=== PATIENT | male | born 1965 | race Caucasian/White ===

== ENCOUNTER 2016-07-14 19:32 | Inpatient (IN) | payer OTHER ==
[~2016-07-14] VITALS: Ht 167.6 cm; Wt 97.5 kg
[~2016-07-14 19:32] MED LIST: ATIVAN0.5 MG PO; AVALIDE 12.5 MG1 TAB PO; DIOVAN 40 MG40 MG PO; DIOVAN80 MG PO; ECOTRIN81 MG PO; FOLIC ACID 1 MG PO; GOOD NEIGHBOR100 M5 PO; K-DUR20 MEQ PO; LIBRIUM25 MG PO; LIPITOR80 MG PO; METOPROLOL SUCC50 M1 PO; NAPROXEN250 MG PO; NEURONTIN300 MG PO; PLAVIX 75MG TAB75 MG PO; POTASSIUM CHLO10 ME2 PO; PROTONIX 40MG T40 MG PO; TOPROL XL 25MG25 MG PO; TRAMADOL50 MG PO; TRAZODONE100 MG PO; VENTOLIN H0.09 MG/Ac INH; [UNRECOGNIZED DRUG - OTHER]
--- NOTE | 2016-07-14 19:47 | NUR ---
PT TO ROOM VIA STRETCHER. PT APPEARS DIAPHORETIC WITH UNCONTROLLED TREMORS. PLACED ON HEART MONITOR.
--- NOTE | 2016-07-14 19:50 | NUR ---
PT HEART [address] AT [address] JOLLY AT BEDSIDE FOR EVAL. RN JESUS BLISS ESTABLISHED 18G IN L AC PT MEDICTAED WITH 4MG ZOFRAN AND 2MG ATIVAN IV. NS BOLUS INFUSING.
--- NOTE | 2016-07-14 19:55 | ED CARDIAC/CP/PALPITATIONS ---
History of Present Illness General Chief Complaint: Chest Pain Stated Complaint: CHEST PAIN, VOMITING ALL DAY PER PT Source: patient Exam Limitations: clinical condition Vital Signs & Intake/Output Vital Signs & Intake/Output Vital Signs Date Time Temp Pulse Resp B/P Pulse O2 O2 Flow FiO2 Ox Delivery Rate 07/15 2031 99.0 110 22 187/86 07/14 2029 99.0 110 22 187/86 95 Nasal 2.0L Cannula 07/15 2023 95 Nasal 2.0L Cannula 07/15 1939 98.2 124 22 216/116 Allergies Coded Allergies: Penicillins (RASH 07/09/15) blueberry (hives, rash 07/14/16) Reconcile Medications Aspirin (Ecotrin*) 81 MG TABLET.DR 1 TAB PO DAILY HEART/BLOOD (Reported) LAST GIVEN 07/18/16 @1130 Atorvastatin Calcium (Lipitor) 80 MG TABLET 1 TAB PO DAILY CHOLESTEROL ( Reported) LAST GIVEN 07/17/16 @1630 Clonidine HCl 0.1 MG TABLET 1 TAB PO Q6H PRN ANXIETY (Reported) NOT GIVEN WHILE IN HOSPITAL Fluoxetine HCl (Prozac) 20 MG CAPSULE 1 CAP PO DAILY MENTAL HEALTH (Reported) PT RECEIVED 40MG QD Fluoxetine HCl 40 MG CAPSULE 1 CAP PO DAILY MENTAL HEALTH (Reported) LAST GIVEN 07/18/16 @1130 Folic Acid 1 MG TABLET 1 TAB PO DAILY SUPPLEMENT (Reported) LAST GIVEN 07/18/16 @1130 Gabapentin 400 MG CAPSULE 4 CAP PO QPM MENTAL HEALTH (Reported) LAST GIVEN 07/17/16 @2120 Hydroxyzine Pamoate 25 MG CAPSULE 1-2 TAB PO AD ANXIETY/INSOMNIA (Reported) NOT TAKEN Hydroxyzine Pamoate 50 MG CAPSULE 1 CAP PO TID PRN ANXIETY (Reported) NOT TAKEN Lorazepam 2 MG/ML VIAL 1 MG IV Q2P PRN CIWA 8-11 OR PULSE 100-110 Lorazepam 2 MG TABLET 1 TAB PO Q4 Alcohol withdrawl Please taper per patient response Lurasidone HCl (Latuda) 40 MG TABLET 1 TAB PO QPM MENTAL HEALTH (Reported) LAST GIVEN 07/18/16 @1130 Meclizine HCl 12.5 MG TABLET 1-2 TAB PO Q8H PRN DIZZINESS (Reported) NOT TAKEN Metoprolol Succ XL (Toprol XL) 25 MG TAB 1 TAB PO BID HEART/BP (Reported) LAST GIVEN 07/18/16 @1130 Multivitamin (One Daily Multivitamin) 1 EACH TABLET 1 TAB PO DAILY Supplement Naproxen 250 MG TABLET 1 TAB PO PRN PAIN/INFLAMMATION (Reported) NOT TAKEN Pantoprazole Sodium (Protonix) 40 MG TABLET.DR 1 TAB PO DAILY Reflux Quetiapine Fumarate (Seroquel) 100 MG TABLET 1.5 TAB PO QPM MENTAL HEALTH ( Reported) LAST GIVEN 07/17/16 @2120 Testosterone Cypionate 200 MG/ML VIAL 0.5 ML IM QFRI HRT (Reported) NOT GIVEN Triage Note: PRESENTS TO TRIAGE W/ CHEST PAIN STATES HAS BEEN VOMITING ALL DAY UNABLE TO TAKE MEDS VOMITING BLOOD AND DIAPHORETIC Triage Nurses Notes Reviewed? yes Onset: Abrupt Duration: day(s): (4) Timing: multiple episodes today Quality/Severity: severe Location: abdomen Radiation: no radiation Activities at Onset: activity Associated Symptoms: abdominal pain, nausea/vomiting, CHEST PAIN HPI: 50 year old alcoholic presents with nauea, vomiting, chest pain and sweating for the past 4 days. He has not been able to hold down any meds since yesterday night. Admits to vomiting blood and having blood per rectum. Past History Travel History Traveled to [place] past 21 day No Medical History Any Pertinent Medical History? 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 No Review of Systems Review of Systems Constitutional: Denies: chills, fever. EENTM: Reports: no symptoms. Respiratory: Denies: cough. Cardiovascular: Reports: chest pain. Denies: palpitations, peripheral edema. GI: Reports: abdominal pain, nausea, vomiting. Genitourinary: Reports: no symptoms. Musculoskeletal: Reports: no symptoms. Skin: Reports: no symptoms. Neurological/Psychological: Reports: anxiety. Denies: confusion, depressed. Hematologic/Endocrine: Denies: bruising, bleeding, polyuria, polydipsia. Immunologic/Allergic: Denies: splenectomy. All Other Systems: Reviewed and Negative Physical Exam Physical Exam General Appearance: well developed/nourished, alert, awake, anxious, moderate distress, obese, DIAPHORETIC Head: atraumatic, normal appearance Eyes: Bilateral: normal appearance, PERRL, EOMI. Ears, Nose, Throat: normal pharynx, normal ENT inspection Neck: normal inspection, supple, full range of motion Respiratory: normal breath sounds, chest non-tender, no respiratory distress Cardiovascular: regular rate/rhythm Peripheral Pulses: 2+ radial (R), 2+ radial (L) Gastrointestinal: soft, tenderness (EPIGASTRIC), VOLUNTARY GUARDING Extremities: normal inspection, normal capillary refill, normal range of motion, no edema Neurologic/Psych: no motor/sensory deficits, awake, alert, oriented x 3 Skin: intact, normal color, warm/dry Core Measures ACS in differential dx? No Severe Sepsis Present: No Septic Shock Present: No Progress Differential Diagnosis: AMI, musculoskeletal pain, myocarditis, pancreatitis, pericarditis, pneumonia, pulmonary embolism, PUD/GERD, unstable angina, ALCOHOLIC GASTRITIS, HEPATITIS, ALCOHOL WITHDRAWAL Plan of Care: Orders Procedure Date/time Status OXYGEN 07/17 UNK Complete OXYGEN DAILY CHARGE 07/17 UNK Complete Diagnostic Imaging: Viewed by Me: Radiology Read, CT Scan. Discussed w/RAD: Radiology Read, CT Scan. CXR Impression: PATIENT: JOHANN MONTGOMERY PRESENT AGE: 50 PATIENT ACCOUNT NO: [id number] : 67 LOCATION: [facility] ORDERING PHYSICIAN: RACHEL JOLLY MD SERVICE DATE: 07/14/16 EXAM TYPE: RAD - XRY-PORTABLE CHEST XRAY EXAMINATION: XR PORTABLE CHEST CLINICAL INFORMATION: Chest pain. Nausea. Diaphoresis. COMPARISON: Chest x-ray 07/26/2015 TECHNIQUE: Portable AP portable view of the chest was obtained. 8:03 PM FINDINGS: No significant abnormality is noted involving the heart, lungs, mediastinum, bony thorax or soft tissues. IMPRESSION: No acute abnormality of the chest. DICTATED BY: SOCO GUARDADO MD DATE/TIME DICTATED:07/14/162017 STATION GATEMAN:ROGE DATE/ TIME TRANSCRIBED:07/14/162017 CONFIDENTIAL, DO NOT COPY WITHOUT APPROPRIATE AUTHORIZATION. <Electronically signed in Other Vendor System> SIGNED BY: SOCO GUARDADO MD 07/14/162021 Initial ED EKG: SINUS TACHYCARDIA Rhythm Strip: sinus tachycardia Comments: PATIENT: JOHANN MONTGOMERY PRESENT AGE: 50 PATIENT ACCOUNT NO: [id number] : 69 LOCATION: [facility] ORDERING PHYSICIAN: RACHEL JOLLY MD SERVICE DATE: 07/14/16 EXAM TYPE: CAT - CT ABD & PELVIS W/O IV CONTRAS EXAMINATION: CT ABDOMEN AND PELVIS WITHOUT CONTRAST CLINICAL INFORMATION: Severe abdominal pain COMPARISON: None TECHNIQUE: Multidetector volumetric imaging was performed from the superior aspect of the liver through the pubic symphysis. Sagittal and coronal reformatted images were obtained on the technologist's workstation. No oral or intravenous contrast DLP: 713.56 mGy-cm FINDINGS: LUNG BASES: The visualized lung bases are unremarkable. LIVER, GALLBLADDER, AND BILIARY TREE: Diffuse low attenuation of liver parenchyma due to fatty change. No focal liver lesion. No hepatic bile duct dilatation. The gallbladder is unremarkable with no evidence of radiopaque gallstones, gallbladder wall thickening, or obvious pericholecystic inflammatory changes. PANCREAS: Unremarkable. SPLEEN: Unremarkable. ADRENAL GLANDS: Unremarkable. KIDNEYS AND URETERS: The kidneys are normal in size, shape, and attenuation. No hydronephrosis, hydroureter, or calculi seen. No perinephric stranding. BLADDER: Unremarkable. GASTROINTESTINAL TRACT: The small and large bowel are unremarkable. The appendix is unremarkable. Small hiatal hernia. ABDOMINAL WALL: Fat-containing umbilical hernia LYMPH NODES: Normal. VASCULAR: Unremarkable. PELVIC VISCERA: Prostate measures 5.4 cm transverse with calcifications. OSSEOUS STRUCTURES: Multilevel degenerative change of the spine with endplate spurs and disc height narrowing. IMPRESSION: No acute abnormality CT scan abdomen pelvis. Normal pancreas. No evidence of pancreatitis. There is diffuse fatty change of the liver. DICTATED BY: SOCO GUARDADO MD DATE/TIME DICTATED:07/14/162041 STATION GATEMAN:ROGE DATE/TIME TRANSCRIBED:07/14/162041 CONFIDENTIAL, DO NOT COPY WITHOUT APPROPRIATE AUTHORIZATION. <Electronically signed in Other Vendor System> SIGNED BY: SOCO GUARDADO MD 07/14/162050 Departure Departure Time of Disposition: 2103 Disposition: STILL A PATIENT Condition: Stable Clinical Impression Primary Impression: Alcohol withdrawal Secondary Impressions: Lactic acidosis Referrals: SHAHNAZ HERNANDEZ MD (PCP/Family) Departure Forms: Customer Survey General Discharge Information Prescriptions: Current Visit Scripts Lorazepam 1 MG IV Q2P PRN CIWA 8-11 OR PULSE 100-110 #1 Vial Lorazepam 1 TAB PO Q4 #1 TAB Please taper per patient response Multivitamin (One Daily Multivitamin) 1 TAB PO DAILY #1 TAB Pantoprazole Sodium (Protonix) 1 TAB PO DAILY #30 TAB Admission Note Spoke With: KINGS MESA MD Documentation of Exam: Documentation of any treatments & extenuating circumstances including Concerns Regarding Discharge (functional status, medication knowledge or non-compliance, living conditions, etc.) that warrant an admission rather than observation: [ CIWA PROTOCOL, SEIZURE PRECAUTIONS, ATIVAN TAPER, MONITOR I/O, MONITOR ELECTROLYTES, PSYCHIATRIC CONSULTATION WHEN SOBER] Critical Care Note Critical Care Note Critical Care Time: 75-104 min
--- NOTE | 2016-07-14 20:04 | NUR ---
XRAY AT BEDSIDE.
--- NOTE | 2016-07-14 20:10 | NUR ---
PT TO CT AND ACCOMPANIED BY DENNYS JOSEPH
[2016-07-14 20:14] LABS: ABSOLUTE BASOPHIL COUNT 0 /CUMM (0.0-0.2); ABSOLUTE EOSINOPHIL COUNT 0 /CUMM (0.0-0.7); ABSOLUTE GRANULOCYTE CT 8.2 /CUMM (1.4-6.5); ABSOLUTE LYMPH COUNT 0.6 /CUMM (1.2-3.4); ABSOLUTE MONOCYTE COUNT 0.4 /CUMM (0.10-0.60); BASOPHIL % 0.3 % (0.0-2.0); EOSINOPHIL % 0 % (0-5); HEMATOCRIT 48.2 % (42-52); MEAN CORPUSCULAR HGB 29.4 PG (27.0-31.0); MEAN CORPUSCULAR HGB CONC 33.1 G/DL (33.0-37.0); MEAN CORPUSCULAR VOLUME 88.7 FL (80.0-94.0); MEAN PLATELET VOLUME 8.7 FL (7.4-10.4); PLATELET COUNT 156 /CUMM (130-400); RBC DISTRIBUTION WIDTH 14.9 % (11.5-14.5); RED BLOOD CELL CT 5.43 /CUMM (4.70-6.10); WHITE BLOOD CELL COUNT 9.3 /CUMM (4.8-10.8)
--- NOTE | 2016-07-14 20:21 | NUR ---
PT RETURNED FROM CAT SCAN AT THIS TIME. SOME TREMORS NOTED. PT REMAINS DIAPHORETIC. HEART RATE 111.
--- NOTE | 2016-07-14 20:22 | RADIOLOGY REPORT ---
EXAMINATION: XR PORTABLE CHEST CLINICAL INFORMATION: Chest pain. Nausea. Diaphoresis. COMPARISON: Chest x-ray 07/26/2015 TECHNIQUE: Portable AP portable view of the chest was obtained. 8:03 PM FINDINGS: No significant abnormality is noted involving the heart, lungs, mediastinum, bony thorax or soft tissues. IMPRESSION: No acute abnormality of the chest.
[2016-07-14 20:28] LABS: GRANULOCYTE % 88.7 % (42.2-75.2)
[2016-07-14] MEDS ORDERED: ASPIRIN EC81 M1 PO (20:30)
[2016-07-14] MEDS ORDERED: TESTOSTERO200 MG/1 M IM (20:31)
[2016-07-14 20:32] VITALS: BP 187/86
[2016-07-14] MEDS ORDERED: GABAPENTIN400 M2 PO (20:33)
[2016-07-14 20:35] LABS: PT 11.2 SEC (9.4-12.5); PTT 25 SEC (25-37)
[2016-07-14] MEDS ORDERED: LIPITOR80 M1 PO (20:36)
[2016-07-14] MEDS ORDERED: NAPROXEN250 M1 PO (20:37)
--- NOTE | 2016-07-14 20:38 | NUR ---
DR JOLLY AT BEDSIDE. PT CONTINUES TO HAVE TREMORS, COMPLAINS OF NAUSEA. HEART 110 AT THIS TIME. CIWA 15.
--- NOTE | 2016-07-14 20:41 | NUR ---
PT MEDICATED WITH ATIVAN 2MG IV AND REGLAN 10MG OVER 2 MINUTES.
[2016-07-14] MEDS ORDERED: SEROQUEL200 M1 PO (20:44)
[2016-07-14] MEDS ORDERED: MINIPRESS5 MG PO (20:45)
[2016-07-14] MEDS ORDERED: PRAZOSIN HCL1 M1 PO (20:46)
[2016-07-14] MEDS ORDERED: TOPROL XL25 M1 PO (20:47)
[2016-07-14] MEDS ORDERED: NALTREXONE HCL50 M1 PO (20:48)
[2016-07-14] MEDS ORDERED: LATUDA40 M1 PO (20:49)
[2016-07-14] MEDS ORDERED: CLONIDINE HCL0.1 MG PO (20:50)
--- NOTE | 2016-07-14 20:51 | NUR ---
CRITICAL TEST RESULTS [id number] JOHANN MONTGOMERY TESTS AND RESULTS: LACTIC 7.8 Results received and read back by: DENNYS CLEMENT Results received date and time: 07/14/162051 The following provider was notified of the results, and read the results back: DR JOLLY Notified date and time: 07/14/16 at 2051
--- NOTE | 2016-07-14 20:51 | CT SCAN REPORT ---
EXAMINATION: CT ABDOMEN AND PELVIS WITHOUT CONTRAST CLINICAL INFORMATION: Severe abdominal pain COMPARISON: None TECHNIQUE: Multidetector volumetric imaging was performed from the superior aspect of the liver through the pubic symphysis. Sagittal and coronal reformatted images were obtained on the technologist's workstation. No oral or intravenous contrast DLP: 713.56 mGy-cm FINDINGS: LUNG BASES: The visualized lung bases are unremarkable. LIVER, GALLBLADDER, AND BILIARY TREE: Diffuse low attenuation of liver parenchyma due to fatty change. No focal liver lesion. No hepatic bile duct dilatation. The gallbladder is unremarkable with no evidence of radiopaque gallstones, gallbladder wall thickening, or obvious pericholecystic inflammatory changes. PANCREAS: Unremarkable. SPLEEN: Unremarkable. ADRENAL GLANDS: Unremarkable. KIDNEYS AND URETERS: The kidneys are normal in size, shape, and attenuation. No hydronephrosis, hydroureter, or calculi seen. No perinephric stranding. BLADDER: Unremarkable. GASTROINTESTINAL TRACT: The small and large bowel are unremarkable. The appendix is unremarkable. Small hiatal hernia. ABDOMINAL WALL: Fat-containing umbilical hernia LYMPH NODES: Normal. VASCULAR: Unremarkable. PELVIC VISCERA: Prostate measures 5.4 cm transverse with calcifications. OSSEOUS STRUCTURES: Multilevel degenerative change of the spine with endplate spurs and disc height narrowing. IMPRESSION: No acute abnormality CT scan abdomen pelvis. Normal pancreas. No evidence of pancreatitis. There is diffuse fatty change of the liver.
[2016-07-14] MEDS ORDERED: PROZAC20 M2 PO (20:53)
[2016-07-14] MEDS ORDERED: FLUOXETINE HCL40 M1 PO (20:55)
[2016-07-14] MEDS ORDERED: FOLIC ACID1 M1 PO (20:55)
[2016-07-14] MEDS ORDERED: MECLIZINE HCL12.5 M1 PO (20:56)
[2016-07-14] MEDS ORDERED: HYDROXYZINE PAM25 M2 PO (20:58)
[2016-07-14] MEDS ORDERED: HYDROXYZINE PAM50 M1 PO (20:59)
[2016-07-14] MEDS ORDERED: VIAGRA50 MG PO (21:00)
--- NOTE | 2016-07-14 21:03 | NUR ---
PT MEDICATED WITH 40MG PROTONIX AND 1000MG OFIRMEV.
--- NOTE | 2016-07-14 21:04 | NUR ---
DR JOLLY AT BEDSIDE.
--- NOTE | 2016-07-14 21:14 | NUR ---
PT MEDICATED WITH GI COCKTAIL, PT TOLERATED WELL. PT MEDICATED WITH 2MG ATIVAN PO. NS LITER #2 INITIATED.
[2016-07-14 21:15] VITALS: BP 174/81
--- NOTE | 2016-07-14 21:39 | NUR ---
PT MEDICATED WITH 25MG LOPRESSOR PO. PT RESTING QUIETLY ON STRETCHER. TREMORS TO A MINIMAL PT DENIES N/V AT THIS TIME.
--- NOTE | 2016-07-14 22:15 | NUR ---
PT MEDICATED WITH ATIVAN 2MG PO. PT STATES HE IS FEELING A LOT BETTER. HEART RATE 88. BP 158/77.
[2016-07-14 22:16] VITALS: BP 158/77
--- NOTE | 2016-07-14 23:04 | NUR ---
REPEAT LACTIC AND URINE TRIO SENT TO LAB.
[2016-07-14 23:18] VITALS: BP 159/76
--- NOTE | 2016-07-14 23:19 | NUR ---
SLIGHT TREMORS NOTED. DR JOLLY AWARE. PT MEDICATED WITH 2MG ATIVAN PO.
--- NOTE | 2016-07-14 23:37 | NUR ---
DR JOLLY AT BEDSIDE.
--- NOTE | 2016-07-15 00:32 | NUR ---
HOUSESTAFF AT BEDSIDE.
[2016-07-15 00:39] VITALS: BP 150/72
--- NOTE | 2016-07-15 00:39 | History & Physical ---
ARCENIO BARRIGA,[facility] 07/15/16 0037: General Information and HPI MD Statement: I have seen and personally examined JOHANN MONTGOMERY and documented this H&P. The patient is a 50 year old M who presented with a patient stated chief complaint of vomiting, and chest pain. Source of Information: patient Exam Limitations: no limitations History of Present Illness: This is a 50-year-old gentleman with a past medical history of CAD including 2 catheterization with no PCI required, and chronic alcoholic abuse with failed multiple sobriety attempts presents with chief complaint of vomiting and chest pain. Patient reports daily alcohol drinking of 2 L of Rum, with last reported drink being on . Patient reports 4 day history of repeated epiosded of vomiting with subsequents epoisodes containing streaks of blood (not able to quantify). Patient also endorsed substernal chest pain with diaphoresis and radiation to bilateral upper extremities. He denies that his chest pain was associated with any shortness of breath or worsened by exertion. Patient also reports transient episodes of diarrhea with some noticeable blood, he does although deny any bright red blood per rectum. Patient states that his symptoms worsened last night and decided to present to the ED. He endorses sick contacts with his kids having some kind of gastroenteritis. Patient denies any fever, chills, cough, dizziness, lightheadedness, neurological deficits, palpitation, shortness of breath, seizure-like activities ,hallucination or dysuria. Also denies any suicidal or homicidal ideation and is requesting detox. Allergies/Medications Allergies: Coded Allergies: Penicillins (RASH 07/09/15) blueberry (hives, rash 07/14/16) Home Med list Aspirin (Ecotrin*) 81 MG TABLET.DR 1 TAB PO DAILY HEART/BLOOD (Reported) Atorvastatin Calcium (Lipitor) 80 MG TABLET 1 TAB PO DAILY CHOLESTEROL ( Reported) Clonidine HCl 0.1 MG TABLET 1 TAB PO Q6H PRN ANXIETY (Reported) Fluoxetine HCl (Prozac) 20 MG CAPSULE 1 CAP PO DAILY MENTAL HEALTH (Reported) Fluoxetine HCl 40 MG CAPSULE 1 CAP PO DAILY MENTAL HEALTH (Reported) Folic Acid 1 MG TABLET 1 TAB PO DAILY SUPPLEMENT (Reported) Gabapentin 400 MG CAPSULE 4 CAP PO QPM MENTAL HEALTH (Reported) Hydroxyzine Pamoate 25 MG CAPSULE 1-2 TAB PO AD ANXIETY/INSOMNIA (Reported) Hydroxyzine Pamoate 50 MG CAPSULE 1 CAP PO TID PRN ANXIETY (Reported) Lurasidone HCl (Latuda) 40 MG TABLET 1 TAB PO QPM MENTAL HEALTH (Reported) Meclizine HCl 12.5 MG TABLET 1-2 TAB PO Q8H PRN DIZZINESS (Reported) Metoprolol Succ XL (Toprol XL) 25 MG TAB 1 TAB PO BID HEART/BP (Reported) Naltrexone HCl 50 MG TABLET 1 TAB PO DAILY ALCOHOL (Reported) Naproxen 250 MG TABLET 1 TAB PO PRN PAIN/INFLAMMATION (Reported) Prazosin HCl (Minipress) 5 MG CAPSULE 1 CAP PO QPM PTSD (Reported) Prazosin HCl 1 MG CAPSULE 1 CAP PO QPM PTSD (Reported) Quetiapine Fumarate (Seroquel) 100 MG TABLET 1.5 TAB PO QPM MENTAL HEALTH ( Reported) Sildenafil Citrate (Viagra) 50 MG TABLET 1 TAB PO AD PRN ED (Reported) 1 hour before sexual activity Testosterone Cypionate 200 MG/ML VIAL 0.5 ML IM QFRI HRT (Reported) Past History Travel History Traveled to [place] past 21 day No Medical History Neurological: NONE EENT: SINUS PROBLEMS Cardiovascular: CAD, hypertension, NSTEMI, STEMI Respiratory: BRONCHITIS OCCASIONAL Gastrointestinal: pancreatitis, Fatty liver disease Hepatic: ELEVATED LFT'S Renal: NONE Musculoskeletal: NONE Psychiatric: alcohol dependence, anxiety, depression, PTSD Endocrine: NONE Blood Disorders: NONE Cancer(s): NONE TRANSITIONAL CARE NURSE/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: NONE History of MRSA: No History of VRE: No History of CDIFF: No Pneumonia Vaccine: 05/29/15 Influenza Vaccine: 05/18/15 Surgical History Surgical History: N Past Family/Social History Family History Relations & Conditions if any Relation not specified for: *No pertinent family history Psychosocial History Who Do You Live With? spouse Primary Language: Bulgarian ETOH Use: heavy use Illicit Drug Use: denies illicit drug use Functional Ability ADLs Independent: dressing, eating, toileting, bathing. Ambulation: independent IADLs Independent: shopping, housework, finances, food prep, telephone, transportation , medication admin. Review of Systems Review of Systems Constitutional: Reports: see HPI. EENTM: Reports: no symptoms. Cardiovascular: Reports: see HPI. Respiratory: Reports: no symptoms. GI: Reports: see HPI. Genitourinary: Reports: no symptoms. Musculoskeletal: Reports: no symptoms. Skin: Reports: no symptoms. Neurological/Psychological: Reports: no symptoms. Hematologic/Endocrine: Reports: no symptoms. Immunologic/Allergic: Reports: no symptoms. Exam & Diagnostic Data Last 24 Hrs of Vital Signs/I&O Vital Signs Date Time Temp Pulse Resp B/P Pulse O2 O2 Flow FiO2 Ox Delivery Rate 07/15 0205 98.0 85 18 164/82 95 Nasal 2.0L Cannula 07/15 0204 98.0 85 18 164/82 07/15 0040 99.0 86 18 150/72 95 Nasal 2.0L Cannula 07/15 0039 99.0 86 18 150/72 07/14 2318 98.5 89 20 159/76 07/14 2318 98.5 89 20 159/76 95 Nasal 2.0L Cannula 07/14 2216 98.4 85 18 158/77 07/14 2216 98.4 85 18 158/77 95 Nasal 2.0L Cannula 07/14 2139 99.2 112 20 174/81 07/14 2118 99.2 112 20 174/81 95 Nasal 2.0L Cannula 07/145 99.2 112 20 174/81 07/14 2032 99.0 110 22 187/86 07/14 2030 99.0 110 22 187/86 95 Nasal 2.0L Cannula 07/14 2024 95 Nasal 2.0L Cannula 07/14 1940 98.2 124 22 216/116 Intake & Output 07/15 0800 07/15 0000 07/14 1600 Intake Total 2000 1000 Output Total 600 Balance 1400 1000 Intake, IV 2000 1000 Output, Urine 600 Patient 97.522 kg Weight Physical Exam General Appearance Alert, Oriented X3, Cooperative Skin erythematous facial areas HEENT Atraumatic, PERRLA, EOMI, dry oral mucosa Neck Supple, No JVD, No thryomegaly, +2 Carotid Pulse wo Bruit Lymphatic Cervical nl Cardiovascular Regular Rate, Normal S1, No Murmurs, Gallops, Rubs Lungs Clear to Auscultation Abdomen Normal Bowel Sounds, RUQ Neurological Normal Speech, Strength at 5/5 X4 Ext, Sensation Intact Extremities No Cyanosis, No Edema, Normal Pulses, No Tenderness/Swelling Vascular Pulses Symmetrical Assessment/Plan Assessment: This is a 50-year-old gentleman with an extensive past medical history of chronic alcohol abuse, and cardiac history of CAD presents with signs and symptoms suggestive of alcohol withdrawal. Assessment and plan #Chest pain Patient does have history of CAD including 2 episodes of catheterization without PCI stent placement for non-STEMI. ACS was noted to be ruled out. Most likely cause of patient's chest pain with vomiting is the alcohol withdrawal. Plan Will trend serial troponins and EKG Will continue metoprolol atorvastatin and aspirin for CAD #Gastroenteritis Repeated episodes of hematemesis and diarrhea mixed with some blood. In the setting of chronic alcohol use will need to consider gastritis versus Ro tear versus less likley variceal bleeding. Plan PPI prophylaxis with Protonix Will avoid any NSAIDs Will trend CBC Will obtain GI consult #Bilirubinemia Most likely secondary to repeated vomiting setting of alcohol intoxication. Plan Will trend bilirubin the morning Will obtain right upper quadrant ultrasound #History of PTSD Will continue prazosin As Ranked By This Provider Problem List: 1. Alcohol dependence Core Measures/Miscellaneous Acute Coronary Syndrome ACS Diagnosis: No Cerebrovascular Accident CVA/TIA Diagnosis: No Congestive Heart Failure CHF Diagnosis: No Venous Thromboembolism VTE Risk Factors: Age > 40 No Mech VTE prophylaxis d/t: No contraindications No VTE Pharm Prophylaxis d/t: No contraindications VTE Diagnosis: No VTE Type: NONE VTE Confirmed by (Test): NONE Severe Sepsis Severe Sepsis Present: No Septic Shock Septic Shock Present: No Miscellaneous Documentation Attending Case Discussed With: KINGS MESA MD Primary Care Physician: SHAHNAZ HERNANDEZ MD Patient sees these Specialists .. Level of Patient Care: General Medicine JUAN JACOBO 07/15/16 0110: Resident Review Statement Resident Statement: examined this patient, discussed with graduate intern Other Findings: Patient is a 50-year-old gentleman with significant past medical history of alcohol abuse, coronary artery disease NC at the age of 42, history of PTSD presented to the ED for the evaluation of chest discomfort with vomiting and alcohol detox. Patient mentioned that he has been drinking heavily for the last 4 weeks due to social and family issues, and drinks 2 L of hard liquor, trying to cut down. His last drink was on . Patient mentioned that he started having nausea last night. Started vomiting in the morning, with blood in the vomitus, is associated with substernal chest discomfort with sweating. Also reported severe shivering and came to the ER for further evaluation. In the ED he was scoring high on the CIWA scores(scored more on the tremors and sweating) received IV Ativan with Reglan. Of the note, he reported his children were sick with viral gastroenteritis, he also got sick in the last week. Vital examination temperature 98.5, respiratory rate 20, blood pressure 158/77 on 2 L. Appearance: Alert and oriented 3, mild to moderate distress Skin: Grossly normal. Eczema on the face extending to the neck HEENT: PEERLA Neck: Supple, No JVD Cardiovascular: Regular Rate, Normal S1, Normal S2, No Murmurs Lungs: Lungs clear to auscultation bilaterally Abdomen: Normal bowel sounds without any tenderness Neurological: Neuro exam intact grossly Extremities: No swelling or edema bilaterally in lower extremities, bilateral hand tremors. Vascular: Normal Pulses. Pertinent labs: WBC count: Normal, H&H stable, elevated anion gap 30, elevated total bilirubin: 2.5 with direct 1.2 normal LFTs and elevated CK 247 Urine toxicology showed a serum alcohol level of [address] abdomen and pelvis:No acute abnormality CT scan abdomen pelvis. Normal pancreas. No evidence of pancreatitis. There is diffuse fatty change of the liver. Chest x-ray :No acute abnormality of the chest. Assessment and plan: 1. Alcohol abuse with withdrawal with severe dehydration(Elevated hematocrit, calcium and albumin and anion gap) * Admit the patient [facility] floor * We'll start the patient on scheduled Librium 25 mg twice a day * Continue Ativan as per CIPA protocol * Will repeat BEP now. * Aggressive hydration 200 mL per hour normal saline 1 bag and is instructed and afterwards start the patient on normal saline at the rate of 150 mL per hour. * Give by mouth thiamine 200 mg with folic acid now. * Check magnesium and phosphorous levels, and replete the electrolytes as needed. * Banana bag in the morning. * Zofran as needed for nausea * Start the patient on thiamine folate and vitamin B12 multivitamins once before and it improves * Social and psych consult in the morning. 2. Substernal chest discomfort and vomiting, with a history of coronary artery disease rule out any underlying acute coronary syndrome/alcohol related gastritis * We will do serial troponin and EKG to rule out any underlying ACS * Continue aspirin and statin and metoprolol. * Patient received GI cocktail in the ED, start the patient on on PPI. * Do type and screen and check guaiac stools and obtain GI consult in the morning for further evaluation of GI bleed/alcohol related gastritis 3. Elevated total and direct bilirubin(rule out any underlying biliary disease/ Severe vomiting): * Will do a limited ultrasound of the abdomen. * Repeat bilirubin in the morning. 4 History of oronary artery disease with hypertension and hyperlipidemia * Continue meds from the morning. 5. History of PTSD: * Continue Seroquel, fluoxetine gabapentin, Atarax. * Hold clonidine and naltrexone. And chest * Continue prazosin Mild to moderate pain controlled with Tylenol with low-dose morphine DVT prophylaxis with subcutaneous Lovenox Full code KINGS MESA 07/15/16 0635: Attending MD Review Statement Attending Statement Attending MD Statement: examined this patient, discuss w/resident/PA/VIDEO GAME DESIGNER, agreed w/resident/PA/VIDEO GAME DESIGNER, reviewed EMR data (avail), reviewed images, amended to note Attending Assessment/Plan: CC: Nausea, vomiting, epigastric pain, chest pain PMH : CAD S/P cardiac cath 2 times without stent, HTN, alcoholism, pancreatitis, PE, diastolic heart failure, peripheral neuropathy Patient came with multiple vomitings, nausea since last 4 days, today had streaks of blood in vomiting after recurrent vomitings, had 2 watery stools which were black in color. Epigastric pain, chest pain, nonradiating, present at rest. Extensive alcohol history. Vitals: T max 99.2, tachycardic, tachypneic, hypertensive BP at presentation 216 /116 trended down to 158/77, saturating well on room air. On examination: A O 3 , the redness on the face arms secondary to eczema, neck supple, no JVD, no lymphadenopathy, anxious, tremulous, mucosa dry, CVS: S1-S2, RRR., RS: Clear to auscultate bilaterally. Abdomen: Soft, and T, NT, bowel sounds present. No pitting edema, no focal neurological deficit. Labs: Hemoglobin 16.0, WBC 9.3 with neutrophils 88%, INR 1.07, bicarbonate 12, anion gap 30, calcium 10.5, lactate 7.8, bilirubin 2.5, CK 247, albumin 5.7, troponin less than 0.01, lipase 165 CXR: No acute abnormality CT abdomen and pelvis without IV contrast:No acute abnormality CT scan abdomen pelvis. Normal pancreas. No evidence of pancreatitis. There is diffuse fatty change of the liver. EKG: NSR A and P #1 severe alcohol withdrawal: tachycardic, tachypneic, hypertensive, anion gap acidosis, hemoconcentrated, mucosa extremely dry. Continue scheduled Librium NT 5 mg by mouth twice a day, when necessary IV Ativan according to CIWA protocol, by mouth thiamine, by mouth folic acid, check magnesium phosphorus, replace electrolytes, continue aggressive IV hydration with normal saline 150- 200 mL per hour # 2 recurrent vomiting, with some streaks of blood in vomiting today: No history of cirrhosis, INR 1.07, albumin 5.7, associated black colored stools today. Continue when necessary Zofran, continue IV PPI, aggressive hydration, type and screen, trend H&H, GI consult in a.m. for the GI bleed. Transfuse if hemoglobin less than 8 #3 patient has SIRS criteria positive for lactic acidosis but this is secondary to alcoholism and alcohol withdrawal. No obvious source of infection, aggressive hydration, lactate trending down #4 history of CAD: Trend troponins, serial EKGs , continue aspirin #5 patient is mildly elevated bilirubin, transaminases normal, no right upper quadrant tenderness, limited right upper quadrant ultrasound to rule out any obstruction. #6 patient is on multiple medications: Appears to be compliant with all the medications, will need psychiatry consult and medication adjustment, continue clonidine, fluoxetine, Seroquel, Lauda, naltrexone #7 HTN: Continue valsartan and metoprolol
--- NOTE | 2016-07-15 00:48 | NUR ---
PT CIWA 7. TREMORS NOTED, PT COMPLAINS OF NAUSEA AND HEADACHE. MD NOTIFIED. WILL CONTINUE TO MONITOR.
--- NOTE | 2016-07-15 01:00 | NUR ---
PT MEDICATED WITH 2MG ATIVAN PO AND 10MG REGLAN IV. WILL CONTINUE TO MONITOR.
--- NOTE | 2016-07-15 01:50 | NUR ---
PT GOING TO ROOM 229-1
--- NOTE | 2016-07-15 01:52 | NUR ---
SST X2 SENT TO LAB.
--- NOTE | 2016-07-15 01:58 | NUR ---
REPORT GIVEN TO VANCE 0Ingrid 2NA. BED IS READY FOR PT.
[2016-07-15 02:04] VITALS: BP 164/82
--- NOTE | 2016-07-15 02:26 | NUR ---
EKG DONE AND SHOWN TO DR. MESA.
--- NOTE | 2016-07-15 02:32 | NUR ---
PT ALERT AND ORIENTED. DENIES HALLUCINATIONS. MINIMAL TREMORS NOTED, PT DENIES N/V.
[2016-07-15 03:00] VITALS: BP 134/86
--- NOTE | 2016-07-15 06:38 | Admission Certification ---
Admission Certification Certification Statement - As attending physician, I certify that at the time of - admission, based on clinical presentation, severity of - symptoms, need for further diagnostic testing and - therapeutic interventions, and risk of adverse outcomes - without in-hospital treatment, in my clinical assessment, - this patient requires an acute hospital stay for a minimum - of two nights or longer. I have also considered psychsocial - factors such as support system, advanced age, financial - issues, cognitive issues, and failed out-patient treatments, - past re-admission history, safety of patient, and lack of - compliance as applicable. Specific rationale supporting this admission is: GI bleed, recurrent vomitings, alcohol withdrawal
--- NOTE | 2016-07-15 10:20 | ULTRASOUND REPORT ---
EXAMINATION: US ABDOMEN LIMITED CLINICAL INFORMATION: Right upper quadrant pain. Elevated bilirubin.. COMPARISON: CT abdomen pelvis 07/14/2016 TECHNIQUE: Real-time imaging of the right upper quadrant abdominal viscera. Examination limited secondary to overlying bowel gas. FINDINGS: PANCREAS: Overlying bowel gas limits visualization and therefore evaluation of the pancreas. LIVER: The liver is mildly enlarged. Diffusely increased liver echogenicity is most suggestive of hepatic steatosis. Normal liver contour. 1.8 cm hypoechoic, avascular structure within the left hepatic lobe is most suggestive of a cyst. 1 cm hypoechoic, avascular structure within the right hepatic lobe is also most suggestive of a cyst. GALLBLADDER: The gallbladder is physiologically distended without evidence of stones, sludge, polyps, wall thickening or pericholecystic fluid. Negative sonographic Contreras's sign. COMMON BILE DUCT: Normal in caliber measuring 0.4 cm in diameter. RIGHT KIDNEY: No hydronephrosis. No renal calculi or focal parenchymal lesions. The kidney measures 13.1 cm in maximum dimension. FREE FLUID: None. IMPRESSION: Mildly enlarged liver demonstrating diffusely decreased echogenicity suggesting hepatic steatosis. A few small liver cysts are also demonstrated.
--- NOTE | 2016-07-15 11:03 | PN- Housestaff ---
ISSAC BARRIGA,VICTOR M 07/15/16 1103: Subjective Follow-up For: alcohol detox Subjective: patient is doing well complains of being hungry and asking for nutrition. Review of Systems Constitutional: Reports: see HPI. Objective Last 24 Hrs of Vital Signs/I&O Vital Signs Date Time Temp Pulse Resp B/P Pulse O2 O2 Flow FiO2 Ox Delivery Rate 07/15 0905 87 130/70 07/15 0300 97.9 64 16 134/86 07/15 0300 97.9 64 16 134/86 96 Nasal 1.0L Cannula 07/15 0300 96 Nasal 1.0L Cannula 07/15 0205 98.0 85 18 164/82 95 Nasal 2.0L Cannula 07/15 0204 98.0 85 18 164/82 07/15 0040 99.0 86 18 150/72 95 Nasal 2.0L Cannula 07/15 0039 99.0 86 18 150/72 07/14 2318 98.5 89 20 159/76 07/14 2318 98.5 89 20 159/76 95 Nasal 2.0L Cannula 07/14 2216 98.4 85 18 158/77 07/14 2216 98.4 85 18 158/77 95 Nasal 2.0L Cannula 07/149 99.2 112 20 174/81 07/14 2117 99.2 112 20 174/81 95 Nasal 2.0L Cannula 07/14 2114 99.2 112 20 174/81 07/15 2031 99.0 110 22 187/86 07/14 2030 99.0 110 22 187/86 95 Nasal 2.0L Cannula 07/15 2023 95 Nasal 2.0L Cannula 07/14 1940 98.2 124 22 216/116 Intake & Output 07/15 1600 07/15 0800 07/15 0000 Intake Total 2800 1000 Output Total 600 Balance 2200 1000 Intake, IV 2400 1000 Intake, Oral 400 Number 0 Bowel Movements Output, Urine 600 Patient 215 lb 215 lb Weight Physical Exam General Appearance: Alert, Oriented X3 Skin: No Rashes, No Breakdown HEENT: Atraumatic, PERRLA Neck: Supple, No JVD Lymphatic: Axillary nl, Cervical nl Cardiovascular: Normal S1, Normal S2 Assessment/Plan Assessment: This is a 50-year-old male with a past medical history of alcohol abuse, who is currently being admitted in the hospital for alcohol detox. The patient initially complained of vomiting which was mixed with blood and was thought to be secondary to alcohol-induced gastroenteritis Assessment 1. Acute alcohol withdrawal 2. Acute alcohol 3 alcohol-induced gastritis 4.history of CAD Plan: c/w Po ativan 2mg PO Q6 and ativan PRN CBC and BEP to be repeated Continue clear liquid diet until seen by gastroenterology I spoke to Dr diaz and updated him about patients condition. I reasssured this was a routine consult and he would see the patinet in am.Will c/w Clear liquids at this point. Continue with all other home medications Due to prophylaxis with Alps due to hematemesis Patient is full code Problem List: 1. Alcohol withdrawal 2. Atypical chest pain Pain Ratin Pain Location: epigartic Pain Goal: Remain pain free Pain Plan: po tylenol Tomorrow's Labs & Rationales: nikky MODI MD,TONY 07/15/16 1125: Attending MD Review Statement Attending Statement Attending MD Statement: examined this patient, discuss w/resident/PA/BRAKE REPAIRER AIR, agreed w/resident/PA/BRAKE REPAIRER AIR, reviewed EMR data (avail), discussed with nursing, discussed with case mgmt, amended to note Attending Assessment/Plan: Patient seen and examined. Lying in bed. Mildly agitated. He is requested to to regular diet. Denies any nausea or vomiting presently. He is currently hemodynamically stable. He is no longer tachycardic. On examination he is not diaphoretic. He is mildly tremulous. He has no jugular venous distention. Heart sounds are regular. Lungs are clear to auscultation bilaterally. Abdomen is obese, soft with mild epigastric tenderness. There is no rebound or guarding. Bowel sounds are normal. He has no peripheral edema. He has no stigmata of chronic liver disease on examination. Recommendations: -Acute coronary syndrome has been ruled out with negative cardiac enzymes.. He denies any chest pain. He complains more of epigastric discomfort. -Epigastric pain is likely secondary to gastritis. He has no laboratory or radiologic evidence of pancreatitis. -Continue PPI therapy intravenously. -Repeat H&H this morning to ensure stability. Obtain gastroenterology consultation given his guaiac-positive stools and reports of vomiting blood. -Keep patient on clear liquid diet until evaluation by the gastroenterology service. -Continue his cardiac regimen including aspirin unless otherwise recommended by the gastroenterology service. -Anticipate drop in his hemoglobin level following IV hydration as he appeared hemoconcentrated on admission. Addendum: Patient CIWA continues to be high. He has received total of 9 mg of Ativan IV so far today. He was initially admitted and placed on Librium 25 mg orally twice daily. His dose was changed to 50 mg every 6 hours. He is yet to receive any oral benzodiazepine therapy so far today. Recommendations: -Change standing dose of benzodiazepine to Ativan 2 mg orally every 4 hours [id number]. -If his CIWA continues to be high and patient continues to require significant doses of when necessary Ativan, would recommend transfer to the intensive care unit for Ativan infusion and close monitoring.
[2016-07-15 14:05] LABS: ABSOLUTE BASOPHIL COUNT 0 /CUMM (0.0-0.2); ABSOLUTE EOSINOPHIL COUNT 0 /CUMM (0.0-0.7); ABSOLUTE GRANULOCYTE CT 4.6 /CUMM (1.4-6.5); ABSOLUTE LYMPH COUNT 0.7 /CUMM (1.2-3.4); ABSOLUTE MONOCYTE COUNT 0.4 /CUMM (0.10-0.60); BASOPHIL % 0.5 % (0.0-2.0); EOSINOPHIL % 0.2 % (0-5); GRANULOCYTE % 80.3 % (42.2-75.2); HEMATOCRIT 43.5 % (42-52); MEAN CORPUSCULAR HGB 29.1 PG (27.0-31.0); MEAN CORPUSCULAR HGB CONC 33.1 G/DL (33.0-37.0); MEAN PLATELET VOLUME 8.4 FL (7.4-10.4); PLATELET COUNT 115 /CUMM (130-400); RBC DISTRIBUTION WIDTH 15.2 % (11.5-14.5); RED BLOOD CELL CT 4.95 /CUMM (4.70-6.10); WHITE BLOOD CELL COUNT 5.8 /CUMM (4.8-10.8)
[2016-07-15 14:33] VITALS: BP 135/72
--- NOTE | 2016-07-15 16:15 | NUR ---
Referral received from Shady Peñaloza from Psychiatry to see patient for interest/motivation in a after hospital substance abuse treatment. Attempted to visit the patient who was actively vomiting. Will see patient again as condition becomes more stable.
--- NOTE | 2016-07-15 18:00 | Event Note ---
Event Note Event Note: I was paged by the RN that patient was scoring high on CIWA and was having auditory hallucinations. The patient received 9 mg of IV Ativan in the last 1 hours and was scoring at a CIWA of 31. The nursing staff were uncomfortable in managing the patient's DTs. I assess the patient, and confirm the findings of having auditory hallucinations. Considering the patient was having delirium tremens secondary to call detox we will transfer the patient to ICU with a low threshold to start on IV Ativan drip I have updated the patient and its findings and the above plan for the transfer to ICU with ICU resident and Hospitalist major donor coordinator.
--- NOTE | 2016-07-15 18:20 | Event Note ---
Event Note Event Note: Paged and called by nurse conchita patient is hallucinating despite having received 3mg of Ativan. Examind the patient. He was not orioented. Hsi CIWA scores were 31. Discussed with my attending Dr. Jane, and trasnferred to the ICU for Ativanb drip. Notified and signed out to the ICU team.
[2016-07-15 20:00] VITALS: BP 190/88
--- NOTE | 2016-07-15 22:20 | NUR ---
PT TRANSFER FROM VIA STRETCHER AND PLACED ON CONT MONITOR WITH NO ISSUES.PLACED ON BED.PT A/O X2.ANXIOUS AT TIMES AND CIWA AT 20 AND ATIVAN IVP GIVEN WITH MIN EFFECT. DR. AQUINO MADE AWARE.ATIVAN GTT INITIATED AND TITRATED. RESTLESS AT TIMES AND RESTRAINTS APPLIED WITH +cMS. AFEBRILE.HOB ELEVATED. ERNST PO WELL.INCONTINENT AT TIMES. PLAN OF CARE REVIEWED.
--- NOTE | 2016-07-15 22:26 | NUR ---
PT WAS TRANSFERED [facility] AT 7:00 PM. PT WAS ON CIWA PROTOCOL. ORIGINALLY PT WAS ON LIBRIUM PO TAPER AND WAS CHANGED TO PO ATIVAN HE BEGAN TO SCORE HIGHER. PT WAS AGITATED, HALLUCINATING, AND VOMITTING AT TIMES. MULTIPLE DOSES OF IV ATIVAN PRN WERE GIVING THROUGHOUT THE DAY. PT WAS TRANSFERED TO ICU. CONTINUE TO MONITOR.
--- NOTE | 2016-07-15 23:30 | NUR ---
AVSS.FOLLOW COMMANDS.PHAN WITH +CMS.IVF CONT VIA PIV SITE. NGT TO LWS.PAIN MGT CONT VIA PIV SITE.LCTA.GARCIA PATENT WITH GOOD UO.ABD INCISION CDI. BRANDYN PATENT. ABD INCISION CDI
[2016-07-16] VITALS (13 sets, daily range): BP systolic 115–180; BP diastolic 58–100
[2016-07-16 06:45] LABS: ABSOLUTE BASOPHIL COUNT 0 /CUMM (0.0-0.2); ABSOLUTE EOSINOPHIL COUNT 0.1 /CUMM (0.0-0.7); ABSOLUTE GRANULOCYTE CT 2.2 /CUMM (1.4-6.5); ABSOLUTE LYMPH COUNT 0.9 /CUMM (1.2-3.4); ABSOLUTE MONOCYTE COUNT 0.3 /CUMM (0.10-0.60); BASOPHIL % 0.4 % (0.0-2.0); EOSINOPHIL % 1.5 % (0-5); GRANULOCYTE % 63.2 % (42.2-75.2); HEMATOCRIT 41.4 % (42-52); MEAN CORPUSCULAR HGB 29.4 PG (27.0-31.0); MEAN CORPUSCULAR HGB CONC 33.4 G/DL (33.0-37.0); MEAN CORPUSCULAR VOLUME 88.2 FL (80.0-94.0); MEAN PLATELET VOLUME 8.4 FL (7.4-10.4); PLATELET COUNT 101 /CUMM (130-400); RBC DISTRIBUTION WIDTH 15.3 % (11.5-14.5); WHITE BLOOD CELL COUNT 3.5 /CUMM (4.8-10.8)
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
--- NOTE | 2016-07-16 07:24 | PN- Housestaff ---
Assessment/Plan Assessment: This is a 50-year-old male with a past medical history of alcohol abuse, who is currently being admitted in the hospital for alcohol detox. The patient initially complained of vomiting which was mixed with blood and was thought to be secondary to alcohol-induced gastroenteritis Assessment 1. Acute alcohol withdrawal 2. Acute alcohol 3 alcohol-induced gastritis 4.history of CAD Plan: c/w Po ativan 2mg PO Q6 and ativan PRN CBC and BEP to be repeated Continue clear liquid diet until seen by gastroenterology I spoke to Dr diaz and updated him about patients condition. I reasssured this was a routine consult and he would see the patinet in am.Will c/w Clear liquids at this point. Continue with all other home medications Due to prophylaxis with Alps due to hematemesis Patient is full code
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
[2016-07-17] VITALS (12 sets, daily range): BP systolic 123–191; BP diastolic 58–100
[2016-07-17 05:40] LABS: HEMATOCRIT 41.2 % (42-52); MEAN CORPUSCULAR HGB 29.7 PG (27.0-31.0); MEAN CORPUSCULAR HGB CONC 33.3 G/DL (33.0-37.0); MEAN CORPUSCULAR VOLUME 89.2 FL (80.0-94.0); MEAN PLATELET VOLUME 9.1 FL (7.4-10.4); PLATELET COUNT 98 /CUMM (130-400); RBC DISTRIBUTION WIDTH 15.3 % (11.5-14.5); RED BLOOD CELL CT 4.61 /CUMM (4.70-6.10)
--- NOTE | 2016-07-17 07:25 | PN- Resident CRCU ---
Subjective HPI/CRCU Issues: Patient seen and examined this morning, he was lying in bed in acute distress. Of Ativan drip, has started scheduled Ativan by mouth along with keeping IV Ativan as per CIWA protocol. Continues to have tremors, but denies any hallucinations. Has been afebrile, is complaining of atypical chest pain, EKG and troponins have been negative for any acute findings. Objective Vital Signs & I&O Last 8 Hrs of Vitals and I&O: . Exam General Appearance: well developed/nourished Current Medications: . Impression/Plan Impression/Problem List Impression: This is a 50-year-old gentleman with a past medical history of hypertension, hyperlipidemia, CAD including 2 catheterization with no PCI required, anxiety, depression, PTSD, and chronic alcoholic abuse with failed multiple sobriety attempts presents, currently drinking almost 2 L of rum daily with chief complaint of multiple episodes of nausea & vomiting which later was blood- streaked, no miguel hemoptysis. Upon presentation he was also complaining of atypical substernal chest pain, transient diarrhea but no blood in stool. Patient denies any fever, chills, cough, dizziness, lightheadedness, neurological deficits, palpitation, shortness of breath, seizure-like activities ,hallucination or dysuria. Also denies any suicidal or homicidal ideation and is requesting detox. Vitals upon presentation temperature 98.2, pulse 124, respiratory 22, blood pressure 216/116, satting mid 90s on 2 L nasal cannula oxygen He was found to have guaiac-positive stools upon admission, he was somewhat concentrated upon admission hemoglobin 16 from baseline of 13, he received IV fluids and his hemoglobin was back to baseline. He was admitted for alcohol detox and further evaluation of his symptoms. The patient was transferred to the ICU (07/15) as patient was getting severely agitated trying to pull out his IV lines, scoring-CIWA, and requiring high amounts of Ativan. We are currently managing the patient for the following conditions: Respiratory: No issues, satting in high 90s on 2 L of nasal cannula oxygen. Infectious disease: No issues, afebrile, awake and stable. Cardiovascular: History of coronary artery disease: Will continue Ecotrin 1 mg daily. History of hypertension: Systolic blood pressure ranging between 150-141 mmHg. We'll continue home dose of metoprolol 25 mg by mouth twice a day History of hyperlipidemia: Continue home dose of Lipitor 80 mg daily,. Hematology: H&H stable, no witnessed hematemesis, guaiac-positive stools for which gastroenterology on board, will follow-up recommendations. Gastroenterology: Alcohol-induced gastritis: Patient initially presented with nausea vomiting later episodes being blood streaked denied hemoptysis, H&H has been stable, no repeated episodes of vomiting. Prophylaxis with PPI GI on board, with follow-up recommendations. 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 Diet: Currently on clear liquid and advance as tolerated. DVT prophylaxis with Alps Patient is full code. Problem List: 1. Alcohol dependence Pain Ratin Tomorrow's Labs & Rationales: bep cbc Plan DVT/Prophylaxis: mechanical
--- NOTE | 2016-07-17 07:55 | PN- Gastroenterology ---
Assessment/Plan Assessment/Recommendations: (*Patient sedated for EtOH withdrawal & unable to give any meaningful history. Chart reviewed). 50-year-old male, HTN/HLD/pre-DM/ASHD post cardiac catheterization 2 (no PCI required- EKG: NSR, age indeterminate IWMI, without change)/NSTEMI, history of chronic EtOH, having failed multiple sobriety attempts, actively drinking up until admission, reportedly 2L rum daily, with fatty liver. Additionally, history of pancreatitis, anxiety, depression, & PTSD According to the chart, the patient had a 4 day history of multiple episodes of nausea & vomiting, & retching, the latter episodes containing a few streaks of blood (unable to qualify or quantify). He was not hypotensive and had an exceptionally stable hematocrit. In fact, he was hemoconcentrated. His initial hemoglobin was 16 ( baseline Hgb 13-14), as drifted down mildly as expected, to his baseline, after IV hydration. He apparently also had some vague chronic substernal chest discomfort at that time, with diaphoresis and radiation to the upper extremities bilaterally. There was no exertional or pleuritic component. There was no hemoptysis. He also had some transient diarrhea, and some possible scant rectal bleeding, associated with the diarrhea. There was no melena or spontaneous lower GI bleeding. Of note, his children apparently had a gastroenteritis recently. He was requesting detox upon arrival to the [place] ER. He denied any seizures, fevers, chills, jaundice, urine, or light stool, though he may have had seizures in the past, related to EtOH. He denied any SI or HI. However , he was on Ecotrin 81 mg daily, plus questionable Naproxen as an outpatient. * No further history is available from the patient, based on his current clinical condition. *The patient was transferred to the ICU early this morning, on 07/16, because of CIWA 31, active DTs, hallucinations & agitation, pulling out his IV lines, despite IV Ativan. He is now sedated, on an IV Ativan drip. * There has been absolutely no witnessed hematemesis at all, since admission. His stools on admission were reportedly brown, OB positive. Imaging studies are not consistent with cirrhosis. (I am not certain if the patient ever had EGD or colonoscopy). Family history is unobtainable. 04/16/2015: *Hep A Ab, hep Bs Ag, hep C Ab, Hep B core Ab- all negative. 07/14/2016: *Admission [EtOH]- 21, with Utox- negative. *Troponin- negative x 3 sets. 07/14/2016: Admission labs- WBC 9.3, H/H 16/48.2, MCV 88.7, RDW 14.9, PLT 156, PT 11.2, INR 1.07, PTT 25, glucose 130, BUN/Cr 8/0.9, GFR > 60, Na 137, K 4.7, HCO3 12, AG 30, lipase 165, Mg 1.6, PO4 3.7, Ca2+ 10.5, albumin 5.7, globulin 3.4, TBil 2.5, DBil 1.2, alk phos 85, AST 57, ALT 46, TChol 258, CK 247, troponin < .01, lactate 7.8 (1.7); U/A- clear, yellow, SG > 1.030, 6.0, ketone > 80, mod Hgb, 100+ protein, neg bili, urobilin 0.2, neg nitrite, neg esterase. 07/15/2016: WBC 5.8, H/H 14.4/43.5, PLT 115 07/16/2016: WBC 3.5, H/H 13.8/41.4, PLT 101, glucose 102, BUN/Cr 4/0.8, Na 140, K 3.2, HCO3 27, AG 10, PO4 2.3, Mg 1.8, Ca 9.0, albumin 3.7, TBil 3.5, AST 47, ALT 41. 07/14/2016: XRY-PORTABLE CHEST XRAY- No acute abnormality of the chest. 07/14/2016: CT ABDOMEN AND PELVIS WITHOUT IV/PO CONTRAST- No acute abnormality CT scan abdomen pelvis. Normal pancreas. No evidence of pancreatitis. There is diffuse fatty change of the liver. No focal hepatic defects. Normal gallbladder. No dilated ducts. Normal spleen (within the limits of a non-IV contrast study). No ascites. Fat-containing umbilical hernia. Small hiatal hernia. DJD. 07/15/2016: US ABDOMEN (RUQ) LIMITED- Mildly enlarged liver demonstrating diffusely decreased echogenicity suggesting hepatic steatosis. A few small B/L liver cysts are also demonstrated. Normal gallbladder. Normal CBD 4 mm. 07/15/2016: EKG- NSR @ 83, normal axis, normal intervals, inferior wall HI, age indeterminate, with Q in III & F. *The patient is currently not having any substantial upper GI bleeding, whatsoever. There has been no witnessed hematemesis since admission. His hemoglobin is back to baseline, after IVF. He was hemoconcentrated on admission. He currently is in active alcohol withdrawal/DTs. The fatty liver is noted ( risk factors include EtOH, HTN, HLD, pre-DM, etc). There is nothing by imaging studies to suggest cirrhosis. He has normal INR & normal albumin:globulin ratio. He has mild thrombocytopenia (& leukopenia), which are probably secondary to alcohol-induced bone marrow suppression, rather than cirrhosis. He did have a low bicarbonate, positive lactate, and ketones in the urine on admission, probably secondary to alcoholic ketoacidosis and/or possible starvation ketosis, if he was only consuming alcohol without eating, prior to admission. His bicarbonate has normalized. 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 He is on ECASA 81 mg daily for ASHD. Imaging studies failed to reveal any acute biliary process, aside from fatty liver. *Most likely, the patient had a Ro-[place] tear. Rule out gastritis, rule out NSAID gastropathy, rule out PUD. My suspicion for a variceal bleed is exceedingly low. Again, he does not appear to be a cirrhotic. At this point, I would focus attention on treating his DTs and alcohol withdrawal aggressively. 07/16/2016: *HIV- negative, B12 327, folate 8.9, TSH 1.90 *As of 07/17/2016, the patiet is hemodynamically stable & afebrile. O2 sat RA 95 %. K-phos is being repleted. His Ativan drip is being tapered to 2 mg/hr & he is more alert. Currently he is essentially Ox3, yet intermittently lethargic, without focal deficits. He is minimally tremulous. CIWA < 8 over past shift, per RN. There has been no recurrent hematemesis. There has been no melena or BRBPR, just brown, OB+ stool on admission. He remains on IV Protonix 40 mg daily. He denies any CP, SOB, nausea or vomiting. There is some minimal epigastric discomfort.He is currently NPO for tentative EGD later today, which he agrees to. Informed consent for EGD was obtained from the patient after explanation of risks & benefits. *SUGGEST: NPO for now (sedated). Aspiration precautions. Replete electrolytes (i.e.- KPhos). IV banana bag (thiamine, folate, B12). As I do not think the patient is cirrhotic, it probably will not be worthwhile checking an ammonia level. No NSAIDs. Carefully continue ECASA 81 mg daily with history of NSTEMI/ASHD. Continue IV Protonix 40 mg daily. Ativan drip as per ICU team. Consideration for Haldol. Check CBC daily. DVT prophylaxis with mechanical ALPS (okay from GI perspective if Lovenox is given, assuming the patient does not actively bleed ). Await EGD later on 07/17/2016, depending on clinical course. Additionally, with questionable history of scant unrelated rectal bleeding, will advise outpatient colonoscopy. Workup of other numerous issues, as per medicine and cardiology. The above was discussed with Dr. Evangelista, in the ICU. Further recommendations to follow, depending on clinical course. 1/2 hour of ICU care was spent on the patient. Problem List: 1. Alcohol abuse 2. Alcohol withdrawal 3. Abnormal LFTs 4. Fatty liver 5. Hepatic cyst 6. Hematemesis 7. Occult blood positive stool Subjective Subjective: *As of 07/17/2016, the patiet is hemodynamically stable & afebrile. O2 sat RA 95 %. K-phos is being repleted. His Ativan drip is being tapered to 2 mg/hr & he is more alert. Currently he is essentially Ox3, yet intermittently lethargic, without focal deficits. He is minimally tremulous. CIWA < 8 over past shift, per RN. There has been no recurrent hematemesis. There has been no melena or BRBPR, just brown, OB+ stool on admission. He remains on IV Protonix 40 mg daily. He denies any CP, SOB, nausea or vomiting. There is some minimal epigastric discomfort.He is currently NPO for tentative EGD later today, which he agrees to. Informed consent for EGD was obtained from the patient after explanation of risks & benefits. Review of Systems: Full 14 point review of systems otherwise noncontributory, and as above. Review of Systems Constitutional: Denies: chills, diaphoresis, fever, malaise, weakness, unexplained weight loss. EENTM: Reports: icterus. Denies: blurred vision, double vision, visual changes, eye pain, eye drainage, eye tearing, ear discharge, ear pain, ear redness, hearing changes, nasal congestion, epistaxis, nasal pain, throat pain, throat swelling, mouth pain, tooth pain. Cardiovascular: Denies: chest pain, edema, orthopena, palpitations, peripheral edema, syncope. Respiratory: Denies: cough, hemoptysis, orthopnea, short of breath, sputum production, stridor, wheezing. Gastrointestinal: Reports: no symptoms (? 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 Denies: abdominal pain, bloating, constipation, diarrhea, distention, bowel incontinence, melena, nausea, bloody stool, changes in stool, vomiting, steatorrhea. Genitourinary: Denies: discharge, dysuria, frequency, hematuria, hesitation, nocturia, pain, urgency. Musculoskeletal: Denies: back pain, gout, joint pain, joint swelling, muscle pain, muscle stiffness, neck pain. Skin: Denies: cysts, change in skin color, change in hair/nails, dryness, erythema, jaundice, lesions, lymphangitis, lumps, moles, rash. Neurological/Psychological: Reports: anxiety, depressed, emotional problems, tremors. Denies: ataxia, cognitive dysfunction, confusion, dementia, headache, numbness, paresthesia, pre -existing deficit, petit mal seizures, tingling, tonic-clonic seizures, unable to move lower ext, unable to move upper ext, weakness. Hematologic/Endocrine: Denies: bruising, bleeding, polyuria, polydipsia. Immunologic/Allergic: Denies: splenectomy, HIV/AIDS, lymphadenopathy. All Other Systems: Reviewed and Negative Objective Vital Signs and I&Os Vital Signs Date Time Temp Pulse Resp B/P Pulse O2 O2 Flow FiO2 Ox Delivery Rate 07/17 1200 98.5 74 32 150/90 07/17 1200 95 Room Air 07/17 1000 97.8 70 25 191/97 07/17 0752 97.8 65 21 140/80 07/17 0752 95 Room Air 07/17 0752 97.8 65 21 140/80 95 Room Air 07/17 0600 60 15 142/87 07/17 0400 98.0 65 15 167/72 07/17 0315 95 Room Air 07/17 0200 64 15 168/100 07/17 0000 98.0 72 17 170/98 0316 0000 98.0 72 17 170/98 95 Room Air 07/17 0000 95 Room Air 07/16 2323 77 159/86 07/16 2200 78 24 159/86 07/16 2000 98.1 64 18 132/72 07/16 2000 95 Room Air 07/16 1800 66 16 115/58 07/16 1700 76 18 180/94 07/16 1600 97.5 68 16 162/88 07/16 1600 97.5 68 16 162/88 96 Nasal 2.0L Cannula 07/16 1600 96 Nasal 2.0L Cannula 07/16 1400 94 16 158/71 Intake & Output 07/17 1600 07/17 0400 07/16 1600 07/16 0400 07/15 1600 07/15 0400 Intake Total 1100 2457 3828 0629 479 5495 Output Total 718 148 3984 150 600 Balance 800 1507 2628 7655 834 5217 Intake, IV 980 1757 3148 0652 325 5037 Intake, Oral 120 700 680 240 400 Number 0 0 0 0 Bowel Movements Output, Urine 183 420 9678 150 600 Patient 215 lb 215 lb Weight Physical Exam: Well-developed, well-nourished male, minimally sedated, in no apparent distress. Sclera mildly icteric. Conjunctiva pink. Oropharynx clear. Neck; supple. There is no adenopathy, thyromegaly, or JVD. No peripheral stigmata of inflammatory bowel disease or chronic liver disease on exam. No spiders on the anterior chest wall. No gynecomastia. No CVA tenderness. Lungs: clear to A&P. Heart exam: regular rate rhythm, S1 and S2, without any murmur. Abdominal exam: normal bowel sounds, soft belly, minimal epigastric tenderness, without guarding or rebound. Small, reducible umbilical hernia, otherwise no mass. Liver approximately 17 cm by percussion. Negative Contreras sign. No splenomegaly. No fluid shift. No pulsatile mass. Digital rectal exam: reported as brown, OB positive stool on admission, API (not repeated). Extremities: without C, C, or E. No palpable cords. No palmar erythema. No Dupuytren's contractures. Distal pulses 2+ bilaterally. DTRs 3+ bilaterally. Alert and oriented x 3, on IV Ativan drip at 2 mg/hr. Moves all extremities. PERRLA. Mild tremor. No asterixis. Current Medications: Current Medications Sig/Tiffany Start time Last Medication Dose Route Stop Time Status Admin Acetaminophen 650 MG Q6PRN PRN 07/14 2345 AC PO Acetaminophen 1,000 MG Q6P PRN 07/14 2345 AC IV Aspirin Buffered 81 MG DAILY 07/15 1000 AC 07/16 PO 1137 Atorvastatin Calcium 80 MG 1700 07/15 1700 AC 07/16 PO 1612 Enoxaparin Sodium 40 MG DAILY 07/15 1000 AC 07/16 SC 1137 Fluoxetine HCl 40 MG DAILY 07/15 1000 AC 07/16 PO 1138 Folic Acid 1 MG DAILY 07/15 1000 AC 07/16 PO 1137 Gabapentin 1,600 MG QPM 07/15 2200 AC 07/16 PO 2318 Hydroxyzine HCl 50 MG TIDPRN PRN 07/15 0030 AC PO Lorazepam 50 MG Q24H 07/15 1945 AC 07/16 Dextrose/Water 500 ML IV 2313 Lurasidone HCl 40 MG DAILY 07/15 1215 AC 07/16 PO 1139 Metoprolol Succinate 25 MG BID 07/15 1000 AC 07/16 PO 2323 Morphine Sulfate 2 MG Q8P PRN 07/15 2145 AC 07/16 IV 2331 Multivitamins 1 TAB DAILY 07/15 1000 AC 07/16 PO 1139 Pantoprazole Sodium 40 MG DAILY 07/15 1000 AC 07/17 IV 1012 Potassium Chloride 10 MEQ Q1H 07/17 1030 DC 07/17 IV 07/17 1131 1315 Potassium Chloride 40 MEQ Q10H 07/16 0745 AC 07/16 Sodium Chloride 1,000 ML IV 2314 Potassium Phosphate 15 mMol ONE ONE 07/17 1030 AC Dextrose/Water 250 ML IV 07/17 1433 Potassium Phosphate 15 mMol ONE ONE 07/16 0945 DC 07/16 Dextrose/Water 250 ML IV 07/16 1348 1137 Quetiapine Fumarate 150 MG QPM 07/15 2200 AC 07/16 PO 2323 Thiamine HCl 500 MG TID 07/15 2200 AC 07/17 Sodium Chloride 100 ML IV 07/18 1702 1012 Results Pertinent Lab Results: Laboratory Tests 07/17 07/16 0325 0615 Chemistry Sodium (137 - 145 mmol/L) 140 140 Potassium (3.5 - 5.1 mmol/L) 3.3 L 3.2 L Chloride (98 - 107 mmol/L) 104 103 Carbon Dioxide (22 - 30 mmol/L) 27 27 Anion Gap (5 - 16) 9 10 BUN (9 - 20 mg/dL) 3 L 4 L Creatinine (0.7 - 1.2 mg/dL) 0.7 0.8 Estimated GFR (>60 ml/min) > 60 > 60 Glucose (65 - 99 mg/dL) 92 102 H Calcium (8.4 - 10.2 mg/dL) 9.3 9.0 Phosphorus (2.5 - 4.5 mg/dL) 2.4 L 2.3 L Magnesium (1.6 - 2.3 mg/dL) 1.7 1.8 Total Bilirubin (0.2 - 1.3 mg/dL) 2.6 H 3.5 H AST (17 - 59 U/L) 71 H 47 ALT (21 - 72 U/L) 64 41 Albumin (3.5 - 5.0 g/dL) 3.5 3.7 Vitamin B12 (239 - 931 pg/mL) 327 Folate (2.76 - 20.0 ng/mL) 8.9 TSH (0.270 - 4.200 uIU/mL) 1.900 Hematology CBC w Diff MAN DIFF ORDERED NO MAN DIFF REQ WBC (4.8 - 10.8 /CUMM) 3.0 L 3.5 L RBC (4.70 - 6.10 /CUMM) 4.61 L 4.70 Hgb (14.0 - 18.0 G/DL) 13.7 L 13.8 L Hct (42 - 52 %) 41.2 L 41.4 L MCV (80.0 - 94.0 FL) 89.2 88.2 MCH (27.0 - 31.0 PG) 29.7 29.4 RDW (11.5 - 14.5 %) 15.3 H 15.3 H Plt Count (130 - 400 /CUMM) 98 L 101 L MPV (7.4 - 10.4 FL) 9.1 8.4 Gran % (42.2 - 75.2 %) 63.2 Lymphocytes % (20.5 - 51.1 %) 26.7 Monocytes % (1.7 - 9.3 %) 8.2 Eosinophils % (0 - 5 %) 1.5 Basophils % (0.0 - 2.0 %) 0.4 Absolute Granulocytes (1.4 - 6.5 /CUMM) 2.2 Segmented Neutrophils (42.2 - 75.2 %) 51 Absolute Lymphocytes (1.2 - 3.4 /CUMM) 0.9 L Lymphocytes (20.5 - 51.1 %) 36 Monocytes (1.7 - 9.3 %) 3 Absolute Monocytes (0.10 - 0.60 /CUMM) 0.3 Eosinophils (0 - 5.0 %) 7 H Absolute Eosinophils (0.0 - 0.7 /CUMM) 0.1 Basophils (0.0 - 2.0 %) 3 H Absolute Basophils (0.0 - 0.2 /CUMM) 0 Platelet Estimate (ADEQUATE) DECREASED Polychromasia 1+ Basophilic Stippling 1+ Ovalocytes FEW PUBS MCHC (33.0 - 37.0 G/DL) 33.3 33.4 Other Body Source Fld Total RBCs Counted (%) 100 Serology HIV 1&2 Ab Western Blot (NONREACTIVE) NONREACTIVE 07/15 07/15 07/15 1232 0771 0727 Chemistry Sodium (137 - 145 mmol/L) 134 L Potassium (3.5 - 5.1 mmol/L) 3.6 Chloride (98 - 107 mmol/L) 99 Carbon Dioxide (22 - 30 mmol/L) 24 Anion Gap (5 - 16) 11 BUN (9 - 20 mg/dL) 9 Creatinine (0.7 - 1.2 mg/dL) 0.8 Estimated GFR (>60 ml/min) > 60 BUN/Creatinine Ratio (7 - 25 %) 11.3 Magnesium (1.6 - 2.3 mg/dL) 1.7 Troponin I (<0.11 ng/ml) Cancelled < 0.01 Hematology CBC w Diff NO MAN DIFF REQ WBC (4.8 - 10.8 /CUMM) 5.8 RBC (4.70 - 6.10 /CUMM) 4.95 Hgb (14.0 - 18.0 G/DL) 14.4 Hct (42 - 52 %) 43.5 MCV (80.0 - 94.0 FL) 88.0 MCH (27.0 - 31.0 PG) 29.1 RDW (11.5 - 14.5 %) 15.2 H Plt Count (130 - 400 /CUMM) 115 L MPV (7.4 - 10.4 FL) 8.4 Gran % (42.2 - 75.2 %) 80.3 H Lymphocytes % (20.5 - 51.1 %) 11.5 L Monocytes % (1.7 - 9.3 %) 7.5 Eosinophils % (0 - 5 %) 0.2 Basophils % (0.0 - 2.0 %) 0.5 Absolute Granulocytes (1.4 - 6.5 /CUMM) 4.6 Absolute Lymphocytes (1.2 - 3.4 /CUMM) 0.7 L Absolute Monocytes (0.10 - 0.60 /CUMM) 0.4 Absolute Eosinophils (0.0 - 0.7 /CUMM) 0 Absolute Basophils (0.0 - 0.2 /CUMM) 0 PUBS MCHC (33.0 - 37.0 G/DL) 33.1 07/15 07/15 07/14 0149 0149 6059 Chemistry Sodium (137 - 145 mmol/L) 137 Cancelled Potassium (3.5 - 5.1 mmol/L) 4.7 Cancelled Chloride (98 - 107 mmol/L) 102 Cancelled Carbon Dioxide (22 - 30 mmol/L) 19 L Cancelled Anion Gap (5 - 16) 16 Cancelled BUN (9 - 20 mg/dL) 9 Cancelled Creatinine (0.7 - 1.2 mg/dL) 0.8 Cancelled Estimated GFR (>60 ml/min) > 60 BUN/Creatinine Ratio (7 - 25 %) 11.3 Cancelled Troponin I (<0.11 ng/ml) 0.02 Hematology CBC w Diff Cancelled WBC Cancelled RBC Cancelled Hgb Cancelled Hct Cancelled MCV Cancelled MCH Cancelled RDW Cancelled Plt Count Cancelled MPV Cancelled PUBS MCHC Cancelled 07/14 07/14 07/14 2300 9094 1999 Chemistry Lactic Acid (0.7 - 2.1 mmol/L) 1.7 7.8 H Toxicology Urine Opiates Screen (>2000 NG/ML) < 100.00 Methadone Screen (>300 NG/ML) < 40 Barbiturate Screen (>200 NG/ML) < 60 Ur Phencyclidine Scrn (>25 NG/ML) < 6.00 Amphetamines Screen (>1000 NG/ML) < 100 U Benzodiazepines Scrn (>200 NG/ML) < 85 Urine Cocaine Screen (>300 NG/ML) < 50 Urine Cannabis Screen (>50 NG/ML) < 5.00 Serum Alcohol Cancelled Urines Urine Color (YEL,AMB,STR) YEL Urine Clarity (CLEAR) CLEAR Urine pH (5.0 - 8.0) 6.0 Ur Specific [place] (1.001 - 1.035) >= 1.030 Urine Protein (NEG,<30 MG/DL) 100 H Urine Ketones (NEG) >=80 Urine Nitrite (NEG) NEG Urine Bilirubin (NEG) NEG Urine Urobilinogen (0.1 - 1.0 EU/dl) 0.2 Ur Leukocyte Esterase (NEG) NEG Ur Microscopic SEDIMENT EXAMINED Urine RBC (0 - 5 /HPF) RARE Ur Epithelial Cells (NONE,FEW) RARE Urine Hemoglobin (NEG) MOD H Urine Glucose (N MG/DL) NEG 07/15 1999 Chemistry Sodium (137 - 145 mmol/L) 137 Potassium (3.5 - 5.1 mmol/L) 4.7 Chloride (98 - 107 mmol/L) 94 L Carbon Dioxide (22 - 30 mmol/L) 12 L Anion Gap (5 - 16) 30 H BUN (9 - 20 mg/dL) 8 L Creatinine (0.7 - 1.2 mg/dL) 0.9 Estimated GFR (>60 ml/min) > 60 BUN/Creatinine Ratio (7 - 25 %) 8.9 Glucose (65 - 99 mg/dL) 130 H Calcium (8.4 - 10.2 mg/dL) 10.5 H Phosphorus (2.5 - 4.5 mg/dL) 3.7 Magnesium (1.6 - 2.3 mg/dL) 1.6 Total Bilirubin (0.2 - 1.3 mg/dL) 2.5 H Direct Bilirubin (< 0.4 mg/dL) 1.2 H AST (17 - 59 U/L) 57 ALT (21 - 72 U/L) 46 Alkaline Phosphatase (< 127 U/L) 85 Creatine Kinase (55 - 170 U/L) 247 H Troponin I (<0.11 ng/ml) < 0.01 Total Protein (6.3 - 8.2 g/dL) 9.1 H Albumin (3.5 - 5.0 g/dL) 5.7 H Globulin (1.9 - 4.2 gm/dL) 3.4 Albumin/Globulin Ratio (1.1 - 2.2 %) 1.7 Cholesterol (< 200 MG/DL) 258 H Lipase (23 - 300 U/L) 165 Coagulation PT (9.4 - 12.5 SEC) 11.2 INR (0.90 - 1.17) 1.07 APTT (25 - 37 SEC) 25 Hematology CBC w Diff NO MAN DIFF REQ WBC (4.8 - 10.8 /CUMM) 9.3 RBC (4.70 - 6.10 /CUMM) 5.43 Hgb (14.0 - 18.0 G/DL) 16.0 Hct (42 - 52 %) 48.2 MCV (80.0 - 94.0 FL) 88.7 MCH (27.0 - 31.0 PG) 29.4 RDW (11.5 - 14.5 %) 14.9 H Plt Count (130 - 400 /CUMM) 156 MPV (7.4 - 10.4 FL) 8.7 Gran % (42.2 - 75.2 %) 88.7 H Lymphocytes % (20.5 - 51.1 %) 6.8 L Monocytes % (1.7 - 9.3 %) 4.2 Eosinophils % (0 - 5 %) 0 Basophils % (0.0 - 2.0 %) 0.3 Absolute Granulocytes (1.4 - 6.5 /CUMM) 8.2 H Absolute Lymphocytes (1.2 - 3.4 /CUMM) 0.6 L Absolute Monocytes (0.10 - 0.60 /CUMM) 0.4 Absolute Eosinophils (0.0 - 0.7 /CUMM) 0 Absolute Basophils (0.0 - 0.2 /CUMM) 0 PUBS MCHC (33.0 - 37.0 G/DL) 33.1 Toxicology Serum Alcohol (<10 MG/DL) 21.0 Imaging/Other Studies: 07/14/2016: XRY-PORTABLE CHEST XRAY- No acute abnormality of the chest. 07/14/2016: CT ABDOMEN AND PELVIS WITHOUT IV/PO CONTRAST- No acute abnormality CT scan abdomen pelvis. Normal pancreas. No evidence of pancreatitis. There is diffuse fatty change of the liver. No focal hepatic defects. Normal gallbladder. No dilated ducts. Normal spleen (within the limits of a non-IV contrast study). No ascites. Fat-containing umbilical hernia. Small hiatal hernia. DJD. 07/15/2016: US ABDOMEN (RUQ) LIMITED- Mildly enlarged liver demonstrating diffusely decreased echogenicity suggesting hepatic steatosis. A few small B/L liver cysts are also demonstrated. Normal gallbladder. Normal CBD 4 mm. 07/15/2016: EKG- NSR @ 83, normal axis, normal intervals, inferior wall HI, age indeterminate, with Q in III & F.
--- NOTE | 2016-07-17 09:52 | PN- CRCU ---
Subjective HPI/Critical Care Issues: The patient is arousable, and remains on an Ativan drip at 2 mg per hour. He is oriented to person and place. He is intermittently lethargic without focal deficits. The patient remains tremulous. See what was less than 8 over the past shift. No report of hematemesis. There is no report of any bleeding whatsoever. The patient denies any complaints at present. He remains NPO for tentative EGD later today. Objective Current Medications: Current Medications Sig/Tiffany Start time Last Medication Dose Route Stop Time Status Admin Acetaminophen 650 MG Q6PRN PRN 07/14 2345 AC PO Acetaminophen 1,000 MG Q6P PRN 07/14 2345 AC IV Aspirin Buffered 81 MG DAILY 07/15 1000 AC 07/16 PO 1137 Atorvastatin Calcium 80 MG 1700 07/15 1700 AC 07/16 PO 1612 Enoxaparin Sodium 40 MG DAILY 07/15 1000 AC 07/16 SC 1137 Fluoxetine HCl 40 MG DAILY 07/15 1000 AC 07/16 PO 1138 Folic Acid 1 MG DAILY 07/15 1000 AC 07/16 PO 1137 Gabapentin 1,600 MG QPM 07/15 2200 AC 07/16 PO 2318 Hydroxyzine HCl 50 MG TIDPRN PRN 07/15 0030 AC PO Lorazepam 50 MG Q24H 07/15 1945 AC 07/16 Dextrose/Water 500 ML IV 2313 Lurasidone HCl 40 MG DAILY 07/15 1215 AC 07/16 PO 1139 Metoprolol Succinate 25 MG BID 07/15 1000 AC 07/16 PO 2323 Morphine Sulfate 2 MG Q8P PRN 07/15 2145 AC 07/16 IV 2331 Multivitamins 1 TAB DAILY 07/15 1000 AC 07/16 PO 1139 Pantoprazole Sodium 40 MG DAILY 07/15 1000 AC 07/16 IV 1137 Potassium Chloride 40 MEQ Q10H 07/16 0745 AC 07/16 Sodium Chloride 1,000 ML IV 2314 Potassium Phosphate 15 mMol ONE ONE 07/16 0945 DC 07/16 Dextrose/Water 250 ML IV 07/16 1348 1137 Quetiapine Fumarate 150 MG QPM 07/15 2200 AC 07/16 PO 2323 Thiamine HCl 500 MG TID 07/15 2200 AC 07/16 Sodium Chloride 100 ML IV 07/18 1702 2300 Vital Signs & I&O Last 24 Hrs of Vitals and I&O: Vital Signs Date Time Temp Pulse Resp B/P Pulse O2 O2 Flow FiO2 Ox Delivery Rate 07/17 0752 97.8 65 21 140/80 07/17 0752 95 Room Air 07/17 0752 97.8 65 21 140/80 95 Room Air 07/17 0600 60 15 142/87 07/17 0400 98.0 65 15 167/72 07/17 0315 95 Room Air 07/17 0200 64 15 168/100 07/17 0000 98.0 72 17 170/98 07/17 0000 98.0 72 17 170/98 95 Room Air 07/17 0000 95 Room Air 07/16 2323 77 159/86 07/16 2200 78 24 159/86 07/16 2000 98.1 64 18 132/72 07/16 2000 95 Room Air 07/16 1800 66 16 115/58 07/16 1700 76 18 180/94 07/16 1600 97.5 68 16 162/88 07/16 1600 97.5 68 16 162/88 96 Nasal 2.0L Cannula 07/16 1600 96 Nasal 2.0L Cannula 07/16 1400 94 16 158/71 07/16 1200 97.8 68 18 160/90 07/16 1140 64 160/80 07/16 1000 70 18 162/92 Intake & Output 07/17 1600 07/17 0800 07/17 0000 Intake Total 1100 2457 Output Total 300 950 Balance 800 1507 Intake, IV 980 1757 Intake, Oral 120 700 Number 0 0 Bowel Movements Output, Urine 300 950 Exam General Appearance: awake, comfortable Head: atraumatic, normal appearance Neck: supple Respiratory: normal breath sounds, no respiratory distress Cardiovascular: regular rate/rhythm Abdomen: normal bowel sounds, soft, non-tender Extremities: no edema Skin: intact, normal color, warm/dry Results Last 24 Hrs of Lab Results: Laboratory Tests 07/17/16 0325: Anion Gap 9, Estimated GFR > 60, Glucose 92, Calcium 9.3, Phosphorus 2.4 L, Magnesium 1.7, Total Bilirubin 2.6 H, AST 71 H, ALT 64, Albumin 3.5, CBC w Diff MAN DIFF ORDERED, RBC 4.61 L, MCV 89.2, MCH 29.7, RDW 15.3 H, MPV 9.1, Segmented Neutrophils 51, Lymphocytes 36, Monocytes 3, Eosinophils 7 H, Basophils 3 H, Platelet Estimate DECREASED, Polychromasia 1+, Basophilic Stippling 1+, Ovalocytes FEW, PUBS MCHC 33.3, Fld Total RBCs Counted 100 Impression/Plan Impression/Plan Impression/Plan: Impression: 1. Delirium tremens. 2. Nausea and vomiting which was reported as blood-streaked. No current evidence of bleeding. 3. Fatty liver. 4. Multiple comorbidities including hypertension, hyperlipidemia, CAD, and history of [place]. 5. History of anxiety, depression and PTSD. 6. Thrombocytopenia, likely secondary to EtOH. 7. Hypokalemia. Recommendations: * Continue Ativan drip, monitor SAS/CIWA scores. * Be careful to avoid oversedation. * Follow up GI recommendations, possible endoscopy today. * Continue IV Protonix 40 mg daily. * Continue IV banana bag with multivitamin, thiamine and folate. * Continue EC ASA, 81 mg daily. * Aspiration precautions. * Monitor for bleeding. Will calll GI if any issues. * Electrolyte repletion underway. * Please request psychiatry and hospital social worker input. * Will continue home meds including Latuda, Metoprolol, gabapentin, Prozac and Seroquel. * DVT prophylaxis at all times. * Continue all supportive care.
--- NOTE | 2016-07-17 14:54 | Proc Note Endoscopy ---
Endoscopy Procedure Medical History: unchanged Mental Status: alert/oriented (minimally sedated on Ativan) Heart/Lung Eval Prior to Sedation: within normal limits Candidate for Sedation? Yes Procedure Date: 07/17/16 Procedure Type: EGD with biopsy & esophageal MILAGRO Raw Stock Machine Loader: ANGELINE LAZO MD ASA Classification: IV Indications: (*Please refer to my GI consult of 07/16/2016). 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 The patient is currently being treated for EtOH withdrawal. Instrument: diagnostic gastroscope Meds Received: MAC Patient's Tolerance: good Complications: none Extent Reached: second part of duodenum Procedure: Upper endoscopy to the second portion of the duodenum, with biopsies & MILAGRO brushings of the distal esophagus, was performed with the Olympus high definition videoendoscope, after obtaining informed consent from the patient, with the cycle repairer and pulse oximeter, with the assistance of Dr. Oviedo, of [facility]. A mouthpiece was placed in the usual fashion to protect the patient's teeth. The patient was placed in the left lateral decubitus position and sedated by [facility]. At this point, the endoscope was advanced through the fenestrated hole in the NRB mask, into the mouth, then into the esophagus, using direct visualization technique. A brief inspection of the vocal cords was normal. The proximal esophageal mucosa appeared normal. There were no esophageal rings, webs, lesions, strictures, or ulcers. There were no vesicles. There was no esophageal ribbing. The Z line was well demarcated, yet faint, at 40 cm. There were numerous linear erosions in the distal esophagus, with some mild whitish exudate, consistent with 3+ erosive distal GERD. *MILAGRO brushings of the distal esophagus were obtained, to rule out esophageal candidiasis. Additionally, biopsies of the distal esophagus were obtained: (Specimen A- 40 cm, Specimen B- 37 cm). There were no ectopic islands, nor gross Sánchez's esophagus. There was no hiatal hernia pouch. There were no esophageal or gastric varices, nor any [place] tear. The cj of the stomach distended normally with air insufflation. Direct and retroflexed views of the stomach were performed. There was nothing endoscopically to suggest gastroparesis or portal gastropathy. The mucosa of the gastric cardia, fundus, lesser curvature, incisura, body, and antrum appeared normal, without any gastric ulcers or gastric lesions. The pylorus was patent, without any gastric outlet obstruction or channel ulcer. The duodenal bulb and duodenal sweep appeared normal, including the ampulla, without any duodenal ulcers, distal ulcerations, or angiodysplasias. The folds of the second portion of the duodenum were normal in caliber, without any flattening, nodularity, scalloping, or mosaic pattern. No active upper GI bleeding was seen. The patient tolerated the procedure well. Documenting photographs were obtained and placed inside the patient's chart. Impression: 1. 3+ erosive distal esophagitis, r/o fungal. *MILAGRO brushings of distal esophagus obtained: (*negative for fungal elements). 2. Z line at 40 cm, with biopsies of distal esophagus obtained: (Specimen A- 40 cm, Specimen B- 37 cm). Recommendations: Await esophageal biopsies (*MILAGRO brushings- negative for fungal elements). Once patient is more awake, advise swallowing evaluation. If stable, feed patient as tolerated, with aspiration precautions. Replete electrolytes (i.e.- KPhos). IV banana bag (thiamine, folate, MVI, B12). As I do not think the patient is cirrhotic, it probably will not be worthwhile checking an ammonia level. No NSAIDs. Carefully continue ECASA 81 mg daily, with history of NSTEMI/ASHD. Continue IV Protonix 40 mg daily & can switch to Protonix 40 mg po BID 1/2 hour before meals, when the patient starts po feeds. Ativan drip taper as per ICU team. Consideration for Haldol. Serial CIWA. DVT prophylaxis with mechanical ALPS (okay from GI perspective if Lovenox is given, assuming the patient does not actively bleed). Additionally, with questionable history of scant unrelated rectal bleeding, advise outpatient colonoscopy (the patient was given my office number). Workup of other numerous issues, as per medical team. The above was discussed with the medical housestaff & with Dr. Evangelista, postoperatively. Further intpatient GI follow-up as needed. ADDENDUM: 07/18/2016- A. ESOPHAGUS BIOPSY AT 40 CM: SMALL PORTION OF GASTRIC MUCOSA WITH MILD CHRONIC INFLAMMATION, AND A SEPARATE SMALL PORTION OF FIBRINOPURULENT EXUDATE. GIEMSA STAIN IS NEGATIVE FOR HELICOBACTER-TYPE STRUCTURES. NEGATIVE FOR EVIDENCE OF MALIGNANCY, EPITHELIAL DYSPLASIA AND INTESTINAL METAPLASIA. B. ESOPHAGUS BIOPSY AT 37 CM: SQUAMOUS MUCOSA WITH MINIMAL TO MILD REACTIVE CHANGE, WITHOUT SIGNIFICANT EOSINOPHILIC INFILTRATION. NEGATIVE FOR EVIDENCE OF MALIGNANCY. Dictated by: CUAUHTEMOC COCHRAN MD Esophageal MILAGRO brushings- negative for fungal elements. Esophageal bxs at 40 cm- mild chronic inflammation & fibrinopurulent exudate, without IM, dysplasia or Ca. Esophageal bxs at 37 cm- minimal to mild GERD, without Ca or EOE. I called the pt this p.m.in the [facility] & spoke with him & his nurse. He is much more awake & tolerating solids po, with aspiration precautions. The benign esophageal inflammation was discussed with him. Replete electrolytes (i.e.- KPhos). IV banana bag (thiamine, folate, MVI, B12). As I do not think the patient is cirrhotic, it probably will not be worthwhile checking an ammonia level. No NSAIDs. Carefully continue ECASA 81 mg daily, with history of NSTEMI/ASHD. Continue IV Protonix 40 mg daily & can switch to Protonix 40 mg po BID 1/2 hour before meals, when the patient starts po feeds. Ativan drip taper as per ICU team. Consideration for Haldol. Serial CIWA. DVT prophylaxis with mechanical ALPS (okay from GI perspective if Lovenox is given, assuming the patient does not actively bleed). Additionally, with questionable history of scant unrelated rectal bleeding, I advised an outpatient colonoscopy (the patient was given my office number). Workup of other numerous issues, as per medical team. The above was previously discussed with the medical housestaff & with Dr. Evangelista, postoperatively, on 07/17/16, prior to the biopsies returning. Further intpatient GI follow-up as needed. CC: SUSANNAH BARRIGA,Sudha MCNEILL; DAVID BARRIGA,SHAHNAZ; MOSHE BARRIGA,KINGS; NIMO BARRIGA,JAVY Gunter
--- NOTE | 2016-07-17 15:46 | NUR ---
AT 1500: PATIENT DROWSY AROUSABLE TO NAME, PATIENT NPO, AM PO MEDS DUE WHEN FULLY AWAKE, REPORT GIVEN TO NURSE ARYA.
[2016-07-18] VITALS (11 sets, daily range): BP systolic 140–182; BP diastolic 68–100
[2016-07-18 05:00] LABS: ABSOLUTE BASOPHIL COUNT 0 /CUMM (0.0-0.2); ABSOLUTE EOSINOPHIL COUNT 0.1 /CUMM (0.0-0.7); ABSOLUTE GRANULOCYTE CT 1.7 /CUMM (1.4-6.5); ABSOLUTE LYMPH COUNT 0.9 /CUMM (1.2-3.4); ABSOLUTE MONOCYTE COUNT 0.2 /CUMM (0.10-0.60); BASOPHIL % 0.7 % (0.0-2.0); EOSINOPHIL % 3.5 % (0-5); GRANULOCYTE % 57.6 % (42.2-75.2); HEMATOCRIT 42.8 % (42-52); MEAN CORPUSCULAR HGB 29.5 PG (27.0-31.0); MEAN CORPUSCULAR HGB CONC 33.2 G/DL (33.0-37.0); MEAN CORPUSCULAR VOLUME 88.6 FL (80.0-94.0); MEAN PLATELET VOLUME 8.6 FL (7.4-10.4); PLATELET COUNT 129 /CUMM (130-400); RBC DISTRIBUTION WIDTH 15.2 % (11.5-14.5); RED BLOOD CELL CT 4.82 /CUMM (4.70-6.10)
--- NOTE | 2016-07-18 09:27 | PN- CRCU ---
Subjective HPI/Critical Care Issues: The patient is awake and alert. He reports feeling markedly improved. His withdrawal symptoms have decreased. He is no longer on an Ativan drip. He has been switched to oral Ativan with good control of his CIWA scores. The patient does complain of some chest and shoulder discomfort which he relates to vomiting. He is intermittently hypertensive. There is no report of bleeding. Objective Current Medications: Current Medications Sig/Tiffany Start time Last Medication Dose Route Stop Time Status Admin Acetaminophen 650 MG Q6PRN PRN 07/14 2345 AC PO Acetaminophen 1,000 MG Q6P PRN 07/14 2345 AC IV Aspirin Buffered 81 MG DAILY 07/15 1000 AC 07/17 PO 1635 Atorvastatin Calcium 80 MG 1700 07/15 1700 AC 07/17 PO 1634 Chlorhexidine 1 GM .STK-MED ONE 07/17 1549 DC Gluconate TOP 07/17 1550 Enoxaparin Sodium 40 MG DAILY 07/15 1000 AC 07/17 SC 1515 Fluoxetine HCl 40 MG DAILY 07/15 1000 AC 07/17 PO 1634 Folic Acid 1 MG DAILY 07/15 1000 AC 07/17 PO 1635 Gabapentin 1,600 MG QPM 07/15 2200 AC 07/17 PO 2119 Hydroxyzine HCl 50 MG TIDPRN PRN 07/15 0030 AC PO Lorazepam 2 MG Q6 07/18 1200 AC 07/18 PO 0632 Lorazepam 2 MG Q6 07/17 2359 DC 07/18 PO 07/18 0001 0014 Lorazepam 1 MG Q2P PRN 07/17 2245 AC IV Lorazepam 50 MG Q24H 07/15 1945 AC 07/17 Dextrose/Water 500 ML IV 2119 Lurasidone HCl 40 MG DAILY 07/15 1215 AC 07/17 PO 1635 Metoprolol Succinate 25 MG BID 07/15 1000 AC 07/17 PO 2120 Morphine Sulfate 2 MG Q8P PRN 07/15 2145 AC 07/16 IV 2331 Multivitamins 1 TAB DAILY 07/15 1000 AC 07/17 PO 1634 Pantoprazole Sodium 40 MG DAILY 07/15 1000 AC 07/17 IV 1012 Potassium Chloride 10 MEQ Q1H 07/17 1030 DC 07/17 IV 07/17 1131 1315 Potassium Chloride 40 MEQ Q10H 07/16 0745 AC 07/18 Sodium Chloride 1,000 ML IV 0526 Potassium Phosphate 15 mMol ONE ONE 07/17 1030 DC 07/17 Dextrose/Water 250 ML IV 07/17 1433 1515 Quetiapine Fumarate 150 MG QPM 07/15 2199 AC 07/17 PO 2120 Thiamine HCl 500 MG TID 07/15 2199 AC 07/17 Sodium Chloride 100 ML IV 07/18 1702 2120 Vital Signs & I&O Last 24 Hrs of Vitals and I&O: Vital Signs Date Time Temp Pulse Resp B/P Pulse O2 O2 Flow FiO2 Ox Delivery Rate 07/18 0800 97.8 76 22 140/88 07/18 0600 60 14 140/73 07/18 0400 97.4 60 13 141/75 07/18 0400 97 Room Air 07/18 0200 80 11 149/68 07/18 0000 98.4 62 15 142/94 07/18 0000 98.4 62 15 142/94 07/18 0000 98.4 62 15 142/94 07/18 0000 98.4 62 15 142/94 97 Nasal 2.0L Cannula 07/18 0000 97 Nasal 2.0L Cannula 07/170 97.3 81 16 123/58 07/170 97.3 81 20 134/71 07/18 1999 97.3 73 30 131/71 07/18 1999 97.3 73 30 131/71 07/17 2000 95 Nasal 2.0L Cannula 07/17 1800 98.1 89 22 171/81 07/17 1635 98.1 64 20 166/78 07/17 1600 98.1 64 20 158/90 07/17 1600 97 Nasal 2.0L Cannula 07/17 1600 98.1 64 20 158/90 97 Nasal 2.0L Cannula 07/17 1400 97.6 74 17 153/81 07/17 1200 98.5 74 32 150/90 07/17 1200 95 Room Air 07/17 1000 97.8 70 25 191/97 Intake & Output 07/18 1600 07/18 0800 07/18 0000 Intake Total 1200 Output Total 750 Balance 450 Intake, IV 960 Intake, Oral 240 Number 1 Bowel Movements Output, Urine 750 Exam General Appearance: awake, comfortable Head: atraumatic, normal appearance Neck: supple Respiratory: normal breath sounds, no respiratory distress Cardiovascular: regular rate/rhythm Abdomen: normal bowel sounds, soft, non-tender Extremities: no edema Skin: intact, normal color, warm/dry Results Last 24 Hrs of Lab Results: Laboratory Tests 07/18/16 0430: Anion Gap 9, Estimated GFR > 60, Glucose 94, Calcium 9.1, Phosphorus 4.6 H, Magnesium 1.6, Total Bilirubin 1.9 H, AST 94 H, ALT 86 H, Albumin 3.6, CBC w Diff NO MAN DIFF REQ, RBC 4.82, MCV 88.6, MCH 29.5, RDW 15.2 H, MPV 8.6, Gran % 57.6, Lymphocytes % 30.1, Monocytes % 8.1, Eosinophils % 3.5, Basophils % 0.7, Absolute Granulocytes 1.7, Absolute Lymphocytes 0.9 L, Absolute Monocytes 0.2, Absolute Eosinophils 0.1, Absolute Basophils 0, PUBS MCHC 33.2 Impression/Plan Impression/Plan Impression/Plan: Impression: 1. Delirium tremens. 2. Nausea and vomiting which was reported as blood-streaked. No current evidence of bleeding. EGD without evidence of bleeding. 3. Fatty liver. 4. Multiple comorbidities including hypertension, hyperlipidemia, CAD, and history of [place]. The patient is currently complaining of chest discomfort which needs further assessment. 5. History of anxiety, depression and PTSD. 6. Thrombocytopenia, likely secondary to EtOH. 7. Hypokalemia. Recommendations: * Continue Ativan as per protocol, and monitor CIWA scores. * Be careful to avoid oversedation. * Check a troponin and EKG. * His request a cardiology consult regarding chest pain - patient seen by Dr. Hook in the past. * Continue Protonix 40 mg daily. * Change to oral multivitamin, thiamine and folate. * Continue EC ASA, 81 mg daily. * Monitor for bleeding. Will calll GI if any issues. * Electrolyte repletion as necessary. * Will follow psychiatry and social services specialist input. * Will continue home meds including Latuda, Metoprolol, gabapentin, Prozac and Seroquel. * DVT prophylaxis at all times. * EKG and troponin are negative, will downgrade to telemetry today. * Continue all supportive care.
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
--- NOTE | 2016-07-18 13:57 | PN- Resident CRCU ---
Subjective HPI/CRCU Issues: Patient seen and examined this morning, he was lying in bed in acute distress. Of Ativan drip, has started scheduled Ativan by mouth along with keeping IV Ativan as per [facility] protocol. Continues to have tremors, but denies any hallucinations. Has been afebrile, is complaining of atypical chest pain, EKG and troponins have been negative for any acute findings. Cardiology has been consulted, with follow-up recommendation. Objective Vital Signs & I&O Last 8 Hrs of Vitals and I&O: Laboratory Tests 07/19/16 0200: Troponin I Cancelled 07/18/16 195: Troponin I < 0.01 Vital Signs Date Time Temp Pulse Resp B/P Pulse O2 O2 Flow FiO2 Ox Delivery Rate 07/19 0000 Nasal 2.0L Cannula 07/18 2330 98.6 66 20 182/100 98 Room Air 07/18 1850 98.6 65 16 178/98 97 Room Air 07/18 1835 98.6 65 18 178/98 Intake & Output 07/19 1600 07/19 0800 07/19 0000 Intake Total 1080 Output Total Balance 1080 Intake, IV 200 Intake, Oral 880 Number 2 Bowel Movements Exam General Appearance: well developed/nourished, no apparent distress Respiratory: normal breath sounds Cardiovascular: regular rate/rhythm Gastrointestinal: normal bowel sounds, soft, non-tender Extremities: normal inspection Current Medications: Current Medications Sig/Tiffany Start time Last Medication Dose Route Stop Time Status Admin Acetaminophen 650 MG .STK-MED ONE 07/18 1724 DC PO 07/18 1725 Acetaminophen 650 MG Q6PRN PRN 07/14 2345 DCD 07/18 PO 1753 Acetaminophen 1,000 MG Q6P PRN 07/14 2345 DCD IV Aspirin Buffered 81 MG DAILY 07/15 1000 DCD 07/18 PO 1131 Enoxaparin Sodium 40 MG DAILY 07/15 1000 DCD 07/18 SC 1045 Fluoxetine HCl 40 MG DAILY 07/15 1000 DCD 07/18 PO 1131 Folic Acid 1 MG DAILY 07/15 1000 DCD 07/18 PO 1131 Gabapentin 1,600 MG QPM 07/15 2200 DCD 07/17 PO 2119 Hydroxyzine HCl 50 MG TIDPRN PRN 07/15 0030 DCD PO Lorazepam 2 MG Q4 07/18 1400 DCD 03/17 PO 1753 Lorazepam 1 MG Q2P PRN 07/18 1100 DCD IV Lurasidone HCl 40 MG DAILY 07/15 1215 DCD 07/18 PO 1131 Magnesium Sulfate 1 GM ONCE ONE 07/18 1930 DC 07/18 Dextrose/Water 100 ML IV 07/18 2329 2248 Metoprolol Succinate 25 MG BID 07/15 1000 DCD 07/18 PO 1132 Morphine Sulfate 2 MG Q8P PRN 07/15 2145 DCD 07/18 IV 1940 Multivitamins 1 TAB DAILY 07/15 1000 DCD 07/18 PO 1131 Pantoprazole Sodium 40 MG DAILY 07/15 1000 DCD 07/18 IV 1045 Potassium Chloride 40 MEQ Q10H 07/16 0745 DC 07/18 Sodium Chloride 1,000 ML IV 0526 Quetiapine Fumarate 150 MG QPM 07/150 DCD 07/17 PO 2120 Impression/Plan Impression/Problem List Impression: This is a 50-year-old gentleman with a past medical history of hypertension, hyperlipidemia, CAD including 2 catheterization with no PCI required, anxiety, depression, PTSD, and chronic alcoholic abuse with failed multiple sobriety attempts presents, currently drinking almost 2 L of rum daily with chief complaint of multiple episodes of nausea & vomiting which later was blood- streaked, no miguel hemoptysis. Upon presentation he was also complaining of atypical substernal chest pain, transient diarrhea but no blood in stool. Patient denies any fever, chills, cough, dizziness, lightheadedness, neurological deficits, palpitation, shortness of breath, seizure-like activities ,hallucination or dysuria. Also denies any suicidal or homicidal ideation and is requesting detox. Vitals upon presentation temperature 98.2, pulse 124, respiratory 22, blood pressure 216/116, satting mid 90s on 2 L nasal cannula oxygen He was found to have guaiac-positive stools upon admission, he was somewhat concentrated upon admission hemoglobin 16 from baseline of 13, he received IV fluids and his hemoglobin was back to baseline. He was admitted for alcohol detox and further evaluation of his symptoms. The patient was transferred to the ICU (07/15) as patient was getting severely agitated trying to pull out his IV lines, scoring-CIWA, and requiring high amounts of Ativan. We are currently managing the patient for the following conditions: Respiratory: No issues, satting in high 90s on 2 L of nasal cannula oxygen. Infectious disease: No issues, afebrile, awake and stable. Cardiovascular: History of coronary artery disease: Will continue Ecotrin 1 mg daily. History of hypertension: Systolic blood pressure ranging between 150-141 mmHg. We'll continue home dose of metoprolol 25 mg by mouth twice a day History of hyperlipidemia: Continue home dose of Lipitor 80 mg daily,. Hematology: H&H stable, no witnessed hematemesis, guaiac-positive stools for which gastroenterology on board, will follow-up recommendations. Gastroenterology: Alcohol-induced gastritis: Patient initially presented with nausea vomiting later episodes being blood streaked denied hemoptysis, H&H has been stable, no repeated episodes of vomiting. Prophylaxis with PPI GI on board, with follow-up recommendations. SCALER: Alcohol withdrawal: Continued Ativan drip, transitioned to oral Ativan along with IV Ativan as per CIWA protocol. Diet: Regular diet DVT prophylaxis with Alps Patient is full code. Problem List: 1. Alcohol dependence Pain Ratin Tomorrow's Labs & Rationales: BEP for lites monitoring Plan DVT/Prophylaxis: pharmacological
--- NOTE | 2016-07-18 19:43 | NUR ---
PT COMPLAINING OF 8/10 CHEST PAIN WITH RADIATION TO NECK. 2 MG IV MORPHINE GIVEN AND PATIENT PLACED ON 2L NC OXYGEN. INFORMED DR. RAYMON BLACKWELL, WHO ORDERED EKG AND TROPONIN. WILL CTM.
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
--- NOTE | 2016-07-18 21:34 | Event Note ---
Event Note Event Note: Notified by nursing staff around 9:10 that patient's orientation was waxing and waning and there was slight weakness of right upper extremity. As per patient, he has a history of a TIA. He reports this weakness he is experiencing is not residual from prior TIA but new from this AM. On examination, vital signs stable. Slight right facial droop appreciated. RUE strength 4/5, LUE 5/5, LLE 5/ 5, RLE 4/5. Babinski negative. Patient responded appropriately to questions but was slow in his response and endorsed confusion. We have ordered head CT without IV contrast. Will follow. Head CT currently down and patient continues to have right facial droop and right upper/lower extremity 4/5 weakness. After discussion with attending physician, we will transfer patient to [facility] for CT scan and further management. CMR done and signed by attending physician. W10 and EMTALA completed. Discharge summary completed and signed. Patient stable for transfer. Will make AM team aware of what happened.
--- NOTE | 2016-07-18 23:06 | NUR ---
PER CARBON LAMP CLEANER ARYA, WILL HOLD ALL 10 PM MEDS FOR NOW IN LIGHT OF PATIENTS MENTAL STATUS AND RIGHT SIDED UPPEER AND LOWER ETREMEITY WEAKNESS. WILL REPLAY TO ONCOMING NURSE THAT CARBON LAMP CLEANER WILL LET THEM KNOW WHEN TO ADMINISTER MEDS. ALSO, INFOMRED BY NURSING RUG WASHER DOUGLAS THAT CAT SCAN IS NOT WORKING. THIS WAS RELAYED TO CARBON LAMP CLEANER ARYA. PER ARYA, ATTEMPTING TO CONTACT PHYSICIAN TO DECIDE HOW TO PROCEED WITH CAT SCAN FOR PT.
[2016-07-18] MEDS ORDERED: LORAZEPAM2 M1 PO (23:29)
[2016-07-18] MEDS ORDERED: LORAZEPAM2 MG/1 M1 IV (23:29)
[2016-07-18] MEDS ORDERED: ONE DAILY MULT1 EAC2 PO (23:30)
[2016-07-18] MEDS ORDERED: PROTONIX40 M3 PO (23:30)
--- NOTE | 2016-07-18 23:35 | Patient Discharge Instructions ---
Discharge Instructions General Discharge Information You were seen/treated for: Delirium tremens Alcohol detoxification Nausea and vomiting Thrombocytopenia Hypokalemia Special Instructions: Please continue care at other general hospital for management of your alcohol detoxification. Please taper ativan for alcohol withdrawl. Please have a head CT to look for stroke as your have right upper and right lower extremity weakness. Please follow up with GI within 1 week of discharge from your hospital stay. Please follow up with cardiology wtihin 7 days of discharge from the hospital. Diet Recommended Diet: Heart Healthy Activity Activity Self Limited: Yes Acute Coronary Syndrome Inclusion Criteria At DC or during hospital stay patient has or had the following: ACS DIAGNOSIS No Discharge Core Measures Meds if any: Prescribed or Continued at Discharge Meds if any: NOT Prescribed or Continued at Discharge Congestive Heart Failure Inclusion Criteria At DC or during hospital stay patient has or had the following: CHF DIAGNOSIS No Discharge Core Measures Meds if any: Prescribed or Continued at Discharge Meds if any: NOT Prescribed or Continued at Discharge Cerebrovascular accident Inclusion Criteria At DC or during hospital stay patient has or had the following: CVA/TIA Diagnosis No Discharge Core Measures Meds if any: Prescribed or Continued at Discharge Meds if any: NOT Prescribed or Continued at Discharge Venous thromboembolism Inclusion Criteria VTE Diagnosis No VTE Type NONE VTE Confirmed by (Test) NONE Discharge Core Measures - Per Current guidelines, there needs to be overlap - treatment for the first 5 days of Warfarin therapy. - If discharged on Warfarin prior to 5 days of - overlap therapy, the patient will need to be - assessed for post discharge needs including - *Post discharge parental anticoagulation - *Warfarin and/or parental anticoagulation education - *Follow up date to check INR post discharge At least 5 days overlap therapy as Inpatient No Meds if any: Prescribed or Continued at Discharge Note: Overlap Therapy is Warfarin and Anticoagulant Meds if any: NOT Prescribed or Continued at Discharge
--- NOTE | 2016-07-19 00:34 | Discharge Summary ---
Visit Information Visit Dates Admission Date: 07/14/16 Discharge Date: 07/19/16 Hospital Course Course Attending Physician: Sudha DAVALOS MD, MD, Aartee Primary Care Physician: SHAHNAZ HERNANDEZ MD Consulting Request: 1 Consulting Specialty: Cardiology Consulting Request: 2 Consulting Specialty: Gastroenterology Hospital Course: This is a 50-year-old gentleman with a past medical history of hypertension, hyperlipidemia, CAD including 2 catheterization with no PCI required, anxiety, depression, PTSD, and chronic alcoholic abuse with failed multiple sobriety attempts who has been drinking almost 2 L of rum daily presented with chief complaint of multiple episodes of nausea & vomiting which later was blood- streaked, no miguel hemoptysis. Upon presentation he was also complaining of atypical substernal chest pain, transient diarrhea but no blood in stool. He was found to have guaiac-positive stools upon admission. Vitals upon presentation temperature 98.2, pulse 124, respiratory 22, blood pressure 216/116, satting mid 90s on 2 L nasal cannula oxygen. On examination: A O 3, the redness on the face arms secondary to eczema, neck supple, no JVD, no lymphadenopathy, anxious, tremulous, mucosa dry, CVS: S1-S2, RRR., RS: Clear to auscultate bilaterally. Abdomen: Soft, and T, NT, bowel sounds present. No pitting edema, no focal neurological deficit. Labs on admission: Hemoglobin 16.0, WBC 9.3 with neutrophils 88%, INR 1.07, bicarbonate 12, anion gap 30, calcium 10.5, lactate 7.8, bilirubin 2.5, CK 247, albumin 5.7, troponin less than 0.01, lipase 165 CXR: No acute abnormality CT abdomen and pelvis without IV contrast:No acute abnormality CT scan abdomen pelvis. Normal pancreas. No evidence of pancreatitis. There is diffuse fatty change of the liver. EKG: NSR Patient was admitted to general medicine floor and later transferred to ICU and following problems were addressed during course of hospital stay. 1. Alcohol withdrawal Patient was admitted for alcohol detox noted scoring high on CIWA. Initially he was maintained on scheduled Ativan with Ativan as per CIWA scale. On day 2 patient started scoring really high on CIWA (31) and started having auditory hallucinations with significant agitation, required about 9 mg of IV Ativan in one hour and patient was transferred to ICU for IV Ativan drip. Once patient DT symptoms improved he was switched to oral Ativan taper. 2. Acute alcohol-induced gastritis Upon admission patient complained of persistent nausea and vomiting with blood- streaked vomiting which persisted for first 3 days of admission. Gastroenterology consulted and patient had upper endoscopy which revealed 3+ erosive distal esophagitis. Patient started on PPI and his symptoms remain well controlled. 3. Right-sided weakness ? TIA/stroke On 07/18/2016 around 9:20 PM patient complained of new right-sided weakness with feeling of fogginess. Patient was evaluated by nurse and noted having right- sided weakness with facial drooping and house staff called immediately. On evaluation patient noted right-sided facial droop, right-sided upper extremity weakness 4/5, right-sided lower extremity weakness 4/5, normal speech, preserved sensation, intact visual field with no other focal neuro deficit. Babinski was negative. Stat CT head without contrast ordered but unfortunately due to downtime of CAT scan at the hospital patient was not able to get the study immediately. Attending was informed and it was decided to transfer patient to another facility for further imaging and evaluation. 4. hypertension During course of hospital stay patient noted having high blood pressure which was thought to be secondary to his withdrawal symptoms. Patient was continued on home dose metoprolol 25 mg twice a day. 5. Chest pain Patient complained of left-sided chest tightness which were waxing and waning since hospitalization with associated diaphoresis and shortness of breath. Patient was evaluated by cardiology due to previous history of CAD and multiple comorbidities and risk factors, serial troponin and EKG were done which noted negative for any underlying ACS. Patient continued on beta joycelyn, aspirin and statin. Allergies: Coded Allergies: Penicillins (RASH 07/09/15) blueberry (hives, rash 07/14/16) Pertinent Lab Results: Laboratory Tests 07/18/16 1954: Troponin I < 0.01 07/18/16 1100: Troponin I < 0.01 07/18/16 0430: Anion Gap 9, Estimated GFR > 60, Glucose 94, Calcium 9.1, Phosphorus 4.6 H, Magnesium 1.6, Total Bilirubin 1.9 H, AST 94 H, ALT 86 H, Albumin 3.6, CBC w Diff NO MAN DIFF REQ, RBC 4.82, MCV 88.6, MCH 29.5, RDW 15.2 H, MPV 8.6, Gran % 57.6, Lymphocytes % 30.1, Monocytes % 8.1, Eosinophils % 3.5, Basophils % 0.7, Absolute Granulocytes 1.7, Absolute Lymphocytes 0.9 L, Absolute Monocytes 0.2, Absolute Eosinophils 0.1, Absolute Basophils 0, PUBS MCHC 33.2 07/17/16 0325: Anion Gap 9, Estimated GFR > 60, Glucose 92, Calcium 9.3, Phosphorus 2.4 L, Magnesium 1.7, Total Bilirubin 2.6 H, AST 71 H, ALT 64, Albumin 3.5, CBC w Diff MAN DIFF ORDERED, RBC 4.61 L, MCV 89.2, MCH 29.7, RDW 15.3 H, MPV 9.1, Segmented Neutrophils 51, Lymphocytes 36, Monocytes 3, Eosinophils 7 H, Basophils 3 H, Platelet Estimate DECREASED, Polychromasia 1+, Basophilic Stippling 1+, Ovalocytes FEW, PUBS MCHC 33.3, Fld Total RBCs Counted 100 07/16/16 0615: Anion Gap 10, Estimated GFR > 60, Glucose 102 H, Calcium 9.0, Phosphorus 2.3 L , Magnesium 1.8, Total Bilirubin 3.5 H, AST 47, ALT 41, Albumin 3.7, Vitamin B12 327, Folate 8.9, TSH 1.900, CBC w Diff NO MAN DIFF REQ, RBC 4.70, MCV 88.2, MCH 29.4, RDW 15.3 H, MPV 8.4, Gran % 63.2, Lymphocytes % 26.7, Monocytes % 8.2 , Eosinophils % 1.5, Basophils % 0.4, Absolute Granulocytes 2.2, Absolute Lymphocytes 0.9 L, Absolute Monocytes 0.3, Absolute Eosinophils 0.1, Absolute Basophils 0, PUBS MCHC 33.4, HIV 1&2 Ab Western Blot NONREACTIVE Microbiology 07/17 1355 GI: MILAGRO Preparation - COMP Disposition Summary Disposition Principal Diagnosis: 1. Alcohol withdrawal 2. Alcohol induced acute gastritis 3. New onset right-sided weakness ? TIA/stroke 4. Hypertension 5. Chest pain Additional Diagnosis: 1. Hyperlipidemia, 2. CAD 3. History of TIA Discharge Disposition: other general hospital Discharge Instructions General Discharge Information Code Status: Full Code Patient's Diet: Heart healthy Patient's Activity: As tolerated Follow-Up Instructions/Appts: Please follow-up with primary care physician within a week of discharge. Please follow-up with cardiology Dr. Hook within a week of discharge. Please follow-up with gastroenterology Dr. Dumont within a week of discharge. Medications at Discharge Discharge Medications: Stop taking the following medications: Prazosin HCl (Minipress) 5 MG CAPSULE ORAL Every night Prazosin HCl (Prazosin HCl) 1 MG CAPSULE ORAL Every night Naltrexone HCl (Naltrexone HCl) 50 MG TABLET ORAL DAILY Sildenafil Citrate (Viagra) 50 MG TABLET ORAL As Directed as needed for ED Continue taking these medications: Aspirin (Ecotrin*) 81 MG TABLET. 1 Tablet ORAL DAILY Instructions: LAST GIVEN 07/18/16 @1130 Comments: PER PT Testosterone Cypionate (Testosterone Cypionate) 200 MG/ML VIAL 0.5 Milliliters INTRAMUSC EVERY THURSDAY Instructions: NOT GIVEN Comments: PER PT MED LABEL Gabapentin (Gabapentin) 400 MG CAPSULE 4 Capsule ORAL Every night Instructions: LAST GIVEN 07/17/16 @2120 Comments: PER PT MED LABEL AND PER PT - PT HAS 4 BOTTLES OF GABAPENTIN IN HIS BAG DATE FILLED 02/18/2016 1200MG PO QHS DATE FILLED 07/13/2015 1200MG PO QHS PRN DATE FILLED 05/26/2016 1200MG PO QPM DATE FILLED 04/29/2016 1200MG PO TID WM Atorvastatin Calcium (Lipitor) 80 MG TABLET 1 Tablet ORAL DAILY Qty = 30 Instructions: LAST GIVEN 07/17/16 @1630 Comments: PER PT MED LABEL Naproxen (Naproxen) 250 MG TABLET 1 Tablet ORAL as needed for PAIN/INFLAMMATION Instructions: NOT TAKEN Comments: PER PT- PT MED BOTTLE STATES 250MG PO BID DATE FILLED 03/27/2015 Quetiapine Fumarate (Seroquel) 100 MG TABLET 1.5 Tablet ORAL Every night Instructions: LAST GIVEN 07/17/16 @2120 Comments: PER PT HAS NOT PICKED UP REFILLS; EMPTY BOTTLE DATED 05/26/2016 Metoprolol Succ XL (Toprol XL) 25 MG TAB 1 Tablet ORAL TWICE DAILY Instructions: LAST GIVEN 07/18/16 @1130 Comments: PER PT MED BOTTLE Lurasidone HCl (Latuda) 40 MG TABLET 1 Tablet ORAL Every night Instructions: LAST GIVEN 07/18/16 @1130 Comments: PER PT Clonidine HCl (Clonidine HCl) 0.1 MG TABLET 1 Tablet ORAL Q6H as needed for ANXIETY Instructions: NOT GIVEN WHILE IN HOSPITAL Comments: PER PT MED BOTTLE LAST FILLED 10/28/2015 Fluoxetine HCl (Prozac) 20 MG CAPSULE 1 Capsule ORAL DAILY Instructions: PT RECEIVED 40MG QD Comments: PER PT MED LABEL LAST FILLED 05/06/2016 TO TAKE IN ADDITION TO 40MG TO MAKE 60MG PT HAS ADDITIONAL BOTTLE FULL DATED 02/23/2016 OF 20MG - TAKE 3 CAPS TO MAKE 60MG QAM Fluoxetine HCl (Fluoxetine HCl) 40 MG CAPSULE 1 Capsule ORAL DAILY Instructions: LAST GIVEN 07/18/16 @1130 Comments: PER PT MED LABEL DATE FILLED 04/29/2016; PER PT TAKES WITH 20MG TO MAKE 60MG DAILY Folic Acid (Folic Acid) 1 MG TABLET 1 Tablet ORAL DAILY Instructions: LAST GIVEN 07/18/16 @1130 Comments: PER PT MED LABEL DATE FILLED 05/06/2016 Meclizine HCl (Meclizine HCl) 12.5 MG TABLET 1-2 Tablet ORAL Q8H as needed for DIZZINESS Instructions: NOT TAKEN Comments: PER PT MED LABEL DATE FILLED 04/30/2016 Hydroxyzine Pamoate (Hydroxyzine Pamoate) 25 MG CAPSULE 1-2 Tablet ORAL As Directed Instructions: NOT TAKEN Comments: PER PT MED LABEL DATE FILLED 02/09/2016 DIRECTIONS STATE 1 CAP PO Q6H PRN ANXIETY AND 2 CAP PO QHS PRN FOR INSOMNIA Hydroxyzine Pamoate (Hydroxyzine Pamoate) 50 MG CAPSULE 1 Capsule ORAL THREE TIMES DAILY as needed for ANXIETY Instructions: NOT TAKEN Comments: PER PT MED LABEL DATE FILLED 05/29/2016 Start taking the following new medications: Lorazepam (Lorazepam) 2 MG/ML VIAL 1 Milligram INTRAVEN EVERY 2 HOURS NEEDED as needed for CIWA 8-11 OR PULSE 100-110 Qty = 1 No Refills Multivitamin (One Daily Multivitamin) 1 EACH TABLET 1 Tablet ORAL DAILY Qty = 1 No Refills Lorazepam (Lorazepam) 2 MG TABLET 1 Tablet ORAL Every 4 hours Qty = 1 No Refills Instructions: Please taper per patient response Pantoprazole Sodium (Protonix) 40 MG TABLET.DR 1 Tablet ORAL DAILY Qty = 30 No Refills Copies To: DAVID BARRIGA,SHAHNAZ; CLIFTON BARRIGA,ANGELINE Borjas; NIMO BARRIGA,JAVY Gunter Attending MD Review Statement Documenting Attending: KINGS MESA MD Other Findings: Patient had right sided weakness, new compared to admission (when I saw him previously). Patient going thro DTs and not oriented at time, he is unpable to provide exact time and details of the weakness. Last seen normal was 7 pm, then he was complaining of weakness around 9.10 pm and was evaluated, 4/5 weakness RUE, weak handgrip, right facial drooping. CT was ordered but CT machine was out of order, unknown time for repair. Patient has Hx CAD s/p PCI, TIA, right risk for CVA, Patient already on Asp and Statin, continue permissive HTN, imaging will be required to decide further plan, So I called Dr. Marshall to discuss this problem. He suggested transfering patient at this time for further managment for suspected CVA ?TIA Vs stroke .
--- NOTE | 2016-07-19 01:52 | NUR ---
PT TO BE TRANSFERED TO [facility] A STROKE ALERT. UPON ASSESSMENT PT FOUND TO BE A/O X3, SLOW TO RESPOND. MILD R FACIAL DROOP NOTED WITH RUE WEAKNESS AND DRIFT TO LLE. PT C/O MILD HEADACHE, BP 198/118, NO MEDS TO BE GIVEN PER ARYA HUDSON. PT DID NOT RECIEVE ANY SCHEDULED 2200 MEDS D/T CHANGE IN MENTAL STATUS REPORTED FROM PREVIOUS RN. PT IS AWARE THAT HE WILL BE TRANSFERED TO [facility] AND IS DENYING THAT ANY FAMILY BE CALLED AT THIS TIME HE STATES "I WILL MAKE MY CALLS IN THE MORNING." [facility] TO TRANSFER PT, REPORT GIVEN TO BIOMEDICAL SCIENTIST AT [facility].
== END 2016-07-19 02:00 | disposition short-term general hospital (02) | DRG 896 ==
LOC: ENRESERVTM → ENRESERVDT → ERH 19:32 → ERHI 22:08 → CRI 22:08 → 2NA 07-15 02:43 → CRI 07-15 18:50 → 1NO 07-18 18:41
PROVIDERS: Emergency Medicine; Internal Medicine; Internal Medicine Nephrology; Student in an Organized Health Care Education/Training Program; ADMIT Internal Medicine
PROC: 0DB38ZX Excision of Lower Esophagus, Via Natural or Artificial Opening Endoscopic, Diagnostic (ICD-10-PCS; principal; 2016-07-17)
DX: F10.231 Alcohol dependence with withdrawal delirium (principal); K22.6 Gastro-esophageal laceration-hemorrhage syndrome; K29.21 Alcoholic gastritis with bleeding; I50.32 Chronic diastolic (congestive) heart failure; G45.9 Transient cerebral ischemic attack, unspecified; T51.0X1A Toxic effect of ethanol, accidental (unintentional), initial encounter; Y90.1 Blood alcohol level of 20-39 mg/100 ml; E86.0 Dehydration; F43.10 Post-traumatic stress disorder, unspecified; K20.8 Other esophagitis; I25.10 Atherosclerotic heart disease of native coronary artery without angina pectoris; I10 Essential (primary) hypertension; K52.9 Noninfective gastroenteritis and colitis, unspecified; E78.5 Hyperlipidemia, unspecified; K76.0 Fatty (change of) liver, not elsewhere classified
CPT/HCPCS: 1NP; CCU; ERO; 36415; 74176; 80307; 81001; 82436; 87070; 87389; 88305; 88312; 93005; 93010; 96361; 96374; 96375; 96376; 99232; G0480; J0131; J1650; J2060; J2405; J2765; J3490; J7060

== ENCOUNTER 2016-08-15 17:40 | Inpatient (IN) | payer OTHER ==
[~2016-08-15] VITALS: Ht 167.6 cm; Wt 99.8 kg
[~2016-08-15 17:40] MED LIST changes: +ASPIRIN EC81 M1 PO; +CLONIDINE HCL0.1 MG PO; +FLUOXETINE HCL40 M1 PO; +FOLIC ACID1 M1 PO; +GABAPENTIN400 M2 PO; +HYDROXYZINE PAM25 M2 PO; +HYDROXYZINE PAM50 M1 PO; +LATUDA40 M1 PO; +LIPITOR80 M1 PO; +LORAZEPAM2 M1 PO; +LORAZEPAM2 MG/1 M1 IV; +MECLIZINE HCL12.5 M1 PO; +MINIPRESS5 MG PO; +NALTREXONE HCL50 M1 PO; +NAPROXEN250 M1 PO; +ONE DAILY MULT1 EAC2 PO; +PRAZOSIN HCL1 M1 PO; +PROTONIX40 M3 PO; +PROZAC20 M2 PO; +SEROQUEL200 M1 PO; +TESTOSTERO200 MG/1 M IM; +TOPROL XL25 M1 PO; +VIAGRA50 MG PO
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
--- NOTE | 2016-08-15 17:54 | NUR ---
PT TO ROOM 3.PLACEDON CARDIAC MONITORING.
--- NOTE | 2016-08-15 17:58 | NUR ---
SITTER AT THE BEDSIDE.
--- NOTE | 2016-08-15 17:59 | NUR ---
ATIVAN 2 MG IV ADMINISTERED
[2016-08-15] MEDS ORDERED: GABAPENTIN300 M2 PO (18:14)
[2016-08-15] MEDS ORDERED: GABAPENTIN400 M2 PO (18:14)
--- NOTE | 2016-08-15 18:15 | NUR ---
ATIVAN 2 MG IV
[2016-08-15 18:21] VITALS: BP 200/92
[2016-08-15 18:29] LABS: ABSOLUTE BASOPHIL COUNT 0 /CUMM (0.0-0.2); ABSOLUTE EOSINOPHIL COUNT 0 /CUMM (0.0-0.7); ABSOLUTE GRANULOCYTE CT 3.5 /CUMM (1.4-6.5); ABSOLUTE LYMPH COUNT 1.9 /CUMM (1.2-3.4); ABSOLUTE MONOCYTE COUNT 0.5 /CUMM (0.10-0.60); BASOPHIL % 0.8 % (0.0-2.0); EOSINOPHIL % 0.3 % (0-5); GRANULOCYTE % 59.4 % (42.2-75.2); HEMATOCRIT 51.9 % (42-52); MEAN CORPUSCULAR HGB 29.4 PG (27.0-31.0); MEAN CORPUSCULAR HGB CONC 33.4 G/DL (33.0-37.0); MEAN CORPUSCULAR VOLUME 88.1 FL (80.0-94.0); MEAN PLATELET VOLUME 8.9 FL (7.4-10.4); PLATELET COUNT 138 /CUMM (130-400); RBC DISTRIBUTION WIDTH 16.9 % (11.5-14.5); RED BLOOD CELL CT 5.89 /CUMM (4.70-6.10); WHITE BLOOD CELL COUNT 5.9 /CUMM (4.8-10.8)
--- NOTE | 2016-08-15 18:30 | NUR ---
ATIVAN 2MG ADMINISTERED.
--- NOTE | 2016-08-15 18:40 | NUR ---
NORMAL SALINE NOW INFUSING.
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
[2016-08-15 19:46] VITALS: BP 147/82
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
[2016-08-15 20:34] VITALS: BP 142/78
--- NOTE | 2016-08-15 20:58 | RADIOLOGY REPORT ---
EXAMINATION: XR PORTABLE CHEST CLINICAL INFORMATION: Tachycardia COMPARISON: Chest x-ray 07/14/2016 TECHNIQUE: Portable AP portable view of the chest was obtained. 8:11 PM FINDINGS: No significant abnormality is noted involving the heart, lungs, mediastinum, bony thorax or soft tissues. IMPRESSION: No acute change of chest.
--- NOTE | 2016-08-15 21:26 | NUR ---
PT BED ASSIGNMENT 172-1
--- NOTE | 2016-08-15 21:33 | NUR ---
PT REMAINS CALM AND COOPERATIVE. OFFERS NO COMPLAINTS AT THIS TIME. NO FURTHER TREMORS APPRECIATED. PENDING CASSANDRA DEVELOPER TO CALL IN RETURN FOR REPORT.
--- NOTE | 2016-08-15 22:19 | NUR ---
REPORT GIVEN TO NEHA JOSEPH IN TELE
[2016-08-15 22:21] VITALS: BP 139/74
--- NOTE | 2016-08-15 23:52 | Admission Certification ---
Admission Certification Certification Statement - As attending physician, I certify that at the time of - admission, based on clinical presentation, severity of - symptoms, need for further diagnostic testing and - therapeutic interventions, and risk of adverse outcomes - without in-hospital treatment, in my clinical assessment, - this patient requires an acute hospital stay for a minimum - of two nights or longer. I have also considered psychsocial - factors such as support system, advanced age, financial - issues, cognitive issues, and failed out-patient treatments, - past re-admission history, safety of patient, and lack of - compliance as applicable. Specific rationale supporting this admission is: Alcohol withdrawal, hypertensive urgency.
[2016-08-15 23:58] VITALS: BP 180/110
[2016-08-16] VITALS (13 sets, daily range): BP systolic 130–200; BP diastolic 80–112
[2016-08-16 08:19] LABS: ABSOLUTE BASOPHIL COUNT 0 /CUMM (0.0-0.2); ABSOLUTE EOSINOPHIL COUNT 0 /CUMM (0.0-0.7); ABSOLUTE GRANULOCYTE CT 2.7 /CUMM (1.4-6.5); ABSOLUTE LYMPH COUNT 0.8 /CUMM (1.2-3.4); PLATELET COUNT 91 /CUMM (130-400); WHITE BLOOD CELL COUNT 3.8 /CUMM (4.8-10.8)
--- NOTE | 2016-08-16 08:39 | PN- Housestaff ---
[facility]IG[facility] [place] 0839: Subjective Follow-up For: Chest pain Hypertensive urgency Alcohol withdrawal Tele-Events Since Last Visit: Sinus rhythm HR 90s-100s No overnight events Subjective: No acute events overnight. Patient seen and examined this morning. He continues to complain of left-sided chest pain radiating to left arm, currently 3 out of 10. He endorses nausea but no vomiting. CIWA scores were running high in the low 20s overnight and in the morning but improved to <10 later in the day. He reported to members of the medical team that he feels "worn out" and is "wanting to get it over with". Review of Systems Constitutional: Reports: see HPI. Objective Last 24 Hrs of Vital Signs/I&O Vital Signs Date Time Temp Pulse Resp B/P Pulse O2 O2 Flow FiO2 Ox Delivery Rate 08/17 2215 98.7 83 20 152/98 94 Room Air 08/16 202 80 178/122 08/16 2024 80 178/122 08/16 1825 98.1 88 18 164/102 93 Room Air 08/16 1604 97.8 80 16 167/85 95 Room Air 08/16 1414 98.8 84 20 150/80 08/16 1200 98.8 100 20 170/100 08/16 1110 158/93 08/16 1000 98.4 96 20 200/100 08/16 0958 98.4 96 20 200/100 08/16 0952 97.9 92 16 191/112 / 0824 97.9 92 16 191/112 96 Room Air 08/16 0800 97.9 96 20 191/112 / 0800 97.9 96 20 191/112 92 Room Air Room Air 08/16 0620 98.0 100 20 130/100 94 Room Air 08/16 0600 102 08/16 0450 90 / 0320 99.1 88 130/100 / 0150 98.1 106 20 160/110 95 Room Air 08/16 0030 102 08/16 0020 99.2 100 20 150/100 97 Room Air 08/15 2358 99.2 97 18 180/110 97 Nasal Cannula 08/15 2334 99 20 Intake & Output 08/16 1600 08/16 0800 08/16 0000 Intake Total 1080 1225 1000 Output Total 350 Balance 8980 162 9149 Intake, IV 567 623 5134 Intake, Oral 480 300 0 Output, Urine 350 Patient 99.79 kg Weight Physical Exam General Appearance: Alert, Oriented X3, Mild Distress HEENT: Atraumatic, Scleral Icterus Neck: Supple Cardiovascular: Normal S1, Normal S2, Tachycardic Lungs: Clear to Auscultation Abdomen: Soft, No Tenderness, Positive Bowel Sounds, Distended Extremities: No Clubbing, No Cyanosis, No Edema Current Medications: Current Medications Sig/Tiffany Start time Last Medication Dose Route Stop Time Status Admin Aspirin Buffered 81 MG DAILY 08/16 1000 CAN PO Atorvastatin Calcium 80 MG 1700 08/16 1700 CAN PO Clonidine 0.1 MG Q6H PRN 08/15 2345 AC 08/16 PO 202 Cyanocobalamin/ 1 BAG ONCE ONE 08/15 2130 DC 08/15 Thiamine/Pyridoxine IV 08/16 0529 2204 Dextrose/Water 1,000 ML Fluoxetine HCl 40 MG DAILY 08/16 1000 AC 08/16 PO 0952 Folic Acid 1 MG DAILY 08/16 1000 AC 08/16 PO 0952 Gabapentin 1,200 MG QPM 08/16 2200 AC 08/16 PO 202 Gabapentin 300 MG BID 08/16 1000 AC 08/16 PO 2025 Hydroxyzine HCl 50 MG TID 08/16 1000 AC 08/16 PO 202 Lorazepam 2 MG Q6 08/16 0600 AC 08/16 PO 1634 Lorazepam 1 MG Q6P PRN 08/16 0315 DC PO Lorazepam 0 Q1P PRN 08/15 2145 AC 08/16 IV 2124 Magnesium Oxide 400 MG ONE ONE 08/16 1345 DC 08/16 PO 08/16 1346 1425 Meclizine HCl 12.5 MG TID PRN 08/15 2345 AC PO Metoprolol Tartrate 50 MG BID 08/16 2200 AC 08/16 PO 2025 Metoprolol Tartrate 25 MG BID 08/16 1000 DC 08/16 PO 0952 Multivitamins 1 TAB DAILY 08/16 1000 AC 08/16 Therapeutic PO 0952 Omeprazole 40 MG DAILY AC 08/16 0700 AC PO Ondansetron HCl 4 MG Q6P PRN 08/16 1145 AC 08/16 IV 1153 Oxycodone HCl 5 MG Q6-PRN PRN 08/16 0030 AC 08/16 PO 2124 Oxycodone/ 2 TAB ONCE ONE 08/15 2345 CAN Acetaminophen PO 08/15 2346 Pantoprazole Sodium 40 MG DAILY 08/16 0030 DC 08/16 IV 0129 Potassium Chloride 40 MEQ ONCE ONE 08/16 1345 DC 08/16 PO 08/16 1346 1425 Quetiapine Fumarate 150 MG QPM 08/16 2200 AC 08/16 PO 2024 Sodium Chloride 1,000 ML .[id number] 08/15 2130 DC 08/16 IV 202 Tramadol HCl 50 MG ONCE ONE 08/16 0430 DC 08/16 PO 08/16 430 043 Last 24 Hrs of Lab/Scar Results Last 24 Hrs of Labs/Mics: Laboratory Tests 08/16/16 0829: PT 10.7, INR 1.02 08/16/16 0715: Anion Gap 17 H, Estimated GFR > 60, BUN/Creatinine Ratio 20.0, Phosphorus 2.3 L, Magnesium 1.7, Total Bilirubin 4.5 H, Direct Bilirubin 0.6 H, AST 111 H, ALT 103 H, Alkaline Phosphatase 57, Troponin I < 0.01, Total Protein 7.0, Albumin 4.6, CBC w Diff NO MAN DIFF REQ, RBC 5.02, MCV 88.3, MCH 29.8, RDW 16.9 H, MPV 9.0, Gran % 69.9, Lymphocytes % 21.4, Monocytes % 7.0, Eosinophils % 1.0, Basophils % 0.7, Absolute Granulocytes 2.7, Absolute Lymphocytes 0.8 L, Absolute Monocytes 0.3, Absolute Eosinophils 0, Absolute Basophils 0, PUBS MCHC 33.7 08/16/16 0115: Urine Opiates Screen < 100.00, Methadone Screen < 40, Barbiturate Screen < 60, Ur Phencyclidine Scrn < 6.00, Amphetamines Screen < 100, U Benzodiazepines Scrn 97, Urine Cocaine Screen < 50, Urine Cannabis Screen < 5.00, Urinalysis LIGHT H , Urine Color ORANG H, Urine Clarity HAZY H, Urine pH 6.0, Ur Specific [place] >= 1.030, Urine Protein >=300 H, Urine Ketones >=80, Urine Nitrite NEG, Urine Bilirubin NEG, Urine Urobilinogen 0.2, Ur Leukocyte Esterase NEG, Ur Microscopic SEDIMENT EXAMINED, Urine RBC 3-5, Urine WBC 1-3 H, Ur Epithelial Cells RARE, Urine Bacteria RARE H, Granular Casts 1-3 H, Urine Mucus MOD H, Urine Hemoglobin MOD H, Urine Glucose NEG 08/16/16 0105: Troponin I < 0.01 Assessment/Plan Assessment: 50 y/o M with PMHx of alcohol abuse, [place] s/p cardiac catheterization with no intervention and PTSD/anxiety/depression, with multiple admissions for alcohol detox/withdrawal who presents with acute onset of left-sided chest pain with radiation to left arm associated with shortness of breath, nausea and blood- streaked emesis. #Alcohol withdrawal: CIWA scores were elevated to 20s overnight and in the morning but later came down to <10. * Continue clonidine 0.1 mg PO Q6H PRN. * Continue Ativan 2 mg PO Q6H. * CIWA protocol to monitor for signs/symptoms of alcohol withdrawal. * Continue Ativan 1 mg IV Q1H PRN per CIWA protocol. * Continue daily MVI, vitamin B12 and folic acid. * Transfer to ICU for Ativan drip if CIWA scores start to uptrend. * Appreciate psych and social work input. #Chest pain: Most likely non-cardiac in etiology. Serial EKGs were without any ST-T wave abnormalities and troponins were negative. * Continue telemetry monitoring. * Cardiology following. Appreciate their recs. * ECHO ordered to rule out wall motion abnormalities. * Consider stress testing pending above. #Hypertensive urgency: BP was elevated to 200/100 in the AM but SBP later improved to 150-170. * Can give clonidine 0.1 mg IV Q6H PRN for elevated blood pressure. * Increase metoprolol to 50 mg PO BID. #Suicidal ideation: Unclear if this is secondary to alcohol withdrawal or represents primary psychosis in the setting of mood disorder. Per psych, patient still expresses SI and is a danger to self. * Psych following. Appreciate their recs. * Continue 1:1 sitter. * Psych to determine need for inpatient psych hospitalization. Diet: Regular DVT PPx: ALPs CODE: FULL Problem List: 1. Hypertensive urgency 2. Chest pain 3. Alcohol withdrawal 4. Suicidal ideation 5. Mood disorder Pain Ratin Pain Location: Chest Pain Goal: Remain pain free Pain Plan: Roxicodone 5 mg PO Q6H PRN Tomorrow's Labs & Rationales: None IVON MARROQUIN MD 08/16/16 1742: Attending MD Review Statement Attending Statement Attending MD Statement: examined this patient, discuss w/resident/PA/HOTEL ATTENDANT, agreed w/resident/PA/HOTEL ATTENDANT, reviewed EMR data (avail), discussed with nursing, discussed with case mgmt, amended to note Attending Assessment/Plan: The patient was seen and discussed with house staff. CIWA's still high, however partially due to anxiety. Better later in day with decreased BP. Have increased Metoprolol dose and using Clonidine for both BP and anxiety. Continue Ativan and CIWA. If worsens may need Ativan drip. Will need social service/psych input. He has had multiple admissions. He asked me today if he could be discharged tomorrow and I advised him of need to stay for further Ativan taper, etc.
[2016-08-16 08:44] LABS: ABSOLUTE MONOCYTE COUNT 0.3 /CUMM (0.10-0.60); BASOPHIL % 0.7 % (0.0-2.0); GRANULOCYTE % 69.9 % (42.2-75.2); MEAN CORPUSCULAR HGB 29.8 PG (27.0-31.0); MEAN CORPUSCULAR HGB CONC 33.7 G/DL (33.0-37.0); MEAN CORPUSCULAR VOLUME 88.3 FL (80.0-94.0); RBC DISTRIBUTION WIDTH 16.9 % (11.5-14.5); RED BLOOD CELL CT 5.02 /CUMM (4.70-6.10)
[2016-08-16 09:01] LABS: HEMATOCRIT 44.3 % (42-52)
[2016-08-16 09:08] LABS: PT 10.7 SEC (9.4-12.5)
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
--- NOTE | 2016-08-16 20:31 | NUR ---
BP AT 1944 WAS 178/122. INFOMRED MD ZHANE KULKARNI. PER HER REQUEST, TO GIVE PO CLONIDINE (PRN)
[2016-08-17] VITALS (18 sets, daily range): BP systolic 130–180; BP diastolic 80–120
--- NOTE | 2016-08-17 09:25 | PN- Housestaff ---
CATHI BARRIGA,MIRIAM 08/17/16 0925: Subjective Follow-up For: Chest pain, alcohol withdrawal Complaints: SLEEPY Tele-Events Since Last Visit: Normal sinus rhythm, heart rate 71- 100, no events. Subjective: I followed up and examined the patient today. He is somnolent. But arousable. Suicidal ideation present. Has 1-1 sitter right now, no events overnight, meditation, no aggression. He is Still complaining of hallucinations, and he is aware of that. Patient's latest CIWA score is 6, it has ranged from 0-25 in the past 24 hours mostly for tremor, anxiety, visual hallucination. Patient still has suicidal ideation, visual hallucination, tremors, anxiety and has required 12 mg of scheduled for oral Ativan in the past a 4 hours and 10 mg IV when necessary. Review of Systems Constitutional: Reports: see HPI. Objective Last 24 Hrs of Vital Signs/I&O Vital Signs Date Time Temp Pulse Resp B/P Pulse O2 O2 Flow FiO2 Ox Delivery Rate 08/17 1419 71 20 150/90 95 Room Air 08/17 1200 98.3 78 22 150/98 08/17 1158 78 22 150/98 94 Room Air 08/17 1008 98.3 78 20 150/100 94 Room Air 08/17 0950 98.6 86 22 160/98 08/17 0814 98.6 86 22 160/98 97 Room Air 08/17 0800 98.6 86 22 160/98 08/17 0626 97.7 90 23 130/98 95 08/17 0200 82 20 150/98 08/17 0152 99.4 82 20 150/98 94 08/17 0006 99.4 88 20 138/80 94 08/17 0000 99.4 88 20 138/80 08/16 2216 98.7 83 20 152/98 94 Room Air 08/16 202 80 178/122 08/16 2024 80 178/122 08/16 1825 98.1 88 18 164/102 93 Room Air 08/16 1604 97.8 80 16 167/85 95 Room Air Intake & Output 08/17 1600 08/17 0800 08/17 0000 Intake Total 754 544 4992 Output Total Balance 850 733 6003 Intake, IV 600 Intake, Oral 450 100 600 Physical Exam General Appearance: Alert, Oriented X3, Cooperative, Mild Distress, anxious, tremolous Other Physical Findings: HEENT: Atraumatic, Scleral Icterus Neck: Supple Cardiovascular: Normal S1, Normal S2, Tachycardic Lungs: Clear to Auscultation Abdomen: Soft, No Tenderness, Positive Bowel Sounds, Distended Extremities: No Clubbing, No Cyanosis, No Edema Suicidal ideation present Current Medications: Current Medications Sig/Tiffany Start time Last Medication Dose Route Stop Time Status Admin Clonidine 0.1 MG Q6H PRN 08/15 2345 AC 08/16 PO 2024 Fluoxetine HCl 40 MG DAILY 08/16 1000 AC 08/17 PO 0950 Folic Acid 1 MG DAILY 08/16 1000 AC 08/17 PO 0949 Gabapentin 1,200 MG QPM 08/16 2200 AC 08/16 PO 202 Gabapentin 300 MG BID 08/16 1000 AC 08/17 PO 0950 Hydroxyzine HCl 50 MG TID 08/16 1000 AC 08/17 PO 0950 Lorazepam 2 MG Q6 08/16 0600 AC 08/17 PO 1252 Lorazepam 0 Q1P PRN 08/15 2145 AC 08/17 IV 0325 Meclizine HCl 12.5 MG TID PRN 08/15 2345 AC PO Metoprolol Tartrate 50 MG BID 08/16 2200 AC 08/17 PO 0950 Multivitamins 1 TAB DAILY 08/16 1000 AC 08/17 Therapeutic PO 0950 Omeprazole 40 MG DAILY AC 08/16 0700 AC 08/17 PO 0623 Ondansetron HCl 4 MG Q6P PRN 08/16 1145 AC 08/16 IV 1153 Oxycodone HCl 5 MG Q6-PRN PRN 08/16 0030 AC 08/16 PO 2124 Quetiapine Fumarate 150 MG QPM 08/16 2200 AC 08/16 PO 202 Sodium Chloride 1,000 ML .[id number] 08/15 2130 DC 08/16 IV 2028 Last 24 Hrs of Lab/Scar Results Last 24 Hrs of Labs/Mics: Laboratory Tests 08/17/16 1032: CBC w Diff NO MAN DIFF REQ, RBC 4.86, MCV 88.4, MCH 29.9, RDW 16.8 H, MPV 9.2, Gran % 66.4, Lymphocytes % 23.3, Monocytes % 6.2, Eosinophils % 3.2, Basophils % 0.9, Absolute Granulocytes 1.6, Absolute Lymphocytes 0.6 L, Absolute Monocytes 0.1 L, Absolute Eosinophils 0.1, Absolute Basophils 0, PUBS MCHC 33.8 Assessment/Plan Assessment: 50 y/o M with PMHx of alcohol abuse, AK s/p cardiac catheterization with no intervention and PTSD/anxiety/depression, with multiple admissions for alcohol detox/withdrawal who presents with acute onset of left-sided chest pain with radiation to left arm associated with shortness of breath, nausea and blood- streaked emesis. #Alcohol withdrawal: CIWA scores in the past by 4 hours has ranged from 0-25, and in the morning but later came down to 6. * Continue clonidine 0.1 mg PO Q6H PRN. * Continue Ativan 2 mg PO Q6H. * CIWA protocol to monitor for signs/symptoms of alcohol withdrawal. * Continue Ativan 1 mg IV Q1H PRN per CIWA protocol. * Continue daily MVI, vitamin B12 and folic acid. * Transfer to ICU for Ativan drip if CIWA scores start to uptrend. * Appreciate psych and social work input. #Chest pain: Most likely non-cardiac in etiology. Serial EKGs were without any ST-T wave abnormalities and troponins were negative. * Continue telemetry monitoring. * Cardiology following. Appreciate their recs. * ECHO ordered to rule out wall motion abnormalities. * Consider stress testing pending above. Will follow Dr Magaña's recommendation tomorrow. #Hypertensive urgency: BP was elevated to 200/100 in the AM but SBP later improved to 150-170. * Can give clonidine 0.1 mg IV Q6H PRN for elevated blood pressure. * Continue metoprolol to 50 mg PO BID. #Suicidal ideation: Unclear if this is secondary to alcohol withdrawal or represents primary psychosis in the setting of mood disorder. Per psych, patient still expresses SI and is a danger to self. * Psych following. Appreciate their recs. * Continue 1:1 sitter. * Psych to determine need for inpatient psych hospitalization. Diet: Regular DVT PPx: ALPs CODE: FULL Problem List: 1. Alcohol dependence 2. Chest pain 3. Suicidal ideation Pain Ratin Pain Location: 3 Pain Goal: Pain 4 or less Pain Plan: prn Tomorrow's Labs & Rationales: - IVON MARROQUIN MD 08/17/16 1900: Attending MD Review Statement Attending Statement Attending MD Statement: examined this patient, discuss w/resident/PA/OBSTETRICS NURSE PRACTITIONER, agreed w/resident/PA/OBSTETRICS NURSE PRACTITIONER, reviewed EMR data (avail), discussed with nursing, amended to note Attending Assessment/Plan: The patient was seen and discussed with house staff. CIWA's continue to be high, however a portion of this relates to underlying psych issues. BP improved on increased Metoprolol and use of Clonidine. He required additional 13 mg of IV Ativan prn doses on top of standing dose. Will need psych and social service consults tomorrow.
--- NOTE | 2016-08-17 10:05 | PN- Student ---
Subjective Subjective: Medical Student Daily Progress Note: Mr. Rosa is a 50 yo M with PMH significant for HTN, CAD s/p angioplasty x2 without stenting, NSTEMI, and chronic alcohol abuse, who presented to the ED on 08/15/16 with acute severe left sided CP, SOB, nausea, blood streaked emesis, abdominal pain. He additionally had s/s of alcohol withdrawal and psychiatric illness, including tremors, hallucinations, and suicidal ideation. He was admitted for evaluation of ACS vs. acute alcohol detox and close monitoring. Since admission, he has had negative troponins, a normal EKG, and improving CP. He reports feeling "tired, but better," occasional diplopia, improving CP, improving SOB, no abdominal pain, no nausea, no vomiting, no diarrhea. He states his hallucinations are "very mild." He admits to still having suicidal ideation. When prompted about weakness, he states his left leg has always been weak. Overnight telemetry: NSR, no events. Current Medications Sig/Tiffany Start time Last Medication Dose Route Stop Time Status Admin Clonidine 0.1 MG Q6H PRN 08/15 2345 AC 08/16 PO 2023 Fluoxetine HCl 40 MG DAILY 08/16 1000 AC 08/16 PO 0952 Folic Acid 1 MG DAILY 08/16 1000 AC 08/16 PO 0952 Gabapentin 1,200 MG QPM 08/16 2200 AC 08/16 PO 2024 Gabapentin 300 MG BID 08/16 1000 AC 08/16 PO 202 Hydroxyzine HCl 50 MG TID 08/16 1000 AC 08/16 PO 202 Lorazepam 2 MG Q6 08/16 0600 AC 08/17 PO 0623 Lorazepam 0 Q1P PRN 08/15 2145 AC 08/17 IV 0325 Magnesium Oxide 400 MG ONE ONE 08/16 1345 DC 08/16 PO 08/16 1346 1425 Meclizine HCl 12.5 MG TID PRN 08/15 2345 AC PO Metoprolol Tartrate 50 MG BID 08/16 2200 AC 08/16 PO 202 Metoprolol Tartrate 25 MG BID 08/16 1000 DC 08/16 PO 0952 Multivitamins 1 TAB DAILY 08/16 1000 AC 08/16 Therapeutic PO 0952 Omeprazole 40 MG DAILY AC 08/16 0700 AC 08/17 PO 0623 Ondansetron HCl 4 MG Q6P PRN 04/15 1145 AC 08/16 IV 1153 Oxycodone HCl 5 MG Q6-PRN PRN 08/16 0030 AC 08/16 PO 2124 Potassium Chloride 40 MEQ ONCE ONE 08/16 1345 DC 08/16 PO 08/16 1346 1425 Quetiapine Fumarate 150 MG QPM 08/16 2200 AC 08/16 PO 2024 Sodium Chloride 1,000 ML .[id number] 08/15 2130 DC 08/16 IV 2027 Objective Objective: Vital Signs Date Time Temp Pulse Resp B/P Pulse O2 O2 Flow FiO2 Ox Delivery Rate 08/17 0814 98.6 86 22 160/98 97 Room Air 08/17 0800 98.6 86 22 160/98 08/17 0626 97.7 90 23 130/98 95 08/17 0200 82 20 150/98 08/17 0152 99.4 82 20 150/98 94 Intake & Output 08/17 1600 08/17 0800 08/17 0000 Intake Total 100 1200 Output Total Balance 100 1200 Intake, IV 600 Intake, Oral 100 600 CIWA scores over the past 24 hours: range from 0 -25; at 0800 this am, CIWA was 6. General: Resting, diaphoretic Neuro: A&O x3. Still tremulous, but improved as compared to yesterday. BUE strength improved, 5/5. RLE strength 4/5. LLE strength 3/5. HEENT: scleral icterus. EOMI. oral mucosa is moist. CV: S1, S2. RRR. No murmurs or bruits Pulmonary: CTA, no wheezing, rhonchi, or rales GI: abdomen distended. Tender to palpation in RUQ, guarding present in RUQ. Bowel sounds present and normoactive. Extremities: warm, well perfused. No cyanosis or clubbing Skin: No rashes or bruising evident. Assessment/Plan Assessment: Mr. Rosa is a 50yo M with PMH of HTN, CAD s/p angioplasty x2, NSTEMI, and chronic alcohol abuse, who presented on 08/15/16 with acute CP, SOB, and s/s of acute alcohol withdrawal and psychiatric illness. Plan: CP, dyspnea: troponins x3 have been negative. EKG has remained normal. No evidence of ST elevation or depression. No arrhythmia. This rules out acute ND. Possibly not cardiac in nature. * Continue telemetry monitoring given PMH * Cardiology following * Echo to rule out wall motion abnormalities * Possible stress test, pending results of Echo. EtOH withdrawal: CIWA scores have ranged from 0 -25. At 0321 this morning, scored at 18. At 0800 this morning, scored at 6. Patient is tremulous, anxious, and having visual hallucinations. * Continue CIWA protocol * Continue oral Ativan per q6h * Continue IV Ativan prn q1h per CIWA * Continue Clonidine * Psychiatry to follow and make recommendations HTN: chronic issue. Has been elevated since admission. Controlled with Metoprolol 25mg BID as outpatient. Increased Metoprolol to 50 mg BID yesterday, demonstrating better blood pressure control. * Will continue Metoprolol 50mg BID * Continue Clonidine * Continue to monitor Suicidal Ideation: Patient has been experiencing suicidal ideation consistently since admission. Has multiple stressors in personal life, including financial, marital, and substance use. Has underlying psychiatric disorders that are contributory. * Sitter at bedside * Psychiatry following * Will likely require inpatient psychiatric care when medically stable Code Status: Full Diet: Regular
[2016-08-17 11:58] LABS: ABSOLUTE BASOPHIL COUNT 0 /CUMM (0.0-0.2); ABSOLUTE EOSINOPHIL COUNT 0.1 /CUMM (0.0-0.7); ABSOLUTE GRANULOCYTE CT 1.6 /CUMM (1.4-6.5); ABSOLUTE LYMPH COUNT 0.6 /CUMM (1.2-3.4); ABSOLUTE MONOCYTE COUNT 0.1 /CUMM (0.10-0.60); BASOPHIL % 0.9 % (0.0-2.0); EOSINOPHIL % 3.2 % (0-5); GRANULOCYTE % 66.4 % (42.2-75.2); HEMATOCRIT 42.9 % (42-52); MEAN CORPUSCULAR HGB 29.9 PG (27.0-31.0); MEAN CORPUSCULAR HGB CONC 33.8 G/DL (33.0-37.0); MEAN CORPUSCULAR VOLUME 88.4 FL (80.0-94.0); MEAN PLATELET VOLUME 9.2 FL (7.4-10.4); PLATELET COUNT 70 /CUMM (130-400); RBC DISTRIBUTION WIDTH 16.8 % (11.5-14.5); RED BLOOD CELL CT 4.86 /CUMM (4.70-6.10); WHITE BLOOD CELL COUNT 2.4 /CUMM (4.8-10.8)
--- NOTE | 2016-08-17 12:14 | PN- Psychiatry ---
Assessment/Plan Impression: A/P: Pt with mood disorder with psychosis and AUD now with worsening mood and SI in the setting of vague AVHs, unclear if 2/2 at alcohol wd or primary psychosis. At this time, pt expressing SI and continued distress. As such, danger to self. Suggestion: - Please continue sitter - Psych consult to follow, to determine if continues to need inpatient psych stablization Subjective Subjective: Pt notes continued depression and wish to (by killing himself). Very distressed. Objective Last 24 Hrs of Vital Signs/I&O Vital Signs Date Time Temp Pulse Resp B/P Pulse O2 O2 Flow FiO2 Ox Delivery Rate 08/17 1158 78 22 150/98 94 Room Air 08/17 1008 98.3 78 20 150/100 94 Room Air 08/17 0950 98.6 86 22 160/98 08/17 0814 98.6 86 22 160/98 97 Room Air 08/17 0800 98.6 86 22 160/98 08/17 0626 97.7 90 23 130/98 95 08/17 0200 82 20 150/98 08/17 0152 99.4 82 20 150/98 94 08/17 0006 99.4 88 20 138/80 94 08/17 0000 99.4 88 20 138/80 08/16 2216 98.7 83 20 152/98 94 Room Air 08/16 202 80 178/122 08/16 2024 80 178/122 08/16 1825 98.1 88 18 164/102 93 Room Air 08/16 1604 97.8 80 16 167/85 95 Room Air 08/16 1414 98.8 84 20 150/80 Intake & Output 08/17 1600 08/17 0800 08/17 0000 Intake Total 100 1200 Output Total Balance 100 1200 Intake, IV 600 Intake, Oral 100 600 Physical Exam: MSE Appears as stated age. Cooperative behavior, good, appropriate eye contact. Nl speech rate and prosody. No psychomotor retardation or agitation. Mood bad Affect depressed, constricted, appropriate, non-liable. Linear and goal directed thought process. ++SI or HI. Does not appear to be responding to internal stimuli. Denies AVHs, paranoia, or delusions. I/J: limited Current Medications: Current Medications Sig/Tiffany Start time Last Medication Dose Route Stop Time Status Admin Clonidine 0.1 MG Q6H PRN 08/15 2345 AC 08/16 PO 2024 Fluoxetine HCl 40 MG DAILY 08/16 1000 AC 08/17 PO 0950 Folic Acid 1 MG DAILY 08/16 1000 AC 08/17 PO 0949 Gabapentin 1,200 MG QPM 08/16 2200 AC 08/16 PO 2025 Gabapentin 300 MG BID 08/16 1000 AC 08/17 PO 0950 Hydroxyzine HCl 50 MG TID 08/16 1000 AC 08/17 PO 0950 Lorazepam 2 MG Q6 08/16 0600 AC 08/17 PO 0623 Lorazepam 0 Q1P PRN 08/15 2145 AC 08/17 IV 0325 Magnesium Oxide 400 MG ONE ONE 08/16 1345 DC 08/16 PO 08/16 1346 1425 Meclizine HCl 12.5 MG TID PRN 08/15 2345 AC PO Metoprolol Tartrate 50 MG BID 08/16 2200 AC 08/17 PO 0950 Multivitamins 1 TAB DAILY 08/16 1000 AC 08/17 Therapeutic PO 0950 Omeprazole 40 MG DAILY AC 08/16 0700 AC 08/17 PO 0623 Ondansetron HCl 4 MG Q6P PRN 08/16 1145 AC 08/16 IV 1153 Oxycodone HCl 5 MG Q6-PRN PRN 08/16 0030 AC 08/16 PO 2124 Potassium Chloride 40 MEQ ONCE ONE 08/16 1345 DC 08/16 PO 08/16 1346 1425 Quetiapine Fumarate 150 MG QPM 08/16 2200 AC 08/16 PO 202 Sodium Chloride 1,000 ML .[id number] 08/15 2130 DC 08/16 IV 2027
--- NOTE | 2016-08-17 14:52 | PN- Cardiology ---
Subjective Subjective: Clinically stable. Chest discomfort symptoms improved. No new cardiac issues. Objective Vital Signs and I&Os Vital Signs Date Time Temp Pulse Resp B/P Pulse O2 O2 Flow FiO2 Ox Delivery Rate 08/17 1419 71 20 150/90 95 Room Air 08/17 1200 98.3 78 22 150/98 08/17 1158 78 22 150/98 94 Room Air 08/17 1008 98.3 78 20 150/100 94 Room Air 08/17 0950 98.6 86 22 160/98 08/17 0814 98.6 86 22 160/98 97 Room Air 08/17 0800 98.6 86 22 160/98 08/17 0626 97.7 90 23 130/98 95 08/17 0200 82 20 150/98 08/17 0152 99.4 82 20 150/98 94 08/17 0006 99.4 88 20 138/80 94 08/17 0000 99.4 88 20 138/80 08/16 2216 98.7 83 20 152/98 94 Room Air 08/16 2024 80 178/122 08/16 202 80 178/122 08/16 1825 98.1 88 18 164/102 93 Room Air 08/16 1604 97.8 80 16 167/85 95 Room Air Intake & Output 08/17 1600 08/17 0800 08/17 0000 08/16 1600 08/16 0800 08/16 0000 Intake Total 125 174 7006 1080 1225 1000 Output Total 350 Balance 018 301 2499 5896 456 9866 Intake, IV 600 012 412 7884 Intake, Oral 450 100 600 480 300 0 Output, Urine 350 Patient 220 lb Weight Current Medications: Current Medications Sig/Tiffany Start time Last Medication Dose Route Stop Time Status Admin Clonidine 0.1 MG Q6H PRN 08/15 2345 AC 08/16 PO 2023 Fluoxetine HCl 40 MG DAILY 08/16 1000 AC 08/17 PO 0950 Folic Acid 1 MG DAILY 08/16 1000 AC 08/17 PO 0949 Gabapentin 1,200 MG QPM 08/16 2200 AC 08/16 PO 2024 Gabapentin 300 MG BID 08/16 1000 AC 08/17 PO 0950 Hydroxyzine HCl 50 MG TID 08/16 1000 AC 08/17 PO 0950 Lorazepam 2 MG Q6 08/16 0600 AC 08/17 PO 1252 Lorazepam 0 Q1P PRN 08/15 2145 AC 04/16 IV 0325 Meclizine HCl 12.5 MG TID PRN 08/15 2345 AC PO Metoprolol Tartrate 50 MG BID 08/16 2200 AC 08/17 PO 0950 Multivitamins 1 TAB DAILY 08/16 1000 AC 08/17 Therapeutic PO 0950 Omeprazole 40 MG DAILY AC 08/16 0700 AC 08/17 PO 0623 Ondansetron HCl 4 MG Q6P PRN 08/16 1145 AC 08/16 IV 1153 Oxycodone HCl 5 MG Q6-PRN PRN 08/16 0030 AC 08/16 PO 2124 Quetiapine Fumarate 150 MG QPM 08/16 2200 AC 08/16 PO 2024 Sodium Chloride 1,000 ML .[id number] 08/15 2129 DC 08/16 IV 2027 Results Last 48 Hrs of Labs/Mics: Laboratory Tests 08/17/16 1032: CBC w Diff NO MAN DIFF REQ, RBC 4.86, MCV 88.4, MCH 29.9, RDW 16.8 H, MPV 9.2, Gran % 66.4, Lymphocytes % 23.3, Monocytes % 6.2, Eosinophils % 3.2, Basophils % 0.9, Absolute Granulocytes 1.6, Absolute Lymphocytes 0.6 L, Absolute Monocytes 0.1 L, Absolute Eosinophils 0.1, Absolute Basophils 0, PUBS MCHC 33.8 08/16/16 0829: PT 10.7, INR 1.02 08/16/16 0715: Anion Gap 17 H, Estimated GFR > 60, BUN/Creatinine Ratio 20.0, Phosphorus 2.3 L, Magnesium 1.7, Total Bilirubin 4.5 H, Direct Bilirubin 0.6 H, AST 111 H, ALT 103 H, Alkaline Phosphatase 57, Troponin I < 0.01, Total Protein 7.0, Albumin 4.6, CBC w Diff NO MAN DIFF REQ, RBC 5.02, MCV 88.3, MCH 29.8, RDW 16.9 H, MPV 9.0, Gran % 69.9, Lymphocytes % 21.4, Monocytes % 7.0, Eosinophils % 1.0, Basophils % 0.7, Absolute Granulocytes 2.7, Absolute Lymphocytes 0.8 L, Absolute Monocytes 0.3, Absolute Eosinophils 0, Absolute Basophils 0, PUBS MCHC 33.7 04/15/17 0115: Urine Opiates Screen < 100.00, Methadone Screen < 40, Barbiturate Screen < 60, Ur Phencyclidine Scrn < 6.00, Amphetamines Screen < 100, U Benzodiazepines Scrn 97, Urine Cocaine Screen < 50, Urine Cannabis Screen < 5.00, Urinalysis LIGHT H , Urine Color ORANG H, Urine Clarity HAZY H, Urine pH 6.0, Ur Specific [place] >= 1.030, Urine Protein >=300 H, Urine Ketones >=80, Urine Nitrite NEG, Urine Bilirubin NEG, Urine Urobilinogen 0.2, Ur Leukocyte Esterase NEG, Ur Microscopic SEDIMENT EXAMINED, Urine RBC 3-5, Urine WBC 1-3 H, Ur Epithelial Cells RARE, Urine Bacteria RARE H, Granular Casts 1-3 H, Urine Mucus MOD H, Urine Hemoglobin MOD H, Urine Glucose NEG 08/16/16 0105: Troponin I < 0.01 08/15/16 1812: Anion Gap 32 H, Estimated GFR > 60, BUN/Creatinine Ratio 15.6, Glucose 98, Calcium 10.3 H, Total Bilirubin 3.9 H, AST 132 H, ALT 121 H, Alkaline Phosphatase 83, Troponin I < 0.01, Total Protein 9.3 H, Albumin 5.8 H, Globulin 3.5, Albumin/Globulin Ratio 1.7, Amylase 60, Lipase 220, CBC w Diff NO MAN DIFF REQ, RBC 5.89, MCV 88.1, MCH 29.4, RDW 16.9 H, MPV 8.9, Gran % 59.4, Lymphocytes % 31.3, Monocytes % 8.2, Eosinophils % 0.3, Basophils % 0.8, Absolute Granulocytes 3.5, Absolute Lymphocytes 1.9, Absolute Monocytes 0.5, Absolute Eosinophils 0, Absolute Basophils 0, PUBS MCHC 33.4, Serum Alcohol 258.0 Assessment/Plan Assessment/Plan Assessment: 1. Chest pain syndrome - The patient's symptoms sound to be non cardiac in nature. He notes that he may have had an AL in the past but his CATH did not lead to any intervention. 2. EtOH withdrawal 3. Transaminitis 4. HTN 5. Mild hypercalcemia 6. Suicidal ideation Recommendations: -The patient's workup thus far has been negative. -Echo cardiac gram pending -Further decisions about possible stress testing can be made by the patient's primary catapult and arresting gear officer Dr. Magaña tomorrow. Continue telemetry? Yes
--- NOTE | 2016-08-17 14:53 | PN- Cardiology ---
Subjective Subjective: No sick and changing cardiac status. The patient continues to complain of some hip discomfort. Otherwise stable. Objective Vital Signs and I&Os Vital Signs Date Time Temp Pulse Resp B/P Pulse O2 O2 Flow FiO2 Ox Delivery Rate 08/17 1419 71 20 150/90 95 Room Air 08/17 1200 98.3 78 22 150/98 08/17 1158 78 22 150/98 94 Room Air 08/17 1008 98.3 78 20 150/100 94 Room Air 08/17 0950 98.6 86 22 160/98 08/17 0814 98.6 86 22 160/98 97 Room Air 08/17 0800 98.6 86 22 160/98 08/17 0626 97.7 90 23 130/98 95 08/17 0200 82 20 150/98 08/17 0152 99.4 82 20 150/98 94 08/17 0006 99.4 88 20 138/80 94 08/17 0000 99.4 88 20 138/80 08/16 2216 98.7 83 20 152/98 94 Room Air 08/16 2024 80 178/122 08/17 2023 80 178/122 08/16 1825 98.1 88 18 164/102 93 Room Air 08/16 1604 97.8 80 16 167/85 95 Room Air Intake & Output 08/17 1600 08/17 0800 08/17 0000 08/16 1600 08/16 0800 08/16 0000 Intake Total 444 743 6484 1080 1225 1000 Output Total 350 Balance 500 865 5500 5823 263 5105 Intake, IV 600 882 804 9754 Intake, Oral 450 100 600 480 300 0 Output, Urine 350 Patient 220 lb Weight Physical Exam: General Appearance: Alert, Oriented X3, Cooperative, Mild Distress, anxious, tremolous Other Physical Findings: HEENT: Atraumatic, Scleral Icterus Neck: Supple Cardiovascular: Normal S1, Normal S2, Lungs: Clear to Auscultation Abdomen: Soft, No Tenderness, Positive Bowel Sounds, Distended Extremities: No Clubbing, No Cyanosis, No Edema, Current Medications: Current Medications Sig/Tiffany Start time Last Medication Dose Route Stop Time Status Admin Clonidine 0.1 MG Q6H PRN 08/15 2345 AC 08/16 PO 2023 Fluoxetine HCl 40 MG DAILY 08/16 1000 AC 08/17 PO 0950 Folic Acid 1 MG DAILY 08/16 1000 AC 08/17 PO 0949 Gabapentin 1,200 MG QPM 08/16 2200 AC 08/16 PO 2025 Gabapentin 300 MG BID 08/16 1000 AC 08/17 PO 0950 Hydroxyzine HCl 50 MG TID 08/16 1000 AC 08/17 PO 0950 Lorazepam 2 MG Q6 08/16 0600 AC 08/17 PO 1252 Lorazepam 0 Q1P PRN 08/15 2145 AC 08/17 IV 0325 Meclizine HCl 12.5 MG TID PRN 08/15 2345 AC PO Metoprolol Tartrate 50 MG BID 08/16 2200 AC 08/17 PO 0950 Multivitamins 1 TAB DAILY 08/16 1000 AC 08/17 Therapeutic PO 0950 Omeprazole 40 MG DAILY AC 08/16 0700 AC 08/17 PO 0623 Ondansetron HCl 4 MG Q6P PRN 08/16 1145 AC 08/16 IV 1153 Oxycodone HCl 5 MG Q6-PRN PRN 08/16 0030 AC 08/16 PO 2124 Quetiapine Fumarate 150 MG QPM 08/16 220 AC 08/16 PO 202 Sodium Chloride 1,000 ML .[id number] 08/15 2130 DC 08/16 IV 8 Results Last 48 Hrs of Labs/Mics: Laboratory Tests 08/17/16 1032: CBC w Diff NO MAN DIFF REQ, RBC 4.86, MCV 88.4, MCH 29.9, RDW 16.8 H, MPV 9.2, Gran % 66.4, Lymphocytes % 23.3, Monocytes % 6.2, Eosinophils % 3.2, Basophils % 0.9, Absolute Granulocytes 1.6, Absolute Lymphocytes 0.6 L, Absolute Monocytes 0.1 L, Absolute Eosinophils 0.1, Absolute Basophils 0, PUBS MCHC 33.8 08/16/16 0829: PT 10.7, INR 1.02 08/16/16 0715: Anion Gap 17 H, Estimated GFR > 60, BUN/Creatinine Ratio 20.0, Phosphorus 2.3 L, Magnesium 1.7, Total Bilirubin 4.5 H, Direct Bilirubin 0.6 H, AST 111 H, ALT 103 H, Alkaline Phosphatase 57, Troponin I < 0.01, Total Protein 7.0, Albumin 4.6, CBC w Diff NO MAN DIFF REQ, RBC 5.02, MCV 88.3, MCH 29.8, RDW 16.9 H, MPV 9.0, Gran % 69.9, Lymphocytes % 21.4, Monocytes % 7.0, Eosinophils % 1.0, Basophils % 0.7, Absolute Granulocytes 2.7, Absolute Lymphocytes 0.8 L, Absolute Monocytes 0.3, Absolute Eosinophils 0, Absolute Basophils 0, PUBS MCHC 33.7 08/16/16 0115: Urine Opiates Screen < 100.00, Methadone Screen < 40, Barbiturate Screen < 60, Ur Phencyclidine Scrn < 6.00, Amphetamines Screen < 100, U Benzodiazepines Scrn 97, Urine Cocaine Screen < 50, Urine Cannabis Screen < 5.00, Urinalysis LIGHT H , Urine Color ORANG H, Urine Clarity HAZY H, Urine pH 6.0, Ur Specific [place] >= 1.030, Urine Protein >=300 H, Urine Ketones >=80, Urine Nitrite NEG, Urine Bilirubin NEG, Urine Urobilinogen 0.2, Ur Leukocyte Esterase NEG, Ur Microscopic SEDIMENT EXAMINED, Urine RBC 3-5, Urine WBC 1-3 H, Ur Epithelial Cells RARE, Urine Bacteria RARE H, Granular Casts 1-3 H, Urine Mucus MOD H, Urine Hemoglobin MOD H, Urine Glucose NEG 08/16/16 0105: Troponin I < 0.01 08/15/16 1812: Anion Gap 32 H, Estimated GFR > 60, BUN/Creatinine Ratio 15.6, Glucose 98, Calcium 10.3 H, Total Bilirubin 3.9 H, AST 132 H, ALT 121 H, Alkaline Phosphatase 83, Troponin I < 0.01, Total Protein 9.3 H, Albumin 5.8 H, Globulin 3.5, Albumin/Globulin Ratio 1.7, Amylase 60, Lipase 220, CBC w Diff NO MAN DIFF REQ, RBC 5.89, MCV 88.1, MCH 29.4, RDW 16.9 H, MPV 8.9, Gran % 59.4, Lymphocytes % 31.3, Monocytes % 8.2, Eosinophils % 0.3, Basophils % 0.8, Absolute Granulocytes 3.5, Absolute Lymphocytes 1.9, Absolute Monocytes 0.5, Absolute Eosinophils 0, Absolute Basophils 0, PUBS MCHC 33.4, Serum Alcohol 258.0 Assessment/Plan Assessment/Plan Assessment: 1. Chest pain syndrome - The patient's symptoms sound to be non cardiac in nature. He notes that he may have had an RI in the past but his CATH did not lead to any intervention. 2. EtOH withdrawal 3. Transaminitis 4. HTN 5. Mild hypercalcemia 6. Suicidal ideation Recommendations: -The patient's workup thus far has been negative. -Echo cardiac gram pending -Further decisions about possible stress testing can be made by the patient's primary ash pit worker Dr. Magaña tomorrow. Continue telemetry? Yes
--- NOTE | 2016-08-17 15:20 | NUR ---
PATIENT C/O CHEST PAIN 01/11. PATIENT REPORTED SYMPTOMS STARTED 20MINUTES AGO AND IT FELT LIKE AND ELEPHANT SITTING ON HIS CHEST. PAIN IS ALSO RADIATING TO LEFT ARM. DENIES NAUSEA. PATIENT APPEARS ANXIOUS. VITAL SIGN ASSESSED, BP 180/120. HR 83. AFIBRILE AT 98.3, RR 24. DR PINEDA AWARE. EKG AND TROPONIN ORDERED. WILL FOLLOW PLAN OF CARE.
--- NOTE | 2016-08-17 23:22 | NUR ---
AT 2114 PT C/O 5/10 CHEST PAIN TO MIDCHEST RADIATING TO LEFT ARM. EKG AND TROP ALREADY IN PLACE AND DRAWN AT THAT TIME. BP 178/126. INFOMRED BLOCKER AND CUTTER CONTACT LENS RAZA. OK TO GIVE PRN CLONIDINE EARLY. PAIN MEDS GIVEN.
[2016-08-18] VITALS: BP 150/88
[2016-08-18 02:00] VITALS: BP 150/98
[2016-08-18 04:47] VITALS: BP 152/96
--- NOTE | 2016-08-18 07:24 | PN- Housestaff ---
Subjective Follow-up For: Alcohol withdrawal Chest pain Suicidal ideation Tele-Events Since Last Visit: Sinus rhythm HR 65-70 PVCs No events Subjective: No acute events overnight. Patient seen and examined this morning. Patient is in deep sleep but arousable by vigorous sternal rub. He continues to have chest discomfort. He denies hallucinations. He continues to have passive suicidal ideation. He endorses headache and dizziness. Review of Systems Constitutional: Reports: see HPI. Objective Last 24 Hrs of Vital Signs/I&O Vital Signs Date Time Temp Pulse Resp B/P Pulse O2 O2 Flow FiO2 Ox Delivery Rate 08/18 1559 98.6 72 20 140/78 97 Room Air 08/18 1450 67 138/82 08/18 1035 75 138/82 08/18 0849 98.3 65 20 138/82 93 Room Air 08/18 0600 67 08/18 0447 98.7 74 22 152/96 08/18 0447 98.7 74 20 152/96 95 Room Air 08/18 0400 88 08/18 0200 98.8 68 20 150/98 94 Room Air 08/18 0000 98.9 74 22 150/88 08/17 2352 98.9 74 22 150/88 94 Room Air 08/17 2209 98.9 76 20 158/110 95 Room Air 08/17 2108 82 178/126 08/17 2108 82 178/126 08/17 2000 98.3 74 160/100 94 08/17 1914 154/104 08/17 1811 82 164/114 08/17 1802 99.1 86 20 164/114 96 Room Air 08/17 1644 152/110 Intake & Output 08/18 1600 08/18 0800 08/18 0000 Intake Total 240 610 Output Total Balance 240 610 Intake, IV 10 Intake, Oral 240 600 Physical Exam General Appearance: Alert, Oriented X3, No Acute Distress HEENT: Atraumatic, Mucous Membr. moist/pink Neck: Supple Cardiovascular: Regular Rate, Normal S1, Normal S2, No Murmurs, Gallops, Rubs Lungs: Clear to Auscultation Abdomen: Soft, No Tenderness, Positive Bowel Sounds, Obese Extremities: No Clubbing, No Cyanosis, No Edema Current Medications: Current Medications Sig/Tiffany Start time Last Medication Dose Route Stop Time Status Admin Clonidine 0.1 MG Q8 08/18 1400 AC 08/18 PO 1450 Clonidine 0.1 MG Q6H PRN 08/15 2345 DC 08/17 PO 2108 Fluoxetine HCl 40 MG DAILY 08/16 1000 AC 08/18 PO 1035 Folic Acid 1 MG DAILY 08/16 1000 AC 08/18 PO 1035 Gabapentin 1,200 MG QPM 08/16 2200 AC 08/17 PO 2108 Gabapentin 300 MG BID 08/16 1000 AC 08/18 PO 1035 Hydroxyzine HCl 50 MG TID 08/16 1000 AC 08/18 PO 1625 Lorazepam 2 MG Q8 08/18 1400 AC 08/18 PO 1448 Lorazepam 2 MG Q6 08/16 0600 DC 08/18 PO 0628 Lorazepam 0 Q1P PRN 08/15 2145 AC 08/18 IV 0446 Meclizine HCl 12.5 MG TID PRN 08/15 2345 AC PO Metoprolol Tartrate 50 MG BID 08/16 2200 AC 08/18 PO 1035 Multivitamins 1 TAB DAILY 08/16 1000 AC 08/18 Therapeutic PO 1035 Omeprazole 40 MG DAILY AC 08/16 0700 AC 08/18 PO 0628 Ondansetron HCl 4 MG Q6P PRN 08/16 1145 AC 08/16 IV 1153 Oxycodone HCl 5 MG Q6-PRN PRN 08/16 0030 AC 08/18 PO 1630 Potassium Chloride 10 MEQ ONCE ONE 08/18 1330 DC 08/18 PO 08/18 1331 1628 Prazosin HCl 1 MG AT BEDTIME 08/18 2200 AC PO Quetiapine Fumarate 150 MG QPM 08/16 2200 AC 08/17 PO 2108 Thiamine HCl 100 MG DAILY 08/18 1000 AC 08/18 PO 1035 Last 24 Hrs of Lab/Scar Results Last 24 Hrs of Labs/Mics: Laboratory Tests 08/18/16 1043: Anion Gap 15, Estimated GFR > 60, BUN/Creatinine Ratio 21.3, Total Bilirubin 2.6 H, Direct Bilirubin 0.6 H, AST 225 H, ALT 202 H, Alkaline Phosphatase 52, Total Protein 6.8, Albumin 4.3, PT 10.8, INR 1.03, CBC w Diff NO MAN DIFF REQ, RBC 5.13, MCV 88.3, MCH 30.3, RDW 16.4 H, MPV 9.7, Gran % 62.3, Lymphocytes % 26.5, Monocytes % 6.6, Eosinophils % 3.9, Basophils % 0.7, Absolute Granulocytes 1.9, Absolute Lymphocytes 0.8 L, Absolute Monocytes 0.2, Absolute Eosinophils 0.1, Absolute Basophils 0, PUBS MCHC 34.3 08/17/165: Troponin I < 0.01 Assessment/Plan Assessment: 50 y/o M with PMHx of alcohol abuse with multiple admissions for detox/ withdrawal, [facility] s/p cardiac catheterization with no intervention and PTSD/anxiety /depression who is admitted with chest pain and withdrawal symptoms. #Alcohol withdrawal: Symptoms significantly improved. CIWA scores were <10 overnight and 0s during the day. Long-standing history of alcohol abuse with multiple admissions for detox/withdrawal. Patient is currently interested in rehabilitation. * CIID protocol to monitor for signs/symptoms of alcohol withdrawal. * Decrease Ativan to 2 mg PO Q8H given improvement of CIWA scores. * Continue Ativan 1 mg IV Q1H PRN per CIID protocol. * Continue daily MVI, vitamin B12 and folic acid. * Appreciate social work evaluation for rehabilitation options. #Chest pain: Potential etiologies are cardiac although pain has some atypical features and alcohol induced gastritis given accompanying epigastric discomfort. Serial EKGs were without any ST-T wave abnormalities and troponins x5 were negative. * Continue telemetry monitoring. * Cardiology following. Appreciate their recs. * Per cardiology patient will need stress test for risk stratification. * Hold off on aspirin as it may exacerbate PUD. * ECHO ordered to rule out wall motion abnormalities. #Suicidal ideation: Persistent chronic suicidal ideation in the setting of underlying psychiatric disorder, bipolar vs PTSD. Patient is agreeable to voluntary admission to [facility]. * Psych following. Appreciate their recs. * Continue 1:1 sitter. * Transfer to [facility] after medical stabilization. * Prazosin 1 mg PO started for nightmares. * Continue prior to admission Prozac 40 mg PO daily, gabapentin 300 mg PO BID as well as gabapentin 1200 mg PO QPM and Seroquel 150 mg PO QPM. #Elevated LFTs: Likely secondary to alcohol abuse. ALT/AST have trended up to 225/202 today from 132/121 on admission. Total bilirubin 2.6, improved from 3.9 on admission. INR WNL. * Monitor LFTs. #HTN: Currently normotensive. * Continue to monitor BP closely. * Continue metoprolol 50 mg PO BID. * Clonidine changed to 0.1 mg PO Q8H. #Thrombocytopenia: Platelet count has dropped to 70s from 138 on admission. Likely secondary to alcohol abuse. * Monitor platelet count. * ALPs for DVT PPx. Diet: Regular DVT PPx: ALPs CODE: FULL Problem List: 1. Alcohol withdrawal 2. Atypical chest pain 3. HTN (hypertension) 4. Transaminitis 5. Hyperbilirubinemia 6. Thrombocytopenia 7. Passive suicidal ideations 8. Mood disorder 9. PTSD (post-traumatic stress disorder) Pain Ratin Pain Location: Chest Pain Goal: Pain 4 or less Pain Plan: Roxicodone 5 mg PO Q6H PRN Tomorrow's Labs & Rationales: BMP to monitor platelet count in the setting of thrombocytopenia LFTs to monitor transaminitis Discharge Plan Discharge Disposition: transfer to another hosp ([facility])
[2016-08-18 08:49] VITALS: BP 138/82
--- NOTE | 2016-08-18 09:31 | PN- Student ---
Subjective Subjective: Medical Student Daily Progress Note: Mr. Rosa is a 50 yo M with PMH of HTN, CAD c/b NSTEMI s/p angio without stenting x2, bipolar disorder, and chronic alcohol abuse, who presented to the ED on 08/15/16 for acute left CP, SOB, diaphoresis, s/s of alcohol withdrawal, and suicidal ideation. Since admission, his CP and SOB have been improving. He now rates CP as 2/10 and SOB is minimal, although he had an episode yesterday (08/17/16) afternoon of CP ( rated 8/10), hypertension, and SOB. His withdrawal symptoms are improving. He is no longer having hallucinations, but suicidal ideation has persisted. His only new complaints consist of some headache and dizziness, worsened with standing and walking. Current Medications Sig/Tiffany Start time Last Medication Dose Route Stop Time Status Admin Clonidine 0.1 MG Q6H PRN 08/15 2345 AC 08/17 PO 2108 Fluoxetine HCl 40 MG DAILY 08/16 1000 AC 08/17 PO 0950 Folic Acid 1 MG DAILY 08/16 1000 AC 08/17 PO 0949 Gabapentin 1,200 MG QPM 08/16 2200 AC 08/17 PO 2108 Gabapentin 300 MG BID 08/16 1000 AC 08/17 PO 2108 Hydroxyzine HCl 50 MG TID 08/16 1000 AC 08/17 PO 2108 Lorazepam 2 MG Q6 08/16 0600 AC 08/18 PO 0628 Lorazepam 0 Q1P PRN 08/15 2145 AC 08/18 IV 0446 Meclizine HCl 12.5 MG TID PRN 08/15 2345 AC PO Metoprolol Tartrate 50 MG BID 08/16 2200 AC 08/17 PO 2108 Morphine Sulfate 2 MG ONCE ONE 08/17 1615 DC 08/17 IV 08/17 1616 1609 Multivitamins 1 TAB DAILY 08/16 1000 AC 08/17 Therapeutic PO 0950 Nitroglycerin 0.4 MG ONCE ONE 08/17 1615 DC 08/17 SL 08/17 1616 1609 Omeprazole 40 MG DAILY AC 08/16 0700 AC 08/18 PO 0628 Ondansetron HCl 4 MG Q6P PRN 08/16 1145 AC 08/16 IV 1153 Oxycodone HCl 5 MG Q6-PRN PRN 08/16 0030 AC 08/17 PO 2107 Quetiapine Fumarate 150 MG QPM 08/16 2200 AC 08/17 PO 210 Thiamine HCl 100 MG DAILY 08/18 1000 AC PO Objective Objective: Vital Signs Date Time Temp Pulse Resp B/P Pulse O2 O2 Flow FiO2 Ox Delivery Rate 08/18 0849 98.3 65 20 138/82 93 Room Air 08/18 0600 67 08/18 0447 98.7 74 22 152/96 08/18 0447 98.7 74 20 152/96 95 Room Air 08/18 0400 88 08/18 0200 98.8 68 20 150/98 94 Room Air 08/18 0000 98.9 74 22 150/88 08/17 2352 98.9 74 22 150/88 94 Room Air 08/17 2209 98.9 76 20 158/110 95 Room Air 08/17 2108 82 178/126 08/17 2108 82 178/126 08/17 2000 98.3 74 160/100 94 08/17 1914 154/104 08/17 1811 82 164/114 08/17 1802 99.1 86 20 164/114 96 Room Air 08/17 1644 152/110 08/17 1533 98.3 83 24 180/120 94 Room Air Room Air 08/17 1419 71 20 150/90 95 Room Air 08/17 1200 98.3 78 22 150/98 08/17 1158 78 22 150/98 94 Room Air 08/17 1008 98.3 78 20 150/100 94 Room Air 08/17 0950 98.6 86 22 160/98 Intake & Output 08/18 1600 08/18 0800 08/18 0000 Intake Total 240 610 Output Total Balance 240 610 Intake, IV 10 Intake, Oral 240 600 Telemetry Monitoring: NSR, occasional PVCs. Rate 65-70 bpm. No acute events CIWA scores: Have been under 10 over the past 24 hours. Ativan Administration: 2mg IV on 08/17/16, 8 mg po on 08/17/16 General: Resting in bed, anxious Neuro: A&O x3, tremors improved. Moves all extremities spontaneously HEENT: EOMI. oral mucosa moist CV: S1,S2. RRR. no murmurs Pulmonary: CTA and percussion GI: abdomen soft, distended. Tender to deep palpation in RUQ. Extremities: warm, well perfused. No edema, clubbing, or cyanosis. Results Results: Laboratory Tests 08/17/16 2135: Troponin I < 0.01 08/17/16 1610: Troponin I < 0.01 08/17/16 1032: Assessment/Plan Assessment: Mr. Rosa is a 50 yo M with PMH of HTN, CAD c/b NSTEMI s/p angio without stenting x2, bipolar disorder, and chronic alcohol abuse, who presented to the ED on 08/15/16 for acute left CP, SOB, diaphoresis, s/s of alcohol withdrawal, and suicidal ideation. Plan: Chest Pain, dyspnea: Likely not cardiac in nature, despite PMH. Serial troponins have been negative. EKG is normal. No acute ST-T wave abnormalities or changes. Possibly neuro/psych or GI in nature. * Continue telemetry monitoring * Echo pending to rule out wall motion abnormalities * Cardiology following * Change Clonidine to 0.1mg q8h standing for better effects on blood pressure Alcohol abuse and withdrawal: S/s seem to be improving. Tremors have decreased and hallucinations have ceased. CIWA scores have been under 10 for the past 24 hours. Pt received 2mg IV Ativan and 8mg po Ativan on 08/17/16. * Continue CIWA protocol * Decrease po Ativan to 2mg q8h in anticipation of transition to psychiatric care/alcohol rehabilitation * Thiamine and Folate replacement Hypertensive urgency: chronic HTN with recent exacerbations. * Continue Metoprolol 50mg BID * Clonidine as above * Monitor vital signs Psychiatric/Suicidal Ideation: patient has underlying bipolar disorder with psychotic s/s, depression, PTSD, and anxiety. Multiple social factors and stressors. * Continue psychiatric medication regimen * Psychiatry following * 1:1 sitter for suicide precautions * Possible inpatient psychiatric/rehabilitation needs. To be evaluated by psychiatry. Code status: Full Diet: Regular DVT prophylaxis: ALPS
[2016-08-18 11:39] LABS: PT 10.8 SEC (9.4-12.5)
[2016-08-18 11:40] LABS: ABSOLUTE BASOPHIL COUNT 0 /CUMM (0.0-0.2); ABSOLUTE EOSINOPHIL COUNT 0.1 /CUMM (0.0-0.7); ABSOLUTE GRANULOCYTE CT 1.9 /CUMM (1.4-6.5); ABSOLUTE LYMPH COUNT 0.8 /CUMM (1.2-3.4); ABSOLUTE MONOCYTE COUNT 0.2 /CUMM (0.10-0.60); BASOPHIL % 0.7 % (0.0-2.0); EOSINOPHIL % 3.9 % (0-5); GRANULOCYTE % 62.3 % (42.2-75.2); HEMATOCRIT 45.3 % (42-52); MEAN CORPUSCULAR HGB 30.3 PG (27.0-31.0); MEAN CORPUSCULAR HGB CONC 34.3 G/DL (33.0-37.0); MEAN CORPUSCULAR VOLUME 88.3 FL (80.0-94.0); MEAN PLATELET VOLUME 9.7 FL (7.4-10.4); PLATELET COUNT 78 /CUMM (130-400); RBC DISTRIBUTION WIDTH 16.4 % (11.5-14.5); RED BLOOD CELL CT 5.13 /CUMM (4.70-6.10); WHITE BLOOD CELL COUNT 3.1 /CUMM (4.8-10.8)
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
--- NOTE | 2016-08-18 14:41 | PN- Att Addend ---
Attending MD Review Statement Attending Statement Attending MD Statement: examined this patient, discuss w/resident/PA/BUSHER HELPER, agreed w/resident/PA/BUSHER HELPER, reviewed EMR data (avail), discussed w/case mgmt Attending Assessment/Plan: Laboratory Tests 08/18/16 1043: Anion Gap 15, Estimated GFR > 60, BUN/Creatinine Ratio 21.3, Total Bilirubin 2.6 H, Direct Bilirubin 0.6 H, AST 225 H, ALT 202 H, Alkaline Phosphatase 52, Total Protein 6.8, Albumin 4.3, PT 10.8, INR 1.03, CBC w Diff NO MAN DIFF REQ, RBC 5.13, MCV 88.3, MCH 30.3, RDW 16.4 H, MPV 9.7, Gran % 62.3, Lymphocytes % 26.5, Monocytes % 6.6, Eosinophils % 3.9, Basophils % 0.7, Absolute Granulocytes 1.9, Absolute Lymphocytes 0.8 L, Absolute Monocytes 0.2, Absolute Eosinophils 0.1, Absolute Basophils 0, PUBS MCHC 34.3 08/17/16 2135: Troponin I < 0.01 08/17/16 1610: Troponin I < 0.01 Vital Signs Date Time Temp Pulse Resp B/P Pulse O2 O2 Flow FiO2 Ox Delivery Rate 08/18 1035 75 138/82 08/18 0849 98.3 65 20 138/82 93 Room Air 08/18 0600 67 08/18 0447 98.7 74 22 152/96 08/18 0447 98.7 74 20 152/96 95 Room Air 08/18 0400 88 08/18 0200 98.8 68 20 150/98 94 Room Air 08/18 0000 98.9 74 22 150/88 08/17 2352 98.9 74 22 150/88 94 Room Air 08/17 2209 98.9 76 20 158/110 95 Room Air 08/17 2108 82 178/126 08/17 2108 82 178/126 08/17 2000 98.3 74 160/100 94 08/17 1914 154/104 08/17 1811 82 164/114 08/17 1802 99.1 86 20 164/114 96 Room Air 08/17 1644 152/110 08/17 1533 98.3 83 24 180/120 94 Room Air Room Air Patient seen and examined at bedside. Discussed with patient the care plan. Patient with long-standing history of alcohol abuse since age 9. Admitted with chest pain and withdrawal symptoms. Troponin 4 has been negative. Patient also had suicidal ideation at admission for which he has one-to-one sitter. Psychiatry consulted and following the patient. His withdrawal symptoms are better and we have tapered down his Ativan to 2 mg every 8 hours. Thrombocytopenia-platelets are stable and repeat one done today are 78,000. Transaminitis with hyperbilirubinemia-secondary to alcohol abuse. His bilirubin level is coming down but transaminitis is persisting. We will follow-up repeat LFTs. Hypertension-changed his when necessary clonidine to every 8 hours. His metoprolol was increased to 50 mg twice a day 2 days ago. We'll continue to monitor his blood pressure closely. Alcohol dependence and abuse-continue with [facility] protocol. We will have public health social worker see the patient and discussed with him rehabilitation options. Patient is interested in rehabilitation.
--- NOTE | 2016-08-18 15:48 | PN- Cardiology ---
Subjective Subjective: * Patient continues to report chest discomfort with some atypical features. * sinus rhtyhm * normal troponin * BP improved Objective Vital Signs and I&Os Vital Signs Date Time Temp Pulse Resp B/P Pulse O2 O2 Flow FiO2 Ox Delivery Rate 08/18 1450 67 138/82 08/18 1035 75 138/82 08/18 0849 98.3 65 20 138/82 93 Room Air 08/18 0600 67 08/18 0447 98.7 74 22 152/96 08/18 0447 98.7 74 20 152/96 95 Room Air 08/18 0400 88 08/18 0200 98.8 68 20 150/98 94 Room Air 08/18 0000 98.9 74 22 150/88 08/17 2352 98.9 74 22 150/88 94 Room Air 08/17 2209 98.9 76 20 158/110 95 Room Air 08/17 2108 82 178/126 08/17 2108 82 178/126 08/17 2000 98.3 74 160/100 94 08/17 1914 154/104 08/17 1811 82 164/114 08/17 1802 99.1 86 20 164/114 96 Room Air 08/17 1644 152/110 Intake & Output 08/18 1600 08/18 0800 08/18 0000 08/17 1600 08/17 0800 08/17 0000 Intake Total 240 610 766 128 8469 Output Total Balance 240 610 836 430 2467 Intake, IV 10 600 Intake, Oral 240 600 450 100 600 Physical Exam: General: WD/overweight male in NAD; alert and oriented x 3 Neck: no JVD Heart: RRR s/o murmur Lungs: clear Extremities: no edema Assessment/Plan Assessment/Plan * This patient has persistent symptoms of chest discomfort with some atypical features. In consideration of his risk factors her should be risk stratified with a treadmill nuclear stress test. His epigastric discomfort may be related to alcohol abuse and related gastritis especially considering his persistent symptoms without ECG changes or rise in troponin. I would not start aspirin at this point in time since it may exacerbate PUD. Continue telemetry? Yes
[2016-08-18 15:59] VITALS: BP 140/78
--- NOTE | 2016-08-18 16:08 | Discharge Summary ---
Visit Information Visit Dates Admission Date: 08/15/16 Discharge Date: 08/21/2016 Hospital Course Course Attending Physician: JUDIT BARRIGA,YULIA uGnter Primary Care Physician: SHAHNAZ HERNANDEZ MD Hospital Course: 50 yo M with h/o alcohol abuse (no withdrawal seizures), pancreatitis, PTSD, anxiety, depression, CT s/p cardiac cath x 2 not requiring PCI, TIA, was recently admitted to [facility] (07/14 07/19) for alcohol detox requiring ativan drip, subsequently transferred to OSH as patient developed right sided weakness concerning for stroke and CT was unavailable at [facility] at that point. patiet expressed that he was told he had a mini-stroke/TIA. He was discharged 1 week later, and started drinking again about 2 L of rum daily, and returns on august 15 for left sided chest pain radiating to left arm slightly better with nitro, associated with dyspnea, nausea and bilious followed by blood streaked vomiting. EGD (July 2016): 3+ erosive distal esophagitis. He is requesting alcohol detox. He reports multiple stressors family/ divorce, and expressed suicidal ideation. He reported no diarrhea. Vitals: afebrile, HR 90-120's, BP 214/121 --> 178/94 --> 147/82, sats 97% RA. Labs: bicarb 18, AG 32, Calcium 10.3, T. Bili 3.9, AST 132, ALT 121, trop neg, lipase normal. UA hazy, proteinuria, WBC 1-3. Utox neg, Alcohol 258. CXR neg. EKG: Sinus tachycardia. Echo (2015): EF 70% with impaired LV relaxation, mild LVH. He was admitted to telemetry floor and treated for these medical conditions: 1. Chest pain syndrome and hypertensive urgency. ACS was ruled out. We continued the home medication metoprolol.we changed his clonidine to Q8. treadmill nuclear stress test showed A small reversible perfusion abnormality is probably present in the mid and basal segments of the inferolateral wall. we continued aspirin and put the patient on nitro patch. on 08/21/2016 patient developed tachycardia(140), and shaking episode complaining of severe left sidsed chest pain. patient was treated with IV ativan, morphine SL nitro , d-dimer, troponin(first set), EKG was unremarkable. Y access was called and patient will be transferred to [facility] for cardiac cath with . 2. Alcohol withdrawal with gastritis/ suicidal ideation Ww the patient on by mouth and IV Ativan when necessary per CIWA protocol. One- to-one sitter for SI. gradually we reduced the avitan and patient was amenable to be admitted to [facility] ([facility] unit) and he signed an the voluntary admission documents)for furthur Psych management.LFTs were gradually decreasing. we tapered the ativan as well. platelet were increasing to 127 upon discharge. Prazosin was also started and tapered up for for nightmares.LFTs should be checked again within 7 days after discharge. Upon transferring to [facility]), patient was denying SI but he still was on one-to-one sitter. Patient should be on one to one sitter in the destination hospital until he is being evaluated officially by psychiatry for further management of psychiatric diseases and possible inpatient psychiatry admission. Allergies: Coded Allergies: Penicillins (RASH 07/09/15) blueberry (hives, rash 07/14/16) Pertinent Lab Results: PATIENT: JOHANN MONTGOMERY PRESENT AGE: 50 PATIENT ACCOUNT NO: [id number] : 67 LOCATION: [facility] ORDERING PHYSICIAN: YULIA SPAIN MD SERVICE DATE: 08/20/16 EXAM TYPE: NUC - MYOCARDIAL PERFUSION IMAGING EXERCISE STRESS AND RESTING SPECT MYOCARDIAL PERFUSION IMAGING STUDY WITH GATED SPECT IMAGES: CLINICAL INDICATION: Atypical chest pain. PROCEDURE: Regional myocardial perfusion was assessed using a 1 day protocol. Stress images were obtained on 08/20/2016 following the intravenous administration of 23.0 mCi Tc 99m Myoview. Stress was performed using the standard Taiwo protocol, with the patient reaching a peak heart rate of 68% maximal predicted heart rate. Rest images were obtained 08/20/2016 following the intravenous administration of 40.4 mCi Technetium 99m Myoview. Single photon emission tomographic (SPECT) images were obtained. SPECT images were acquired in a 64 x 64 matrix of 64 projections over 180 degrees. These were reconstructed into standard short axis, horizontal and vertical long axis cardiac projections. FINDINGS: The post stress images show the left ventricular chamber to be normal in size. There is a small region of mildly decreased activity that involves the mid and basal segments of the inferolateral wall. The activity in the other jc appears normal. The rest images show a more homogeneous distribution of activity. The decreased activity noted in the inferolateral wall on the poststress images is not present on the rest images. The activity in the other jc is unchanged from the post stress images and appears normal. The stress images were obtained using a gated SPECT technique, which permits visualization of wall motion and calculation of the left ventricular ejection fraction. The left ventricular chamber is normal in size. No left ventricular wall motion abnormalities are noted. The calculated left ventricular ejection fraction is 48% on the stress study. No previous study is available for comparison. IMPRESSION: A small reversible perfusion abnormality is probably present in the mid and basal segments of the inferolateral wall. No other perfusion abnormalities are noted. Left ventricular wall motion and ejection fraction are normal. Because the patient was unable to achieve an adequate heart rate response, additional regions of myocardial ischemia during exercise cannot be ruled out. DICTATED BY: MONSE MARIA MD DATE/TIME DICTATED:08/20/161506 CABINET MAKER:ROGE DATE/TIME TRANSCRIBED:08/20/161506 CONFIDENTIAL, DO NOT COPY WITHOUT APPROPRIATE AUTHORIZATION. <Electronically signed in Other Vendor System> SIGNED BY: MONSE MARIA MD 1522 Disposition Summary Disposition Principal Diagnosis: Chest pain Alcohol abuse Suicidal ideation Additional Diagnosis: History of TIA Depression hx of CT Discharge Disposition: [facility] Discharge Instructions General Discharge Information Code Status: Full Code Patient's Diet: Heart healthy Patient's Activity: as tolerated Follow-Up Instructions/Appts: -Please follow-up with your primary care provider within 7 days after discharge. -please follow-up with your Psychiatrist in 7 days after discharge -Please follow-up with your oil process stillman 7 days after discharge for outpatient CARDIAC CATH. -We have made changes to your home medications, please read the instructions carefully. -Please come back to the hospital if your symptoms got worse. Medications at Discharge Discharge Medications: Stop taking the following medications: Naproxen (Naproxen) 250 MG TABLET ORAL as needed for PAIN/INFLAMMATION Metoprolol Succ XL (Toprol XL) 25 MG TAB ORAL TWICE DAILY Lurasidone HCl (Latuda) 40 MG TABLET ORAL Every night Clonidine HCl (Clonidine HCl) 0.1 MG TABLET ORAL Q6H as needed for ANXIETY Lorazepam (Lorazepam) 2 MG TABLET ORAL Every 4 hours Qty = 1 Continue taking these medications: Aspirin (Ecotrin*) 81 MG TABLET. 1 Tablet ORAL DAILY Comments: Last Taken: 08/21/16 Time: 9:30 AM Testosterone Cypionate (Testosterone Cypionate) 200 MG/ML VIAL 0.5 Milliliters INTRAMUSC EVERY THURSDAY Comments: Last Taken: 08/20/16 Time: 12:30 PM Atorvastatin Calcium (Lipitor) 80 MG TABLET 1 Tablet ORAL DAILY Qty = 30 Comments: NOT GIVEN IN HOSPITAL Quetiapine Fumarate (Seroquel) 100 MG TABLET 1.5 Tablet ORAL Every night Comments: Last Taken: 08/20/16 Time: 8:30 PM Fluoxetine HCl (Prozac) 20 MG CAPSULE 1 Capsule ORAL DAILY Instructions: PT RECEIVED 40MG QD Comments: Last Taken: 08/11/16 Time: 10:30 AM Folic Acid (Folic Acid) 1 MG TABLET 1 Tablet ORAL DAILY Comments: Last Taken: 08/21/16 Time: 10:30 AM Meclizine HCl (Meclizine HCl) 12.5 MG TABLET 1-2 Tablet ORAL Q8H as needed for DIZZINESS Comments: NOT GIVEN IN HOSPITAL Hydroxyzine Pamoate (Hydroxyzine Pamoate) 50 MG CAPSULE 1 Capsule ORAL THREE TIMES DAILY as needed for ANXIETY Comments: Last Taken: 08/21/16 Time: 4 PM Multivitamin (One Daily Multivitamin) 1 EACH TABLET 1 Tablet ORAL DAILY Qty = 1 Comments: Last Taken: 08/21/16 Time: 10:30 AM Pantoprazole Sodium (Protonix) 40 MG TABLET. 1 Tablet ORAL DAILY Qty = 30 Comments: Last Taken: 08/21/16 Time: 6:30 AM *PRILOSEC 40 MG GIVEN INSTEAD Gabapentin (Gabapentin) 300 MG CAPSULE 1 Capsule ORAL TWICE DAILY Comments: Last Taken: 08/21/16 Time: 10:30 AM Gabapentin (Gabapentin) 400 MG CAPSULE 1,200 Milligram ORAL Every night Comments: Last Taken: 08/20/16 Time: 8:30 PM Fluoxetine HCl (Prozac) 10 MG CAPSULE 1 Capsule ORAL DAILY Comments: Last Taken: 08/21/16 Time: 10:30 AM Start taking the following new medications: Thiamine HCl (Vitamin B-1) 100 MG TABLET 100 Milligram ORAL DAILY Days = 28 No Refills Comments: Last Taken: 08/21/16 Time: 11 AM Metoprolol Tartrate (Metoprolol Tartrate) 50 MG TABLET 50 Milligram ORAL TWICE DAILY Days = 28 No Refills Comments: Last Taken: 08/21/16 Time: 9:30 AM Clonidine HCl (Clonidine HCl) 0.1 MG TABLET 0.1 Milligram ORAL EVERY 12 HOURS Days = 28 No Refills Comments: Last Taken: 08/21/16 Time: 9:30 AM Nitroglycerin (Nitroglycerin Patch) 0.4 MG/HOUR PATCH.TD24 0.4 Milligram On the skin DAILY Qty = 14 No Refills Instructions: 12 hours on, 12 hours off Comments: Last Taken: 08/21/16 Time: 9:30 AM Prazosin HCl (Prazosin HCl) 2 MG CAPSULE 2 Milligram ORAL AT BEDTIME Days = 28 No Refills Comments: Last Taken: 08/20/16 Time: 8:30 PM Lorazepam (Ativan) 0.5 MG TABLET 0.5 Milligram ORAL EVERY 8 HOURS Days = 1 No Refills Instructions: alchol detox, slow tapering Comments: Last Taken: 08/21/16 Time: 1:30 PM Copies To: NIMO BARRIGA,JAVY Gunter; JORGE PALMER APRN Attending Review Statement Documenting Attending: YULIA SPAIN MD Other Findings: please see my separate attending note for more details Lorazepam (Ativan) 0.5 MG TABLET 0.5 Milligram ORAL EVERY 8 HOURS Days = 1 No Refills Instructions: alchol detox, slow tapering Copies To: NIMO BARRIGA,JAVY Gunter; JORGE PALMER APRN
[2016-08-18 22:00] VITALS: BP 154/90
--- NOTE | 2016-08-19 07:06 | PN- Housestaff ---
See Addendum Subjective Follow-up For: Alcohol withdrawal Chest pain Suicidal ideation Tele-Events Since Last Visit: Sinus rhythm HR 54-58 No events Subjective: No acute events overnight. Patient seen and examined this morning. He feels irritable and anxious this morning. He continues to endorse chest pain. He denies suicidal ideation. He is agreeable to voluntary admission to [facility]. He reports that he is due for his weekly testosterone injection and would like to have it while inpatient. Review of Systems Constitutional: Reports: see HPI. Objective Last 24 Hrs of Vital Signs/I&O Vital Signs Date Time Temp Pulse Resp B/P Pulse O2 O2 Flow FiO2 Ox Delivery Rate 08/19 0636 68 148/94 08/18 2200 97.2 68 18 154/90 98 Room Air 08/18 210 63 154/90 08/18 2103 68 154/90 08/18 2103 68 154/90 08/18 1559 98.6 72 20 140/78 97 Room Air 08/18 1450 67 138/82 08/18 1035 75 138/82 Intake & Output 08/19 1600 08/19 0800 08/19 0000 Intake Total 300 300 Output Total Balance 300 300 Intake, IV 0 0 Intake, Oral 300 300 Number 0 0 Bowel Movements Physical Exam General Appearance: Alert, Oriented X3, No Acute Distress HEENT: Atraumatic, Mucous Membr. moist/pink Neck: Supple Cardiovascular: Regular Rate, Normal S1, Normal S2, No Murmurs, Gallops, Rubs Lungs: Clear to Auscultation Abdomen: Soft, No Tenderness, Positive Bowel Sounds, Obese Extremities: No Clubbing, No Cyanosis, No Edema Current Medications: Current Medications Sig/Tiffany Start time Last Medication Dose Route Stop Time Status Admin Clonidine 0.1 MG Q8 08/18 1400 AC 08/19 PO 0636 Clonidine 0.1 MG Q6H PRN 08/15 2345 DC 08/17 PO 2108 Fluoxetine HCl 40 MG DAILY 08/16 1000 AC 08/18 PO 1035 Folic Acid 1 MG DAILY 08/16 1000 AC 08/18 PO 1035 Gabapentin 1,200 MG QPM 08/16 2200 AC 08/18 PO 210 Gabapentin 300 MG BID 08/16 1000 AC 08/18 PO 210 Hydroxyzine HCl 50 MG TID 08/16 1000 AC 08/18 PO 210 Lorazepam 2 MG Q8 08/18 1400 AC 08/19 PO 0636 Lorazepam 2 MG Q6 08/16 0600 DC 08/18 PO 0628 Lorazepam 0 Q1P PRN 08/15 2145 AC 08/19 IV 0420 Meclizine HCl 12.5 MG TID PRN 08/15 2345 AC PO Metoprolol Tartrate 50 MG BID 08/16 2200 AC 08/18 PO 2103 Multivitamins 1 TAB DAILY 08/16 1000 AC 08/18 Therapeutic PO 1035 Omeprazole 40 MG DAILY AC 08/16 0700 AC 08/19 PO 0636 Ondansetron HCl 4 MG Q6P PRN 08/16 1145 AC 08/16 IV 1153 Oxycodone HCl 5 MG Q6-PRN PRN 08/16 0030 AC 08/19 PO 0230 Potassium Chloride 10 MEQ ONCE ONE 08/18 1330 DC 08/18 PO 08/18 1331 1628 Prazosin HCl 1 MG AT BEDTIME 08/18 2199 AC 08/18 PO 210 Quetiapine Fumarate 150 MG QPM 08/16 220 AC 08/18 PO 210 Thiamine HCl 100 MG DAILY 08/18 1000 AC 08/18 PO 1035 Last 24 Hrs of Lab/Scar Results Last 24 Hrs of Labs/Mics: Laboratory Tests 08/19/16 0630: Total Bilirubin 1.9 H, Direct Bilirubin 0.4, AST 223 H, ALT 230 H, Alkaline Phosphatase 47, Total Protein 6.5, Albumin 4.1, CBC w Diff NO MAN DIFF REQ, RBC 4.93, MCV 90.3, MCH 29.9, RDW 16.4 H, MPV 10.0, Gran % 57.6, Lymphocytes % 29.4 , Monocytes % 8.1, Eosinophils % 4.1, Basophils % 0.8, Absolute Granulocytes 2.0 , Absolute Lymphocytes 1.0 L, Absolute Monocytes 0.3, Absolute Eosinophils 0.1, Absolute Basophils 0, PUBS MCHC 33.1 08/18/16 1043: Anion Gap 15, Estimated GFR > 60, BUN/Creatinine Ratio 21.3, Total Bilirubin 2.6 H, Direct Bilirubin 0.6 H, AST 225 H, ALT 202 H, Alkaline Phosphatase 52, Total Protein 6.8, Albumin 4.3, PT 10.8, INR 1.03, CBC w Diff NO MAN DIFF REQ, RBC 5.13, MCV 88.3, MCH 30.3, RDW 16.4 H, MPV 9.7, Gran % 62.3, Lymphocytes % 26.5, Monocytes % 6.6, Eosinophils % 3.9, Basophils % 0.7, Absolute Granulocytes 1.9, Absolute Lymphocytes 0.8 L, Absolute Monocytes 0.2, Absolute Eosinophils 0.1, Absolute Basophils 0, PUBS MCHC 34.3 Assessment/Plan Assessment: 50 y/o M with PMHx of alcohol abuse with multiple admissions for detox/ withdrawal, IN s/p cardiac catheterization with no intervention and PTSD/anxiety /depression who is admitted with chest pain and withdrawal symptoms. #Alcohol withdrawal: Symptoms significantly improved. CIWA scores were <10 overnight. Long-standing history of alcohol abuse with multiple admissions for detox/withdrawal. Patient is currently interested in rehabilitation. * CIAR protocol to monitor for signs/symptoms of alcohol withdrawal. * Decrease Ativan further to 1.5 mg PO Q8H given improvement of CIWA scores. * Switch to Ativan 1 mg PO Q4H PRN per CIAR protocol. * Continue daily MVI, vitamin B12 and folic acid. #Chest pain: Potential etiologies are cardiac although pain has some atypical features and alcohol induced gastritis given accompanying epigastric discomfort. Serial EKGs were without any ST-T wave abnormalities and troponins x5 were negative. * Continue telemetry monitoring. * Cardiology following. Appreciate their recs. * Treadmill nuclear stress testing scheduled tomorrow. * Hold off on aspirin as it may exacerbate PUD. * ECHO pending. #Suicidal ideation: Persistent chronic suicidal ideation in the setting of underlying psychiatric disorder, bipolar vs PTSD. Patient is agreeable to voluntary admission to [facility]. * Psych following. Appreciate their recs. * Continue 1:1 sitter. * Transfer to [facility] tomorrow after stress test. * Prazosin 1 mg PO QHS started for nightmares. Gradually titrate up to prior to admission dose of 6 mg PO QHS. * Continue prior to admission Prozac 40 mg PO daily, gabapentin 300 mg PO BID as well as gabapentin 1200 mg PO QPM and Seroquel 150 mg PO QPM. #Elevated LFTs: Likely secondary to alcohol abuse. ALT/AST remain elevated although total bilirubin is improving. INR WNL. * Continue to monitor LFTs. #HTN: Currently normotensive. * Continue to monitor BP closely. * Continue metoprolol 50 mg PO BID and clonidine 0.1 mg PO Q8H. #Thrombocytopenia: Likely secondary to alcohol abuse. Platelet count has improved to 94 today. * Monitor platelet count. * ALPs for DVT PPx. Diet: Regular DVT PPx: ALPs CODE: FULL Problem List: 1. PTSD (post-traumatic stress disorder) 2. Passive suicidal ideations 3. Thrombocytopenia 4. Hyperbilirubinemia 5. Transaminitis 6. Mood disorder 7. Hypertensive urgency 8. Chest pain 9. Alcohol withdrawal Pain Ratin Pain Location: Chest Pain Goal: Remain pain free Pain Plan: Roxicodone 5 mg PO Q6H PRN Tomorrow's Labs & Rationales: CBC to monitor platelet count in the setting of thrombocytopenia LFTs to monitor transaminitis/hyperbilirubinemia Discharge Plan Discharge Disposition: transfer to another hosp Anticipated Discharge (Day): tomorrow
[2016-08-19 07:50] LABS: ABSOLUTE BASOPHIL COUNT 0 /CUMM (0.0-0.2); ABSOLUTE EOSINOPHIL COUNT 0.1 /CUMM (0.0-0.7); ABSOLUTE MONOCYTE COUNT 0.3 /CUMM (0.10-0.60); BASOPHIL % 0.8 % (0.0-2.0); EOSINOPHIL % 4.1 % (0-5); GRANULOCYTE % 57.6 % (42.2-75.2); HEMATOCRIT 44.5 % (42-52); MEAN CORPUSCULAR HGB 29.9 PG (27.0-31.0); MEAN CORPUSCULAR HGB CONC 33.1 G/DL (33.0-37.0); MEAN CORPUSCULAR VOLUME 90.3 FL (80.0-94.0); PLATELET COUNT 94 /CUMM (130-400); RBC DISTRIBUTION WIDTH 16.4 % (11.5-14.5); RED BLOOD CELL CT 4.93 /CUMM (4.70-6.10); WHITE BLOOD CELL COUNT 3.4 /CUMM (4.8-10.8)
[2016-08-19 08:00] VITALS: BP 120/70
--- NOTE | 2016-08-19 08:07 | PN- Student ---
Subjective Subjective: Medical Student Daily Progress Note: Mr. Jeff Rosa is a 50 yo M with a PMH significant for alcoholism, HTN, CAD c/ b NSTEMI s/p angioplasty without stenting x2, and bipolar disorder who presented to the ED on 08/15/16 with CP, dyspnea, s/s of alcohol withdrawal, and suicidal ideation. He had no acute events overnight. The patient is agitated and anxious this morning. He rates his CP as 6/10, states it feels like "an elephant sitting on my chest." He feels CP is more likely related to stress and anxiety. He endorses slight dyspnea and occasional dizziness that is worse with standing. He also complains of nightmares. He denies headache, vision changes, nausea, vomiting, diarrhea, hallucinations and suicidal ideation. Current Medications Sig/Tiffany Start time Last Medication Dose Route Stop Time Status Admin Clonidine 0.1 MG Q8 08/18 1400 AC 08/19 PO 0636 Clonidine 0.1 MG Q6H PRN 08/15 2345 DC 08/17 PO 2108 Fluoxetine HCl 40 MG DAILY 08/16 1000 AC 08/18 PO 1035 Folic Acid 1 MG DAILY 08/16 1000 AC 08/18 PO 1035 Gabapentin 1,200 MG QPM 08/16 2200 AC 08/18 PO 2103 Gabapentin 300 MG BID 08/16 1000 AC 08/18 PO 2104 Hydroxyzine HCl 50 MG TID 08/16 1000 AC 08/18 PO 2103 Lorazepam 2 MG Q8 08/18 1400 AC 08/19 PO 0636 Lorazepam 2 MG Q6 08/16 0600 DC 08/18 PO 0628 Lorazepam 0 Q1P PRN 08/15 2145 AC 08/19 IV 0420 Meclizine HCl 12.5 MG TID PRN 08/15 2345 AC PO Metoprolol Tartrate 50 MG BID 08/16 2200 AC 08/18 PO 2103 Multivitamins 1 TAB DAILY 08/16 1000 AC 08/18 Therapeutic PO 1035 Omeprazole 40 MG DAILY AC 08/16 0700 AC 08/19 PO 0636 Ondansetron HCl 4 MG Q6P PRN 08/16 1145 AC 08/16 IV 1153 Oxycodone HCl 5 MG Q6-PRN PRN 08/16 0030 AC 08/19 PO 0230 Potassium Chloride 10 MEQ ONCE ONE 08/18 1330 DC 08/18 PO 08/18 1331 1628 Prazosin HCl 1 MG AT BEDTIME 08/180 AC 08/18 PO 210 Quetiapine Fumarate 150 MG QPM 08/16 2200 AC 08/18 PO 210 Thiamine HCl 100 MG DAILY 08/18 1000 AC 08/18 PO 1035 Objective Objective: Vital Signs Date Time Temp Pulse Resp B/P Pulse O2 O2 Flow FiO2 Ox Delivery Rate 08/19 0636 68 148/94 08/18 2200 97.2 68 18 154/90 98 Room Air 08/18 210 63 154/90 08/18 2103 68 154/90 08/18 2103 68 154/90 08/18 1559 98.6 72 20 140/78 97 Room Air 08/18 1450 67 138/82 08/18 1035 75 138/82 08/18 0849 98.3 65 20 138/82 93 Room Air Intake & Output 08/19 0800 08/19 0000 08/18 1600 Intake Total 300 300 Output Total Balance 300 300 Intake, IV 0 0 Intake, Oral 300 300 Number 0 0 Bowel Movements Telemetry: Sinus bradycardia, 54 - 58 bpm overnight. No events. Currently NSR CIWA scores: <10 x 48 hours Ativan Administration: 4 mg po, 1 mg IV given on 08/18/16 General: anxious, frustrated Neuro: A&O x3. moves all extremities spontaneously. No tremors. HEENT: scleral icterus improving. Oral mucosa moist CV: RRR, no murmurs Pulmonary: CTA GI: abdomen soft, distended. Bowel sounds normoactive Extremities: no edema, clubbing, or cyanosis. Psych: agitated. denies hallucination or suicidal ideation. Results Results: Laboratory Tests 08/19/16 0630: Assessment/Plan Assessment: Mr. Rosa is a 50 yo M with PMH of alcoholism, HTN, CAD c/b NSTEMI s/p angioplasty without stenting x2, and bipolar disorder, who was admitted on for workup of CP, management of alcohol withdrawal, and suicidal ideation. Plan: CP and dyspnea: troponins have consistently been negative. No EKG changes since admission. No evidence of ACS, despite PMH. CP seems to correlate with patient's anxiety and agitation. Could also be GI in nature. * continue telemetry monitoring * awaiting Echo results. Inpatient stress test tomorrow * cardiology following Alcohol Withdrawal: CIWA scores have been 10 or under x48 hours. Ativan administration has decreased (4 mg po, 1 mg IV given 08/18/16). No tremors. * Continue CIWA scale and protocol * Continue po and IV Ativan per CIWA * Try to wean Ativan frequency in anticipation of transition to psychiatric care * Thiamine and Folate replacement HTN: chronic condition with exacerbation on admission. Has been relatively well controlled with Metoprolol 50mg BID * Continue Metoprolol 50 mg BID * Continue Clonidine 0.1 mg q8h * Continue monitoring Psychosocial: Multiple life stressors including divorce, finances, unemployment, alcohol use, and hospitalization * Psychiatry following * Wants to continue psychiatric care as inpatient upon medical discharge * Continue psychiatric medication regimen * Added Prazosin at bedtime for nightmares * Sitter at bedside until transition to [facility] care Code Status: Full Diet: Regular DVT prophylaxis: ISAELS
--- NOTE | 2016-08-19 14:42 | NUR ---
Referral received yesterday via electronic telephone recorder. This patient is a 50 year old man, admitted to the hospital on 08/15/16 with hypertensive urgency in the setting of chronic ETOH Dependence. This patient has had multiple hospitalizations related to ETOH Dependence, and has had significant medical issues as well, and as recently as last month, he was hospitalized here and then transferred to [facility] [place] as a Stroke Alert. Currently, Jeff remains on the telemetry unit. He remains on the [facility] protocol for observation of withdrawal symptoms, which have become in better control, but were initally significant. Still receiving ativan; 9.5 mg in the past 24 hours. Jeff also has been voicing thoughts of suicide; no plan. Significant depression. Have noted psychiatric FIELD EVIDENCE TECHNICIAN's involvement in the case; plan is for voluntary admission to [facility]. Please call if other social work needs are identified.
[2016-08-19 15:30] VITALS: BP 166/68
--- NOTE | 2016-08-19 16:35 | Incdntl Nt Psy ---
Incidental Note Notation: NOTE: The patient is currently on a psychiatric voluntary admission. He may NOT leave the hospital, and may NOT sign out AGAINST MEDICAL ADVICE without psychiatry clearance. Today at approximately 2:30 PM I received a phone call from Dr. Rakel Mckenzie, informing me that the patient was requesting to leave the hospital AGAINST MEDICAL ADVICE. In consultation with Dr. Roberson, the patient was reminded that he had signed a Psychiatric Voluntary Admission this morning, and he was offered the opportunity to sign a Request for Termination of Voluntary Admission (three-day paper). He declined to sign the 3-day paper at that time. The patient's plan of treatment, which includes a planned cardiac stress test tomorrow morning and continuing Ativan/EtOH taper, were reviewed with the patient along with the patient's attending physician Dr. Bishop. Patient requested to speak with his privacy attorney, and he was informed that he had all rights to call his privacy attorney. I also informed the patient that he has the right to contact the Patient Advocate. The patient arose from his bed, demanded his shoes and stated he would leave the hospital. At no time did the patient threaten any physical harm. Security was however called , for patient safety. No Security intervention was required. Patient also voluntarily showed us a leg bracelet that he stated was court ordered to follow his blood alcohol level. At approx 1800, I again explained and offered to have the patient sign a 3-day paper, which he again refused. PLAN: 1. Patient to be admitted to [facility] after medical discharge, which is anticipated for tomorrow. 2. The patient may NOT leave the hospital or sign out AGAINST MEDICAL ADVICE, without psychiatry clearance.
[2016-08-20] VITALS (8 sets, daily range): BP systolic 122–142; BP diastolic 78–90
--- NOTE | 2016-08-20 07:21 | PN- Housestaff ---
Subjective Follow-up For: Alcohol withdrawal Chest pain Suicidal ideation Subjective: No acute events overnight. Patient seen and examined this morning. He continues to have chest pain. He denies suicidal ideation and is aggreable to voluntary admission to [facility] for alcohol detox. He has no new complaints. CIWA scores were mostly 0s overnight. Review of Systems Constitutional: Reports: see HPI. Objective Last 24 Hrs of Vital Signs/I&O Vital Signs Date Time Temp Pulse Resp B/P B/P Pulse O2 O2 Flow FiO2 Mean Ox Delivery Rate 08/20 2038 49 122/78 08/20 2037 69 122/78 08/20 2000 52 08/20 1600 18.0 61 98 128/90 08/20 1530 98.8 61 18 128/90 99 Room Air 08/20 1430 112/70 08/20 1125 142/88 08/20 0806 98.1 53 20 142/88 96 Room Air 08/20 0606 89 122/96 08/20 0600 98.5 89 20 126/90 08/20 0004 98.5 60 18 136/88 94 Room Air 08/20 0000 98.5 60 20 136/88 Intake & Output 08/20 1600 08/20 0800 08/20 0000 Intake Total 720 720 Output Total 400 Balance 720 -400 720 Intake, Oral 720 720 Output, Urine 400 Physical Exam General Appearance: Alert, Oriented X3, No Acute Distress HEENT: Atraumatic, Mucous Membr. moist/pink Cardiovascular: Regular Rate, Normal S1, Normal S2, No Murmurs, Gallops, Rubs Lungs: Clear to Auscultation Abdomen: Soft, No Tenderness, Positive Bowel Sounds Extremities: No Clubbing, No Cyanosis, No Edema Current Medications: Current Medications Sig/Tiffany Start time Last Medication Dose Route Stop Time Status Admin Aspirin Buffered 81 MG DAILY 08/20 1558 AC 08/20 PO 1723 Clonidine 0.1 MG Q12 08/21 1000 AC PO Clonidine 0.1 MG Q8 08/18 1400 DC 08/20 PO 1430 Fluoxetine HCl 40 MG DAILY 08/16 1000 AC 08/20 PO 1125 Folic Acid 1 MG DAILY 08/16 1000 AC 08/20 PO 1124 Gabapentin 1,200 MG QPM 08/16 2200 AC 08/20 PO 203 Gabapentin 300 MG BID 08/16 1000 AC 08/20 PO 203 Hydroxyzine HCl 50 MG TID 08/16 1000 AC 08/20 PO 2039 Lorazepam 1 MG Q8 08/20 1400 AC 08/20 PO 2037 Lorazepam 1.5 MG Q8 08/19 1400 DC 08/20 PO 06 Lorazepam 1 MG Q4P PRN 08/19 0915 AC 08/20 PO 0336 Meclizine HCl 12.5 MG TID PRN 08/15 2345 AC PO Metoprolol Tartrate 50 MG BID 08/16 2200 AC 08/20 PO 112 Mirtazapine 7.5 MG AT BEDTIME 08/19 2200 AC 08/20 PO 2038 Multivitamins 1 TAB DAILY 08/16 1000 AC 08/20 Therapeutic PO 1125 Nitroglycerin 0.4 MG DAILY 08/20 1557 AC 08/20 TOP 1737 Omeprazole 40 MG DAILY AC 08/16 0700 AC 08/20 PO 0606 Ondansetron HCl 4 MG Q6P PRN 08/16 1145 AC 08/16 IV 1153 Oxycodone HCl 5 MG Q6-PRN PRN 08/16 0030 AC 08/20 PO 1734 Prazosin HCl 2 MG AT BEDTIME 08/20 2200 AC 08/20 PO 203 Prazosin HCl 1 MG AT BEDTIME 08/18 2200 DC 08/19 PO 2119 Quetiapine Fumarate 150 MG QPM 08/16 2200 AC 08/20 PO 203 Testosterone 100 MG QWED@1000 08/20 1000 AC 08/20 IM 1227 Thiamine HCl 100 MG DAILY 08/18 1000 AC 08/20 PO 1125 Last 24 Hrs of Lab/Scar Results Last 24 Hrs of Labs/Mics: Laboratory Tests 08/20/16 0600: Total Bilirubin 1.8 H, Direct Bilirubin 0.5 H, AST 229 H, ALT 290 H, Alkaline Phosphatase 48, Total Protein 6.5, Albumin 4.1, CBC w Diff NO MAN DIFF REQ, RBC 4.83, MCV 90.2, MCH 30.0, RDW 16.5 H, MPV 9.9, Gran % 46.6, Lymphocytes % 37.9, Monocytes % 10.7 H, Eosinophils % 3.7, Basophils % 1.1, Absolute Granulocytes 1.5, Absolute Lymphocytes 1.2, Absolute Monocytes 0.4, Absolute Eosinophils 0.1, Absolute Basophils 0, PUBS MCHC 33.3 Orders Miscellaneous Findings: EXERCISE STRESS AND RESTING SPECT MYOCARDIAL PERFUSION IMAGING STUDY WITH GATED SPECT IMAGES: A small reversible perfusion abnormality is probably present in the mid and basal segments of the inferolateral wall. No other perfusion abnormalities are noted. Left ventricular wall motion and ejection fraction are normal. Because the patient was unable to achieve an adequate heart rate response, additional regions of myocardial ischemia during exercise cannot be ruled out. Assessment/Plan Assessment: 50 y/o M with PMHx of alcohol abuse with multiple admissions for detox/ withdrawal, CT s/p cardiac catheterization with no intervention and PTSD/anxiety /depression who is admitted with chest pain and withdrawal symptoms. #Alcohol withdrawal: Symptoms significantly improved. CIWA scores were mostly 0s. Long-standing history of alcohol abuse with multiple admissions for detox/ withdrawal. Patient is currently interested in rehabilitation. * CIWI protocol to monitor for signs/symptoms of alcohol withdrawal. * Decrease Ativan further to 1 mg PO Q8H given improvement of CIWA scores. * Continue Ativan 1 mg PO Q4H PRN per CIWI protocol. * Continue daily MVI, vitamin B12 and folic acid. #Chest pain: Potential etiologies are cardiac although pain has some atypical features and alcohol induced gastritis given accompanying epigastric discomfort. Serial EKGs were without any ST-T wave abnormalities and troponins x5 were negative. Stress test was performed today and although suboptimal, revealed evidence of possible ischemia. * Resume telemetry monitoring. * Cardiology following. Appreciate their recs. * Start enteric coated aspirin 81 mg PO daily. * Start nitroglycerin patch 0.4 mg 12 hours on and 12 hours off. * Observe on telemetry overnight. If no arrhythmias, transfer to [facility] tomorrow. #Suicidal ideation: Persistent chronic suicidal ideation in the setting of underlying psychiatric disorder, bipolar vs PTSD. Patient is agreeable to voluntary admission to [facility]. * Psych following. Appreciate their recs. * Continue 1:1 sitter. * Transfer to [facility] tomorrow. * Prazosin increased to 2 mg PO QHS with plans to gradually titrate up to prior to admission dose of 6 mg PO QHS. * Continue prior to admission Prozac 40 mg PO daily, gabapentin 300 mg PO BID as well as gabapentin 1200 mg PO QPM and Seroquel 150 mg PO QPM. #Elevated LFTs: Likely secondary to alcohol abuse. ALT/AST remain elevated although total bilirubin is improving. INR WNL. * Continue to monitor LFTs. #HTN: Currently normotensive. * Continue to monitor BP closely. * Continue metoprolol 50 mg PO BID. * Reduce clonipine to 0.1 mg PO Q12H. #Thrombocytopenia: Likely secondary to alcohol abuse. Platelet count has been improving, 115 today. * Continue to monitor platelet count. * ALPs for DVT PPx. Diet: Regular DVT PPx: ALPs CODE: FULL Problem List: 1. PTSD (post-traumatic stress disorder) 2. Passive suicidal ideations 3. Thrombocytopenia 4. Hyperbilirubinemia 5. Transaminitis 6. Mood disorder 7. Suicidal ideation 8. Chest pain 9. Alcohol withdrawal Pain Ratin Pain Location: Chest Pain Goal: Pain 7 or less Pain Plan: Roxicodone 5 mg PO Q6H Tomorrow's Labs & Rationales: CBC to monitor platelet count in the setting of thrombocytopenia LFTs to monitor transaminitis/hyperbilirubinemia Discharge Plan Discharge Disposition: transfer to another hosp ([facility]) Anticipated Discharge (Day): tomorrow
[2016-08-20 08:11] LABS: ABSOLUTE BASOPHIL COUNT 0 /CUMM (0.0-0.2); ABSOLUTE EOSINOPHIL COUNT 0.1 /CUMM (0.0-0.7); ABSOLUTE GRANULOCYTE CT 1.5 /CUMM (1.4-6.5); ABSOLUTE LYMPH COUNT 1.2 /CUMM (1.2-3.4); ABSOLUTE MONOCYTE COUNT 0.4 /CUMM (0.10-0.60); BASOPHIL % 1.1 % (0.0-2.0); EOSINOPHIL % 3.7 % (0-5); GRANULOCYTE % 46.6 % (42.2-75.2); HEMATOCRIT 43.6 % (42-52); MEAN CORPUSCULAR HGB CONC 33.3 G/DL (33.0-37.0); MEAN CORPUSCULAR VOLUME 90.2 FL (80.0-94.0); MEAN PLATELET VOLUME 9.9 FL (7.4-10.4); PLATELET COUNT 115 /CUMM (130-400); RBC DISTRIBUTION WIDTH 16.5 % (11.5-14.5); RED BLOOD CELL CT 4.83 /CUMM (4.70-6.10); WHITE BLOOD CELL COUNT 3.3 /CUMM (4.8-10.8)
--- NOTE | 2016-08-20 14:42 | Patient Discharge Instructions ---
Discharge Instructions General Discharge Information You were seen/treated for: SI chest pain Alcohol abuse Special Instructions: you are being transferred to [facility] for cardiac cathetrization. -Please follow-up with your primary care provider within 7 days after discharge. -please follow-up with your Psychiatrist in 7 days after discharge -Please follow-up with your cooler man 7 days after discharge. -We have made changes to your home medications, please read the instructions carefully. -Please come back to the hospital if your symptoms got worse. Diet Recommended Diet: Heart Healthy Activity Full Activity/No Limits: Yes (as tolerated) Acute Coronary Syndrome Inclusion Criteria At DC or during hospital stay patient has or had the following: ACS DIAGNOSIS No Discharge Core Measures Meds if any: Prescribed or Continued at Discharge Aspirin Yes Beta-Reji Yes Statin Yes Meds if any: NOT Prescribed or Continued at Discharge Congestive Heart Failure Inclusion Criteria At DC or during hospital stay patient has or had the following: CHF DIAGNOSIS No Discharge Core Measures Meds if any: Prescribed or Continued at Discharge Meds if any: NOT Prescribed or Continued at Discharge Cerebrovascular accident Inclusion Criteria At DC or during hospital stay patient has or had the following: CVA/TIA Diagnosis No Discharge Core Measures Meds if any: Prescribed or Continued at Discharge Meds if any: NOT Prescribed or Continued at Discharge Venous thromboembolism Inclusion Criteria VTE Diagnosis No VTE Type NONE VTE Confirmed by (Test) NONE Discharge Core Measures - Per Current guidelines, there needs to be overlap - treatment for the first 5 days of Warfarin therapy. - If discharged on Warfarin prior to 5 days of - overlap therapy, the patient will need to be - assessed for post discharge needs including - *Post discharge parental anticoagulation - *Warfarin and/or parental anticoagulation education - *Follow up date to check INR post discharge At least 5 days overlap therapy as Inpatient No Meds if any: Prescribed or Continued at Discharge Note: Overlap Therapy is Warfarin and Anticoagulant Meds if any: NOT Prescribed or Continued at Discharge
[2016-08-20] MEDS ORDERED: VITAMIN B-1100 MG PO (14:52)
[2016-08-20] MEDS ORDERED: CLONIDINE HCL0.1 MG PO (14:52)
[2016-08-20] MEDS ORDERED: PROZAC10 M1 PO (15:12)
[2016-08-20] MEDS ORDERED: LORAZEPAM1 M1 PO (15:13)
--- NOTE | 2016-08-20 15:19 | PN- Student ---
Subjective Subjective: Medical Student Daily Progress Note: Jeff Rosa is a 50 year old male with a PMH of alcoholism, CAD c/b NSTEMI s/p angio without stenting x2, and bipolar disorder who was admitted 08/15/16 for acute chest pain, s/s of alcohol withdrawal, and suicidal ideation. Overnight, he has had no major issues and has no complaints. He denies CP, SOB, hallucinations, and suicidal ideation. He is ready and willing to receive inpatient psychiatric care and alcohol detox/rehabilitaton. Current Medications Sig/Tiffany Start time Last Medication Dose Route Stop Time Status Admin Clonidine 0.1 MG Q8 08/18 1400 AC 08/20 PO 1430 Fluoxetine HCl 40 MG DAILY 08/16 1000 AC 08/20 PO 1125 Folic Acid 1 MG DAILY 08/16 1000 AC 08/20 PO 1124 Gabapentin 1,200 MG QPM 08/16 2200 AC 08/19 PO 2120 Gabapentin 300 MG BID 08/16 1000 AC 08/20 PO 1125 Hydroxyzine HCl 50 MG TID 08/16 1000 AC 08/20 PO 1124 Lorazepam 1 MG Q8 08/20 1400 AC 08/20 PO 1430 Lorazepam 1.5 MG Q8 08/19 1400 DC 08/20 PO 0606 Lorazepam 1 MG Q4P PRN 08/19 0915 AC 08/20 PO 0336 Meclizine HCl 12.5 MG TID PRN 08/15 2345 AC PO Metoprolol Tartrate 50 MG BID 08/16 2200 AC 08/20 PO 1125 Mirtazapine 7.5 MG AT BEDTIME 08/19 2200 AC 08/19 PO 2121 Multivitamins 1 TAB DAILY 08/16 1000 AC 08/20 Therapeutic PO 1125 Omeprazole 40 MG DAILY AC 08/16 0700 AC 08/20 PO 0606 Ondansetron HCl 4 MG Q6P PRN 08/16 1145 AC 08/16 IV 1153 Oxycodone HCl 5 MG Q6-PRN PRN 08/16 0030 AC 08/20 PO 1136 Prazosin HCl 2 MG AT BEDTIME 08/20 2200 AC PO Prazosin HCl 1 MG AT BEDTIME 08/18 2200 DC 08/19 PO 2119 Quetiapine Fumarate 150 MG QPM 08/16 2200 AC 08/19 PO 2121 Ramelteon 7.5 MG AT BEDTIME 08/19 2200 CAN PO Testosterone 100 MG QWED@1000 08/20 1000 AC 08/20 IM 1227 Thiamine HCl 100 MG DAILY 08/18 1000 AC 08/20 PO 1125 Objective Objective: Vital Signs Date Time Temp Pulse Resp B/P B/P Pulse O2 O2 Flow FiO2 Mean Ox Delivery Rate 08/20 1430 112/70 08/20 1125 142/88 08/20 0806 98.1 53 20 142/88 96 Room Air 08/20 0606 89 122/96 08/20 0600 98.5 89 20 126/90 08/20 0004 98.5 60 18 136/88 94 Room Air 08/20 0000 98.5 60 20 136/88 08/19 2120 64 148/92 08/19 2120 64 148/92 08/19 2119 64 148/92 08/19 1530 99.1 66 18 166/68 94 Room Air Intake & Output 08/20 1600 08/20 0800 08/20 0000 Intake Total 720 720 Output Total 400 Balance 720 -400 720 Intake, Oral 720 720 Output, Urine 400 CIWA scores: have been 6 or under x24 hours. Ativan Administration: 7mg total on 08/19/16 (5 po, 2 IV) Gen: restful, anxious. Neuro: A&O x3. No longer tremulous CV: RRR, no murmurs or bruits Pulmonary: CTA GI: abdomen soft and distended, bowel sounds normoactive Extremities: warm and well perfused, no edema or cyanosis Psych: Flat. Less agitated as compared to yesterday Results Results: Laboratory Tests 08/20/16 0600: Total Bilirubin 1.8 H, Direct Bilirubin 0.5 H, AST 229 H, ALT 290 H, Alkaline Phosphatase 48, Total Protein 6.5, Albumin 4.1, CBC w Diff NO MAN DIFF REQ, RBC 4.83, MCV 90.2, MCH 30.0, RDW 16.5 H, MPV 9.9, Gran % 46.6, Lymphocytes % 37.9, Monocytes % 10.7 H, Eosinophils % 3.7, Basophils % 1.1, Absolute Granulocytes 1.5, Absolute Lymphocytes 1.2, Absolute Monocytes 0.4, Absolute Eosinophils 0.1, Absolute Basophils 0, PUBS MCHC 33.3 Assessment/Plan Assessment: Mr. Rosa is a 50yo M with PMH of alcoholism, CAD c/b NSTEMI s/p angio x2 without stenting, and bipolar disorder who was admitted for acute chest pain, alcohol withdrawal, and suicidal ideation. Plan: Chest Pain: EKG and troponin x5 were negative. Awaiting Echo results. Has resolved. * Cardiology following * Awaiting Echo * Treadmill/pharmacological stress test today Alcohol Withdrawal: CIWA scores have been 6 or less for 24 hours. Ativan administration has decreased. Patient is no longer tremulous, having hallucinations, or diaphoretic. * Change Lorazepam to 1mg q8h standing * Continue Lorazepam 1mg q4h prn * Inpatient psych when medically cleared * Thiamine and Folate supplementation HTN: chronic, has been controlled with Metoprolol 50mg BID and Clonidine 0.1 mg q8h. No recent exacerbations. * Continue Metoprolol and Clonidine as described * Long Line Teamster on lifestyle changes Bipolar Disorder with Suicidal Ideation: patient was initially suicidal, but has denied ideation today. Expresses desire to receive inpatient treatment and to live for his children. * Psychiatry following * Will go to inpatient psych for 3 days upon medical clearance * Continue psych medication regimen Code Status: Full Diet: Regular DVT prophylaxis: ALPS
[2016-08-20] MEDS ORDERED: METOPROLOL TART50 M1 PO (15:20)
--- NOTE | 2016-08-20 15:22 | NUCLEAR MEDICINE REPORT ---
EXERCISE STRESS AND RESTING SPECT MYOCARDIAL PERFUSION IMAGING STUDY WITH GATED SPECT IMAGES: CLINICAL INDICATION: Atypical chest pain. PROCEDURE: Regional myocardial perfusion was assessed using a 1 day protocol. Stress images were obtained on 08/20/2016 following the intravenous administration of 23.0 mCi Tc 99m Myoview. Stress was performed using the standard Taiwo protocol, with the patient reaching a peak heart rate of 68% maximal predicted heart rate. Rest images were obtained 08/20/2016 following the intravenous administration of 40.4 mCi Technetium 99m Myoview. Single photon emission tomographic (SPECT) images were obtained. SPECT images were acquired in a 64 x 64 matrix of 64 projections over 180 degrees. These were reconstructed into standard short axis, horizontal and vertical long axis cardiac projections. FINDINGS: The post stress images show the left ventricular chamber to be normal in size. There is a small region of mildly decreased activity that involves the mid and basal segments of the inferolateral wall. The activity in the other jc appears normal. The rest images show a more homogeneous distribution of activity. The decreased activity noted in the inferolateral wall on the poststress images is not present on the rest images. The activity in the other jc is unchanged from the post stress images and appears normal. The stress images were obtained using a gated SPECT technique, which permits visualization of wall motion and calculation of the left ventricular ejection fraction. The left ventricular chamber is normal in size. No left ventricular wall motion abnormalities are noted. The calculated left ventricular ejection fraction is 48% on the stress study. No previous study is available for comparison. IMPRESSION: A small reversible perfusion abnormality is probably present in the mid and basal segments of the inferolateral wall. No other perfusion abnormalities are noted. Left ventricular wall motion and ejection fraction are normal. Because the patient was unable to achieve an adequate heart rate response, additional regions of myocardial ischemia during exercise cannot be ruled out.
--- NOTE | 2016-08-20 15:46 | PN- Att Addend ---
Attending MD Review Statement Attending Statement Attending MD Statement: examined this patient, discuss w/resident/PA/COLD MOLDING PRESS OPERATOR, agreed w/resident/PA/COLD MOLDING PRESS OPERATOR, reviewed EMR data (avail), discussed w/nursing Attending Assessment/Plan: Laboratory Tests 08/20/16 0600: Total Bilirubin 1.8 H, Direct Bilirubin 0.5 H, AST 229 H, ALT 290 H, Alkaline Phosphatase 48, Total Protein 6.5, Albumin 4.1, CBC w Diff NO MAN DIFF REQ, RBC 4.83, MCV 90.2, MCH 30.0, RDW 16.5 H, MPV 9.9, Gran % 46.6, Lymphocytes % 37.9, Monocytes % 10.7 H, Eosinophils % 3.7, Basophils % 1.1, Absolute Granulocytes 1.5, Absolute Lymphocytes 1.2, Absolute Monocytes 0.4, Absolute Eosinophils 0.1, Absolute Basophils 0, PUBS MCHC 33.3 Vital Signs Date Time Temp Pulse Resp B/P B/P Pulse O2 O2 Flow FiO2 Mean Ox Delivery Rate 08/20 1430 112/70 08/20 1125 142/88 08/20 0806 98.1 53 20 142/88 96 Room Air 08/20 0606 89 122/96 08/20 0600 98.5 89 20 126/90 08/20 0004 98.5 60 18 136/88 94 Room Air 08/20 0000 98.5 60 20 136/88 08/20 2119 64 148/92 08/20 2119 64 148/92 08/19 2118 64 148/92 patient seen and examined at bedside. pt stress test shows small area of reversible ischemia. Will discuss with cardiology further plan . If no further workup needed urgently will dc pt to inpatient psych.
--- NOTE | 2016-08-20 17:56 | ECHOCARDIOGRAM REPORT ---
JOHANN MONTGOMERY Age: 50 : 1965 Gender: M Exam Date: 08/19/2016 18:43 Exam Location: 1 [address] Ht (in): 66 Wt (lb): 220 BSA: 2.20 BP: 138 / 82 Ordering Physician: RAZA RECINOS M Referring Physician: Brett Magaña MD, PhD Technologist: Eva Alvarez [facility] Room Number: 172 Indications: CHEST PAIN Rhythm: Sinus Technical Quality: Fair FINDINGS Left Ventricle Normal size left ventricle. Moderate concentric left ventricular hypertrophy. No obvious regional wall motion abnormalities. Normal left ventricular ejection fraction visually estimated at >65%. Abnormal relaxation filling pattern of the left ventricle for age (stage 1 diastolic dysfunction). Right Ventricle Mild right ventricular dilatation. Right Atrium Normal right atrial size. Left Atrium Normal left atrial size. Mitral Valve Structurally normal mitral valve. No mitral regurgitation. Aortic Valve Structurally normal trileaflet aortic valve. No aortic valve stenosis or regurgitation. Tricuspid Valve Structurally normal tricuspid valve. Trace tricuspid regurgitation. No evidence of pulmonary hypertension. Right ventricular systolic pressure estimated to be within the normal range at 23 mmHg. Pulmonic Valve Structurally normal pulmonic valve. Trace pulmonic regurgitation. Pericardium No pericardial effusion. Great Vessels Normal size aortic root. Normal size inferior vena cava. CONCLUSIONS Normal size left ventricle. Moderate concentric left ventricular hypertrophy. No obvious regional wall motion abnormalities. Normal left ventricular ejection fraction visually estimated at > 65%. Abnormal relaxation filling pattern of the left ventricle for age (stage 1 diastolic dysfunction). Mild right ventricular dilatation. Normal atrial size. Trace tricuspid regurgitation. No evidence of pulmonary hypertension. Trace pulmonic regurgitation. Domenic Hook M.D. (Electronically Signed) Final Date: 20 August 2016 17:55 MEASUREMENTS (Male / Female) Normal Values 2D ECHO LV Diastolic Diameter PLAX 5.0 cm 4.2 - 5.9 / 3.9 - 5.3 cm LV Systolic Diameter PLAX 2.9 cm 2.1 - 4.0 cm LV Fractional Shortening PLAX 42.0 % 25 - 46 % LV Ejection Fraction 2D Teich 72.8 % IVS Diastolic Thickness 1.4 cm LVPW Diastolic Thickness 1.4 cm LV Relative Wall Thickness 0.6 RV Internal Dim ED PLAX 3.6 cm 1.9 - 3.8 cm LVOT Diameter 2.3 cm Aortic Root Diameter 3.1 cm LA Systolic Diameter LX 4.3 cm 3.0 - 4.0 / 2.7 - 3.8 cm LA Volume 28.0 cm 18 - 58 / 22 - 52 cm Ascending Aorta Diameter 3.1 cm DOPPLER AV Peak Velocity 92.8 cm/s AV Peak Gradient 3.4 mmHg AV Mean Velocity 68.9 cm/s AV Mean Gradient 2.0 mmHg AV Velocity Time Integral 19.2 cm LVOT Peak Velocity 94.0 cm/s LVOT Peak Gradient 3.5 mmHg LVOT Mean Velocity 54.5 cm/s LVOT Mean Gradient 1.0 mmHg LVOT Velocity Time Integral 19.2 cm LVOT Stroke Volume 79.8 cm AV Area Cont Eq vti 4.2 cm AV Area Cont Eq pk 4.2 cm MV Peak Velocity 86.9 cm/s MV Peak Gradient 3.0 mmHg MV Mean Velocity 45.8 cm/s MV Mean Gradient 1.0 mmHg Mitral E Point Velocity 59.2 cm/s Mitral A Point Velocity 63.2 cm/s Mitral E to A Ratio 0.9 MV PHT Velocity 57.9 cm/s MV Deceleration [place] 152.0 cm/s MV Pressure Half Time 114.3 ms MV Area PHT 1.9 cm MV Deceleration Time 206.0 ms TR Peak Velocity 213.0 cm/s TR Peak Gradient 18.1 mmHg Right Atrial Pressure 5.0 mmHg Pulmonary Artery Systolic Pressu 23.1 mmHg Right Ventricular Systolic Press 23.1 mmHg PV Peak Velocity 124.0 cm/s PV Peak Gradient 6.2 mmHg PV Mean Velocity 88.2 cm/s PV Mean Gradient 4.0 mmHg PV Velocity Time Integral 28.0 cm LV E' Lateral Velocity 9.2 cm/s Mitral E to LV E' Lateral Ratio 6.5 LV E' Septal Velocity 5.7 cm/s Mitral E to LV E' Septal Ratio 10.5
--- NOTE | 2016-08-20 19:35 | PN- Cardiology ---
Subjective Subjective: Complaining of continued chest discomfort when evaluated this morning at the time of his nuclear treadmill stress test. This was similar to what he has been experiencing since his admission and was not associated with any significant electrocardiographic abnormalities or cardiac enzyme elevations. Objective Vital Signs and I&Os Vital Signs Date Time Temp Pulse Resp B/P B/P Pulse O2 O2 Flow FiO2 Mean Ox Delivery Rate 08/20 1600 18.0 61 98 128/90 08/20 1530 98.8 61 18 128/90 99 Room Air 08/20 1430 112/70 08/20 1125 142/88 08/20 0806 98.1 53 20 142/88 96 Room Air 08/20 0606 89 122/96 08/20 0600 98.5 89 20 126/90 08/20 0004 98.5 60 18 136/88 94 Room Air 08/20 0000 98.5 60 20 136/88 08/19 2120 64 148/92 08/19 2120 64 148/92 08/199 64 148/92 Intake & Output 08/20 1600 08/20 0800 08/20 0000 08/19 1600 08/19 0800 08/19 0000 Intake Total 720 720 300 300 Output Total 400 Balance 720 -400 720 300 300 Intake, IV 0 0 Intake, Oral 720 720 300 300 Number 0 0 Bowel Movements Output, Urine 400 Patient 220 lb Weight Physical Exam: Obese, middle-aged male in no acute distress. Vital signs: See above. Lungs: Clear to auscultation bilaterally. Heart: S1, S2 with no murmur, gallop, or rub appreciated. Extremities: No edema. Current Medications: Current Medications Sig/Tiffany Start time Last Medication Dose Route Stop Time Status Admin Aspirin Buffered 81 MG DAILY 08/20 1558 AC 08/20 PO 1723 Clonidine 0.1 MG Q12 08/21 1000 AC PO Clonidine 0.1 MG Q8 08/18 1400 DC 08/20 PO 1430 Fluoxetine HCl 40 MG DAILY 08/16 1000 AC 08/20 PO 1125 Folic Acid 1 MG DAILY 08/16 1000 AC 08/20 PO 1124 Gabapentin 1,200 MG QPM 08/16 2200 AC 08/19 PO 2120 Gabapentin 300 MG BID 08/16 1000 AC 08/20 PO 1125 Hydroxyzine HCl 50 MG TID 08/16 1000 AC 08/20 PO 1723 Lorazepam 1 MG Q8 08/20 1400 AC 08/20 PO 1430 Lorazepam 1.5 MG Q8 08/19 1400 DC 08/20 PO 0606 Lorazepam 1 MG Q4P PRN 08/19 0915 AC 08/20 PO 0336 Meclizine HCl 12.5 MG TID PRN 08/15 2345 AC PO Metoprolol Tartrate 50 MG BID 08/16 2200 AC 08/20 PO 1125 Mirtazapine 7.5 MG AT BEDTIME 08/19 2200 AC 08/19 PO 2121 Multivitamins 1 TAB DAILY 08/16 1000 AC 08/20 Therapeutic PO 1125 Nitroglycerin 0.4 MG DAILY 08/20 1557 AC 08/20 TOP 1737 Omeprazole 40 MG DAILY AC 08/16 0700 AC 08/20 PO 0606 Ondansetron HCl 4 MG Q6P PRN 08/16 1145 AC 08/16 IV 1153 Oxycodone HCl 5 MG Q6-PRN PRN 08/16 0030 AC 08/20 PO 1734 Prazosin HCl 2 MG AT BEDTIME 08/20 220 AC PO Prazosin HCl 1 MG AT BEDTIME 08/18 2200 DC 08/19 PO 2119 Quetiapine Fumarate 150 MG QPM 08/16 2200 AC 08/19 PO 2121 Testosterone 100 MG QWED@1000 08/20 1000 AC 08/20 IM 1227 Thiamine HCl 100 MG DAILY 08/18 1000 AC 08/20 PO 1125 Results Last 48 Hrs of Labs/Mics: Laboratory Tests 08/20/16 0600: Total Bilirubin 1.8 H, Direct Bilirubin 0.5 H, AST 229 H, ALT 290 H, Alkaline Phosphatase 48, Total Protein 6.5, Albumin 4.1, CBC w Diff NO MAN DIFF REQ, RBC 4.83, MCV 90.2, MCH 30.0, RDW 16.5 H, MPV 9.9, Gran % 46.6, Lymphocytes % 37.9, Monocytes % 10.7 H, Eosinophils % 3.7, Basophils % 1.1, Absolute Granulocytes 1.5, Absolute Lymphocytes 1.2, Absolute Monocytes 0.4, Absolute Eosinophils 0.1, Absolute Basophils 0, PUBS MCHC 33.3 08/19/16 0630: Total Bilirubin 1.9 H, Direct Bilirubin 0.4, AST 223 H, ALT 230 H, Alkaline Phosphatase 47, Total Protein 6.5, Albumin 4.1, CBC w Diff NO MAN DIFF REQ, RBC 4.93, MCV 90.3, MCH 29.9, RDW 16.4 H, MPV 10.0, Gran % 57.6, Lymphocytes % 29.4 , Monocytes % 8.1, Eosinophils % 4.1, Basophils % 0.8, Absolute Granulocytes 2.0 , Absolute Lymphocytes 1.0 L, Absolute Monocytes 0.3, Absolute Eosinophils 0.1, Absolute Basophils 0, PUBS MCHC 33.1 Recent Imaging Studies: Nuclear stress test (08/20/2016): A small reversible perfusion abnormality is probably present in the mid and basal segments of the inferolateral wall. No other perfusion abnormalities are noted. Left ventricular wall motion and ejection fraction are normal. Because the patient was unable to achieve an adequate heart rate response, additional regions of myocardial ischemia during exercise cannot be ruled out. Echocardiogram (08/19/2016): Normal size left ventricle. Moderate concentric left ventricular hypertrophy. No obvious regional wall motion abnormalities. Normal left ventricular ejection fraction visually estimated at > 65%. Abnormal relaxation filling pattern of the left ventricle for age (stage 1 diastolic dysfunction). Mild right ventricular dilatation. Normal atrial size. Trace tricuspid regurgitation. No evidence of pulmonary hypertension. Trace pulmonic regurgitation. Assessment/Plan Assessment/Plan Mr. Rosa is a middle-aged male with a history of HTN, HLD, TIA (on aspirin ), anxiety/ depression, PTSD, chronic alcohol abuse (AA for 3-4yrs) w/ hx of seizure/DTs (on gabapentin), alcoholic fatty liver disease, alcoholic pancreatitis, multiple social issues (jobless, undergoing divorce), and "CAD" s /p cardiac catheterization w/o need for PCI who presented to the ED on 2016 c/o persistent severe CP, abdominal pain, N/V, diarrhea, tremors, hallucinations and suicidal ideation and who has had no significant changes in his abnormal baseline ECG and who has r/o'd for VT by serial cardiac enzymes. Although, his CP was atypical and he does have multiple risk factors for CAD and an imaging stress test was felt to be indicated given his abnormal baseline ECG. Unfortunately, his stress test was submaximal, but did reveal evidence of possible ischemia. As such, the plan is to start him on low-dose enteric-coated aspirin and topical nitrates. If these medications are tolerated and his symptoms are controllable, he will be transferred to Inpatient Psychiatry for further evaluation/management of this psychiatric issues. Continue telemetry? Yes
--- NOTE | 2016-08-21 04:08 | NUR ---
at 2200, pt tele strip showed nsr/sb with normal t waves. at 0400 tele strip, t wave noted to be inverted in lead 2, 3, avf. global marketing intern clayton made aware. pt asleep in bed with no complaints.
--- NOTE | 2016-08-21 07:04 | PN- Housestaff ---
Subjective Follow-up For: Alcohol withdrawal Chest pain Suicidal ideation Elevated LFTs Thrombocytopenia Tele-Events Since Last Visit: Sinus rhythm HR 56-62 No events Subjective: No acute events overnight. Patient seen and examined this morning. He continues to have chest pain. He has no new complaints. CIWA scores were mostly 0s overnight. Later in the morning, he had an episode of severe chest pain associated with tremors, diaphoresis, hypertension to 160/110 and tachycardia to 130s. Rapid response was called. Pain persisted despite receiving sublingual nitroglycerin 0.4 mg x3, 4 mg of IV Ativan and 2 mg of IV morphine. Patient desatted during the episode and was placed on 3 L NC. Troponins and EKG were negative. CXR was unremarkable. Later in the afternoon tremors, diaphoresis, hypertension and tachycardia had resolved but patient continued to complain of persistent chest pain, although with some improvement. Review of Systems Constitutional: Reports: see HPI. Objective Last 24 Hrs of Vital Signs/I&O Vital Signs Date Time Temp Pulse Resp B/P B/P Pulse O2 O2 Flow FiO2 Mean Ox Delivery Rate 08/21 0400 52 08/21 0200 54 08/20 2222 98.7 52 20 122/78 95 Room Air 08/20 2200 98.7 69 122/78 08/20 2039 49 122/78 08/20 2038 69 122/78 08/20 2000 52 08/20 1600 18.0 61 98 128/90 08/20 1530 98.8 61 18 128/90 99 Room Air 08/20 1430 112/70 08/20 1125 142/88 Intake & Output 08/21 1600 08/21 0800 08/21 0000 Intake Total 240 480 Output Total Balance 240 480 Intake, Oral 240 480 Physical Exam General Appearance: Alert, Oriented X3, No Acute Distress HEENT: Atraumatic, Mucous Membr. moist/pink Neck: Supple Cardiovascular: Regular Rate, Normal S1, Normal S2, No Murmurs, Gallops, Rubs Lungs: Clear to Auscultation Abdomen: Soft, No Tenderness, Positive Bowel Sounds Extremities: No Clubbing, No Cyanosis, No Edema Current Medications: Current Medications Sig/Tiffany Start time Last Medication Dose Route Stop Time Status Admin Aspirin Buffered 81 MG DAILY 08/20 1558 AC 08/20 PO 1723 Clonidine 0.1 MG Q12 08/21 1000 AC PO Clonidine 0.1 MG Q8 08/18 1400 DC 08/20 PO 1430 Fluoxetine HCl 40 MG DAILY 08/16 1000 AC 08/20 PO 1125 Folic Acid 1 MG DAILY 08/16 1000 AC 08/20 PO 1124 Gabapentin 1,200 MG QPM 08/16 2200 AC 08/20 PO 2038 Gabapentin 300 MG BID 08/16 1000 AC 08/20 PO 2038 Hydroxyzine HCl 50 MG TID 08/16 1000 AC 08/20 PO 2039 Lorazepam 1 MG Q8 08/20 1400 AC 08/21 PO 0619 Lorazepam 1.5 MG Q8 08/19 1400 DC 08/20 PO 0606 Lorazepam 1 MG Q4P PRN 08/19 0915 AC 08/20 PO 0336 Meclizine HCl 12.5 MG TID PRN 08/15 2345 AC PO Metoprolol Tartrate 50 MG BID 08/16 2200 AC 08/20 PO 1125 Mirtazapine 7.5 MG AT BEDTIME 08/19 2200 AC 08/20 PO 2038 Multivitamins 1 TAB DAILY 08/16 1000 AC 08/20 Therapeutic PO 1125 Nitroglycerin 0.4 MG DAILY 08/20 1557 AC 08/20 TOP 1737 Omeprazole 40 MG DAILY AC 08/16 0700 AC 08/21 PO 0619 Ondansetron HCl 4 MG Q6P PRN 08/16 1145 AC 08/16 IV 1153 Oxycodone HCl 5 MG Q6-PRN PRN 08/16 0030 AC 08/21 PO 0731 Prazosin HCl 2 MG AT BEDTIME 08/20 2200 AC 08/20 PO 203 Prazosin HCl 1 MG AT BEDTIME 08/18 2200 DC 08/19 PO 2119 Quetiapine Fumarate 150 MG QPM 08/16 2200 AC 08/20 PO 2038 Testosterone 100 MG QWED@1000 08/20 1000 AC 08/20 IM 1227 Thiamine HCl 100 MG DAILY 08/18 1000 AC 08/20 PO 1125 Last 24 Hrs of Lab/Scar Results Last 24 Hrs of Labs/Mics: Laboratory Tests 08/21/16 1705: Troponin I 0.01 08/21/16 1105: D-Dimer < 200, CBC w Diff NO MAN DIFF REQ, RBC 4.93, MCV 88.7, MCH 30.2, RDW 16.5 H, MPV 9.5, Gran % 67.1, Lymphocytes % 19.3 L, Monocytes % 11.3 H, Eosinophils % 1.8, Basophils % 0.5, Absolute Granulocytes 2.6, Absolute Lymphocytes 0.7 L, Absolute Monocytes 0.4, Absolute Eosinophils 0.1, Absolute Basophils 0, PUBS MCHC 34.1 08/21/16 0950: Creatine Kinase 95, Troponin I < 0.01 08/21/16 0615: Total Bilirubin 1.5 H, Direct Bilirubin 0.3, AST 228 H, ALT 343 H, Alkaline Phosphatase 47, Total Protein 6.5, Albumin 4.1, CBC w Diff NO MAN DIFF REQ, RBC 4.78, MCV 90.0, MCH 30.1, RDW 16.5 H, MPV 9.5, Gran % 45.6, Lymphocytes % 37.1, Monocytes % 13.3 H, Eosinophils % 3.2, Basophils % 0.8, Absolute Granulocytes 1.6, Absolute Lymphocytes 1.3, Absolute Monocytes 0.5, Absolute Eosinophils 0.1, Absolute Basophils 0, PUBS MCHC 33.5 Microbiology 08/21 1105 BLOOD: Blood Culture - RECD 08/21 1045 BLOOD: Blood Culture - RECD Orders Radiology Findings: Low lung volumes, no definite acute process. Questionable left lower lobe opacity. Assessment/Plan Assessment: 50 y/o M with PMHx of alcohol abuse with multiple admissions for detox/ withdrawal, [place] s/p cardiac catheterization x2 with no intervention and PTSD/ anxiety/depression who is admitted with chest pain and withdrawal symptoms. #Chest pain: Acute episode of severe chest pain today with negative EKG and troponin x2 and unremarkable CXR. Stress test with reversible ischemia. * Transfer to [facility] today for cardiac catheterization tomorrow after discussion with concrete pipe maker Dr. Hook. * Continue enteric coated aspirin 81 mg PO daily, metoprolol 50 mg PO BID and nitroglycerin patch 0.4 mg 12 hours on and 12 hours off. #Suicidal ideation: Presented with chronic suicidal ideation in the setting of underlying psychiatric disorder, bipolar vs PTSD. Currently denies suicidal ideation. * Buggy Runner at [facility] made aware of patient's psychiatric issues and suicidal ideation. They will consult psychiatry and reevaluate need for inpatient psychiatry admission. * Continue prior to admission Prozac 30 mg PO daily, gabapentin 300 mg PO BID as well as gabapentin 1200 mg PO QPM and Seroquel 150 mg PO QPM. * Continue prazosin 2 mg PO QHS for nightmares. * Patient will need 1:1 sitter at [facility]. #Alcohol withdrawal: Symptoms significantly improved. CIWA scores were mostly 0s. Long-standing history of alcohol abuse with multiple admissions for detox/ withdrawal. * Decrease Ativan further to 0.5 mg PO Q8H given improvement of CIWA scores. * Continue daily MVI, vitamin B12 and folic acid. #Elevated LFTs: Likely secondary to alcohol abuse. ALT/AST continue to trend up although total bilirubin is improving. INR WNL. * Continue to monitor LFTs. #HTN: Currently normotensive. * Continue metoprolol 50 mg PO BID and clonidine 0.1 mg PO Q12H. #Thrombocytopenia: Likely secondary to alcohol abuse. Platelet count has been improving, 127 today. * ALPs for DVT PPx. Diet: Regular DVT PPx: ALPs CODE: FULL Problem List: 1. PTSD (post-traumatic stress disorder) 2. Passive suicidal ideations 3. Thrombocytopenia 4. Hyperbilirubinemia 5. Transaminitis 6. Suicidal ideation 7. Chest pain 8. History of coronary artery disease 9. Alcohol withdrawal Pain Ratin Pain Location: N/A Pain Goal: Remain pain free Pain Plan: Oxicodone 5 mg PO Q6H PRN Tomorrow's Labs & Rationales: None Discharge Plan Discharge Disposition: transfer to another hosp ([facility]) Anticipated Discharge (Day): today
[2016-08-21] MEDS ORDERED: NITROGLYCERIN1 EACH TOP (07:30)
[2016-08-21] MEDS ORDERED: CLONIDINE HCL0.1 MG PO (07:30)
[2016-08-21] MEDS ORDERED: PRAZOSIN HCL2 M1 PO (07:31)
[2016-08-21 07:50] VITALS: BP 128/64
[2016-08-21 08:19] LABS: ABSOLUTE BASOPHIL COUNT 0 /CUMM (0.0-0.2); ABSOLUTE EOSINOPHIL COUNT 0.1 /CUMM (0.0-0.7); ABSOLUTE GRANULOCYTE CT 1.6 /CUMM (1.4-6.5); ABSOLUTE LYMPH COUNT 1.3 /CUMM (1.2-3.4); ABSOLUTE MONOCYTE COUNT 0.5 /CUMM (0.10-0.60); BASOPHIL % 0.8 % (0.0-2.0); EOSINOPHIL % 3.2 % (0-5); GRANULOCYTE % 45.6 % (42.2-75.2); MEAN CORPUSCULAR HGB 30.1 PG (27.0-31.0); MEAN CORPUSCULAR HGB CONC 33.5 G/DL (33.0-37.0); MEAN PLATELET VOLUME 9.5 FL (7.4-10.4); PLATELET COUNT 131 /CUMM (130-400); RBC DISTRIBUTION WIDTH 16.5 % (11.5-14.5); RED BLOOD CELL CT 4.78 /CUMM (4.70-6.10); WHITE BLOOD CELL COUNT 3.4 /CUMM (4.8-10.8)
--- NOTE | 2016-08-21 09:20 | NUR ---
NSG NOTE: CALLED TO BEDSIDE BY SITTER; PATIENT STATES HE HAS 10/10 CP RADIATING TO LEFT ARM; PATIENT IS HAVING RIGORS HE STATES RELATED TO PAIN; BP 160/110 HR 100S; ADMINISTERED TOPICAL NITRO PATCH, AND ORAL ASA, CLONIDINE, LOPRESSOR, AND ATARAX PER ORDERS; DR. ZHANE KULKARNI IMMEDIATELY AT BEDSIDE; UNABLE TO OBTAIN ADEQUATE EKG DUE TO RIGORS; TROP DRAWN STAT; 1MG ATIVAN ADMINISTERED IV WITH NO EFFECT; 2MG MORPHINE ADMINISTERED IV WITH NO EFFECT; AT THIS TIME RAPID RESPONSE WAS CALLED; NITRO SL ADMINISTERED WITH NO EFFECT; PT IS DIAPHORETIC; NEW SET VITALS BP158/98 [id number] TEMP 98.6 ORALLY; SPO2 91% 3L; ADDITIONAL 1MG ATIVAN IV ADMINISTERED WITH NO EFFECT; ADDITIONAL NITRO SL ADMINISTERED WITH NO EFFECT; ATIVAN 2MG ADMINISTERED IV WITH LITTLE EFFECT; CXR OBTAINED; EKG OBTAINED RIGORS ARE RESOLVING; PATIENT REPORTS SOME IMPROVEMENT TO PAIN AND RIGORS ARE SETTLING DOWN; CBC, DDIMER, AND BLOOD CULTURES OBTAIN; NEW EKG OBTAINED THAT IS MORE LEGIBLE; RECHECK VITALS BP 124/88 HR 90S; SPO2 94% ON 3L; WILL MONITOR
[2016-08-21 10:00] VITALS: BP 158/98
[2016-08-21 10:40] VITALS: BP 124/88
--- NOTE | 2016-08-21 10:45 | RADIOLOGY REPORT ---
EXAMINATION: XR PORTABLE CHEST CLINICAL INFORMATION: Chest pain. COMPARISON: 08/15/2016. TECHNIQUE: Portable AP view of the chest was obtained. FINDINGS: Lung volumes are diminished. Heart does not appear significantly enlarged. There is no evidence of congestion, consolidation or infiltrate. Left hemidiaphragm is not as well-seen on today's exam likely technical, although an evolving left lower lobe process in the retrocardiac region is not completely excluded. IMPRESSION: Low lung volumes, no definite acute process. Questionable left lower lobe opacity.
[2016-08-21 11:51] LABS: ABSOLUTE BASOPHIL COUNT 0 /CUMM (0.0-0.2); ABSOLUTE EOSINOPHIL COUNT 0.1 /CUMM (0.0-0.7); ABSOLUTE GRANULOCYTE CT 2.6 /CUMM (1.4-6.5); ABSOLUTE LYMPH COUNT 0.7 /CUMM (1.2-3.4); ABSOLUTE MONOCYTE COUNT 0.4 /CUMM (0.10-0.60); BASOPHIL % 0.5 % (0.0-2.0); EOSINOPHIL % 1.8 % (0-5); GRANULOCYTE % 67.1 % (42.2-75.2); HEMATOCRIT 43.8 % (42-52); MEAN CORPUSCULAR HGB 30.2 PG (27.0-31.0); MEAN CORPUSCULAR HGB CONC 34.1 G/DL (33.0-37.0); MEAN CORPUSCULAR VOLUME 88.7 FL (80.0-94.0); MEAN PLATELET VOLUME 9.5 FL (7.4-10.4); PLATELET COUNT 127 /CUMM (130-400); RBC DISTRIBUTION WIDTH 16.5 % (11.5-14.5); RED BLOOD CELL CT 4.93 /CUMM (4.70-6.10); WHITE BLOOD CELL COUNT 3.8 /CUMM (4.8-10.8)
--- NOTE | 2016-08-21 13:34 | PN- Student ---
Subjective Subjective: Medical Student Daily Progress Note: Mr. Rosa is a 50yo M with a PMH of alcoholism, CAD c/b NSTEMI s/p angio x2 without stenting, and bipolar disorder. He was admitted on 08/15/16 for acute chest pain, alcohol withdrawal and suicidal ideation. Early this morning, the patient states his CP is a 4/10, with intermittent dyspnea (although he said it is not really significant). He complained of a "mild" headache and occasional dizziness, which have been present for the past few days. His only new complaint was tinnitus in his left ear, which he says he has had in the past. He otherwise says he felt good and was in good spirits today. Later in the morning, the patient became tachycardic with severe chest pain and worsening dyspnea. He began to have tremors and was diaphoretic. A rapid response was called. He received 4mg IV ativan, 2 mg IV morphine, and 2 sublingual nitroglycerin tablets. Troponin and d-dimer were negative. CBC was stable. Blood cultures were sent. CXR was unremarkable. His heart rate and blood pressure have since recovered and he is now resting. Current Medications Sig/Tiffany Start time Last Medication Dose Route Stop Time Status Admin Aspirin Buffered 81 MG DAILY 08/20 1558 AC 08/21 PO 0936 Clonidine 0.1 MG Q12 08/21 1000 AC 08/21 PO 0936 Clonidine 0.1 MG Q8 08/18 1400 DC 08/20 PO 1430 Fluoxetine HCl 40 MG DAILY 08/16 1000 AC 08/21 PO 1041 Folic Acid 1 MG DAILY 08/16 1000 AC 08/21 PO 1041 Gabapentin 1,200 MG QPM 08/16 2200 AC 08/20 PO 2038 Gabapentin 300 MG BID 08/16 1000 AC 08/21 PO 1041 Hydroxyzine HCl 50 MG TID 08/16 1000 AC 08/21 PO 0936 Lorazepam 0.5 MG Q8 08/21 1400 AC PO 08/27 1359 Lorazepam 2 MG ONE ONE 08/21 1045 DC 08/21 IV 08/21 1046 1015 Lorazepam 2 MG ONE ONE 08/21 1030 CAN PO 08/21 1031 Lorazepam 1 MG ONE ONE 08/21 1000 DC 08/21 IV 08/21 1001 1000 Lorazepam 1 MG ONCE ONE 08/21 0945 DC 08/21 IV 08/21 0946 0944 Lorazepam 1 MG Q8 08/20 1400 DC 08/21 PO 0619 Lorazepam 1 MG Q4P PRN 08/19 0915 AC 08/20 PO 0336 Meclizine HCl 12.5 MG TID PRN 08/15 2345 AC PO Metoprolol Tartrate 50 MG BID 08/16 2200 AC 08/21 PO 0936 Mirtazapine 7.5 MG AT BEDTIME 08/19 2200 AC 08/20 PO 2038 Morphine Sulfate 2 MG ONCE ONE 08/21 1000 DC 08/21 IV 08/21 1001 0950 Multivitamins 1 TAB DAILY 08/16 1000 AC 08/21 Therapeutic PO 1041 Nitroglycerin 0.4 MG ONCE ONE 08/21 1030 DC 08/21 SL 08/21 1031 1015 Nitroglycerin 0.4 MG ONCE ONE 08/21 1000 DC 08/21 SL 08/21 1001 1052 Nitroglycerin 0.4 MG ONCE ONE 08/21 0945 DC 08/21 SL 08/21 0946 0946 Nitroglycerin 0.4 MG DAILY 08/20 1557 AC 08/21 TOP 0937 Omeprazole 40 MG DAILY AC 08/16 0700 AC 08/21 PO 0619 Ondansetron HCl 4 MG Q6P PRN 08/16 1145 AC 08/16 IV 1153 Oxycodone HCl 5 MG Q6-PRN PRN 08/16 0030 AC 08/21 PO 0731 Patient Medication 1 ED .STK-MED ONE 08/21 1149 DC Teaching ED 08/21 1150 Prazosin HCl 2 MG AT BEDTIME 08/200 AC 08/20 PO 2037 Quetiapine Fumarate 150 MG QPM 08/16 220 AC 08/20 PO 2038 Testosterone 100 MG QWED@1000 08/20 1000 AC 08/20 IM 1227 Thiamine HCl 100 MG DAILY 08/18 1000 AC 08/21 PO 1042 Tramadol HCl 50 MG ONCE ONE 08/21 1200 DC 08/21 PO 08/21 1201 1204 Objective Objective: Vital Signs Date Time Temp Pulse Resp B/P B/P Pulse O2 O2 Flow FiO2 Mean Ox Delivery Rate 08/21 0936 100 160/110 08/21 0936 160/110 08/21 0750 98.2 73 20 128/64 95 08/21 0400 52 08/21 0200 54 08/20 2222 98.7 52 20 122/78 95 Room Air 08/20 2200 98.7 69 122/78 08/209 49 122/78 08/208 69 122/78 08/21 1999 52 08/20 1600 18.0 61 98 128/90 08/20 1530 98.8 61 18 12890 99 Room Air 08/20 1430 112/70 Intake & Output 08/21 1600 08/21 0800 08/21 0000 Intake Total 240 480 Output Total Balance 240 480 Intake, Oral 240 480 Overnight telemetry: sinus bradycardia to NSR, rate 56 - 68. No overnight events Rapid Response: Became tachycardic (130's - 140's) with severe CP, diaphoresis, and tremors this am at ~1030. General: anxious Neuro: A&O x3, no focal deficits HEENT: scleral icterus resolving. moist oral mucosa. CV: RRR; no murmurs, JVD, or bruits Pulmonary: CTA GI: abdomen soft and non-tender Extremities: Warm and well perfused Psych: Improved mood Results Results: Laboratory Tests 08/21/16 1105: D-Dimer < 200, CBC w Diff NO MAN DIFF REQ, RBC 4.93, MCV 88.7, MCH 30.2, RDW 16.5 H, MPV 9.5, Gran % 67.1, Lymphocytes % 19.3 L, Monocytes % 11.3 H, Eosinophils % 1.8, Basophils % 0.5, Absolute Granulocytes 2.6, Absolute Lymphocytes 0.7 L, Absolute Monocytes 0.4, Absolute Eosinophils 0.1, Absolute Basophils 0, PUBS MCHC 34.1 08/21/16 0950: Creatine Kinase 95, Troponin I < 0.01 08/21/16 0615: Total Bilirubin 1.5 H, Direct Bilirubin 0.3, AST 228 H, ALT 343 H, Alkaline Phosphatase 47, Total Protein 6.5, Albumin 4.1, CBC w Diff NO MAN DIFF REQ, RBC 4.78, MCV 90.0, MCH 30.1, RDW 16.5 H, MPV 9.5, Gran % 45.6, Lymphocytes % 37.1, Monocytes % 13.3 H, Eosinophils % 3.2, Basophils % 0.8, Absolute Granulocytes 1.6, Absolute Lymphocytes 1.3, Absolute Monocytes 0.5, Absolute Eosinophils 0.1, Absolute Basophils 0, PUBS MCHC 33.5 Assessment/Plan Assessment: Mr. Rosa is a 50 yo M admitted on 08/15/16 for chest pain, alcohol withdrawal and suicidal ideation. Plan: Chest Pain: Etiology has been unclear, although stress testing yesterday showed a small, reversible perfusion defect in the inferolateral aspect of the heart. This combined with today's events reinforce cardiac etiology. * Nitro patch and ASA started * Catheterization recommended. Will transfer to [place]. * Continue telemetry monitoring Alcohol withdrawal: CIWA scores have been under 10 over the past 24 hours ( mostly 0) with minimal prn Ativan administration. Hallucinations and tremors have subsided. LFTs still elevated. * Decrease standing Ativan to 0.5 mg q8h * Continue Ativan 1mg q4h prn * Continue monitoring * Continue thiamine and folate supplementation * Continue monitoring LFTs HTN: Has been relatively well controlled with Metoprolol 50mg BID and Clonidine 0.1 mg q8h. * Continue current regimen as described above. Bipolar Disorder + Suicidal Ideation: Suicidal ideation has subsided. Patient was supposed to go to inpatient psych today, but given cardiac events this will be put on hold for now. Will recommend inpatient psych or IOP when medically stable. * Continue current psychiatric medication regimen * Suicide precautions with 1:1 sitter * Inpatient psych or IOP when medically stable Code Status: Full Diet: Regular DVT prophylaxis: Gerardo
[2016-08-21] MEDS ORDERED: ATIVAN0.5 M1 PO (15:19)
--- NOTE | 2016-08-21 15:32 | PN- Att Addend ---
Attending MD Review Statement Attending Statement Attending MD Statement: examined this patient, discuss w/resident/PA/WAISTLINE JOINER LOCKSTITCH, agreed w/resident/PA/WAISTLINE JOINER LOCKSTITCH, reviewed EMR data (avail), discussed w/nursing, discussed w/ case mgmt Attending Assessment/Plan: Laboratory Tests 08/21/16 1105: D-Dimer < 200, CBC w Diff NO MAN DIFF REQ, RBC 4.93, MCV 88.7, MCH 30.2, RDW 16.5 H, MPV 9.5, Gran % 67.1, Lymphocytes % 19.3 L, Monocytes % 11.3 H, Eosinophils % 1.8, Basophils % 0.5, Absolute Granulocytes 2.6, Absolute Lymphocytes 0.7 L, Absolute Monocytes 0.4, Absolute Eosinophils 0.1, Absolute Basophils 0, PUBS MCHC 34.1 08/21/16 0950: Creatine Kinase 95, Troponin I < 0.01 08/21/16 0615: Total Bilirubin 1.5 H, Direct Bilirubin 0.3, AST 228 H, ALT 343 H, Alkaline Phosphatase 47, Total Protein 6.5, Albumin 4.1, CBC w Diff NO MAN DIFF REQ, RBC 4.78, MCV 90.0, MCH 30.1, RDW 16.5 H, MPV 9.5, Gran % 45.6, Lymphocytes % 37.1, Monocytes % 13.3 H, Eosinophils % 3.2, Basophils % 0.8, Absolute Granulocytes 1.6, Absolute Lymphocytes 1.3, Absolute Monocytes 0.5, Absolute Eosinophils 0.1, Absolute Basophils 0, PUBS MCHC 33.5 Vital Signs Date Time Temp Pulse Resp B/P B/P Pulse O2 O2 Flow FiO2 Mean Ox Delivery Rate 08/21 1040 90 20 124/88 93 Nasal 3.0L Cannula 08/21 1000 98.6 130 20 158/98 91 Nasal 2.0L Cannula 08/21 0936 100 160/110 08/21 0936 160/110 08/21 0750 98.2 73 20 128/64 95 08/21 0400 52 08/21 0200 54 08/20 2222 98.7 52 20 122/78 95 Room Air 08/20 2200 98.7 69 122/78 08/20 2039 49 122/78 08/20 2038 69 122/78 08/20 2000 52 08/20 1600 18.0 61 98 128/90 08/20 1530 98.8 61 18 128/90 99 Room Air Patient seen and examined at bedside. Discussed with patient the care plan. Patient had acute episode of chest pain again this morning for which we did an EKG and troponins which were negative. Given the patient's previous cardiac history and the stress tests showing reversible ischemia in part of the myocardium I discussed his care with Dr. Hook and we decided to transfer the patient to [place] for cardiac catheterization. I discussed the care with the group home worker at [place] and patient will be transferred over there for [facility] catheterization tomorrow. I made the group home worker aware of his psychiatric issue and suicidal ideation and his requirement for a sitter. They will consult psychiatry over there to reassess his need for inpatient psychiatry admission. patient was planned to be transferred to inpatient psychiatry over here for which he had agreed voluntarily. But given the above events we are transferring him to [place] for cardiac catheterization. Patient is agreeable for the transfer.
[2016-08-21 16:00] VITALS: BP 142/86
--- NOTE | 2016-08-21 16:00 | Incdntl Nt Psy ---
Incidental Note Notation: As per House Staff, pt is being transferred to [facility] as per cardiology. I spoke with the patient this afternoon. He denies suicidal ideation. Patient states and also believes that he will not harm or kill himself. The patient has been supervised with a 1:1 sitter in anticipation of a voluntary [facility] admission. Plan: We recommend that the patient recieve a psychiatric consult when he arrives at [facility].
== END 2016-08-21 18:54 | disposition short-term general hospital (02) | DRG 897 ==
LOC: ENRESERVTM → ENRESERVDT → ERH 17:40 → ERHI 20:11 → 1NO 20:11
PROVIDERS: Dermatology; Emergency Medicine; Internal Medicine; Student in an Organized Health Care Education/Training Program; ADMIT Student in an Organized Health Care Education/Training Program
DX: F10.239 Alcohol dependence with withdrawal, unspecified (principal); R45.851 Suicidal ideations; E87.2 Acidosis; D69.59 Other secondary thrombocytopenia; R56.9 Unspecified convulsions; E83.52 Hypercalcemia; F31.9 Bipolar disorder, unspecified; K70.10 Alcoholic hepatitis without ascites; I25.10 Atherosclerotic heart disease of native coronary artery without angina pectoris; E78.5 Hyperlipidemia, unspecified; R07.9 Chest pain, unspecified; Y90.8 Blood alcohol level of 240 mg/100 ml or more; I25.2 Old myocardial infarction; K29.20 Alcoholic gastritis without bleeding; K20.9 Esophagitis, unspecified; I16.0 Hypertensive urgency; R00.0 Tachycardia, unspecified; F43.10 Post-traumatic stress disorder, unspecified; Z86.73 Personal history of transient ischemic attack (TIA), and cerebral infarction without residual deficits
CPT/HCPCS: 1NP; 36415; 78452; 80307; 81001; 82436; 87040; 93005; 93010; 93016; 93017; 93306; 96374; 96375; 96376; A9502; G0480; J2060; J2270; J2405; J3490; J7060

== ENCOUNTER 2016-10-06 20:59 | Emergency (ER) | payer OTHER ==
[~2016-10-06] VITALS: Ht 167.6 cm; Wt 97.5 kg
[~2016-10-06 20:59] MED LIST changes: +ATIVAN0.5 M1 PO; +GABAPENTIN300 M2 PO; +LORAZEPAM1 M1 PO; +METOPROLOL TART50 M1 PO; +NITROGLYCERIN1 EACH TOP; +PRAZOSIN HCL2 M1 PO; +PROZAC10 M1 PO; +VITAMIN B-1100 MG PO
[2016-10-06 21:17] VITALS: BP 163/103
[2016-10-06 21:29] LABS: ABSOLUTE BASOPHIL COUNT 0.1 /CUMM (0.0-0.2); ABSOLUTE EOSINOPHIL COUNT 0.2 /CUMM (0.0-0.7); ABSOLUTE GRANULOCYTE CT 4.6 /CUMM (1.4-6.5); ABSOLUTE LYMPH COUNT 1.8 /CUMM (1.2-3.4); ABSOLUTE MONOCYTE COUNT 0.6 /CUMM (0.10-0.60); BASOPHIL % 0.9 % (0.0-2.0); EOSINOPHIL % 3.2 % (0-5); GRANULOCYTE % 63.3 % (42.2-75.2); HEMATOCRIT 45.3 % (42-52); MEAN CORPUSCULAR HGB 30.5 PG (27.0-31.0); MEAN CORPUSCULAR HGB CONC 33.1 G/DL (33.0-37.0); MEAN CORPUSCULAR VOLUME 92.3 FL (80.0-94.0); MEAN PLATELET VOLUME 7.7 FL (7.4-10.4); PLATELET COUNT 286 /CUMM (130-400); WHITE BLOOD CELL COUNT 7.2 /CUMM (4.8-10.8)
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
== END 2016-10-06 21:49 ==
LOC: ERH 20:59
PROVIDERS: Emergency Medicine
DX: R07.2 Precordial pain (principal)
CPT/HCPCS: 93005; 93010; G0480

== ENCOUNTER 2016-10-16 14:03 | Emergency (ER) | payer OTHER ==
[~2016-10-16] VITALS: Ht 167.6 cm; Wt 104.3 kg
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
[2016-10-16] MEDS ORDERED: PRAZOSIN HCL2 M1 PO (14:41)
[2016-10-16] MEDS ORDERED: LATUDA20 M1 PO (14:42)
[2016-10-16] MEDS ORDERED: VIAGRA100 M1 PO (14:43)
[2016-10-16] MEDS ORDERED: CLONIDINE HCL0.1 MG PO (14:44)
[2016-10-16] MEDS ORDERED: HYDRALAZINE HCL50 M1 PO (14:45)
[2016-10-16] MEDS ORDERED: LEVAQUIN500 M1 PO (14:46)
[2016-10-16] MEDS ORDERED: MAGNESIUM OXID400 M1 PO (14:47)
[2016-10-16 14:54] LABS: ABSOLUTE BASOPHIL COUNT 0 /CUMM (0.0-0.2); ABSOLUTE EOSINOPHIL COUNT 0.1 /CUMM (0.0-0.7); ABSOLUTE GRANULOCYTE CT 4.7 /CUMM (1.4-6.5); ABSOLUTE LYMPH COUNT 1.3 /CUMM (1.2-3.4); ABSOLUTE MONOCYTE COUNT 0.4 /CUMM (0.10-0.60); BASOPHIL % 0.5 % (0.0-2.0); EOSINOPHIL % 1.5 % (0-5); GRANULOCYTE % 71.4 % (42.2-75.2); HEMATOCRIT 41.2 % (42-52); MEAN CORPUSCULAR HGB CONC 33.2 G/DL (33.0-37.0); MEAN CORPUSCULAR VOLUME 90.5 FL (80.0-94.0); MEAN PLATELET VOLUME 7.8 FL (7.4-10.4); PLATELET COUNT 240 /CUMM (130-400); RBC DISTRIBUTION WIDTH 14.9 % (11.5-14.5); RED BLOOD CELL CT 4.55 /CUMM (4.70-6.10); WHITE BLOOD CELL COUNT 6.5 /CUMM (4.8-10.8)
[2016-10-16 18:26] VITALS: BP 138/76
== END 2016-10-16 18:35 ==
LOC: ERH 14:03
PROVIDERS: Emergency Medicine
DX: R07.2 Precordial pain (principal); F10.129 Alcohol abuse with intoxication, unspecified
CPT/HCPCS: 93005; 93010; G0480

== ENCOUNTER 2016-10-20 10:13 | Inpatient (IN) | payer OTHER ==
[2016-10-20] VITALS (9 sets, daily range): BP systolic 125–216; BP diastolic 60–100
[~2016-10-20] VITALS: Ht 167.6 cm; Wt 103.5 kg
[~2016-10-20 10:13] MED LIST changes: +HYDRALAZINE HCL50 M1 PO; +LATUDA20 M1 PO; +LEVAQUIN500 M1 PO; +MAGNESIUM OXID400 M1 PO; +VIAGRA100 M1 PO
--- NOTE | 2016-10-20 10:34 | NUR ---
PT TO ED FOR CP. EKG ORDERED AT [facility]. PT NOTED TO BE SEVERELY TREMULOUS IN [place]. +DIAPHORETIC. REPORTS CP AND +ETOH WITHDRAWAL. HX WITHDRAWAL SEIZURES. LAST DRINK LAST PM. LUIS CAMPOS. PT DIRECTLY TO ROOM 2 FOR EVAL.
[2016-10-20] MEDS ORDERED: METOPROLOL TART25 M1 PO (10:43)
--- NOTE | 2016-10-20 10:43 | NUR ---
PT TO ROOM 2, BODY SHAKING ON STRETCHER, SWEAT POURING OFF PT. PT VOMITING, UNABLE TO SIT STILL. IV EST TO LAC, MEDICATED WITH 4MG ATIVAN IV AND 4MG ZOFRAN, NS INFUSING. DR JOLLY AND LUIS ASH IN ROOM TO EVAL. SINUS TACH ON CM WITH RATE AROUDN 115. PLACED ON 2L O2 VIA NC. PT STATES HE HAS A HISTORY OF SEIZURES.
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
--- NOTE | 2016-10-20 10:54 | NUR ---
LABS DRAWN X2 SST, LAV, BLUE AND SENT TO LAB
--- NOTE | 2016-10-20 10:56 | NUR ---
MEDICATED WITH ADDITIONAL 4MG ATIVAN IVP (SEE MAR)
--- NOTE | 2016-10-20 10:57 | NUR ---
OLIMPIA NEG PER LUIS ASH.
[2016-10-20 11:04] LABS: ABSOLUTE BASOPHIL COUNT 0 /CUMM (0.0-0.2); ABSOLUTE EOSINOPHIL COUNT 0 /CUMM (0.0-0.7); ABSOLUTE GRANULOCYTE CT 5.5 /CUMM (1.4-6.5); ABSOLUTE LYMPH COUNT 0.8 /CUMM (1.2-3.4); ABSOLUTE MONOCYTE COUNT 0.4 /CUMM (0.10-0.60); BASOPHIL % 0.1 % (0.0-2.0); EOSINOPHIL % 0.4 % (0-5); GRANULOCYTE % 82.4 % (42.2-75.2); HEMATOCRIT 44.7 % (42-52); MEAN CORPUSCULAR HGB 29.8 PG (27.0-31.0); MEAN CORPUSCULAR HGB CONC 33.8 G/DL (33.0-37.0); MEAN CORPUSCULAR VOLUME 88.3 FL (80.0-94.0); MEAN PLATELET VOLUME 7.8 FL (7.4-10.4); PLATELET COUNT 226 /CUMM (130-400); RBC DISTRIBUTION WIDTH 14.9 % (11.5-14.5); RED BLOOD CELL CT 5.07 /CUMM (4.70-6.10); WHITE BLOOD CELL COUNT 6.7 /CUMM (4.8-10.8)
[2016-10-20 11:09] LABS: PT 10.8 SEC (9.4-12.5)
--- NOTE | 2016-10-20 11:10 | NUR ---
ATIVAN DRIP INITIATED AT 4MG/HR PER MD JOLLY.
--- NOTE | 2016-10-20 11:34 | NUR ---
MEDICATED WITH 325MG ASA AND 2MG MORPHINE (SEE MAR)
--- NOTE | 2016-10-20 11:37 | NUR ---
PORT CXR IN ROOM
--- NOTE | 2016-10-20 12:11 | RADIOLOGY REPORT ---
EXAMINATION: XR PORTABLE CHEST CLINICAL INFORMATION: Chest pain COMPARISON: Multiple chest x-rays most recent prior dated 08/21/2016 TECHNIQUE: Portable frontal view of the chest was obtained. FINDINGS: Stable arterial megaly. Low lung volumes. Evaluation of the left base is limited due to patient's body habitus. Hazy opacity left base retrocardiac region may be accentuated by patient's body habitus. Similar appearance seen on the prior examination. IMPRESSION: Stable hazy opacification of the left base consistent with minor infiltrate or atelectasis. This may be accentuated by patient's body habitus.
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
--- NOTE | 2016-10-20 13:00 | NUR ---
PT ARRIVED WITH 2 BELONGINGS BAGS. 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
--- NOTE | 2016-10-20 13:10 | NUR ---
PT TAKING OWN OFF, STATESD "ITS IRRITATING."
--- NOTE | 2016-10-20 13:37 | NUR ---
PT TO ROOM 105
--- NOTE | 2016-10-20 13:42 | NUR ---
PHARMACY CALLED FOR BANANA BAG
--- NOTE | 2016-10-20 14:25 | NUR ---
REPORT CALLED TO JAKE PETERSON
--- NOTE | 2016-10-20 15:04 | NUR ---
ZOFRAN ORDERED, INCREASED DRIP TO 5MG/HR FOR INCREASE TREMORS AND NAUSEA.
--- NOTE | 2016-10-20 16:15 | NUR ---
Patient arrived from the ER to the [facility] at approx 1510 accompanied by an RN on the equipment monitor phototypesetting. He was transferred to the bed with minimal assistance. Patient is alert and oriented x's 3, anxious with severe tremors noted. CIWA score 22 and ativan gtt increased to 6mg/hr. He can move all extremities, follow commands and answer all questions appropriately. NSR on tele monitor, HR= 70-90's, SBP: 180-200's and he received 5mg IV hydralazine. Pulses are palpable. He complains of left sided chest pain which radiates down his left arm 12/11- and has received IV morphine for pain. ASA previously given in ER. Dr. Linares and Dr. Domínguez made aware. On room air, lungs clear and diminished- An audible wheeze is heard with exertion. O2 sats 91-95%. Abdomen is soft and non tender with + bowel sounds. C/o intermittent episodes of nausea but has not vomited. He has not voided. A generalized rash is noted to his trunk and back which he has been trated for as an outpatient- on po prednisone. No areas of pressure injury are currently noted. He is sweaty. A banana bag is also infusing at this time per order. Medicated with IV benadryl. He was oriented to room and call dela cruz. Updated on POC. Will continue to closely monitor patient.
[2016-10-21] VITALS (11 sets, daily range): BP systolic 120–172; BP diastolic 63–92
--- NOTE | 2016-10-21 | NUR ---
PATIENT CALM AND CO-OPERATIVE. AWARE HE IS IN [facility],CORRECT ON MONTH AND YEAR. NO TREMOR NOTED WITH ARMS EXTENDED.ATIVAN DRIP ON AT 10 MG/HR. MONITOR SINUS RHYTHM AT RATE OF 60. VV=964/68.
--- NOTE | 2016-10-21 06:00 | NUR ---
PATIENT ATTEMPTING TO VOID. BLADDER SCAN SHOWS 975 ML OF URINE. STOOD AT SIDE OF BED.VOIDING SUCCESSFUL.
--- NOTE | 2016-10-21 07:44 | PN- Resident CRCU ---
Subjective HPI/CRCU Issues: Etoh abuse/withdrawal Chest pain 24 Hour Events: Seen and examined at bedside. Still endorses chest pain, trops and ekg were trended wtih ACS ruled out. He is currently on 10mg/hr on the Ativan drip, last CIWA score 2. He does endorse nightmares, but denies hallucination, tremors, nausea/vomiting. Objective Vital Signs & I&O Last 8 Hrs of Vitals and I&O: Vital Signs Date Time Temp Pulse Resp B/P B/P Pulse O2 O2 Flow FiO2 Mean Ox Delivery Rate 10/21 1100 65 14 156/77 10/21 1000 65 16 120/70 10/21 0900 96 Room Air 10/21 0842 68 156/96 10/21 0842 68 156/93 10/21 0800 98.8 65 22 152/88 10/21 0800 98.8 59 22 152/88 96 Room Air 10/21 0600 60 18 172/86 10/21 0600 92 Room Air 10/21 0200 63 18 146/63 10/21 0000 98.4 60 17 144/68 10/21 0000 98.4 60 17 144/68 04 Room Air 10/21 0000 94 Room Air 10/20 2258 74 19 170/82 10/20 2246 72 18 170/82 10/20 2158 71 18 198/71 10/20 2157 71 18 191/74 10/20 2000 98.7 71 22 125/60 10/20 2000 96 Room Air 10/20 1811 88 06 163/81 10/20 1800 92 22 163/90 10/20 1606 99.1 93 28 208/103 10/20 1540 99.1 92 20 188/91 95 Room Air 10/20 1520 96 20 207/100 10/20 1520 95 Room Air 10/20 1330 98.3 99 18 174/84 10/20 1323 97 174/84 10/20 1255 95.0 93 18 216/93 10/20 1151 98.3 93 18 204/91 10/20 1151 98.3 93 18 204/91 95 Nasal 2.0L Cannula Intake & Output 10/21 1600 10/21 0800 10/21 0000 Intake Total 839 2245 Output Total 500 300 Balance 339 1945 Intake, IV 839 1645 Intake, Oral 600 Output, Urine 500 300 Patient 103.532 kg Weight Weight Bed scale Measurement Method Intake & Output 10/21 1600 Intake Total Output Total Balance Patient 103.532 kg Weight Weight Bed scale Measurement Method Exam General Appearance: alert, awake Respiratory: normal breath sounds, chest non-tender, no respiratory distress, lungs clear Cardiovascular: regular rate/rhythm Extremities: normal capillary refill, normal range of motion, no edema Other Physical Findings: HEENT Atraumatic, PERRLA, EOMI Neck Supple, No JVD Lymphatic no lad Cardiovascular Normal S1, Normal S2, No Murmurs Lungs Clear to Auscultation, Normal Air Movement Abdomen Normal Bowel Sounds, Soft, No Tenderness Neurological Normal Speech, Strength at 5/5 X4 Ext, Normal Tone, Sensation Intact, Cranial Nerves 3-12 NL, Reflexes 2+ Extremities No Clubbing, No Cyanosis, No Edema, Normal Pulses, rash on UE as describe in skin findings. Vascular Normal Pulses Current Medications: Current Medications Sig/Tiffany Start time Last Medication Dose Route Stop Time Status Admin Aspirin Buffered 81 MG DAILY 10/21 1000 AC 10/21 PO 0842 Aspirin Buffered 81 MG DAILY 10/20 1547 DC PO Atorvastatin Calcium 80 MG DAILY 10/21 1000 AC 10/21 PO 1044 Chlordiazepoxide HCl 100 MG Q6 10/21 1200 AC 10/21 PO 1221 Clonidine 0.1 MG QPM 10/20 2200 AC 10/20 PO 2157 Cyanocobalamin/ 1 BAG DAILY 10/20 1300 AC 10/21 Thiamine/Pyridoxine IV 10/22 1759 1045 Dextrose/Water 1,000 ML Diphenhydramine HCl 50 MG ONCE ONE 10/20 1600 DC 10/20 IV 10/20 1601 1605 Diphenhydramine HCl 25 MG Q6P PRN 10/20 1600 DC 10/21 IV 0545 Fluoxetine HCl 60 MG DAILY 10/21 1000 AC 10/21 PO 0842 Gabapentin 300 MG QAM 10/21 1000 AC 10/21 PO 0842 Gabapentin 600 MG QPM 10/20 2200 AC 10/20 PO 2154 Heparin Sodium 5,000 UNIT Q8 10/20 1555 AC 10/21 (Porcine) SC 0517 Hydralazine HCl 50 MG TID 10/20 1600 AC 10/21 PO 0842 Hydralazine HCl 5 MG ONCE ONE 10/20 1530 DC 10/20 IV 10/20 1531 1606 Hydrocortisone 1 DRAGAN 4 TIMES/DAY PRN 10/20 1600 AC 10/21 EXT 0540 Hydroxyzine HCl 50 MG TID PRN 10/21 1015 AC PO Lidocaine 1 PAT Q24H 10/20 1600 AC 10/20 EXT 1815 Loratadine 10 MG TID 10/21 1006 DC PO Lorazepam 100 MG Q10H 10/21 1600 AC Sodium Chloride 1,000 ML IV Lorazepam 100 MG Q12H 10/20 1915 AC 10/21 Sodium Chloride 1,000 ML IV 10/21 1559 0539 Lorazepam 50 MG ONCE ONE 10/20 1645 DC 10/20 Sodium Chloride 500 ML IV 10/20 1646 1700 Lorazepam 2 MG Q2P PRN 10/20 1300 AC IV Lorazepam 1 MG Q2P PRN 10/20 1300 AC IV Magnesium Oxide 400 MG ONE ONE 10/21 0745 DC 10/21 PO 10/21 0746 0843 Metoprolol Tartrate 25 MG BID 10/20 2200 AC 10/21 PO 0842 Morphine Sulfate 1 MG ONCE ONE 10/20 1600 DC IV 10/20 1601 Morphine Sulfate 2 MG Q4P PRN 10/20 1600 AC 10/21 IV 0632 Morphine Sulfate 3 MG ONCE ONE 10/20 1600 DC 10/20 IV 10/20 1601 1616 Ondansetron HCl 0 .STK-MED ONE 10/20 1506 DC .ROUTE Ondansetron HCl 4 MG ONCE ONE 10/20 1500 DC 10/20 IV 10/20 1501 1503 Oxycodone HCl 5 MG Q6P PRN 10/20 1600 AC PO Pantoprazole Sodium 40 MG DAILY 10/21 1000 AC 10/21 IV 0843 Potassium Chloride 20 MEQ ONCE ONE 10/21 1100 DC 10/21 PO 10/21 1101 1044 Potassium Chloride 40 MEQ ONCE ONE 10/21 0845 DC 10/21 PO 10/21 0846 0843 Potassium Chloride 20 MEQ ONCE ONE 10/21 0745 CAN PO 10/21 0746 Potassium Chloride 40 MEQ ONCE ONE 10/21 0700 CAN PO 10/21 0701 Impression/Plan Impression/Problem List Impression: This a 50-year-old gentleman with a past medical history of multiple admission for alcohol withdrawal with delirium tremens and withdrawal seizures, fatty liver disease, chest pain requiring cardiac catheterization which was unremarkable and not needing any intervention, PTSD, anxiety, depression,peptic ulcer, recent subacute pruritic rash treated with prednisone, presents to [place] ED requesting alcohol detox. Impression * EtOH withdrawal. Admission alcohol level of 128 last drink 2 days ago. * Chest pain. Serial troponins and EKG ruled out ACS, left heart cath in August 21 05/05/2016 was unremarkable. Most probable cause of patient's chest pain is history of peptic ulcer which is being exacerbated by continuous alcohol drinking. * Elevated blood pressures. s/p post IV hydralazine 5 mg yesterday and home BP meds were restarted. Current BP levels show improvement. Most likely cause of elevated BP is alcohol withdrawal, noncompliance also be contributory. * Transaminitis. Secondary to alcohol abuse. * Psychiatric conditions. PTSD, anxiety, depression. Plan Continue ICU placement Continue CIWA Will start Librium 100 mg every 6h Will taper off Ativan drip accordingly Was switch to oral multivitamin, thiamine and folate Home dose hydroxyzine for the pruritic rash in addition to the hydrocortisone that was started yesterday Will await psych recommendations Consider Haldol 1mg every 4-6 hours as needed for agitation (Will obtain subsequent EKGs to assess for QT prolongation if Haldol is initiated and required multiple times) Continue BP meds Problem List: 1. Alcohol intoxication Pain Ratin Pain Location: chest Tomorrow's Labs & Rationales: ICU BUNDLE Plan DVT/Prophylaxis: mechanical, pharmacological
--- NOTE | 2016-10-21 08:36 | PN- Pulmonary ---
Subjective HPI/Critical Care Issues: Seen and examined at bedside. Still endorses chest pain, trops and ekg were trended wtih ACS ruled out. He is currently on 10mg/hr on the Ativan drip, last CIWA score 2. He does endorse nightmares, but denies hallucination, tremors, nausea/vomiting. Objective Current Medications: Current Medications Sig/Tiffany Start time Last Medication Dose Route Stop Time Status Admin Aspirin 0 .STK-MED ONE 10/20 1135 DC PO Aspirin 325 MG ONCE ONE 10/20 1130 DC 10/20 PO 10/20 1131 1134 Aspirin Buffered 81 MG DAILY 10/21 1000 AC PO Aspirin Buffered 81 MG DAILY 10/20 1547 DC PO Atorvastatin Calcium 80 MG DAILY 10/21 1000 AC PO Clonidine 0.1 MG QPM 10/20 2200 AC 10/20 PO 2157 Cyanocobalamin/ 1 BAG DAILY 10/20 1300 AC 10/20 Thiamine/Pyridoxine IV 10/22 1759 1424 Dextrose/Water 1,000 ML Diphenhydramine HCl 50 MG ONCE ONE 10/20 1600 DC 10/20 IV 10/20 1601 1605 Diphenhydramine HCl 25 MG Q6P PRN 10/20 1600 AC 10/21 IV 0545 Fluoxetine HCl 60 MG DAILY 10/21 1000 AC PO Gabapentin 300 MG QAM 10/21 1000 AC PO Gabapentin 600 MG QPM 10/20 2200 AC 10/20 PO 2154 Heparin Sodium 5,000 UNIT Q8 10/20 1555 AC 10/21 (Porcine) SC 0517 Hydralazine HCl 50 MG TID 10/20 1600 AC 10/20 PO 2158 Hydralazine HCl 5 MG ONCE ONE 10/20 1530 DC 10/20 IV 10/20 1531 1606 Hydrocortisone 1 DRAGAN 4 TIMES/DAY PRN 10/20 1600 AC 10/21 EXT 0540 Lidocaine 1 PAT Q24H 10/20 1600 AC 10/20 EXT 1815 Lorazepam 100 MG Q12H 10/20 1915 AC 10/21 Sodium Chloride 1,000 ML IV 0539 Lorazepam 50 MG ONCE ONE 10/20 1645 DC 10/20 Sodium Chloride 500 ML IV 10/20 1646 1700 Lorazepam 2 MG Q2P PRN 10/20 1300 AC IV Lorazepam 1 MG Q2P PRN 10/20 1300 AC IV Lorazepam 4 MG ONCE ONE 10/20 1100 DC 10/20 IV 10/20 1101 1049 Lorazepam 4 MG ONE ONE 10/20 1100 DC 10/20 IV 10/20 1101 1056 Lorazepam 0 .STK-MED ONE 10/20 1057 DC .ROUTE Lorazepam 2 MG ONE ONE 10/20 1045 CAN IV 10/20 1046 Lorazepam 4 MG ONCE ONE 10/20 1045 CAN IM 10/20 1046 Lorazepam 50 MG ONCE ONE 10/20 1045 DC 10/20 Sodium Chloride 500 ML IV 10/20 1046 1110 Lorazepam 0 .STK-MED ONE 10/20 1042 DC .ROUTE Magnesium Oxide 400 MG ONE ONE 10/21 0745 DC PO 10/21 0746 Metoprolol Tartrate 25 MG BID 10/20 2200 AC 10/20 PO 2246 Morphine Sulfate 1 MG ONCE ONE 10/20 1600 DC IV 10/20 1601 Morphine Sulfate 2 MG Q4P PRN 10/20 1600 AC 10/21 IV 0632 Morphine Sulfate 3 MG ONCE ONE 10/20 1600 DC 10/20 IV 10/20 1601 1616 Morphine Sulfate 0 .STK-MED ONE 10/20 1136 DC .ROUTE Morphine Sulfate 2 MG ONCE ONE 10/20 1130 DC 10/20 IV 10/20 1131 1134 Ondansetron HCl 0 .STK-MED ONE 10/20 1506 DC .ROUTE Ondansetron HCl 4 MG ONCE ONE 10/20 1500 DC 10/20 IV 10/20 1501 1503 Ondansetron HCl 4 MG ONCE ONE 10/20 1045 DC 10/20 IV 10/20 1046 1049 Ondansetron HCl 0 .STK-MED ONE 10/20 1042 DC .ROUTE Oxycodone HCl 5 MG Q6P PRN 10/20 1600 AC PO Pantoprazole Sodium 40 MG DAILY 10/21 1000 AC IV Potassium Chloride 20 MEQ ONCE ONE 10/21 0745 DC PO 10/21 0746 Potassium Chloride 40 MEQ ONCE ONE 10/21 0700 DC PO 10/21 0701 Sodium Chloride 1,000 ML BOLUS ONE 10/20 1045 DC 10/20 IV 10/20 1144 1049 Laboratory Tests 10/21 10/20 10/20 10/20 10/20 0430 2339 2230 2230 1645 Chemistry Sodium (137 - 145 mmol/L) 136 L Cancelled 137 Potassium (3.5 - 5.1 mmol/L) 3.4 L Cancelled 3.5 Chloride (98 - 107 mmol/L) 100 Cancelled 99 Carbon Dioxide (22 - 30 mmol/L) 27 Cancelled 29 Anion Gap (5 - 16) 8 Cancelled 9 BUN (9 - 20 mg/dL) 9 Cancelled 10 Creatinine (0.7 - 1.2 mg/dL) 0.7 Cancelled 0.7 Estimated GFR (>60 ml/min) > 60 > 60 Glucose (65 - 99 mg/dL) 94 Cancelled 100 H Lactic Acid (0.7 - 2.1 mmol/L) 1.4 Calcium (8.4 - 10.2 mg/dL) 8.1 L Cancelled 8.6 Phosphorus (2.5 - 4.5 mg/dL) 2.6 Cancelled 1.8 L Magnesium (1.6 - 2.3 mg/dL) 1.8 Cancelled 1.8 Total Bilirubin (0.2 - 1.3 mg/dL) 2.0 H Cancelled 1.6 H AST (17 - 59 U/L) 98 H Cancelled 110 H ALT (21 - 72 U/L) 66 Cancelled 72 Troponin I (<0.11 ng/ml) 0.01 0.01 Albumin (3.5 - 5.0 g/dL) 3.6 Cancelled 4.0 10/20 10/20 10/20 1630 1515 1108 Chemistry Lactic Acid (0.7 - 2.1 mmol/L) 4.2 H Toxicology Urine Opiates Screen (>2000 NG/ML) 2219.00 H Methadone Screen (>300 NG/ML) < 40 Barbiturate Screen (>200 NG/ML) < 60 Ur Phencyclidine Scrn (>25 NG/ML) < 6.00 Amphetamines Screen (>1000 NG/ML) < 100 U Benzodiazepines Scrn (>200 NG/ML) > 800 H Urine Cocaine Screen (>300 NG/ML) < 50 Urine Cannabis Screen (>50 NG/ML) < 5.00 Serum Alcohol Cancelled 10/20 10/20 1050 1018 Chemistry Sodium (137 - 145 mmol/L) 141 Potassium (3.5 - 5.1 mmol/L) 4.3 Chloride (98 - 107 mmol/L) 97 L Carbon Dioxide (22 - 30 mmol/L) 17 L Anion Gap (5 - 16) 27 H BUN (9 - 20 mg/dL) 12 Creatinine (0.7 - 1.2 mg/dL) 0.8 Estimated GFR (>60 ml/min) > 60 BUN/Creatinine Ratio (7 - 25 %) 15.0 Glucose (65 - 99 mg/dL) 119 H Serum Osmolality (285 - 295 MOSM/KG) 326 H Calcium (8.4 - 10.2 mg/dL) 9.4 Magnesium (1.6 - 2.3 mg/dL) 1.8 Total Bilirubin (0.2 - 1.3 mg/dL) 1.1 AST (17 - 59 U/L) 173 H ALT (21 - 72 U/L) 88 H Alkaline Phosphatase (< 127 U/L) 70 Troponin I (<0.11 ng/ml) < 0.01 Total Protein (6.3 - 8.2 g/dL) 7.6 Albumin (3.5 - 5.0 g/dL) 5.2 H Globulin (1.9 - 4.2 gm/dL) 2.4 Albumin/Globulin Ratio (1.1 - 2.2 %) 2.2 Amylase (30 - 110 U/L) 63 Cancelled Lipase (23 - 300 U/L) 143 Cancelled Coagulation PT (9.4 - 12.5 SEC) 10.8 INR (0.90 - 1.17) 1.03 Hematology CBC w Diff NO MAN DIFF REQ WBC (4.8 - 10.8 /CUMM) 6.7 RBC (4.70 - 6.10 /CUMM) 5.07 Hgb (14.0 - 18.0 G/DL) 15.1 Hct (42 - 52 %) 44.7 MCV (80.0 - 94.0 FL) 88.3 MCH (27.0 - 31.0 PG) 29.8 RDW (11.5 - 14.5 %) 14.9 H Plt Count (130 - 400 /CUMM) 226 MPV (7.4 - 10.4 FL) 7.8 Gran % (42.2 - 75.2 %) 82.4 H Lymphocytes % (20.5 - 51.1 %) 11.6 L Monocytes % (1.7 - 9.3 %) 5.5 Eosinophils % (0 - 5 %) 0.4 Basophils % (0.0 - 2.0 %) 0.1 Absolute Granulocytes (1.4 - 6.5 /CUMM) 5.5 Absolute Lymphocytes (1.2 - 3.4 /CUMM) 0.8 L Absolute Monocytes (0.10 - 0.60 /CUMM) 0.4 Absolute Eosinophils (0.0 - 0.7 /CUMM) 0 Absolute Basophils (0.0 - 0.2 /CUMM) 0 PUBS MCHC (33.0 - 37.0 G/DL) 33.8 Toxicology Serum Alcohol (<10 MG/DL) 128.0 Microbiology Date/Time Procedure - Status Source Growth 10/20 152 Surveillance Culture - RECD UPPER RESP 10/20 152 Surveillance Culture - RECD GI Vital Signs & I&O Last 24 Hrs of Vitals and I&O: Vital Signs Date Time Temp Pulse Resp B/P B/P Pulse O2 O2 Flow FiO2 Mean Ox Delivery Rate 10/21 0800 98.8 65 22 152/88 10/21 0600 60 18 172/86 10/21 0600 92 Room Air 10/21 0200 63 18 146/63 10/21 0000 98.4 60 17 144/68 10/21 0000 98.4 60 17 144/68 04 Room Air 10/21 0000 94 Room Air 10/20 2258 74 19 170/82 10/20 2246 72 18 170/82 10/20 2158 71 18 198/71 10/20 2157 71 18 191/74 10/20 2000 98.7 71 22 125/60 10/20 2000 96 Room Air 10/20 1811 88 06 163/81 10/20 1800 92 22 163/90 10/20 1606 99.1 93 28 208/103 10/20 1540 99.1 92 20 188/91 95 Room Air 10/20 1520 96 20 207/100 10/20 1520 95 Room Air 10/20 1330 98.3 99 18 174/84 10/20 1323 97 174/84 10/20 1255 95.0 93 18 216/93 10/20 1151 98.3 93 18 204/91 10/20 1151 98.3 93 18 204/ 95 Nasal 2.0L Cannula 10/20 1122 95 Nasal 2.0L Cannula 10/20 1057 108 22 207/89 96 Nasal 2.0L Cannula 10/20 1042 108 22 207/89 Intake & Output 10/21 1600 10/21 0800 10/21 0000 Intake Total 839 2245 Output Total 500 300 Balance 339 1945 Intake, IV 839 1645 Intake, Oral 600 Output, Urine 500 300 Impression/Plan Impression/Plan Impression/Plan: General Appearance Alert, Oriented X3, Cooperative, tremulous, anxious Skin maculpapular itchy red rash intermittely on b/l arms Skin Temp/Moisture Exam: Warm/Dry Sepsis Skin Exam (color): Normal for Ethnicity HEENT Atraumatic, PERRLA, EOMI Neck Supple, No JVD Lymphatic no lad Cardiovascular Normal S1, Normal S2, No Murmurs Lungs Clear to Auscultation, Normal Air Movement Abdomen Normal Bowel Sounds, Soft, No Tenderness Neurological Normal Speech, Strength at 5/5 X4 Ext, Normal Tone, Sensation Intact, Cranial Nerves 3-12 NL, Reflexes 2+ Extremities No Clubbing, No Cyanosis, No Edema, Normal Pulses, rash on UE as describe in skin findings SIGNIFICANT DATA Chest x-ray showed left base atelectasis Echocardiogram done before showed diastolic dysfunction Potassium 3.4 anion gap now down to 8 cholesterol was high, white count 6.7 platelets adequate INR was normal Urine screen did show that it was positive for benzos and morphine. IMPRESSION This a gentleman with history of alcohol abuse, pancreatitis, previous withdrawal seizure from alcohol, fatty liver, significant psychiatric history with anxiety depression and PTSD, recent rash was on prednisone, peptic ulcer disease, recent chest pain syndrome and negative coronary angiogram for any ischemia, diastolic heart with normal ejection fraction now here with * Significant alcohol withdrawal syndrome with delirium tremens which is slowly improving * Significant hypertension * Morbid obesity with probable sleep apnea * Transaminitis * Anxiety depression and post traumatic stress disorder * Chest discomfort on and off in the left side with recent negative coronary angiogram * Atelectasis of the left chest base RECOMMENDATION * Continue Ativan drip but slowly reduce it over the day today to off * Start chlordiazepoxide 100 mg now and then 100 mg every 6 hours round the clock and hold for sedation * Ativan drip to be off by tonight after chlordiazepoxide is taken effect * Continue current medications * When stable can increase his gabapentin to his original level * Continue to rule out myocardial infarction * When stable patient would require CTAof the chest to evaluate for any other pathology for his persistent chest pain * Discontinue Benadryl intravenously * Continue hydrocortisone cream * Can start him on by mouth loratadine * Continue his antihypertensives * Repeat chest x-ray today
--- NOTE | 2016-10-21 09:14 | RADIOLOGY REPORT ---
EXAMINATION: XR PORTABLE CHEST CLINICAL INFORMATION: Acute mental status change. Rule out aspiration. COMPARISON: Chest x-ray dated 10/20/2016. TECHNIQUE: Portable frontal view of the chest was obtained. FINDINGS: The cardiomediastinal silhouette is within normal limits in size allowing for portable technique and low lung volumes. Crowding of bronchovascular lung markings in the lung bases bilaterally is seen due to the low lung volumes. No right-sided pleural effusion is seen. The retrocardiac left lung base continues to be poorly assessed on portable films, and small left effusion or left basilar consolidation cannot be entirely excluded. Lungs otherwise unremarkable. No evidence of pulmonary edema or pneumothorax. Bony structures unremarkable. IMPRESSION: 1. Low lung volumes. 2. Retrocardiac left lung base poorly assessed.
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
--- NOTE | 2016-10-21 10:14 | NUR ---
ATIVAN GTT TITRATED FROM 10 MG/HR TO 9 MG/HR
--- NOTE | 2016-10-21 10:59 | NUR ---
ATIVAN GTT TITRATED FROM 9 MG/HR TO 8 MG/HR
--- NOTE | 2016-10-21 12:49 | NUR ---
1215 LIBRIUM GIVEN ATIVAN GTT TITRATED TO 6 MG/HR PER MD ORDERS CIWA 4, SAS 4,
--- NOTE | 2016-10-21 15:07 | NUR ---
TITRATED ATIVAN GTT 6MG/HR TO 5 MG/HR
--- NOTE | 2016-10-21 17:35 | NUR ---
SOB AT TURNING APLLIED 1L NC
--- NOTE | 2016-10-21 23:20 | NUR ---
PATIENT STARTED TO HAVE MODERATELY VISIBLE HAND TREMORS, VITALS SIGNS DAVID STABLE BUT PATIENT IS MODERATELY ANXIOUS. ATIVAN DRIP INCREASED TO 8 MG/HR. PATIENT IS FEELING OF MILD SOB, KEPT ON 1 LITER NC, RR ON HIGH 20'S AND WITH A SATURATION OF 93 TO 96%, PUT ON HIGH FOWLERS POSITION.
[2016-10-22] VITALS (11 sets, daily range): BP systolic 123–165; BP diastolic 64–100
--- NOTE | 2016-10-22 07:51 | PN- Resident CRCU ---
Subjective HPI/CRCU Issues: Etoh withdrawal. 24 Hour Events: Pt seen and examined at [facility]. Was asleep, awoken by verbal stimuli. Still endorses chest pain which he states is chronic. He actively has nightmares, but no hallucination or increased anxiety. Ativan drip was increased to 4mg/hr last night, averages a 12 on CIWA score. No seizure activity, confusion,increased anxiet, or any other acute event reported by nursing staff. Objective Vital Signs & I&O Last 8 Hrs of Vitals and I&O: Vital Signs Date Time Temp Pulse Resp B/P B/P Pulse O2 O2 Flow FiO2 Mean Ox Delivery Rate 10/22 0850 73 160/100 10/22 0850 73 160/100 10/22 0600 98.5 62 16 165/90 10/22 0400 98.5 54 12 148/74 10/22 0400 94 Room Air Room Air 10/22 0200 98.9 56 12 144/72 10/22 0000 99.2 62 20 150/82 10/22 0000 98 Nasal 1.0L Cannula 10/22 0000 99.2 62 20 150/82 98 Nasal 1.0L Cannula 10/21 2200 98.3 62 20 155/76 10/21 2111 98.3 63 19 159/77 10/21 2110 98.3 60 15 159/77 10/21 2109 98.3 63 19 159/77 10/21 2000 98.3 62 15 140/90 10/21 2000 95 Nasal 1.0L Cannula 10/21 1800 64 17 146/73 10/21 1600 96.8 67 16 164/92 10/21 1600 95 Room Air 10/21 1600 96.8 67 16 164/92 95 Room Air 10/21 1526 67 164/92 10/21 1400 68 14 10/21 1200 73 16 141/80 10/21 1200 95 Room Air 10/21 1100 65 14 156/77 Intake & Output 10/22 1600 10/22 0800 10/22 0000 Intake Total 648 1210 Output Total 500 1300 Balance 148 -90 Intake, IV 448 660 Intake, Oral 200 550 Output, Urine 500 1300 Exam General Appearance: alert, awake Other Physical Findings: Respiratory: normal breath sounds, chest non-tender, no respiratory distress, lungs clear Cardiovascular: regular rate/rhythm Extremities: normal capillary refill, normal range of motion, no edema Other Physical Findings: HEENT Atraumatic, PERRLA, EOMI Neck Supple, No JVD Lymphatic no lad Cardiovascular Normal S1, Normal S2, No Murmurs Lungs Clear to Auscultation, Normal Air Movement Abdomen Normal Bowel Sounds, Soft, No Tenderness Neurological Normal Speech, Strength at 5/5 X4 Ext, Normal Tone, Sensation Intact, Cranial Nerves 3-12 NL, Reflexes 2+ Extremities No Clubbing, No Cyanosis, No Edema, Normal Pulses, rash on UE as describe in skin findings. Vascular Normal Pulses Current Medications: Current Medications Sig/Tiffany Start time Last Medication Dose Route Stop Time Status Admin Aspirin Buffered 81 MG DAILY 10/21 1000 AC 10/22 PO 0850 Atorvastatin Calcium 80 MG DAILY 10/21 1000 AC 10/22 PO 0850 Chlordiazepoxide HCl 100 MG Q6 10/21 1200 AC 10/23 PO 0647 Clonidine 0.1 MG QPM 10/20 2200 AC 10/22 PO 2140 Cyanocobalamin/ 1 BAG DAILY 10/20 1300 DC 10/22 Thiamine/Pyridoxine IV 10/22 1759 0948 Dextrose/Water 1,000 ML Fluoxetine HCl 60 MG DAILY 10/21 1000 AC 10/22 PO 0850 Gabapentin 300 MG QAM 10/21 1000 AC 10/22 PO 0850 Gabapentin 600 MG QPM 10/20 2200 AC 10/22 PO 2140 Heparin Sodium 5,000 UNIT Q8 10/20 1555 AC 10/23 (Porcine) SC 0646 Hydralazine HCl 50 MG TID 10/20 1600 AC 10/22 PO 2139 Hydrocortisone 1 DRAGAN 4 TIMES/DAY PRN 10/20 1600 AC 10/22 EXT 2250 Hydroxyzine HCl 50 MG TID PRN 10/21 1015 AC 10/21 PO 1747 Lidocaine 1 PAT Q24H 10/20 1600 AC 10/22 EXT 1556 Lorazepam 100 MG Q10H 10/21 1600 DC 10/21 Sodium Chloride 1,000 ML IV 2143 Lorazepam 2 MG Q2P PRN 10/20 1300 AC IV Lorazepam 1 MG Q2P PRN 10/20 1300 AC IV Magnesium Oxide 400 MG BID 10/22 1000 DC 10/22 PO 10/22 2201 2140 Metoprolol Tartrate 25 MG BID 10/20 2200 AC 10/22 PO 2140 Morphine Sulfate 2 MG Q4P PRN 10/20 1600 AC 10/21 IV 2112 Oxycodone HCl 5 MG Q6P PRN 10/20 1600 AC 10/21 PO 2251 Pantoprazole Sodium 40 MG DAILY 10/21 1000 AC 10/22 IV 0849 Potassium Chloride 20 MEQ ONCE ONE 10/22 0830 DC 10/22 PO 10/22 0831 0850 Impression/Plan Impression/Problem List Impression: This a 50-year-old gentleman with a past medical history of multiple admission for alcohol withdrawal with delirium tremens and withdrawal seizures, fatty liver disease, chest pain requiring cardiac catheterization which was unremarkable and not needing any intervention, PTSD, anxiety, depression,peptic ulcer, recent subacute pruritic rash treated with prednisone, presents to [place] [place] [facility] requesting alcohol detox. Impression * EtOH withdrawal. Admission alcohol level of 128 last drink 3 days ago. CIWA scoring 12. * Chest pain. Serial troponins and EKG ruled out ACS, left heart cath in August 21 05/05/2016 was unremarkable. Most probable cause of patient's chest pain is history of peptic ulcer which is being exacerbated by continuous alcohol drinking. * Elevated blood pressures. s/p post IV hydralazine 5 mg yesterday and home BP meds were restarted. Current BP levels show improvement. Most likely cause of elevated BP is alcohol withdrawal, noncompliance also be contributory. * Transaminitis. Secondary to alcohol abuse. * Psychiatric conditions. PTSD, anxiety, depression. Plan Continue ICU placement Continue CIWA Continue Librium 100 mg every 6h ATIVAN drip stopped Contninue oral multivitamin, thiamine and folate Home dose hydroxyzine for the pruritic rash in addition to the hydrocortisone that was started yesterday Will await psych recommendations Consider Haldol 1mg every 4-6 hours as needed for agitation (Will obtain subsequent EKGs to assess for QT prolongation if Haldol is initiated and required multiple times) Continue BP meds Problem List: 1. Alcohol dependence Pain Ratin Tomorrow's Labs & Rationales: ICU BUNDLE Plan DVT/Prophylaxis: mechanical, pharmacological
--- NOTE | 2016-10-22 07:58 | NUR ---
PATIENT OOB TO CHAIR WITH MINIMAL ASSISTANCE. A+OX3. ON RA. B/P 160/100. ATIVAN GTT TURNED DOWN TO 3MG/HR AT THIS TIME. WILL MONITOR.
--- NOTE | 2016-10-22 09:46 | PN- Pulmonary ---
Subjective HPI/Critical Care Issues: Doing well stable On ativan and now on librium Objective Current Medications: Current Medications Sig/Tiffany Start time Last Medication Dose Route Stop Time Status Admin Aspirin Buffered 81 MG DAILY 10/21 1000 AC 10/22 PO 0850 Atorvastatin Calcium 80 MG DAILY 10/21 1000 AC 10/22 PO 0850 Chlordiazepoxide HCl 100 MG Q6 10/21 1200 AC 10/22 PO 0550 Clonidine 0.1 MG QPM 10/20 2200 AC 10/21 PO 2110 Cyanocobalamin/ 1 BAG DAILY 10/20 1300 AC 10/21 Thiamine/Pyridoxine IV 10/22 1759 1045 Dextrose/Water 1,000 ML Diphenhydramine HCl 25 MG Q6P PRN 10/20 1600 DC 10/21 IV 0545 Fluoxetine HCl 60 MG DAILY 10/21 1000 AC 10/22 PO 0850 Gabapentin 300 MG QAM 10/21 1000 AC 10/22 PO 0850 Gabapentin 600 MG QPM 10/20 2200 AC 10/21 PO 2111 Heparin Sodium 5,000 UNIT Q8 10/20 1555 AC 10/22 (Porcine) SC 0550 Hydralazine HCl 50 MG TID 10/20 1600 AC 10/22 PO 0850 Hydrocortisone 1 DRAGAN 4 TIMES/DAY PRN 10/20 1600 AC 10/21 EXT 2121 Hydroxyzine HCl 50 MG TID PRN 10/21 1015 AC 10/21 PO 1747 Lidocaine 1 PAT Q24H 10/20 1600 AC 10/20 EXT 1815 Loratadine 10 MG TID 10/21 1006 DC PO Lorazepam 100 MG Q10H 10/21 1600 AC 10/21 Sodium Chloride 1,000 ML IV 2143 Lorazepam 100 MG Q12H 10/20 1915 DC 10/21 Sodium Chloride 1,000 ML IV 10/21 1559 0539 Lorazepam 2 MG Q2P PRN 10/20 1300 AC IV Lorazepam 1 MG Q2P PRN 10/20 1300 AC IV Magnesium Oxide 400 MG BID 10/22 1000 AC 10/22 PO 10/22 2201 0850 Metoprolol Tartrate 25 MG BID 10/20 2200 AC 10/22 PO 0850 Morphine Sulfate 2 MG Q4P PRN 10/20 1600 AC 10/21 IV 2112 Oxycodone HCl 5 MG Q6P PRN 10/20 1600 AC 10/21 PO 2251 Pantoprazole Sodium 40 MG DAILY 10/21 1000 AC 10/22 IV 0849 Potassium Chloride 20 MEQ ONCE ONE 10/22 0830 DC 10/22 PO 10/22 0831 0850 Potassium Chloride 20 MEQ ONCE ONE 10/21 1100 DC 10/21 PO 10/21 1101 1044 Vital Signs & I&O Last 24 Hrs of Vitals and I&O: Vital Signs Date Time Temp Pulse Resp B/P B/P Pulse O2 O2 Flow FiO2 Mean Ox Delivery Rate 10/22 0850 73 160/100 10/22 0850 73 160/100 10/22 0600 98.5 62 16 165/90 10/22 0400 98.5 54 12 148/74 10/22 0400 94 Room Air Room Air 10/22 0200 98.9 56 12 144/72 10/22 0000 99.2 62 20 150/82 10/22 0000 98 Nasal 1.0L Cannula 10/22 0000 99.2 62 20 150/82 98 Nasal 1.0L Cannula 10/21 2200 98.3 62 20 155/76 10/21 2111 98.3 63 19 159/77 10/21 2110 98.3 60 15 159/77 10/21 2109 98.3 63 19 159/77 10/22 1999 98.3 62 15 140/90 10/21 2000 95 Nasal 1.0L Cannula 10/21 1800 64 17 146/73 10/21 1600 96.8 67 16 164/92 10/21 1600 95 Room Air 10/21 1600 96.8 67 16 164/92 95 Room Air 10/21 1526 67 164/92 10/21 1400 68 14 10/21 1200 73 16 141/80 10/21 1200 95 Room Air 10/21 1100 65 14 156/77 10/21 1000 65 16 120/70 Intake & Output 10/22 1600 10/22 0800 10/22 0000 Intake Total 648 1210 Output Total 500 1300 Balance 148 -90 Intake, IV 448 660 Intake, Oral 200 550 Output, Urine 500 1300 Laboratory Tests 10/22 10/21 10/20 10/20 10/20 0405 0430 2339 2230 2230 Chemistry Sodium (137 - 145 mmol/L) 135 L 136 L Cancelled 137 Potassium (3.5 - 5.1 mmol/L) 3.9 3.4 L Cancelled 3.5 Chloride (98 - 107 mmol/L) 104 100 Cancelled 99 Carbon Dioxide (22 - 30 mmol/L) 25 27 Cancelled 29 Anion Gap (5 - 16) 6 8 Cancelled 9 BUN (9 - 20 mg/dL) 7 L 9 Cancelled 10 Creatinine (0.7 - 1.2 mg/dL) 0.8 0.7 Cancelled 0.7 Estimated GFR (>60 ml/min) > 60 > 60 > 60 Glucose (65 - 99 mg/dL) 88 94 Cancelled 100 H Lactic Acid (0.7 - 2.1 mmol/L) 1.4 Calcium (8.4 - 10.2 mg/dL) 8.5 8.1 L Cancelled 8.6 Phosphorus (2.5 - 4.5 mg/dL) 3.4 2.6 Cancelled 1.8 L Magnesium (1.6 - 2.3 mg/dL) 1.8 1.8 Cancelled 1.8 Total Bilirubin (0.2 - 1.3 mg/dL) 1.5 H 2.0 H Cancelled 1.6 H AST (17 - 59 U/L) 159 H 98 H Cancelled 110 H ALT (21 - 72 U/L) 86 H 66 Cancelled 72 Troponin I (<0.11 ng/ml) 0.01 Albumin (3.5 - 5.0 g/dL) 3.7 3.6 Cancelled 4.0 10/20 10/20 10/20 10/20 1645 1630 1515 1450 Blood Gas pH (7.35 - 7.45 PH) 7.47 H pCO2 (35 - 45 TORR) 31 L pO2 (80 - 100 TORR) 75 L HCO3 (21 - 28 MEQ/L) 22 ABG O2 Sat (Measured) (>96.0 %) 94.0 L P-50 (Temp Corrected) N Carboxyhemoglobin (1.5 - 5.0 %) 0.8 L O2 Concentration % RA Temperature (97.0 - 100.0 FARH) 98.3 O2 Delivery Method RA Chemistry Lactic Acid (0.7 - 2.1 mmol/L) 4.2 H Troponin I (<0.11 ng/ml) 0.01 Miscellaneous Phlebotomy Draw Site LEFT RADIAL Toxicology Urine Opiates Screen (>2000 NG/ML) 2219.00 H Methadone Screen (>300 NG/ML) < 40 Barbiturate Screen (>200 NG/ML) < 60 Ur Phencyclidine Scrn (>25 NG/ML) < 6.00 Amphetamines Screen (>1000 NG/ML) < 100 U Benzodiazepines Scrn (>200 NG/ML) > 800 H Urine Cocaine Screen (>300 NG/ML) < 50 Urine Cannabis Screen (>50 NG/ML) < 5.00 10/20 10/20 10/20 1108 1050 1018 Chemistry Sodium (137 - 145 mmol/L) 141 Potassium (3.5 - 5.1 mmol/L) 4.3 Chloride (98 - 107 mmol/L) 97 L Carbon Dioxide (22 - 30 mmol/L) 17 L Anion Gap (5 - 16) 27 H BUN (9 - 20 mg/dL) 12 Creatinine (0.7 - 1.2 mg/dL) 0.8 Estimated GFR (>60 ml/min) > 60 BUN/Creatinine Ratio (7 - 25 %) 15.0 Glucose (65 - 99 mg/dL) 119 H Serum Osmolality (285 - 295 MOSM/KG) 326 H Calcium (8.4 - 10.2 mg/dL) 9.4 Magnesium (1.6 - 2.3 mg/dL) 1.8 Total Bilirubin (0.2 - 1.3 mg/dL) 1.1 AST (17 - 59 U/L) 173 H ALT (21 - 72 U/L) 88 H Alkaline Phosphatase (< 127 U/L) 70 Troponin I (<0.11 ng/ml) < 0.01 Total Protein (6.3 - 8.2 g/dL) 7.6 Albumin (3.5 - 5.0 g/dL) 5.2 H Globulin (1.9 - 4.2 gm/dL) 2.4 Albumin/Globulin Ratio (1.1 - 2.2 %) 2.2 Amylase (30 - 110 U/L) 63 Cancelled Lipase (23 - 300 U/L) 143 Cancelled Coagulation PT (9.4 - 12.5 SEC) 10.8 INR (0.90 - 1.17) 1.03 Hematology CBC w Diff NO MAN DIFF REQ WBC (4.8 - 10.8 /CUMM) 6.7 RBC (4.70 - 6.10 /CUMM) 5.07 Hgb (14.0 - 18.0 G/DL) 15.1 Hct (42 - 52 %) 44.7 MCV (80.0 - 94.0 FL) 88.3 MCH (27.0 - 31.0 PG) 29.8 RDW (11.5 - 14.5 %) 14.9 H Plt Count (130 - 400 /CUMM) 226 MPV (7.4 - 10.4 FL) 7.8 Gran % (42.2 - 75.2 %) 82.4 H Lymphocytes % (20.5 - 51.1 %) 11.6 L Monocytes % (1.7 - 9.3 %) 5.5 Eosinophils % (0 - 5 %) 0.4 Basophils % (0.0 - 2.0 %) 0.1 Absolute Granulocytes (1.4 - 6.5 /CUMM) 5.5 Absolute Lymphocytes (1.2 - 3.4 /CUMM) 0.8 L Absolute Monocytes (0.10 - 0.60 /CUMM) 0.4 Absolute Eosinophils (0.0 - 0.7 /CUMM) 0 Absolute Basophils (0.0 - 0.2 /CUMM) 0 PUBS MCHC (33.0 - 37.0 G/DL) 33.8 Toxicology Serum Alcohol (<10 MG/DL) Cancelled 128.0 Microbiology Date/Time Procedure - Status Source Growth 10/20 152 Surveillance Culture - COMP UPPER RESP 10/20 152 Surveillance Culture - COMP GI Impression/Plan Impression/Plan Impression/Plan: General Appearance Alert, Oriented X3, Cooperative, , anxious Skin maculpapular itchy red rash intermittely on b/l arms Skin Temp/Moisture Exam: Warm/Dry Sepsis Skin Exam (color): Normal for Ethnicity HEENT Atraumatic, PERRLA, EOMI Neck Supple, No JVD Lymphatic no lad Cardiovascular Normal S1, Normal S2, No Murmurs Lungs Clear to Auscultation, Normal Air Movement Abdomen Normal Bowel Sounds, Soft, No Tenderness Neurological Normal Speech, Strength at 5/5 X4 Ext, Normal Tone, Sensation Intact, Cranial Nerves 3-12 NL, Reflexes 2+ Extremities No Clubbing, No Cyanosis, No Edema, Normal Pulses, rash on UE as describe in skin findings SIGNIFICANT DATA Chest x-ray showed left base atelectasis Echocardiogram done before showed diastolic dysfunction Potassium 3.4 anion gap now down to 8 cholesterol was high, white count 6.7 platelets adequate INR was normal Urine screen did show that it was positive for benzos and morphine. IMPRESSION This a gentleman with history of alcohol abuse, pancreatitis, previous withdrawal seizure from alcohol, fatty liver, significant psychiatric history with anxiety depression and PTSD, recent rash was on prednisone, peptic ulcer disease, recent chest pain syndrome and negative coronary angiogram for any ischemia, diastolic heart with normal ejection fraction now here with * Significant alcohol withdrawal syndrome with delirium tremens which is slowly improving * Significant hypertension * Morbid obesity with probable sleep apnea * Transaminitis * Anxiety depression and post traumatic stress disorder * Chest discomfort on and off in the left side with recent negative coronary angiogram * Atelectasis of the left chest base RECOMMENDATION * Ativan drip but slowly reduce it over the day today to off * Chlordiazepoxide 100 mg now and then 100 mg every 6 hours round the clock and hold for sedation * Continue current medications * When stable patient would require CTAof the chest to evaluate for any other pathology for his persistent chest pain * Loratidine * Continue his antihypertensives
--- NOTE | 2016-10-22 10:50 | NUR ---
PATIENT TO AND FROM CT SCAN FOR CT-A. NO ISSUES NOTED. PATIENT WAS SOB AND WHEEZING UPON GETTING FROM THE STRETCHER BACK INTO HIS BED.
--- NOTE | 2016-10-22 11:15 | CT SCAN REPORT ---
EXAMINATION: CT ANGIOGRAM OF THE CHEST WITH CONTRAST (CT PULMONARY ANGIOGRAM FOR PE) CLINICAL INFORMATION: Chest pain. Evaluate for pulmonary embolism. COMPARISON: CXR from 10/20/2016 and 10/21/2016. Abdomen CT from 07/14/2016. TECHNIQUE: Prior to contrast administration, noncontrast localization images were obtained. Subsequently, multidetector volumetric imaging was performed from the thoracic inlet to below the diaphragms following the administration of 95 mL Optiray 350 intravenous contrast. No contrast reaction reported. Sagittal, coronal, and MIP oblique sagittal reformatted images were obtained on the CT workstation, uploaded to PACS, and reviewed. Total exam dose-length product 506 mGy-cm FINDINGS: QUALITY OF STUDY/CONTRAST BOLUS: Satisfactory. PULMONARY ARTERIES: Pulmonary arteries are normal in caliber. The evaluation for pulmonary emboli is suboptimal due to motion-related blurring of images. There are no embolic filling defects identified within the main or lobar vessels. The assessment of segmental and more peripheral vessels is suboptimal. There are no convincing emboli. THORACIC AORTA: Thoracic aorta is normal in caliber; no intramural hematoma, aneurysm or dissection. LUNGS AND PLEURA: Trachea and central airways are widely patent and normal in caliber. No pulmonary edema. No evidence of interstitial lung disease, consolidation, mass, pneumothorax or pleural effusion. MEDIASTINUM: Mild cardiomegaly and mild wall hypertrophy of the left ventricle. No evidence of septal bowing. The esophagus is unremarkable. The visualized portion of the thyroid gland is normal. LYMPHATICS: No pathologic sized axillary, hilar or mediastinal lymph nodes. UPPER ABDOMEN: Diffuse hepatic steatosis. There is some contrast reflux into the intrahepatic IVC. A 1.9 cm hypodense structure in the lateral segment of left hepatic lobe has water attenuation, compatible with a cyst. OSSEOUS STRUCTURES: No acute or suspicious osseous abnormality. Mild spondylosis of the thoracic spine. IMPRESSION: 1. No pulmonary emboli are identified. However, the evaluation of peripheral vessels is suboptimal due to image blurring from respiratory and/or cardiac motion. 2. Mild cardiomegaly without pulmonary edema or pleural effusion. Mild reflux of contrast into the intrahepatic inferior vena cava suggests mild elevation of right-sided cardiac pressures. 3. No acute pulmonary disease. 4. Diffuse hepatic steatosis.
--- NOTE | 2016-10-22 11:58 | NUR ---
PATIENT SAS 3, LIBRUIM HELD AT THIS TIME. WILL REASSESS IN 1 HOUR. MD RICHARD AWARE.
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
--- NOTE | 2016-10-22 15:18 | NUR ---
Referral received on 10/20/16 via [facility]find. This patient is a 50 year old man, admitted to the hospital on 10/20/16 with ETOH withdrawal. This is one of several admissions for this patient who has comorbidities including hypertension and cardiac disease. His 2 most recent admissions to this hospital for detox have resulted in transfers to [facility]; once as a "stroke alert" and again for a cardiac cath. It is not clear what, if any aftercare had been arranged for this patient, but he reports to psychiatric [employer] today that he is "in-between" behavioral health providers. At this time, patient is reportedly agreeable to IOP and this will be arranged for him prior to discharge. Follow.
--- NOTE | 2016-10-22 16:00 | NUR ---
ASSUMED CARE OF PATIENT. PATIENT ALERT AND ORIENTED WITH VERY FLAT AFFECT. ANSWERS QUESTIONS APPROPRIATELY. HEART SOUNDS REGULAR, NSR ON MONITOR. LUNGS CLEAR ON ROOM AIR WITH NO DISTRESS. BELLY LARGE BUT SOFT WITH GOOD BOWEL SOUNDS. SKIN INTACT BUT CONTINUES OT COMPLAIN OF ITCHING FROM RASH ON TORSO. PATIENT OOB IN CHAIR. CIWA STABLE, ATIVAN DECREASED TO 2MG/HR.
[2016-10-23] VITALS (10 sets, daily range): BP systolic 140–200; BP diastolic 80–110
--- NOTE | 2016-10-23 | NUR ---
PATIENT EASILY AROUSABLE FROM SLEEP. CO-OPERATIVE.CIWA 0.ON LIBRIUM Q6H. MONITOR SINUS BRADYCARDIA AT RATE OF 58.KN=025/80.
--- NOTE | 2016-10-23 07:30 | PN- Resident CRCU ---
Subjective HPI/CRCU Issues: Alcohol withdrawal 24 Hour Events: Patient is seen and examined at bedside. VS stable, off Ativan drip. He is alert awake and follows commands. He still endorses chest pain which is chronic and is associated with heartburn. Denies any seizure activities, hallucinations, increased anxiety, focal neurological deficit, fever, or chills. Objective Vital Signs & I&O Last 8 Hrs of Vitals and I&O: Intake & Output 10/23 1600 Intake Total Output Total Balance Number 3 Bowel Movements Patient 103.532 kg Weight Exam General Appearance: alert, awake, comfortable Head: atraumatic, normal appearance Neck: normal inspection, supple, full range of motion Respiratory: chest non-tender, lungs clear Cardiovascular: regular rate/rhythm Gastrointestinal: normal bowel sounds, slight tenderness on palpation of his epigastri and LUQ Extremities: normal inspection, normal capillary refill, normal range of motion Current Medications: Current Medications Sig/Tiffany Start time Last Medication Dose Route Stop Time Status Admin Aspirin Buffered 81 MG DAILY 10/21 1000 AC 10/23 PO 0942 Atorvastatin Calcium 80 MG DAILY 10/21 1000 AC 10/23 PO 0942 Chlordiazepoxide HCl 100 MG Q6 10/21 1200 AC 10/23 PO 1710 Clonidine 0.1 MG QPM 10/20 2200 AC 10/23 PO 1814 Colchicine 600 MCG BID 10/23 1041 AC 10/23 PO 1234 Fluoxetine HCl 60 MG DAILY 10/21 1000 AC 10/23 PO 0941 Folic Acid 1 MG DAILY 10/23 1804 AC PO Furosemide 40 MG ONCE ONE 10/23 1045 CAN IV 10/23 1046 Furosemide 40 MG ONE ONE 10/23 1045 DC 10/23 PO 10/23 1046 1234 Gabapentin 300 MG QAM 10/21 1000 AC 10/23 PO 0941 Gabapentin 600 MG QPM 10/20 2200 AC 10/22 PO 2140 Heparin Sodium 5,000 UNIT Q8 10/20 1555 AC 10/23 (Porcine) SC 1425 Hydralazine HCl 50 MG TID 10/20 1600 AC 10/23 PO 1633 Hydrocortisone 1 DRAGAN 4 TIMES/DAY PRN 10/20 1600 AC 10/23 EXT 1711 Hydroxyzine HCl 50 MG TID PRN 10/21 1015 AC 10/21 PO 1747 Lidocaine 1 PAT Q24H 10/20 1600 AC 10/22 EXT 1556 Lorazepam 100 MG Q10H 10/21 1600 DC 10/21 Sodium Chloride 1,000 ML IV 2143 Lorazepam 2 MG Q2P PRN 10/20 1300 AC IV Lorazepam 1 MG Q2P PRN 10/20 1300 AC IV Magnesium Oxide 400 MG BID 10/22 1000 DC 10/22 PO 10/22 2201 2140 Metoprolol Tartrate 25 MG BID 10/20 2200 AC 10/23 PO 0942 Morphine Sulfate 2 MG Q4P PRN 10/20 1600 AC 10/23 IV 1819 Multivitamins 1 TAB DAILY 10/23 1759 AC PO Omeprazole 40 MG DAILY AC 10/23 0739 AC 10/23 PO 0852 Oxycodone HCl 5 MG Q6P PRN 10/20 1600 AC 10/21 PO 2251 Pantoprazole Sodium 40 MG DAILY 10/21 1000 DC 10/22 IV 0849 Phenylephrine HCl 1 DRAGAN Q6P PRN 10/23 1515 AC 10/23 MI 1711 Potassium Chloride 40 MEQ ONCE ONE 10/23 1015 DC 10/23 PO 10/23 1016 1153 Potassium Chloride 60 MEQ ONCE ONE 10/23 0745 CAN PO 10/23 0746 Thiamine HCl 100 MG DAILY 10/23 1800 AC PO Impression/Plan Impression/Problem List Impression: This a 50-year-old gentleman with a past medical history of multiple admission for alcohol withdrawal with delirium tremens and withdrawal seizures, fatty liver disease, chest pain requiring cardiac catheterization which was unremarkable and not needing any intervention, PTSD, anxiety, depression,peptic ulcer, recent subacute pruritic rash treated with prednisone, presents to [facility] ED requesting alcohol detox. Impression * EtOH withdrawal. Admission alcohol level of 128 last drink 3 days ago. CIWA scoring 12. * Chest pain. Serial troponins and EKG ruled out ACS, left heart cath in August 21 05/05/2016 was unremarkable. CTA ruled out PE. Most probable cause of patient 's chest pain is history of peptic ulcer which is being exacerbated by continuous alcohol drinking. * Elevated blood pressures. s/p post IV hydralazine 5 mg yesterday and home BP meds were restarted. Current BP levels show improvement. Most likely cause of elevated BP is alcohol withdrawal, noncompliance also be contributory. * Transaminitis. Secondary to alcohol abuse. * Psychiatric conditions. PTSD, anxiety, depression. Plan Will consider downgrading to gen med Continue CIWA Continue Librium 100 mg every 6h Contninue oral multivitamin, thiamine and folate Colchine 600mg bid for possible pericardial CP Lasix 400mg. Home dose hydroxyzine for the pruritic rash in addition to the hydrocortisone that was started yesterday Will await psych recommendations Consider Haldol 1mg every 4-6 hours as needed for agitation (Will obtain subsequent EKGs to assess for QT prolongation if Haldol is initiated and required multiple times) Continue BP meds Problem List: 1. Alcohol intoxication Pain Ratin Pain Location: chest Tomorrow's Labs & Rationales: ICU BUNDLE Plan DVT/Prophylaxis: mechanical, pharmacological
--- NOTE | 2016-10-23 10:25 | PN- Pulmonary ---
Subjective HPI/Critical Care Issues: Patient is seen and examined at bedside. VS stable, off Ativan drip. He is alert awake and follows commands. He still endorses chest pain which is chronic and is associated with heartburn. Denies any seizure activities, hallucinations, increased anxiety, focal neurological deficit, fever, or chills. Objective Exam General Appearance: alert, awake, comfortable Head: atraumatic, normal appearance Neck: normal inspection, supple, full range of motion Respiratory: chest non-tender, lungs clear Cardiovascular: regular rate/rhythm Gastrointestinal: normal bowel sounds, slight tenderness on palpation of his epigastri and LUQ Extremities: normal inspection, normal capillary refill, normal range of motion Objective Current Medications: Current Medications Sig/Tiffany Start time Last Medication Dose Route Stop Time Status Admin Aspirin Buffered 81 MG DAILY 10/21 1000 AC 10/23 PO 0942 Atorvastatin Calcium 80 MG DAILY 10/21 1000 AC 10/23 PO 0942 Chlordiazepoxide HCl 100 MG Q6 10/21 1200 AC 10/23 PO 0647 Clonidine 0.1 MG QPM 10/20 2200 AC 10/22 PO 2140 Cyanocobalamin/ 1 BAG DAILY 10/20 1300 DC 10/22 Thiamine/Pyridoxine IV 10/22 1759 0948 Dextrose/Water 1,000 ML Fluoxetine HCl 60 MG DAILY 10/21 1000 AC 10/23 PO 0941 Gabapentin 300 MG QAM 10/21 1000 AC 10/23 PO 0941 Gabapentin 600 MG QPM 10/20 2200 AC 10/22 PO 2140 Heparin Sodium 5,000 UNIT Q8 10/20 1555 AC 10/23 (Porcine) SC 0646 Hydralazine HCl 50 MG TID 10/20 1600 AC 10/23 PO 0942 Hydrocortisone 1 DRAGAN 4 TIMES/DAY PRN 10/20 1600 AC 10/22 EXT 2250 Hydroxyzine HCl 50 MG TID PRN 10/21 1015 AC 10/21 PO 1747 Lidocaine 1 PAT Q24H 10/20 1600 AC 10/22 EXT 1556 Lorazepam 100 MG Q10H 10/21 1600 DC 10/21 Sodium Chloride 1,000 ML IV 2143 Lorazepam 2 MG Q2P PRN 10/20 1300 AC IV Lorazepam 1 MG Q2P PRN 10/20 1300 AC IV Magnesium Oxide 400 MG BID 10/22 1000 DC 10/22 PO 10/22 2201 2140 Metoprolol Tartrate 25 MG BID 10/20 2200 AC 10/23 PO 0942 Morphine Sulfate 2 MG Q4P PRN 10/20 1600 AC 10/21 IV 2112 Omeprazole 40 MG DAILY AC 10/23 0739 AC 10/23 PO 0852 Oxycodone HCl 5 MG Q6P PRN 10/20 1600 AC 10/21 PO 2251 Pantoprazole Sodium 40 MG DAILY 10/21 1000 DC 10/22 IV 0849 Potassium Chloride 40 MEQ ONCE ONE 10/23 1015 UNVr PO 10/23 1016 Potassium Chloride 60 MEQ ONCE ONE 10/23 0745 CAN PO 10/23 0746 Vital Signs & I&O Last 24 Hrs of Vitals and I&O: Vital Signs Date Time Temp Pulse Resp B/P B/P Pulse O2 O2 Flow FiO2 Mean Ox Delivery Rate 10/23 0942 61 164/83 10/23 0942 61 164/81 10/23 0800 98.2 56 18 156/84 10/23 0800 98.2 56 18 156/84 96 Room Air 10/23 0400 97.9 54 18 158/80 10/23 0400 93 Room Air 10/23 0000 98.2 58 18 164/80 10/23 0000 98.2 58 18 164/80 95 Room Air 10/23 0000 95 Room Air 10/22 2200 56 24 156/64 10/22 2140 61.0 17 160/81 10/22 2140 61 16 160/81 10/22 2139 67 14 160/81 10/23 1999 97.8 60 19 148/70 10/22 2000 95 Room Air 10/22 1800 62 17 161/77 10/22 1600 98.5 82 14 140/90 10/22 1600 98.5 82 14 140/90 97 Room Air 10/22 1555 79 18 130/70 10/22 1200 Room Air 10/22 1200 61 20 142/66 10/22 1200 97.9 66 20 160/100 96 Room Air Intake & Output 10/23 1600 10/23 0800 10/23 0000 Intake Total 220 885 Output Total 1100 500 Balance -880 385 Intake, IV 405 Intake, Oral 220 480 Output, Urine 1100 500 Patient 228 lb Weight Laboratory Tests 10/23 10/22 0500 0405 Chemistry Sodium (137 - 145 mmol/L) 137 135 L Potassium (3.5 - 5.1 mmol/L) 3.5 3.9 Chloride (98 - 107 mmol/L) 101 104 Carbon Dioxide (22 - 30 mmol/L) 26 25 Anion Gap (5 - 16) 9 6 BUN (9 - 20 mg/dL) 8 L 7 L Creatinine (0.7 - 1.2 mg/dL) 0.8 0.8 Estimated GFR (>60 ml/min) > 60 > 60 BUN/Creatinine Ratio (7 - 25 %) 10.0 Glucose (65 - 99 mg/dL) 88 Calcium (8.4 - 10.2 mg/dL) 8.5 Phosphorus (2.5 - 4.5 mg/dL) 3.4 Magnesium (1.6 - 2.3 mg/dL) 1.8 1.8 Total Bilirubin (0.2 - 1.3 mg/dL) 1.5 H AST (17 - 59 U/L) 159 H ALT (21 - 72 U/L) 86 H Albumin (3.5 - 5.0 g/dL) 3.7 Microbiology Date/Time Procedure - Status Source Growth 10/21 1519 Surveillance Culture - COMP UPPER RESP 10/21 1519 Surveillance Culture - COMP GI Impression/Plan Impression/Plan Impression/Plan: General Appearance Alert, Oriented X3, Cooperative, , anxious Skin maculpapular itchy red rash intermittely on b/l arms Skin Temp/Moisture Exam: Warm/Dry Sepsis Skin Exam (color): Normal for Ethnicity HEENT Atraumatic, PERRLA, EOMI Neck Supple, No JVD Lymphatic no lad Cardiovascular Normal S1, Normal S2, No Murmurs Lungs Clear to Auscultation, Normal Air Movement Abdomen Normal Bowel Sounds, Soft, No Tenderness Neurological Normal Speech, Strength at 5/5 X4 Ext, Normal Tone, Sensation Intact, Cranial Nerves 3-12 NL, Reflexes 2+ Extremities No Clubbing, No Cyanosis, No Edema, Normal Pulses, rash on UE as describe in skin findings IMPRESSION This a gentleman with history of alcohol abuse, pancreatitis, previous withdrawal seizure from alcohol, fatty liver, significant psychiatric history with anxiety depression and PTSD, recent rash was on prednisone, peptic ulcer disease, recent chest pain syndrome and negative coronary angiogram for any ischemia, diastolic heart with normal ejection fraction now here with * Significant alcohol withdrawal syndrome with delirium tremens which is slowly improving * Significant hypertension * Morbid obesity with probable sleep apnea * Transaminitis * Anxiety depression and post traumatic stress disorder * Chest discomfort on and off in the left side with recent negative coronary angiogram, CT CHEST neg but shows some signs of pulm htn * Atelectasis of the left chest base RECOMMENDATION * Wean libirium off * Continue current medications * Lasix 40 mg today and may need a rpt dose * Can give colchicine 0.6 mg bid and hold for diarrhea for pain if he has pleuropericarditis * Continue his antihypertensives
--- NOTE | 2016-10-23 10:36 | NUR ---
patient is awake, alert and oriented x's 3, able to follow commands and answer questions appropriately. Mild tremors noted at times hx of PTSD- CIWA-0- on a po librium taper. SB-NSR on tele monitor, HR= 50-60's. SBP: 150-160's and he c/o intermittent chest pain but denies at this time. On room air, lungs clear. O2 sats 95%. Abdomen is soft and non tender with + bowel sounds. Tolerating po well. OOB to bathroom with supervision but is INDEP with his ADL's. A generalized rash is noted to his trunk and hydrocortizone cream was applied. Skin otherwise intact with no areas of pressure injury noted. Dr. Dailey in to see patient and is downgraded to Genera[facility] medicine. Will continue to closely monitor patient.
--- NOTE | 2016-10-23 21:24 | NUR ---
PT ARRIVED TO FLOOR AT 1720, A/OX3, ROOM AIR, 2 IVS INTACT, RED ITCHY RASH NOTED TO SKIN, OOB INDEPENDENTLY, BP 200/110, MD PINEDA AWARE, ORDER TO GIVE CLONOPINE AND RECHECK IN AN HOUR. AT 1915, BP WAS 152/90. WILL INFORM NIGHT NURSE.
[2016-10-24] VITALS (9 sets, daily range): BP systolic 130–164; BP diastolic 70–90
--- NOTE | 2016-10-24 08:45 | PN- Housestaff ---
Subjective Follow-up For: EtOH detox Complaints: anxiety, loose stools, chest pain like before, itchy rash over body Subjective: Patient examined and followed by my today. CIWA scores overnight have been 0-5, is on Librium 100mg q6h, and Ativan IV PRN. Complaints of anxiety, non-bloody loose stools, and chest pain like before. He also has rash over the body. Vitals: Yesterday BP was 200/110 around 6pm asymptomatic, which dropped to 150/ 90 after Clinidine. BP much stable today. Held AM dose of Clonidine and Metoprolol for bradycardia to 57. Review of Systems Constitutional: Reports: see HPI. Objective Last 24 Hrs of Vital Signs/I&O Vital Signs Date Time Temp Pulse Resp B/P B/P Pulse O2 O2 Flow FiO2 Mean Ox Delivery Rate 10/24 1600 97.9 62 20 164/70 10/24 1547 74 164/80 10/24 1432 97.9 62 20 164/70 93 Room Air 10/24 1400 97.9 62 20 164/70 10/24 0856 57 118/70 10/24 0626 98.2 48 20 130/72 96 Room Air 10/24 0310 51 140/90 10/23 2313 53 144/90 10/23 2225 97.9 57 18 96 Room Air 10/23 2209 180/100 10/23 2200 180/100 10/23 2200 180/100 10/23 202 68 18 180/106 10/23 2025 68 180/106 10/23 2000 68 16 180/106 Intake & Output 10/24 1600 10/24 0800 10/24 0000 Intake Total 100 Output Total Balance 100 Intake, Oral 100 Number 3 Bowel Movements Physical Exam General Appearance: Alert, Oriented X3, Cooperative, No Acute Distress Other Physical Findings: Skin: Rash present, itchy+ Head: atraumatic, normal appearance Neck: normal inspection, supple, full range of motion Respiratory: chest non-tender, lungs clear Cardiovascular: regular rate/rhythm Gastrointestinal: normal bowel sounds, slight tenderness on palpation of his epigastrim Extremities: normal inspection, normal capillary refill, normal range of motion Current Medications: Current Medications Sig/Tiffany Start time Last Medication Dose Route Stop Time Status Admin Aspirin Buffered 81 MG DAILY 10/21 1000 AC 10/24 PO 0858 Atorvastatin Calcium 80 MG DAILY 10/21 1000 AC 10/24 PO 0857 Chlordiazepoxide HCl 75 MG Q6 10/24 1200 AC 10/24 PO 1732 Chlordiazepoxide HCl 100 MG Q6 10/21 1200 DC 10/24 PO 0611 Clonidine 0.1 MG QPM 10/20 2200 AC 10/23 PO 1814 Colchicine 600 MCG BID 10/23 1041 DC 10/24 PO 0857 Fluoxetine HCl 60 MG DAILY 10/21 1000 AC 10/24 PO 0856 Folic Acid 1 MG DAILY 10/23 1804 AC 10/24 PO 0855 Gabapentin 300 MG QAM 10/21 1000 AC 10/24 PO 0856 Gabapentin 600 MG QPM 10/20 2200 AC 10/23 PO 2209 Heparin Sodium 5,000 UNIT Q8 10/20 1555 AC 10/24 (Porcine) SC 1332 Hydralazine HCl 50 MG TID 10/20 1600 AC 10/24 PO 1547 Hydrocortisone 1 DRAGAN 4 TIMES/DAY PRN 10/20 1600 AC 10/24 EXT 1759 Hydroxyzine HCl 50 MG TID PRN 10/21 1015 AC 10/24 PO 0611 Lidocaine 1 PAT DAILY 10/24 1026 AC 10/24 EXT 1133 Lidocaine 1 PAT Q24H 10/20 1600 AC 10/22 EXT 1556 Lorazepam 2 MG Q2P PRN 10/20 1300 AC IV Lorazepam 1 MG Q2P PRN 10/20 1300 AC IV Metoprolol Tartrate 25 MG BID 10/20 2200 AC 10/23 PO 2209 Morphine Sulfate 2 MG Q4P PRN 10/20 1600 AC 10/24 IV 0316 Multivitamins 1 TAB DAILY 10/23 1759 AC 10/24 PO 0855 Omeprazole 40 MG DAILY AC 10/23 0739 10/24 PO 0612 Oxycodone HCl 5 MG Q6P PRN 10/20 1600 AC 10/24 PO 1732 Phenylephrine HCl 1 DRAGAN Q6P PRN 10/23 1515 AC 10/23 SC 1711 Thiamine HCl 100 MG DAILY 10/23 1800 AC 10/24 PO 0855 Last 24 Hrs of Lab/Scar Results Last 24 Hrs of Labs/Mics: Laboratory Tests 10/24/16 0657: Anion Gap 11, Estimated GFR > 60, Glucose 91, Calcium 9.8, Phosphorus 5.3 H, Magnesium 1.8, Total Bilirubin 1.3, AST 151 H, ALT 128 H, Albumin 4.4 Orders CIWA Score (last 24 hrs): 0-5 Assessment/Plan Assessment: 50 yo M with pmh of multiple admissions for alcohol withdrawals/detoxifications with delirium tremens and withdrawal seizures, fatty liver disease, chest pain that has extensively been studied including cardiac catheterization not requiring any intervention, PTSD, anxiety, depression, recent subacute pruritus and rash treated with prednisone, presented to the emergency department requesting alcohol detoxification. Patient was initially admitted to the ICU, requiring IV Ativan drip and subsequently transferred to the general medical floor yesterday after stabilizing. He is currently being managed for the following issues in the general medical floor: #Alcohol detox Patient seems to have anxiety, otherwise his overnight CIWA scores are pretty low ranging from 0-5, not sure if the anxiety component is his due to existing illness or due to withdrawal symptoms. He is on 100 mg of chlordiazepoxide every 6 hours, and is not requiring IV Ativan. * Decreasing chlordiazepoxide to 75 mg every 6 hours * Continue CIWA protocol * Continue multivitamin, thiamine, folate * Continue PPI #Transaminitis, alcoholic hepatitis, hepatic steatosis Patient had initial raised liver enzymes, likely due to alcoholic hepatitis. Ultrasound of right upper quadrant showed hepatic steatosis and mild hepatomegaly. #History of anxiety, depression, PTSD Psychiatric service on board. Awaiting follow-up. #Atypical chest pain, most likely musculoskeletal Patient has a long-standing complaint of chest pain, which has been thoroughly studied, including with cardiac catheterization not requiring any intervention. He does not have coronary artery disease. However, due to persistent nature of his symptoms, pericarditis was thought as a possibility and conscious and was started yesterday. However also seen failed to relieve the symptoms, but instead is causing side effects of loose stool. Of note, patient complains of increased pain when pressed upon, that is, localized tenderness is present. * Colchicine has been stopped today * Continue pain management * Lidoderm patch has been placed over the chest today * Continue PPI #Rash * Continue Hydroxyzine #Diet: Regular diet #DVT ppx: SQ Heparin #Code status: Full code Problem List: 1. Alcohol abuse 2. Fatty liver 3. Alcoholic hepatitis 4. Alcohol withdrawal delirium 5. PTSD (post-traumatic stress disorder) 6. Mood disorder 7. Chest pain 8. Rash Pain Ratin Pain Location: - Pain Goal: Pain 4 or less Pain Plan: prn Tomorrow's Labs & Rationales: BEP, LFT to trend
--- NOTE | 2016-10-24 12:37 | PN- Att Addend ---
Attending Addendum Attending Brief Note Patient seen and examined, still complains of left-sided chest pain. He describes it as crushing in nature. He also describes that it's going into his left arm. Vital Signs Date Time Temp Pulse Resp B/P B/P Pulse O2 O2 Flow FiO2 Mean Ox Delivery Rate 10/24 0856 57 118/70 10/24 0626 98.2 48 20 130/72 96 Room Air 10/24 0310 51 140/90 10/23 2313 53 144/90 10/23 2225 97.9 57 18 96 Room Air 10/23 2209 180/100 10/23 2200 180/100 10/23 2200 180/100 10/23 2029 68 18 180/106 10/23 2025 68 180/106 10/23 2000 68 16 180/106 10/23 1814 58 200/110 10/23 1800 98.6 58 18 200/110 10/23 1633 61 164/86 10/23 1600 96 Room Air 10/23 1600 98.6 57 20 140/80 96 Room Air on exam; aox3, nad. cv; s1,s2, rrr, + tenderness on chest wall palpation. resp; clear abd; soft, nt, bs+ ext; no edema Laboratory Tests 10/24 06 Chemistry Sodium (137 - 145 mmol/L) 136 L Potassium (3.5 - 5.1 mmol/L) 3.7 Chloride (98 - 107 mmol/L) 98 Carbon Dioxide (22 - 30 mmol/L) 27 Anion Gap (5 - 16) 11 BUN (9 - 20 mg/dL) 13 Creatinine (0.7 - 1.2 mg/dL) 0.8 Estimated GFR (>60 ml/min) > 60 Glucose (65 - 99 mg/dL) 91 Calcium (8.4 - 10.2 mg/dL) 9.8 Phosphorus (2.5 - 4.5 mg/dL) 5.3 H Magnesium (1.6 - 2.3 mg/dL) 1.8 Total Bilirubin (0.2 - 1.3 mg/dL) 1.3 AST (17 - 59 U/L) 151 H ALT (21 - 72 U/L) 128 H Albumin (3.5 - 5.0 g/dL) 4.4 A/P; 50 y/o M with pmh sig for alcohol abuse, pancreatitis, history of seizures from alcohol withdrawal, history of fatty liver, history off from an [place], depression, PTSD , chronic rash, history of peptic ulcer disease, history of chest pain with recent cardiac cath which showed no evidence of ischemia in the coronaries, history of diastolic dysfunction who is admitted with Alcohol intoxication with withdrawal as well as chest pain syndrome. Initially managed in ICU and now transferred to medicine floor on Librium taper. As mentioned, cardiac workup negative. Patient was started on colchicine thinking that this could be pleuropericarditis. It has not improved the pain and its giving patient diarrhea. Would recommend stopping the colchicine. Would apply Lidoderm patch on his chest. Patient also ordered morphine and oxycodone. Continue multi fragment folate and thiamine. He is also getting topical steroids for the rash. DVT px: Heparin subcutaneous.
--- NOTE | 2016-10-24 15:33 | NUR ---
Continue to monitor patients status as it relates to detox. Case discussed at [facility]'s this morning, and then again a short time ago with Dr. Chowdhury. Patients librium has just begun to be tapered today; anticipate need for continued stay over weeekend. Follow to better assess interest and motivation in aftercare.
--- NOTE | 2016-10-24 17:12 | PN- Psychiatry ---
Assessment/Plan Impression: Identifying Info: 50-year-old but male presents to [facility] emergency department on 10/20/2016 with chief complaint of chest pain. Admitted for alcohol withdrawal. He has a history of multiple psychiatric diagnoses including PTSD, bipolar disorder unspecified, anxiety disorder, and alcohol use disorder. SUBJECTIVE Patient states "the longer I stay here the more I get depressed." Expresses desire for discharge but verbalizes understanding that he needs to finish detox prior to safe discharge. Reevaluated patient's wishes for discharge plan again expresses desire to attend [facility] but if that is not available would be agreeable to [facility] IOP. Brief ROS Gait: Pt reports he ambulated with PT Sleep: Hypersomnolent Appetite: Poor OBJECTIVE Mental Status Exam Presentation/Appearance: Cooperative with evaluation. Hospital garb. Lying in bed. Somehwat unkempt Orientation: Grossly oriented Sensorium: [place] and alert Eye contact: Appropriate Affect: Flat Mood: "Pretty poor" Depression: Endorses Anxiety: Endorses Thought Content: - Denies SI/HI, AH/VH, PI. States and also believes they will not kill themselves. - Endorses Hopeless/Helpless Thoughts Thought Process: Linear Associations: Appropriate Speech: Soft, only response with one word or brief phrases Judgment: Fair Insight: Fair Cognition: Memory: Endorses deficits Attention/Concentration: Grossly inact Fund of Knowledge: Did not assess Abstractions:Did not assess MMSE: Did not assess Per nursing report the patient has been somnolent and remains easily startled. Per house staff report the patient has been a poor historian regarding symptoms and history. It is unclear if he is confabulating due to confusion, possible wernicke's encephalopathy, or deliberate fabrication. ASSESSMENT 50-year-old but male presents with chest pain in the context of attempting to detox self from alcohol at home. Patient is a history of serious issues with mood in the context of alcohol use and reported issues with trauma. He would greatly benefit from dual diagnosis follow-up care. At present he is agreeable to IOP. Diagnosis Alcohol use disorder, severe Rule out alcohol-induced mood or anxiety disorder By history PTSD By history bipolar disorder By history unspecified anxiety A total of 30 minutes was spent with the patient with more than 50% of the time spent in counseling and/or coordination of care. Suggestion: 1. Continue CIWA, vitamin supplementation, and benzodiazepine taper. 2. Continue psychotropics as currently ordered. 3. Patient would likely benefit from agent to control alcohol cravings once detox is complete. Will discuss with patient prior to discharge. 4. Plan to discharge patient to IOP level of care, he would prefer [facility] or [place] [facility]. Appreciate social work assistance in disposition planning. Thank you for including psychiatry in this case we will follow as needed. Subjective Subjective: as above Objective Last 24 Hrs of Vital Signs/I&O Current Medications Sig/Tiffany Start time Last Medication Dose Route Stop Time Status Admin Aspirin Buffered 81 MG DAILY 10/21 1000 AC 10/24 PO 0858 Atorvastatin Calcium 80 MG DAILY 10/21 1000 AC 10/24 PO 0857 Chlordiazepoxide HCl 75 MG Q6 10/24 1200 AC 10/24 PO 1132 Chlordiazepoxide HCl 100 MG Q6 10/21 1200 DC 10/24 PO 0611 Clonidine 0.1 MG QPM 10/20 2200 AC 10/23 PO 1814 Colchicine 600 MCG BID 10/23 1041 DC 10/24 PO 0857 Fluoxetine HCl 60 MG DAILY 10/21 1000 AC 10/24 PO 0856 Folic Acid 1 MG DAILY 10/23 1804 AC 10/24 PO 0855 Gabapentin 300 MG QAM 10/21 1000 AC 10/24 PO 0856 Gabapentin 600 MG QPM 10/20 2200 AC 10/23 PO 2209 Heparin Sodium 5,000 UNIT Q8 10/20 1555 AC 10/24 (Porcine) SC 1332 Hydralazine HCl 50 MG TID 10/20 1600 AC 10/24 PO 1547 Hydrocortisone 1 DRAGAN 4 TIMES/DAY PRN 10/20 1600 AC 10/23 EXT 2210 Hydroxyzine HCl 50 MG TID PRN 10/21 1015 AC 10/24 PO 0611 Lidocaine 1 PAT DAILY 10/24 1026 AC 10/24 EXT 1133 Lidocaine 1 PAT Q24H 10/20 1600 AC 10/22 EXT 1556 Lorazepam 2 MG Q2P PRN 10/20 1300 AC IV Lorazepam 1 MG Q2P PRN 10/20 1300 AC IV Metoprolol Tartrate 25 MG BID 10/20 2200 AC 10/23 PO 2209 Morphine Sulfate 2 MG Q4P PRN 10/20 1600 AC 10/24 IV 0316 Multivitamins 1 TAB DAILY 10/23 1759 AC 10/24 PO 0855 Omeprazole 40 MG DAILY AC 10/23 0739 AC 10/24 PO 0612 Oxycodone HCl 5 MG Q6P PRN 10/20 1600 AC 10/24 PO 0613 Phenylephrine HCl 1 DRAGAN Q6P PRN 10/23 1515 AC 10/23 WA 1711 Thiamine HCl 100 MG DAILY 10/23 1800 AC 10/24 PO 0855 Laboratory Tests 10/24/16 0657: Anion Gap 11, Estimated GFR > 60, Glucose 91, Calcium 9.8, Phosphorus 5.3 H, Magnesium 1.8, Total Bilirubin 1.3, AST 151 H, ALT 128 H, Albumin 4.4 Vital Signs Date Time Temp Pulse Resp B/P B/P Pulse O2 O2 Flow FiO2 Mean Ox Delivery Rate 10/24 1547 74 164/80 10/24 1432 97.9 62 20 164/70 93 Room Air 10/24 1400 97.9 62 20 164/70 10/24 0856 57 118/70 10/24 0626 98.2 48 20 130/72 96 Room Air 10/24 0310 51 140/90 10/23 2313 53 144/90 10/23 2225 97.9 57 18 96 Room Air 10/23 2209 180/100 10/23 2200 180/100 10/23 2200 180/100 10/23 2029 68 18 180/106 10/23 2025 68 180/106 10/23 2000 68 16 180/106 10/23 1814 58 200/110 10/23 1800 98.6 58 18 200/110 Intake & Output 10/24 1600 10/24 0800 10/24 0000 Intake Total 100 Output Total Balance 100 Intake, Oral 100 Number 3 Bowel Movements
--- NOTE | 2016-10-24 17:56 | NUR ---
ALERT AND ORIENTED X 3. ON ROOM AIR. DENIES SHORTNESS OF BREATH VITAL SIGNS STABLE. + PULSES. DENIES NUMBNESS/TINGLING. NO EDEMA GENERALIZED REDNESS NOTED TO SKIN. STEADY GAIT. MEDICATION GIVEN FOR PAIN. WILL CONTINUE TO MONITOR
--- NOTE | 2016-10-25 03:32 | NUR ---
LATE ENTRY FOR 10/24/16 2330 PT STATING WANTS TO LEAVE HOSPITAL AMA. CALL TO DR VARGAS AND ALLEGRA TO COME AND DISCUSS WITH THE PT. SUPERVISOR [employer] KYLE IN THE ROOM TO DISCUSS WITH PT ALSO. [id number] SEE EMAR FOR MEDS GIVEN. SEE ORDERS FOR EKG/LABS TO BE DONE. PT AGREES TO STAY IN HOSPITAL AT THIS TIME.
[2016-10-25 07:16] VITALS: BP 112/74
--- NOTE | 2016-10-25 09:07 | PN- Housestaff ---
ADIN YUSUF 10/25/16 0907: Subjective Follow-up For: EtOH detox ATypical chest pain Complaints: pain scale (0-10) Subjective: Patient was seen and examined this morning. He is alert awake and oriented to time place and person. No acute events noticed overnight. Patient wants to leave AMA early in the morning Complaints of chest pain 10 out of 10, nonradiating, denies any nausea or vomiting, diaphoresis, shortness of breath. His ciwa scores were running low with 0 and 3, mostly anxiety and agitation Vital signs remained stable and afebrile, heart rate 70, respiratory rate 20, blood pressure 120/70 saturating at room air Review of Systems Constitutional: Reports: see HPI. Objective Last 24 Hrs of Vital Signs/I&O Vital Signs Date Time Temp Pulse Resp B/P B/P Pulse O2 O2 Flow FiO2 Mean Ox Delivery Rate 10/25 1043 70 128/68 10/25 1043 70 128/68 10/25 0716 98.2 56 20 112/74 99 10/24 2213 98.3 54 20 136/80 96 Room Air 10/24 2207 68 138/80 10/24 2206 68 138/80 10/24 2206 68 138/80 10/24 2200 98.3 68 20 138/80 10/24 2000 98.9 70 18 140/80 10/24 1800 98.9 70 18 140/80 10/24 1800 98.9 70 18 140/80 96 Room Air 10/24 1600 97.9 62 20 164/70 10/24 1547 74 164/80 10/24 1432 97.9 62 20 164/70 93 Room Air 10/24 1400 97.9 62 20 164/70 Intake & Output 10/25 1600 10/25 0800 10/25 0000 Intake Total 200 370 Output Total Balance 200 370 Intake, Oral 200 370 Physical Exam General Appearance: Alert, Oriented X3, Cooperative, No Acute Distress Skin: No Rashes, No Breakdown HEENT: Atraumatic, PERRLA, EOMI, Mucous Membr. moist/pink Neck: Supple, No JVD Lymphatic: Cervical nl Cardiovascular: Normal S1, Normal S2 Lungs: Normal Air Movement Abdomen: Normal Bowel Sounds, Soft, No Tenderness Extremities: No Clubbing, No Cyanosis, No Edema Vascular: Pulses Symmetrical Current Medications: Current Medications Sig/Tiffany Start time Last Medication Dose Route Stop Time Status Admin Aspirin Buffered 81 MG DAILY 10/21 1000 AC 10/25 PO 1043 Atorvastatin Calcium 80 MG DAILY 10/21 1000 AC 10/25 PO 1043 Chlordiazepoxide HCl 75 MG Q8 10/25 1400 AC PO Chlordiazepoxide HCl 75 MG Q6 10/24 1200 DC 10/25 PO 0555 Clonidine 0.1 MG QPM 10/20 2200 AC 10/24 PO 2207 Colchicine 600 MCG BID 10/23 1041 DC 10/24 PO 0857 Diphenhydramine HCl 50 MG .STK-MED ONE 10/25 0004 DC IM 10/25 0005 Diphenhydramine HCl 25 MG ONCE ONE 10/24 2345 DC 10/25 IV 10/24 2346 0019 Fluoxetine HCl 60 MG DAILY 10/21 1000 AC 10/25 PO 1044 Folic Acid 1 MG DAILY 10/23 1804 AC 10/25 PO 1043 Gabapentin 300 MG QAM 10/21 1000 AC 10/25 PO 1044 Gabapentin 600 MG QPM 10/20 2200 AC 10/24 PO 2206 Heparin Sodium 5,000 UNIT Q8 10/20 1555 AC 10/25 (Porcine) SC 0556 Hydralazine HCl 50 MG TID 10/20 1600 AC 10/25 PO 1043 Hydrocortisone 1 DRAGAN 4 TIMES/DAY PRN 10/20 1600 AC 10/25 EXT 0030 Hydroxyzine HCl 50 MG TID PRN 10/21 1015 AC 10/24 PO 0611 Lidocaine 1 PAT DAILY 10/24 1026 AC 10/24 EXT 1133 Lidocaine 1 PAT Q24H 10/20 1600 AC 10/22 EXT 1556 Lorazepam 2 MG Q2P PRN 10/20 1300 AC IV Lorazepam 1 MG Q2P PRN 10/20 1300 AC 10/24 IV 2352 Metoprolol Tartrate 25 MG BID 10/20 2200 AC 10/25 PO 1043 Morphine Sulfate 2 MG Q4P PRN 10/20 1600 AC 10/25 IV 1057 Multivitamins 1 TAB DAILY 10/23 1759 AC 10/25 PO 1044 Omeprazole 40 MG DAILY AC 10/23 0739 AC 10/25 PO 0555 Oxycodone HCl 5 MG Q6P PRN 10/20 1600 AC 10/24 PO 1732 Phenylephrine HCl 1 DRAGAN Q6P PRN 10/23 1515 AC 10/23 [place] 1711 Thiamine HCl 100 MG DAILY 10/23 1800 AC 10/25 PO 1044 Last 24 Hrs of Lab/Scar Results Last 24 Hrs of Labs/Mics: Laboratory Tests 10/25/16 0545: Anion Gap 13, Estimated GFR > 60, BUN/Creatinine Ratio 14.4, Total Bilirubin 1.4 H, Direct Bilirubin 0.4, AST 171 H, ALT 170 H, Alkaline Phosphatase 59, Total Protein 6.6, Albumin 4.2 10/25/16 0045: Troponin I < 0.01 Assessment/Plan Assessment: 50 yo M with pmh of multiple admissions for alcohol withdrawals/detoxifications with delirium tremens and withdrawal seizures, fatty liver disease, chest pain that has extensively been studied including cardiac catheterization not requiring any intervention, PTSD, anxiety, depression, recent subacute pruritus and rash treated with prednisone, presented to the emergency department requesting alcohol detoxification. Patient was initially admitted to the ICU, requiring IV Ativan drip and subsequently transferred to the general medical floor yesterday after stabilizing. He is currently being managed for the following issues in the general medical floor: #Alcohol detox Patient seems to have anxiety, otherwise his overnight CIWA scores are pretty low ranging from 0-3, not sure if the anxiety component is his due to existing illness or due to withdrawal symptoms. He is on 100 mg of chlordiazepoxide every 6 hours, and is not requiring IV Ativan. * Decreasing chlordiazepoxide to 75 mg every 8 hours * Continue CIWA protocol * Continue multivitamin, thiamine, folate * Continue PPI #Transaminitis, alcoholic hepatitis, hepatic steatosis Patient had initial raised liver enzymes, likely due to alcoholic hepatitis. Ultrasound of right upper quadrant showed hepatic steatosis and mild hepatomegaly. #History of anxiety, depression, PTSD Psychiatric service on board. Awaiting follow-up. #Atypical chest pain, most likely musculoskeletal Patient has a long-standing complaint of chest pain, which has been thoroughly studied, including with cardiac catheterization not requiring any intervention. He does not have coronary artery disease. However, due to persistent nature of his symptoms, pericarditis was thought as a possibility and colchicine was started . However also seen failed to relieve the symptoms, but instead is causing side effects of loose stool. Of note, patient complains of increased pain when pressed upon, that is, localized tenderness is present. * Colchicine has been stopped. * Continue pain management * Lidoderm patch has been placed over the chest today * Continue PPI #Rash * Continue Hydroxyzine #Diet: Regular diet #DVT ppx: SQ Heparin #Code status: Full code Problem List: 1. Alcohol withdrawal Pain Ratin Pain Location: chest pain Pain Goal: Pain 4 or less Pain Plan: Tylenol and morphine Tomorrow's Labs & Rationales: None IVON MARROQUIN MD 10/25/16 7059: Attending MD Review Statement Attending Statement Attending MD Statement: examined this patient, discuss w/resident/PA/EVENT SPECIALIST, agreed w/resident/PA/EVENT SPECIALIST, reviewed EMR data (avail), discussed with nursing, discussed with case mgmt, amended to note Attending Assessment/Plan: The patient was seen and discussed with house staff. Appreciate psychiatry input. Patient has significant anxiety/psych issues as well as detox and is on Librium. Not able to sign out AMA. Will continue detox and CIWA and continue to observe.
[2016-10-25 15:04] VITALS: BP 113/72
--- NOTE | 2016-10-25 22:05 | PN- Psychiatry ---
Assessment/Plan Impression: Saw Mr. Rosa who had requested to leave AMA. I reviewed the chart, most notably his psychiatric history, his history of volatility, poor decision making while intoxicated, and poor engagement in outpatient treatment. Mr. Rosa stated that he wanted to go home and sleep when asked why he wanted to leave AMA. He then stated that he "has chest pain, no one is helping me, I want to get help somewhere else." He then stated that he wanted to leave because he was "claustrophobic" and "needs to get out of here." He was aware that he was still on medication to prevent seizures but stated that he "doesn't care" if he has a seizure. He appeared tense, on edge, and had very narrow/superficial ability to consider the options provided to him when discussing his treatment, instead, reverting to saying, "I just want to go home" and not speaking further. His attention was too focused on leaving to demonstrate sufficient appreciation of his current circumstances and the real risk of him having a seizure; and the overall risks of treatment refusal, and complication if he were to leave AMA (he had no awareness that a seizure could be debilitating for him and prevent him calling 911). Kaylen I discussed that due to his lack of sufficient appreciation of the seriousness of his medical condition, the inability to weigh treatment options rationally due to excessive focus on "getting out of here" and poor appreciation of risks of treatment refusal, would like further collateral about his recent mental status from family/friends, and would consider that currently he does not have the capacity to leave AMA. He was agreeable to re-eval tmr if he continued to wish to leave AMA. He provided me with 3 phone numbers (he called from his phone ) of family he has had recent contact with, and I left 3 messages with call back #. Impression: at this time has insufficient appreciation of his current circumstances, is not able to weigh information provided rationally and is unable to appreciate consequences of tx refusal due to being anxious, tense, and focusing exclusively on 'getting out of here.' Does not have capacity to leave AMA at this time. Suggestion: see above Subjective Subjective: see above
[2016-10-25 23:00] VITALS: BP 128/68
[2016-10-26 07:32] VITALS: BP 115/68
--- NOTE | 2016-10-26 08:59 | PN- Housestaff ---
HANYERNIE 10/26/16 0859: Subjective Follow-up For: EtOH detox ATypical chest pain, Improved Subjective: Patient was seen and examined this morning. He is alert awake and oriented to time place and person. No acute events noticed overnight. Still has some anxiety. Low CIWAs. Review of Systems Constitutional: Reports: see HPI. Objective Last 24 Hrs of Vital Signs/I&O Vital Signs Date Time Temp Pulse Resp B/P B/P Pulse O2 O2 Flow FiO2 Mean Ox Delivery Rate 10/26 0838 60 136/70 10/26 0837 60 136/70 10/26 0732 98.2 58 20 115/68 95 10/25 2300 128/68 10/25 2238 98.2 62 20 94 Room Air 10/25 2204 60 128/60 10/25 2204 60 128/68 10/25 2204 60 128/60 10/25 1625 62 130/72 10/25 1504 98.8 63 20 113/72 94 Room Air Intake & Output 10/26 1600 10/26 0800 10/26 0000 Intake Total 240 240 Output Total Balance 240 240 Intake, Oral 240 240 Physical Exam General Appearance: Alert, Oriented X3, Cooperative Cardiovascular: Regular Rate, Normal S1, Normal S2 Lungs: Clear to Auscultation, Normal Air Movement Abdomen: Normal Bowel Sounds, Soft Extremities: No Clubbing, No Cyanosis, No Edema Assessment/Plan Assessment: 50 yo M with pmh of multiple admissions for alcohol withdrawals/detoxifications with delirium tremens and withdrawal seizures, fatty liver disease, chest pain that has extensively been studied including cardiac catheterization not requiring any intervention, PTSD, anxiety, depression, recent subacute pruritus and rash treated with prednisone, presented to the emergency department requesting alcohol detoxification. Patient was initially admitted to the ICU, requiring IV Ativan drip and subsequently transferred to the general medical floor yesterday after stabilizing. He is currently being managed for the following issues in the general medical floor: #Alcohol detox Patient seems to have anxiety, otherwise his overnight CIWA scores. * Decreasing chlordiazepoxide to 50 mg every 8 hours * Continue CIWA protocol * Continue multivitamin, thiamine, folate * Continue PPI. * Add Xanax 0.5 mg PO q6 PRN anxiety, psychiatry input regarding anxiety. #Transaminitis, alcoholic hepatitis, hepatic steatosis Patient had initial raised liver enzymes, likely due to alcoholic hepatitis. Ultrasound of right upper quadrant showed hepatic steatosis and mild hepatomegaly. #History of anxiety, depression, PTSD Psychiatric service on board. Awaiting follow-up. Xanax PRN. #Atypical chest pain, most likely musculoskeletal Patient has a long-standing complaint of chest pain, which has been thoroughly studied, including with cardiac catheterization not requiring any intervention. He does not have coronary artery disease. However, due to persistent nature of his symptoms, pericarditis was thought as a possibility and colchicine was started . However also seen failed to relieve the symptoms, but instead is causing side effects of loose stool. Of note, patient complains of increased pain when pressed upon, that is, localized tenderness is present. * Colchicine has been stopped. * Continue pain management * Lidoderm patch has been placed over the chest today * Continue PPI #Rash * Continue Hydroxyzine #Diet: Regular diet #DVT ppx: SQ Heparin #Code status: Full code Problem List: 1. Alcohol dependence Pain Ratin Pain Location: Chest Pain Goal: Pain 4 or less Pain Plan: Morphine PRN Tomorrow's Labs & Rationales: None needed IVON MARROQUIN MD 10/26/16 2221: Attending MD Review Statement Attending Statement Attending MD Statement: examined this patient, discuss w/resident/PA/MOLDER FLOOR, agreed w/resident/PA/MOLDER FLOOR, reviewed EMR data (avail), amended to note Attending Assessment/Plan: The patient was seen and discussed with house staff. CIWA doing well, however patient is very restless and pacing. Need psychiatry input tomorrow.
[2016-10-26 14:25] VITALS: BP 120/74
--- NOTE | 2016-10-26 15:47 | PN- Psychiatry ---
See Addendum Assessment/Plan Impression: Saw Mr. Rosa who had requested to leave AMA. I reviewed the chart, most notably his psychiatric history, his history of volatility, poor decision making while intoxicated, and poor engagement in outpatient treatment. Mr. Rosa stated that he wanted to go home and sleep when asked why he wanted to leave AMA. He then stated that he "has chest pain, no one is helping me, I want to get help somewhere else." He then stated that he wanted to leave because he was "claustrophobic" and "needs to get out of here." He was aware that he was still on medication to prevent seizures but stated that he "doesn't care" if he has a seizure. He appeared tense, on edge, and had very narrow/superficial ability to consider the options provided to him when discussing his treatment, instead, reverting to saying, "I just want to go home" and not speaking further. His attention was too focused on leaving to demonstrate sufficient appreciation of his current circumstances and the real risk of him having a seizure; and the overall risks of treatment refusal, and complication if he were to leave AMA (he had no awareness that a seizure could be debilitating for him and prevent him calling 911). Kaylen I discussed that due to his lack of sufficient appreciation of the seriousness of his medical condition, the inability to weigh treatment options rationally due to excessive focus on "getting out of here" and poor appreciation of risks of treatment refusal, would like further collateral about his recent mental status from family/friends, and would consider that currently he does not have the capacity to leave AMA. He was agreeable to re-eval tmr if he continued to wish to leave AMA. He provided me with 3 phone numbers (he called from his phone ) of family he has had recent contact with, and I left 3 messages with call back #. Impression: at this time has insufficient appreciation of his current circumstances, is not able to weigh information provided rationally and is unable to appreciate consequences of tx refusal due to being anxious, tense, and focusing exclusively on 'getting out of here.' Does not have capacity to leave AMA at this time. Suggestion: 10/26/16: Discussed with primary team and with patient, both of whom are in agreement to stay. Patient stated that he will finish his protocol. Subjective Subjective: see above
[2016-10-26 22:05] VITALS: BP 122/82
[2016-10-27 06:52] VITALS: BP 130/80
--- NOTE | 2016-10-27 07:19 | PN- Housestaff ---
CATHI BARRIGA,MIRIAM 10/27/16 0718: Subjective Follow-up For: EtOH detox ATypical chest pain, Improved Complaints: no complaints Subjective: I followed up and examined the patient today. He is walking around in the floor, not in distress, calm, and well oriented. We spoke about his progress with detox and that he will most likely need psychiatric service as continuity of care, to which he agreed. He does not wish to get admitted to in patient psych service though. he has divorce issues going on at home. overnight, his CIWA scores have been low to 0-4, and is on librium 50mg q8h PO. i changed it to 60mg BID starting today. Review of Systems Constitutional: Reports: no symptoms. Objective Last 24 Hrs of Vital Signs/I&O Vital Signs Date Time Temp Pulse Resp B/P B/P Pulse O2 O2 Flow FiO2 Mean Ox Delivery Rate 10/27 0951 62 118/84 10/27 0652 98.1 59 20 130/80 95 Room Air 10/26 2221 60 122/82 10/26 2221 60 122/82 10/26 2221 60 122/82 10/26 2205 98.8 60 24 122/82 95 Room Air 10/26 1614 58 124/62 10/26 1425 98.4 55 20 120/74 94 Room Air Physical Exam General Appearance: Alert, Oriented X3, Cooperative, No Acute Distress Other Physical Findings: Skin: Rash present decreasig, less itchy today Head: atraumatic, normal appearance Neck: normal inspection, supple, full range of motion Respiratory: chest non-tender, lungs clear Cardiovascular: regular rate/rhythm Gastrointestinal: normal bowel sounds, sno tenderness over epigastrim/abd Extremities: normal inspection, normal capillary refill, normal range of motion Current Medications: Current Medications Sig/Tiffany Start time Last Medication Dose Route Stop Time Status Admin Alprazolam 0.5 MG Q6P PRN 10/26 1030 AC 10/26 PO 11/02 1029 1854 Aspirin Buffered 81 MG DAILY 10/21 1000 AC 10/27 PO 0951 Atorvastatin Calcium 80 MG DAILY 10/21 1000 AC 10/27 PO 0951 Chlordiazepoxide HCl 60 MG BID 10/27 1000 AC 10/27 PO 0952 Chlordiazepoxide HCl 50 MG Q8 10/26 1400 AC 10/27 PO 0601 Clonidine 0.1 MG QPM 10/20 2200 AC 10/26 PO 2221 Diphenhydramine HCl 25 MG Q6P PRN 10/25 1715 AC 10/26 PO 2219 Fluoxetine HCl 60 MG DAILY 10/21 1000 AC 10/27 PO 0951 Folic Acid 1 MG DAILY 10/23 1804 AC 10/27 PO 0951 Gabapentin 1,200 MG QPM 10/26 2200 AC 10/26 PO 2219 Gabapentin 300 MG QAM 10/21 1000 AC 10/27 PO 0951 Gabapentin 600 MG QPM 10/20 2200 DC 10/25 PO 2130 Heparin Sodium 5,000 UNIT Q8 10/20 1555 AC 10/27 (Porcine) SC 0602 Hydralazine HCl 50 MG TID 10/20 1600 AC 10/27 PO 0951 Hydrocortisone 1 DRAGAN 4 TIMES/DAY PRN 10/20 1600 AC 10/25 EXT 2206 Hydroxyzine HCl 50 MG TID PRN 10/21 1015 AC 10/24 PO 0611 Lidocaine 1 PAT DAILY 10/24 1026 AC 10/24 EXT 1133 Lidocaine 1 PAT Q24H 10/20 1600 AC 10/22 EXT 1556 Lorazepam 2 MG Q2P PRN 10/20 1300 DC IV Lorazepam 1 MG Q2P PRN 10/20 1300 DC 10/25 IV 1959 Metoprolol Tartrate 25 MG BID 10/20 2200 AC 10/26 PO 2221 Morphine Sulfate 4 MG ONCE ONE 10/26 2100 DC 10/26 IV 10/26 2101 2340 Morphine Sulfate 2 MG Q4P PRN 10/20 1600 AC 10/27 IV 0604 Multivitamins 1 TAB DAILY 10/23 1759 AC 10/27 PO 0951 Omeprazole 40 MG DAILY AC 10/23 0739 AC 10/27 PO 0601 Oxycodone HCl 5 MG Q6P PRN 10/20 1600 AC 10/27 PO 1000 Phenylephrine HCl 1 DRAGAN Q6P PRN 10/23 1515 AC 10/23 CT 1711 Thiamine HCl 100 MG DAILY 10/23 1800 AC 10/27 PO 0951 Orders CIWA Score (last 24 hrs): 0-4 Assessment/Plan Assessment: 50 yo M with pmh of multiple admissions for alcohol withdrawals/detoxifications with delirium tremens and withdrawal seizures, fatty liver disease, chest pain that has extensively been studied including cardiac catheterization not requiring any intervention, PTSD, anxiety, depression, recent subacute pruritus and rash treated with prednisone, presented to the emergency department requesting alcohol detoxification. Patient was initially admitted to the ICU, requiring IV Ativan drip and subsequently transferred to the general medical floor yesterday after stabilizing. He is currently being managed for the following issues in the general medical floor: #Alcohol detox Patient seems to have anxiety, otherwise his overnight CIWA scores. * Decreasing chlordiazepoxide to 60 mg every 12 hrs. Of note, patient received 50+60mg of librium already this morning due to med dose changes. After discussing with Psychiatric service, his evening dose was discontinued for tonight, and he will require 40mg PO BID tomorrow. Ordered as suggested. * Ordered Lurasidone per Psych service today as daily medication. * Continue CIWA protocol * Continue multivitamin, thiamine, folate * Continue PPI. * Continue Xanax 0.5 mg PO q6 PRN anxiety, psychiatry input regarding anxiety. #Wanting to leave AMA again today 10/27/16, at 7pm: Of note, patient's detox is not over, and the patient is well aware about it. He wants to leave the hospital everytime he is anxious and he feels like he has been here forever and the medical team in ICU and in the floor has not done anything for him treatment mahajan. I explained to him about the condition when he first came in and about the detox protocol does take time as we taper the dose, and given his hisotry of withdrawal seizures, and recent requirement of IV Ativan, we are taking precautions on his taper. He has the capacity to understand the process, his situation, his treatment options, and alternatives, including the one not to get treated and its possible consequences, so if he wants to leave against medical advice, I do not have enough grounds to hold him against his will. He can leave AMA. This was also confirmed with [facility] Psych CORONER TRANSPORT TECHNICIAN today about his capacity to decide. #Transaminitis, alcoholic hepatitis, hepatic steatosis Patient had initial raised liver enzymes, likely due to alcoholic hepatitis. Ultrasound of right upper quadrant showed hepatic steatosis and mild hepatomegaly. Will reassess tomorrow. #History of anxiety, depression, PTSD Psychiatric service on board. Awaiting follow-up. Xanax PRN. #Atypical chest pain, most likely musculoskeletal Patient has a long-standing complaint of chest pain, which has been thoroughly studied, including with cardiac catheterization not requiring any intervention. He does not have coronary artery disease. However, due to persistent nature of his symptoms, pericarditis was thought as a possibility and colchicine was started . However also seen failed to relieve the symptoms, but instead is causing side effects of loose stool. Of note, patient complains of increased pain when pressed upon, that is, localized tenderness is present. * Colchicine has been stopped. * Continue pain management, but trying to switch him to oral forms and not IV Morphine everytime, as that would make it non-sustainable, as he does not seem to have obvious cardiovascular/pulmonary explanation for it. * Continue Lidoderm patch over the chest. * Continue PPI #Rash * Continue Hydroxyzine, steroid, and discontinue Benadryl, unless the patient's symtpms are not controlled with it. #Diet: Regular diet #DVT ppx: SQ Heparin #Code status: Full code Problem List: 1. Alcohol dependence 2. Atypical chest pain Pain Ratin Pain Location: chest central when present Pain Goal: Pain 4 or less Pain Plan: prn, including morphine Tomorrow's Labs & Rationales: BEP, LFT, CBC as follow up on lytes and liver function IVON MARROQUIN MD 10/27/161925: Attending MD Review Statement Attending Statement Attending MD Statement: examined this patient, discuss w/resident/PA/SURVEY TECHNOLOGIST, agreed w/resident/PA/SURVEY TECHNOLOGIST, reviewed EMR data (avail), discussed with nursing, discussed with case mgmt, amended to note Attending Assessment/Plan: The patient was seen and discussed with house staff and psychiatry. The patient appears less anxious today. Will continue to taper Librium as per psychiatry and hope to arrange appropriate OP follow-up. The patient states his PCP is Dr. Louie in [place] and he did see him about 1 month ago.
--- NOTE | 2016-10-27 11:16 | PN- Psychiatry ---
Assessment/Plan Impression: Identifying Info: 50-year-old but male presents to [facility] emergency department on 10/20/2016 with chief complaint of chest pain. Admitted for alcohol withdrawal. He has a history of multiple psychiatric diagnoses including PTSD, bipolar disorder unspecified, anxiety disorder, and alcohol use disorder. SUBJECTIVE Patient states "I'm getting better." Expresses desire for discharge but verbalizes understanding that he needs to finish detox prior to safe discharge and is agreeable at this time. He is endorsing poor sleep. Expressed concern the may miss intake appointment with outpatient bait packer Almaz Pearson. Verbalizes understand that IOP level of care would be more appropriate at this time. Would like to restart his previous Latuda 40mg daily. Brief ROS Gait: Steady Sleep: Poor Appetite: Poor OBJECTIVE Mental Status Exam Presentation/Appearance: Cooperative with evaluation. Hospital garb. Lying in bed. Somehwat unkempt, bearded Orientation: Grossly oriented Sensorium: [place] and alert Eye contact: Appropriate Affect: Flat Mood: "good" Depression: Endorses Anxiety: Endorses Thought Content: - Denies SI/HI, AH/VH, PI. States and also believes they will not kill themselves. - Endorses Hopeless/Helpless Thoughts Thought Process: Linear Associations: Appropriate Speech: Soft, only response with one word or brief phrases Judgment: Fair Insight: Fair Cognition: Memory: Endorses deficits Attention/Concentration: Grossly inact Fund of Knowledge: Did not assess Abstractions:Did not assess MMSE: Did not assess Capacity assessment At present the patient demonstrates the ability to communicate a choice, understand the relevant information, appreciate the situation and it's consequences and reason about treatment options. ASSESSMENT 50-year-old but male presents with chest pain in the context of attempting to detox self from alcohol at home. Patient is a history of serious issues with mood in the context of alcohol use and reported issues with trauma. He would greatly benefit from dual diagnosis follow-up care. At present he is agreeable to IOP. He demonstrates capacity at this time. Diagnosis Alcohol use disorder, severe Rule out alcohol-induced mood or anxiety disorder By history PTSD By history bipolar disorder By history unspecified anxiety A total of 30 minutes was spent with the patient with more than 50% of the time spent in counseling and/or coordination of care. Suggestion: 1. Continue CIWA, vitamin supplementation, and benzodiazepine taper. 2. Please start lurasidone 40mg daily in the evening to be taken with 350 calories of food. 3. Patient would likely benefit from agent to control alcohol cravings once detox is complete. Will discuss with patient prior to discharge. 4. Plan to discharge patient to IOP level of care, he would prefer [facility] IOP. Appreciate social work assistance in disposition planning. Thank you for including psychiatry in this case we will follow as needed. Subjective Subjective: as above Objective Last 24 Hrs of Vital Signs/I&O Current Medications Sig/Tiffany Start time Last Medication Dose Route Stop Time Status Admin Alprazolam 0.5 MG Q6P PRN 10/26 1030 AC 10/26 PO 11/02 1029 1854 Aspirin Buffered 81 MG DAILY 10/21 1000 AC 10/27 PO 0951 Atorvastatin Calcium 80 MG DAILY 10/21 1000 AC 10/27 PO 0951 Chlordiazepoxide HCl 60 MG BID 10/27 1000 AC 10/27 PO 0952 Chlordiazepoxide HCl 50 MG Q8 10/26 1400 DC 10/27 PO 0601 Clonidine 0.1 MG QPM 10/20 2200 AC 10/26 PO 2221 Diphenhydramine HCl 25 MG Q6P PRN 10/25 1715 DC 10/26 PO 2219 Fluoxetine HCl 60 MG DAILY 10/21 1000 AC 10/27 PO 0951 Folic Acid 1 MG DAILY 10/23 1804 AC 10/27 PO 0951 Gabapentin 1,200 MG QPM 10/26 2200 AC 10/26 PO 2219 Gabapentin 300 MG QAM 10/21 1000 AC 10/27 PO 0951 Gabapentin 600 MG QPM 10/20 2200 DC 10/25 PO 2130 Heparin Sodium 5,000 UNIT Q8 10/20 1555 AC 10/27 (Porcine) SC 0602 Hydralazine HCl 50 MG TID 10/20 1600 AC 10/27 PO 0951 Hydrocortisone 1 DRAGAN 4 TIMES/DAY PRN 10/20 1600 AC 10/25 EXT 2206 Hydroxyzine HCl 50 MG TID PRN 10/21 1015 DC 10/24 PO 0611 Lidocaine 1 PAT DAILY 10/24 1026 AC 10/24 EXT 1133 Lidocaine 1 PAT Q24H 10/20 1600 DC 10/22 EXT 1556 Metoprolol Tartrate 25 MG BID 10/20 2200 AC 10/26 PO 2221 Morphine Sulfate 4 MG ONCE ONE 10/26 2100 DC 10/26 IV 10/26 2101 2340 Morphine Sulfate 2 MG Q4P PRN 10/20 1600 DC 10/27 IV 0604 Multivitamins 1 TAB DAILY 10/23 1759 AC 10/27 PO 0951 Omeprazole 40 MG DAILY AC 10/23 0739 AC 10/27 PO 0601 Oxycodone HCl 5 MG Q6P PRN 10/20 1600 AC 10/27 PO 1000 Phenylephrine HCl 1 DRAGAN Q6P PRN 10/23 1515 AC 10/23 FL 1711 Thiamine HCl 100 MG DAILY 10/23 1800 AC 10/27 PO 0951 Vital Signs Date Time Temp Pulse Resp B/P B/P Pulse O2 O2 Flow FiO2 Mean Ox Delivery Rate 10/27 0951 62 118/84 10/27 0652 98.1 59 20 130/80 95 Room Air 10/26 2221 60 122/82 10/26 2221 60 122/82 10/26 2221 60 122/82 10/26 2205 98.8 60 24 122/82 95 Room Air 10/26 1614 58 124/62 10/26 1425 98.4 55 20 120/74 94 Room Air
--- NOTE | 2016-10-27 11:39 | NUR ---
NSG NOTE: PATIENT DOING WELL TODAY, NO COMPLAINTS BESIDES CHEST/EPIGASTRIC PAIN WHICH HAS BEEN AN ON-GOING ISSUE; CARDIAC WORKUP NEGATIVE; THIS RN ADMINISTERED ROXICODONE 5MG FOR PAIN PATIENT REPORTED 8/10; CIWA SCORES BETWEEN A 4-5 SCORING FOR ANXIETY; PATIENT SHOWERED THIS AM AND CONTIUES TO AMBULATE FREQUENTLY IN HALLWAY; WILL CONT TO MONITOR
[2016-10-27 14:33] VITALS: BP 118/90
--- NOTE | 2016-10-27 19:02 | NUR ---
NSG NOTE: PATIENT INSISTING ON LEAVING AMA; MIRIAM #[id number] CALLED AND IS AWARE; WILL CONT TO MONITOR
[2016-10-27 22:26] VITALS: BP 156/84
--- NOTE | 2016-10-28 00:42 | NUR ---
LATE ENTRY FOR 10/27/[address] WINKLER IN ROOM TO EVAL THE PT. PT WANTING TO LEAVE AMA AT THIS TIME. PT WITH ANXIETY NOTED. MD IN ROOM TO DISCUSS WITH PT. SEE EMAR FOR MEDS GIVEN AFTER MD EVALUATION OF PT.
--- NOTE | 2016-10-28 07:14 | PN- Housestaff ---
CATHI BARRIGA,MIRIAM 10/28/16 0714: Subjective Follow-up For: EtOH detox ATypical chest pain, Improved Complaints: no complaints Subjective: I followed up and examined the patient today. He is walking around in the floor, not in distress, calm, and well oriented. He wants to leave later today if possible. Vitals have been stable and his overnight CIWA scores have been near 0 most of the time. Yesterday around 7pm, he was anxious, agitated, and wanted to leave AMA, and later didn't. Review of Systems Constitutional: Reports: no symptoms. Objective Last 24 Hrs of Vital Signs/I&O Vital Signs Date Time Temp Pulse Resp B/P B/P Pulse O2 O2 Flow FiO2 Mean Ox Delivery Rate 10/28 1556 80 130/70 10/28 1345 98.3 80 20 130/70 93 Room Air 10/28 1246 120/60 10/28 0912 126/84 10/28 0738 98.5 53 20 122/84 95 Room Air Intake & Output 10/29 0800 10/29 0000 10/28 1600 Intake Total 850 Output Total Balance 850 Intake, Oral 850 Physical Exam General Appearance: Alert, Oriented X3, Cooperative, No Acute Distress (mild anxiety noted) Other Physical Findings: Skin: Rash present decreasig, less itchy today, better than yesterday evening Head: atraumatic, normal appearance Neck: normal inspection, supple, full range of motion Respiratory: chest non-tender, lungs clear Cardiovascular: regular rate/rhythm Gastrointestinal: normal bowel sounds, sno tenderness over epigastrim/abd Extremities: normal inspection, normal capillary refill, normal range of motion Current Medications: Current Medications Sig/Tiffany Start time Last Medication Dose Route Stop Time Status Admin Alprazolam 0.5 MG Q6P PRN 10/26 1030 DCD 10/28 PO 11/02 1029 1246 Aspirin Buffered 81 MG DAILY 10/21 1000 DCD 10/28 PO 0912 Atorvastatin Calcium 80 MG DAILY 10/21 1000 DCD 10/28 PO 0912 Chlordiazepoxide HCl 40 MG ONCE ONE 10/28 1630 DC 10/28 PO 10/28 1631 1629 Chlordiazepoxide HCl 40 MG BID 10/28 1000 DCD 10/28 PO 0913 Clonidine 0.1 MG QPM 10/20 2200 DCD 10/27 PO 2131 Fluoxetine HCl 60 MG DAILY 10/21 1000 DCD 10/28 PO 0911 Folic Acid 1 MG DAILY 10/23 1804 DCD 10/28 PO 0912 Gabapentin 1,200 MG QPM 10/26 2200 DCD 10/27 PO 2131 Gabapentin 300 MG QAM 10/21 1000 DCD 10/28 PO 0912 Heparin Sodium 5,000 UNIT Q8 10/20 1555 DCD 10/27 (Porcine) SC 0602 Hydralazine HCl 50 MG TID 10/20 1600 DCD 10/28 PO 1556 Hydrocortisone 1 DRAGAN 4 TIMES/DAY PRN 10/20 1600 DCD 10/27 EXT 2133 Hydromorphone HCl 1 MG ONCE ONE 10/28 0645 DC 10/28 PO 10/28 0646 0650 Hydroxyzine HCl 50 MG TID PRN 10/27 1930 DCD 10/28 PO 1246 Lidocaine 1 PAT DAILY 10/24 1026 DCD 10/24 EXT 1133 Lurasidone HCl 40 MG 1700 10/27 1700 DCD 10/28 PO 1713 Metoprolol Tartrate 25 MG BID 10/20 2200 DCD 10/28 PO 1246 Multivitamins 1 TAB DAILY 10/23 1759 DCD 10/28 PO 0912 Omeprazole 40 MG DAILY AC 10/23 0739 DCD 10/28 PO 0636 Oxycodone HCl 5 MG Q6P PRN 10/20 1600 DCD 10/28 PO 1110 Phenylephrine HCl 1 DRAGAN Q6P PRN 10/23 1515 DCD 10/23 WA 1711 Thiamine HCl 100 MG DAILY 10/23 1800 DCD 10/28 PO 0912 Last 24 Hrs of Lab/Scar Results Last 24 Hrs of Labs/Mics: Laboratory Tests 10/28/16 0618: Anion Gap 12, Estimated GFR > 60, BUN/Creatinine Ratio 16.0, Total Bilirubin 1.1 , Direct Bilirubin 0.2, AST 142 H, ALT 217 H, Alkaline Phosphatase 54, Total Protein 6.9, Albumin 4.7, CBC w Diff NO MAN DIFF REQ, RBC 4.85, MCV 91.8, MCH 30.1, RDW 15.3 H, MPV 9.0, Gran % 52.3, Lymphocytes % 30.3, Monocytes % 11.2 H , Eosinophils % 5.0, Basophils % 1.2, Absolute Granulocytes 2.3, Absolute Lymphocytes 1.3, Absolute Monocytes 0.5, Absolute Eosinophils 0.2, Absolute Basophils 0.1, PUBS MCHC 32.8 L Assessment/Plan Assessment: 50 yo M with pmh of multiple admissions for alcohol withdrawals/detoxifications with delirium tremens and withdrawal seizures, fatty liver disease, chest pain that has extensively been studied including cardiac catheterization not requiring any intervention, PTSD, anxiety, depression, recent subacute pruritus and rash treated with prednisone, presented to the emergency department requesting alcohol detoxification. Patient was initially admitted to the ICU, requiring IV Ativan drip and subsequently transferred to the general medical floor yesterday after stabilizing. He is currently being managed for the following issues in the general medical floor: #Alcohol detox Patient seems to have anxiety, otherwise his overnight CIWA scores. * Decreasing chlordiazepoxide from 40mg BID to 25mg BID tomorrow and 25mg the day after. Patient's condition is stable to be discharged as long as he gets the meds, and later has to follow up at [facility]. He is willing to follow up and wants to leave as soon as possible. * Continue Ordered Lurasidone per Psych service today * Continue CIWA protocol * Continue multivitamin, thiamine, folate * Continue PPI. * Continue Xanax 0.5 mg PO q6 PRN anxiety, psychiatry input regarding anxiety. #Transaminitis, alcoholic hepatitis, hepatic steatosis Patient had initial raised liver enzymes, likely due to alcoholic hepatitis. Ultrasound of right upper quadrant showed hepatic steatosis and mild hepatomegaly. #History of anxiety, depression, PTSD Psychiatric service on board. Appreciate consultation. Xanax PRN. #Atypical chest pain, most likely musculoskeletal Patient has a long-standing complaint of chest pain, which has been thoroughly studied, including with cardiac catheterization not requiring any intervention. He does not have coronary artery disease. However, due to persistent nature of his symptoms, pericarditis was thought as a possibility and colchicine was started . However also seen failed to relieve the symptoms, but instead is causing side effects of loose stool. Of note, patient complains of increased pain when pressed upon, that is, localized tenderness is present. * Colchicine has been stopped. * Continue pain management, but trying to switch him to oral forms and not IV Morphine everytime, as that would make it non-sustainable, as he does not seem to have obvious cardiovascular/pulmonary explanation for it. * Continue Lidoderm patch over the chest. * Continue PPI #Rash * Continue Hydroxyzine, steroid, and discontinue Benadryl, unless the patient's symtpms are not controlled with it. #Diet: Regular diet #DVT ppx: SQ Heparin #Code status: Full code Problem List: 1. Alcohol dependence 2. Atypical chest pain Pain Ratin Pain Location: - Pain Goal: Pain 4 or less Pain Plan: prn Tomorrow's Labs & Rationales: - IVON MARROQUIN MD 10/28/161: Attending MD Review Statement Attending Statement Attending MD Statement: examined this patient, discuss w/resident/PA/DELINQUENT TAX COLLECTOR ASSISTANT, agreed w/resident/PA/DELINQUENT TAX COLLECTOR ASSISTANT, reviewed EMR data (avail), discussed with nursing, discussed with case mgmt, amended to note Attending Assessment/Plan: The patient was seen and discussed with house staff. Agree with the plan of care as outlined. Appreciate psychiatry input. Patient is alert and oriented and wishes to go home. Has had multiple admissions. Appointment with psychiatry made and he stated he will see his PCP in [place] (Dr. Louie) for medical follow-up. and he stated he will see his PCP in [place] (Dr. Louie) for medical follow-up.
[2016-10-28 07:38] VITALS: BP 122/84
[2016-10-28 08:47] LABS: ABSOLUTE BASOPHIL COUNT 0.1 /CUMM (0.0-0.2); ABSOLUTE EOSINOPHIL COUNT 0.2 /CUMM (0.0-0.7); ABSOLUTE GRANULOCYTE CT 2.3 /CUMM (1.4-6.5); ABSOLUTE LYMPH COUNT 1.3 /CUMM (1.2-3.4); ABSOLUTE MONOCYTE COUNT 0.5 /CUMM (0.10-0.60); BASOPHIL % 1.2 % (0.0-2.0); GRANULOCYTE % 52.3 % (42.2-75.2); HEMATOCRIT 44.6 % (42-52); MEAN CORPUSCULAR HGB 30.1 PG (27.0-31.0); MEAN CORPUSCULAR HGB CONC 32.8 G/DL (33.0-37.0); MEAN CORPUSCULAR VOLUME 91.8 FL (80.0-94.0); PLATELET COUNT 164 /CUMM (130-400); RBC DISTRIBUTION WIDTH 15.3 % (11.5-14.5); RED BLOOD CELL CT 4.85 /CUMM (4.70-6.10); WHITE BLOOD CELL COUNT 4.4 /CUMM (4.8-10.8)
[2016-10-28 13:45] VITALS: BP 130/70
--- NOTE | 2016-10-28 13:55 | NUR ---
Have been following patients progress as it relates to his detox; patient continues on his librium taper. Met with patient to discuss aftercare options; originally Larry thought that he wanted to go to the IOP at [place]. Release of information was signed, and appropriate clinical information provided. Await return call with appointment date for intake. In the meantime, patient was agreeable to checking with our IOP and they are able to accomodate him with an intake tomorrow, October 29 at2:00pm. Jeff understands that this intake is for the evening program which is //, 5-8pm. Please call if other social work needs are identified.
--- NOTE | 2016-10-28 14:07 | Patient Discharge Instructions ---
Discharge Instructions General Discharge Information You were seen/treated for: Alcohol detoxification, anxiety, atypical chest pain, chronic rash Special Instructions: AVOID ALCOHOL. Please visit [facility] psychiatry as scheduled. Avoid taking too many medications that can make you drowsy, like opiates, Benadryl. Please follow-up with her primary care physician within 10 days of discharge. Please return to emergency room if symptoms worsen. Diet Continue normal diet: Yes Recommended Diet: Heart Healthy Activity Full Activity/No Limits: No Activity Self Limited: Yes Acute Coronary Syndrome Inclusion Criteria At DC or during hospital stay patient has or had the following: ACS DIAGNOSIS No Discharge Core Measures Meds if any: Prescribed or Continued at Discharge Meds if any: NOT Prescribed or Continued at Discharge Congestive Heart Failure Inclusion Criteria At DC or during hospital stay patient has or had the following: CHF DIAGNOSIS No Discharge Core Measures Meds if any: Prescribed or Continued at Discharge Meds if any: NOT Prescribed or Continued at Discharge Cerebrovascular accident Inclusion Criteria At DC or during hospital stay patient has or had the following: CVA/TIA Diagnosis No Discharge Core Measures Meds if any: Prescribed or Continued at Discharge Meds if any: NOT Prescribed or Continued at Discharge Venous thromboembolism Inclusion Criteria VTE Diagnosis No VTE Type NONE VTE Confirmed by (Test) NONE Discharge Core Measures - Per Current guidelines, there needs to be overlap - treatment for the first 5 days of Warfarin therapy. - If discharged on Warfarin prior to 5 days of - overlap therapy, the patient will need to be - assessed for post discharge needs including - *Post discharge parental anticoagulation - *Warfarin and/or parental anticoagulation education - *Follow up date to check INR post discharge At least 5 days overlap therapy as Inpatient No Meds if any: Prescribed or Continued at Discharge Note: Overlap Therapy is Warfarin and Anticoagulant Meds if any: NOT Prescribed or Continued at Discharge
[2016-10-28 15:56] VITALS: BP 130/70
[2016-10-28] MEDS ORDERED: CHLORDIAZEPOXID25 M3 PO ×3 (16:25→17:07)
--- NOTE | 2016-10-30 17:32 | Discharge Summary ---
Visit Information Visit Dates Admission Date: 10/20/16 Discharge Date: 10/28/16 Hospital Course Course Attending Physician: IVON MARROQUIN MD Primary Care Physician: SHAHNAZ HERNANDEZ MD Allergies: Coded Allergies: Penicillins (RASH 07/09/15) blueberry (hives, rash 07/14/16) Discharge Instructions General Discharge Information Code Status: Full Code Medications at Discharge Discharge Medications: Stop taking the following medications: Quetiapine Fumarate (Seroquel) 200 MG TABLET ORAL Every night Levofloxacin (Levaquin) 500 MG TABLET ORAL DAILY Continue taking these medications: Aspirin (Ecotrin*) 81 MG TABLET. 1 Tablet ORAL DAILY Comments: Last Taken: 10/28/16 Time: 9:30 AM Testosterone Cypionate (Testosterone Cypionate) 200 MG/ML VIAL 0.5 Milliliters INTRAMUSC EVERY THURSDAY Comments: NOT GIVEN IN HOSPITAL Atorvastatin Calcium (Lipitor) 80 MG TABLET 1 Tablet ORAL DAILY Qty = 30 Comments: Last Taken: 10/28/16 Time: 9:30 am Fluoxetine HCl (Prozac) 20 MG CAPSULE 3 Capsule ORAL DAILY Comments: Last Taken: 10/28/16 Time: 9:30 AM Folic Acid (Folic Acid) 1 MG TABLET 1 Tablet ORAL DAILY Comments: Last Taken: 10/28/16 Time: 9:30 AM Hydroxyzine Pamoate (Hydroxyzine Pamoate) 50 MG CAPSULE 1 Capsule ORAL THREE TIMES DAILY Comments: Last Taken: 10/28/16 Time: 12:45 PM Multivitamin (One Daily Multivitamin) 1 EACH TABLET 1 Tablet ORAL DAILY Qty = 1 Comments: Last Taken: 10/28/16 Time: 9:30 AM Pantoprazole Sodium (Protonix) 40 MG TABLET. 1 Tablet ORAL DAILY Qty = 30 Comments: Last Taken: 10/28/16 Time: 6:30 AM *PRILOSEC 40 MG GIVEN Gabapentin (Gabapentin) 300 MG CAPSULE 1 Capsule ORAL TWICE DAILY Comments: Last Taken: 10/28/16 Time: 9:30 AM Gabapentin (Gabapentin) 400 MG CAPSULE 1,200 Milligram ORAL Every night Comments: Last Taken: 10/27/16 Time: 9:30 PM Nitroglycerin (Nitroglycerin Patch) 0.4 MG/HOUR PATCH.TD24 0.4 Milligram On the skin DAILY Qty = 14 Instructions: 12 hours on, 12 hours off Comments: NOT GIVEN IN HOSPITAL Prazosin HCl (Prazosin HCl) 2 MG CAPSULE 2 Milligram ORAL Every night Qty = 30 Comments: NOT GIVEN IN HOSPITAL Lurasidone HCl (Latuda) 20 MG TABLET 40 Milligram ORAL DAILY Qty = 15 Comments: Last Taken: 10/28/16 Time: 5:15 PM Sildenafil Citrate (Viagra) 100 MG TABLET 1 Tablet ORAL DAILY NEEDED as needed for ED Instructions: 1 hour before sexual activity Comments: NOT GIVEN IN HOSPITAL Clonidine HCl (Clonidine HCl) 0.1 MG TABLET 1 Tablet ORAL Every night Qty = 30 Comments: Last Taken: 10/27/16 Time: 9:30 PM Hydralazine HCl (Hydralazine HCl) 50 MG TABLET 1 Tablet ORAL THREE TIMES DAILY Qty = 30 Comments: Last Taken: 10/28/16 Time: 4:00 PM Magnesium Oxide (Magnesium Oxide) 400 MG TABLET 1 Tablet ORAL DAILY Comments: NOT GIVEN IN HOSPITAL Metoprolol Tartrate (Metoprolol Tartrate) 25 MG TABLET 1 Tablet ORAL TWICE DAILY Comments: Last Taken: 10/28/16 Time: 12:45 PM Start taking the following new medications: Chlordiazepoxide HCl (Chlordiazepoxide HCl) 25 MG CAPSULE 0 ORAL SEE INSTRUCTIONS Qty = 3 No Refills Instructions: PLEASE TAKE ONE CAPSULE AT 10 AM AND ONE CAP AT 10 PM ON 10/29/16, THEN TAKE ONE CAP AT 10 AM ON 10/30/16, THEN STOP. Comments: Last Taken: 10/28/16 Time: 4:30 PM Copies To: SHAHNAZ HERNANDEZ MD
== END 2016-10-28 17:26 | DRG 897 ==
LOC: ERH 10:13 → ERHI 12:46 → CRI 12:46 → 2NB 12:46 → ENTRNSPT 14:45 → CRI 15:06 → CMPTRNSPT 15:22 → 2NB 10-23 17:12
PROVIDERS: Physician Assistant Medical; Student in an Organized Health Care Education/Training Program; ADMIT Internal Medicine Pulmonary Disease
DX: F10.231 Alcohol dependence with withdrawal delirium (principal); I11.0 Hypertensive heart disease with heart failure; I50.32 Chronic diastolic (congestive) heart failure; K70.10 Alcoholic hepatitis without ascites; J98.11 Atelectasis; E66.01 Morbid (severe) obesity due to excess calories; Y90.6 Blood alcohol level of 120-199 mg/100 ml; K70.0 Alcoholic fatty liver; Z68.36 Body mass index [BMI] 36.0-36.9, adult; G47.33 Obstructive sleep apnea (adult) (pediatric); I25.2 Old myocardial infarction; Z86.73 Personal history of transient ischemic attack (TIA), and cerebral infarction without residual deficits; F41.9 Anxiety disorder, unspecified; F43.10 Post-traumatic stress disorder, unspecified; I25.10 Atherosclerotic heart disease of native coronary artery without angina pectoris; R73.03 Prediabetes; F31.9 Bipolar disorder, unspecified; R21 Rash and other nonspecific skin eruption; R07.89 Other chest pain; G47.30 Sleep apnea, unspecified; Z87.11 Personal history of peptic ulcer disease; R74.0 Nonspecific elevation of levels of transaminase and lactic acid dehydrogenase [LDH]
CPT/HCPCS: 2NBSP; CCU; 36415; 80307; 82436; 93005; 93010; 96374; 96375; G0480; J0360; J1200; J1644; J2060; J2270; J2405; J3490; J7040; J7060

== ENCOUNTER 2017-06-25 14:31 | Inpatient (IN) | payer OTHER ==
[~2017-06-25] VITALS: Ht 167.6 cm; Wt 109.8 kg
[~2017-06-25 14:31] MED LIST changes: +ABILIFY5 M1 PO; +ACAMPROSATE CA333 M1 PO; +ATIVAN1 M1 PO; +CHLORDIAZEPOXID25 M3 PO; +DIPHENHYDRAMINE25 M4 PO; +FLUOXETINE HCL20 M2 PO; +METOPROLOL TART25 M1 PO; +OMEPRAZOLE20 M2 PO; +ZOFRAN ODT4 M1 SL; +ZOFRAN4 M2 PO
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
[2017-06-25] MEDS ORDERED: FLUOXETINE HCL20 M2 PO (15:01)
[2017-06-25 15:07] LABS: ABSOLUTE BASOPHIL COUNT 0 /CUMM (0.0-0.2); ABSOLUTE EOSINOPHIL COUNT 0 /CUMM (0.0-0.7); ABSOLUTE LYMPH COUNT 1.3 /CUMM (1.2-3.4); ABSOLUTE MONOCYTE COUNT 0.2 /CUMM (0.10-0.60); EOSINOPHIL % 1.2 % (0-5); GRANULOCYTE % 55.9 % (42.2-75.2); HEMATOCRIT 42.4 % (42-52); MEAN CORPUSCULAR HGB 31.1 PG (27.0-31.0); MEAN CORPUSCULAR VOLUME 91.4 FL (80.0-94.0); MEAN PLATELET VOLUME 8.2 FL (7.4-10.4); PLATELET COUNT 171 /CUMM (130-400); RED BLOOD CELL CT 4.64 /CUMM (4.70-6.10); WHITE BLOOD CELL COUNT 3.6 /CUMM (4.8-10.8)
--- NOTE | 2017-06-25 16:51 | RADIOLOGY REPORT ---
EXAMINATION: XR PORTABLE CHEST CLINICAL INFORMATION: Chest pain and shortness of breath COMPARISON: Chest x-rays most recent prior dated 01/14/2017 TECHNIQUE: Portable frontal view of the chest was obtained. FINDINGS: Cardiomegaly. Low lung volumes. Assessment of the left base is limited due to patient's body habitus and low lung volume. Mild central vascular congestion. Bony thorax is intact. IMPRESSION: Low lung volumes. Limited assessment of the left lung base due to patient's body habitus. Otherwise, no gross evidence of acute pulmonary disease.
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
--- NOTE | 2017-06-25 19:24 | Admission Certification ---
Admission Certification Certification Statement - As attending physician, I certify that at the time of - admission, based on clinical presentation, severity of - symptoms, need for further diagnostic testing and - therapeutic interventions, and risk of adverse outcomes - without in-hospital treatment, in my clinical assessment, - this patient requires an acute hospital stay for a minimum - of two nights or longer. I have also considered psychsocial - factors such as support system, advanced age, financial - issues, cognitive issues, and failed out-patient treatments, - past re-admission history, safety of patient, and lack of - compliance as applicable. Specific rationale supporting this admission is: Hypertensive urgency, chest pain syndrome, alcohol withdrawal, severe anxiety.
[2017-06-25 19:40] VITALS: BP 202/106
[2017-06-25 20:52] VITALS: BP 185/84
[2017-06-25 23:23] VITALS: BP 147/70
[2017-06-26] VITALS (10 sets, daily range): BP systolic 113–182; BP diastolic 59–106
[2017-06-26 06:11] LABS: ABSOLUTE BASOPHIL COUNT 0 /CUMM (0.0-0.2); ABSOLUTE EOSINOPHIL COUNT 0 /CUMM (0.0-0.7); ABSOLUTE LYMPH COUNT 1.1 /CUMM (1.2-3.4); ABSOLUTE MONOCYTE COUNT 0.2 /CUMM (0.10-0.60); BASOPHIL % 0.9 % (0.0-2.0); GRANULOCYTE % 60.3 % (42.2-75.2); HEMATOCRIT 40.3 % (42-52); MEAN CORPUSCULAR HGB 31.4 PG (27.0-31.0); MEAN CORPUSCULAR HGB CONC 34.2 G/DL (33.0-37.0); MEAN CORPUSCULAR VOLUME 91.6 FL (80.0-94.0); MEAN PLATELET VOLUME 8.2 FL (7.4-10.4); PLATELET COUNT 140 /CUMM (130-400); RBC DISTRIBUTION WIDTH 14.7 % (11.5-14.5); WHITE BLOOD CELL COUNT 3.3 /CUMM (4.8-10.8)
--- NOTE | 2017-06-26 07:41 | PN- Housestaff ---
Liv BARRIGA,Eric 06/26/17 0740: Subjective Follow-up For: Chest pain Hypertensive urgency Alcohol withdrawal Anxiety, depression, PTSD Subjective: Patient was seen and examined today. Patient reports chest pain which he rates as 7 out of 10 this morning that is located in his left chest and goes down his left arm. Patient also states he is having a headache rated 3-4 out of 10 that is located around his temples. Denies constipation/diarrhea, hematuria/dysuria. Patient reports ongoing tremors. Patient states that he slept well overnight. Patient reports nausea/vomiting. Denies hematemesis. Review of Systems Constitutional: Reports: see HPI. Objective Last 24 Hrs of Vital Signs/I&O Vital Signs Date Time Temp Pulse Resp B/P B/P Pulse O2 O2 Flow FiO2 Mean Ox Delivery Rate 06/26 1105 98.4 98 18 182/84 06/26 0846 97.8 105 20 171/106 06/26 0843 97.8 101 20 171/106 98 Room Air 06/26 0548 96.9 98 20 178/95 06/26 0547 96.9 98 20 178/95 96 Room Air 06/26 0333 96.8 70 20 113/59 06/26 0332 96.8 70 20 113/59 94 Nasal 2.0L Cannula 06/26 0141 98.0 74 18 132/71 06/26 0141 98.0 74 18 132/71 96 Room Air 06/25 2323 147/70 06/25 2322 147/70 06/25 2322 147/70 06/25 2322 147/70 06/25 2322 147/70 06/25 2322 97.7 83 18 147/70 06/25 2322 97.7 83 18 147/70 97 Nasal 2.0L Cannula 06/25 2051 97.9 77 18 185/84 06/25 2051 97.9 77 18 185/84 97 Nasal 2.0L Cannula 06/25 1939 98.8 116 22 202/106 06/25 193 98.8 116 22 202/106 06/25 191 98.8 116 22 202/106 94 Room Air 06/25 1504 96 Room Air Room Air 06/25 1432 98.1 90 20 179/97 97 Room Air Intake & Output 06/26 1600 06/26 0800 06/26 0000 Intake Total Output Total 500 Balance -500 Output, Urine 500 Physical Exam General Appearance: Alert, Oriented X3, Cooperative, No Acute Distress Skin Temp/Moisture Exam: Warm/Dry HEENT: Atraumatic, PERRLA, EOMI, Mucous Membr. moist/pink Cardiovascular: Regular Rate, Normal S1, Normal S2 Lungs: Clear to Auscultation, Normal Air Movement Abdomen: Normal Bowel Sounds, Soft, No Tenderness, distended Neurological: Normal Speech, resting tremor Extremities: No Clubbing, No Cyanosis, No Edema, Normal Pulses, No Tenderness/ Swelling Current Medications: Current Medications Sig/Tiffany Start time Last Medication Dose Route Stop Time Status Admin Acetaminophen 0 .STK-MED ONE 06/25 210 DC PO Acetaminophen 650 MG Q6P PRN 06/25 1815 AC 06/25 PO 210 Aripiprazole 5 MG QPM 06/25 2200 AC 06/25 PO 2323 Aspirin 0 .STK-MED ONE 06/25 1555 DC PO Aspirin 325 MG ONCE ONE 06/25 1545 DC 06/25 PO 06/25 1546 1557 Aspirin Buffered 81 MG DAILY 06/26 1000 AC PO Atorvastatin Calcium 80 MG 1700 06/26 1700 AC PO Clonidine 0 .STK-MED ONE 06/25 2301 DC PO Clonidine 0.1 MG BID 06/25 2200 AC 06/25 PO 2323 Enoxaparin Sodium 40 MG DAILY 06/26 1000 AC SC Fluoxetine HCl 60 MG DAILY 06/26 1000 AC PO Folic Acid 0 .STK-MED ONE 06/26 0917 DC PO Folic Acid 1 MG 0800 06/26 0800 AC 06/26 PO 0913 Gabapentin 300 MG QAM 06/26 1000 AC PO Gabapentin 1,200 MG QPM 06/25 2200 AC 06/25 PO 2323 Hydralazine HCl 50 MG TID 06/25 2200 AC 06/25 PO 2323 Lisinopril 40 MG DAILY 06/26 1000 AC PO Lorazepam 0 .STK-MED ONE 06/26 1118 DC .ROUTE Lorazepam 0 .STK-MED ONE 06/26 0855 DC .ROUTE Lorazepam 0 .STK-MED ONE 06/26 0611 DC PO Lorazepam 0 .STK-MED ONE 06/26 0610 DC .ROUTE Lorazepam 0 .STK-MED ONE 06/26 0008 DC PO Lorazepam 0 .STK-MED ONE 02/22 1935 DC PO Lorazepam 2 MG Q6 06/25 1914 AC 06/26 PO 0608 Lorazepam 0 Q1P PRN 06/25 1914 AC 06/26 IV 1116 Metoprolol Tartrate 0 .STK-MED ONE 06/25 2300 DC PO Metoprolol Tartrate 25 MG BID 06/25 2199 AC 06/25 PO 232 Metoprolol Tartrate 0 .STK-MED ONE 06/25 1933 DC IV Metoprolol Tartrate 5 MG ONCE ONE 06/25 1914 DC 06/25 IV 06/25 1915 193 Morphine Sulfate 1 MG Q6P PRN 06/26 0645 DC IV Morphine Sulfate 0 .STK-MED ONE 06/25 1554 DC .ROUTE Morphine Sulfate 4 MG ONCE ONE 06/25 1545 DC 06/25 IV 06/25 1546 1557 Multivitamins 1 TAB DAILY 06/26 1000 AC Therapeutic PO Omeprazole 0 .STK-MED ONE 06/26 09 DC PO Omeprazole 40 MG DAILY AC 06/26 0700 AC 06/26 PO 0913 Ondansetron HCl 0 .STK-MED ONE 06/26 0548 DC .ROUTE Ondansetron HCl 0 .STK-MED ONE 06/25 2104 DC .ROUTE Ondansetron HCl 4 MG Q6P PRN 06/25 2000 AC 06/26 IV 0547 Prazosin HCl 5 MG QPM 06/25 2199 AC 06/25 PO 232 Prazosin HCl 2 MG QPM 06/25 2199 AC 06/25 PO 2323 Thiamine HCl 0 .STK-MED ONE 06/26 09 DC PO Thiamine HCl 100 MG 0800 06/26 0800 AC 06/26 PO 09 Zolpidem Tartrate 0 .STK-MED ONE 06/25 2301 DC PO Zolpidem Tartrate 5 MG AT BEDTIME 06/25 2199 DC 06/25 PO 06/25 2200 232 Last 24 Hrs of Lab/Scar Results Last 24 Hrs of Labs/Mics: Laboratory Tests 06/26/17 0604: Anion Gap 20 H, Estimated GFR > 60, BUN/Creatinine Ratio 22.9, CBC w Diff NO MAN DIFF REQ, RBC 4.40 L, MCV 91.6, MCH 31.4 H, MCHC 34.2, RDW 14.7 H, MPV 8.2, Gran % 60.3, Lymphocytes % 32.8, Monocytes % 5.0, Eosinophils % 1.0, Basophils % 0.9, Absolute Granulocytes 2.0, Absolute Lymphocytes 1.1 L, Absolute Monocytes 0.2, Absolute Eosinophils 0, Absolute Basophils 0 06/26/17 0253: Troponin I < 0.01 06/25/17 2335: Urine Opiates Screen > 4000.00 H, Methadone Screen < 40, Barbiturate Screen 72, Ur Phencyclidine Scrn < 6.00, Amphetamines Screen < 100, U Benzodiazepines Scrn > 800 H, Urine Cocaine Screen < 50, Urine Cannabis Screen < 5.00, Urinalysis LIGHT H, Urine Color STRAW, Urine Clarity CLEAR, Urine pH 6.0, Ur Specific [place] >= 1.030, Urine Protein 30 H, Urine Ketones NEG, Urine Nitrite NEG, Urine Bilirubin NEG, Urine Urobilinogen 0.2, Ur Leukocyte Esterase NEG, Ur Microscopic SEDIMENT EXAMINED, Urine WBC RARE, Ur Epithelial Cells RARE, Urine Mucus PACKD H, Urine Hemoglobin NEG, Urine Glucose NEG 06/25/17 2115: Troponin I < 0.01 06/25/17 1500: Anion Gap 19 H, Estimated GFR > 60, BUN/Creatinine Ratio 17.1, Glucose 102 H, Calcium 9.2, Total Bilirubin 1.1, AST 199 H, ALT 119 H, Alkaline Phosphatase 67, Troponin I < 0.01, Total Protein 7.1, Albumin 4.7, Globulin 2.4, Albumin/ Globulin Ratio 2.0, Lipase 258, D-Dimer High Sensitivty 240, CBC w Diff NO MAN DIFF REQ, RBC 4.64 L, MCV 91.4, MCH 31.1 H, MCHC 34.0, RDW 15.0 H, MPV 8.2, Gran % 55.9, Lymphocytes % 36.5, Monocytes % 5.4, Eosinophils % 1.2, Basophils % 1.0, Absolute Granulocytes 2.0, Absolute Lymphocytes 1.3, Absolute Monocytes 0.2 , Absolute Eosinophils 0, Absolute Basophils 0, Serum Alcohol 369.0 Assessment/Plan Assessment: Patient is a chronic chest pain and per patient has had CT in the past requiring cardiac catheterization with no occlusions seen, history of alcohol abuse, alcohol detoxification, alcoholic pancreatitis, anxiety, depression, PTSD, history of TIAs presenting this admission with chief complaint of chest pain. Patient today continues to complain of chest pain. Patient's EKG and trops have been negative thus far. Patient's chest pain does not appear to be of cardiac etiology. It is likely that it may be secondary to patient's significant external stressors. Patient will be seen by psychiatry. Patient is currently going through withdrawal with significant tremors. Patient's CIWA max is 15, requiring PRN IV ativan. Patient's blood pressure this morning was elevated. After receiving his home medications in the afternoon patient's blood pressure came down to the 130s/80s. Patient will be admitted to the telemetry floor for management of followin. Chest pain, rule out ACS Patient has an extensive history of chest pain. Patient's troponin and EKG at this time are negative. -Admitted to telemetry -Serial EKG and troponins negative x 3 -Cardiology consult. Appreciate recommendations -Avoid nitroglycerin as patient has severe migraines -Pain control -Lipid level -Continue aspirin, atorvastatin 2. Hypertensive urgency Patient's blood pressure on admission was 202/106. - Continue patient's home medication of clonidine 0.1 mg, metoprolol 25 mg twice a day, hydralazine 50 mg 3 times a day -Will give patient IV Lopressor and continue to monitor blood pressure - Repeat BEP - Monitor on telemetry - Serial EKG and troponins 3. Alcohol abuse/withdrawal Patient has been drinking heavily for the last known drink the morning of admission. Patient is currently having tremors. 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 History of anxiety, depression, PTSD Patient was tearful on exam. Currently denies any suicidal or homicidal ideations. Patient is agreeable to seeing psychiatry this admission. Patient is on psychiatric medications. -Continue fluoxetine, clonidine, gabapentin, aripiprazole, prazosin -Psychiatry consult 5. Transaminitis Patient's AST and ALTs are elevated likely secondary to alcohol abuse. Patient denies any abdominal pain at this time. - Continue to monitor liver function tests 6. History of GERD Continue omeprazole 7. History of hyperlipidemia Continue atorvastatin DVT prophylaxis: Lovenox, Alps Diet: Regular diet Code: Full code Problem List: 1. Hypertensive urgency 2. Alcohol abuse 3. PTSD (post-traumatic stress disorder) Pain Ratin Pain Location: chest head Pain Goal: Pain 7 or less Pain Plan: tylenol Tomorrow's Labs & Rationales: bep lfts Royal Reyes MD 06/26/17 1731: Attending MD Review Statement Attending Statement Attending MD Statement: examined this patient, discuss w/resident/PA/HEALTHCARE INTERPRETER, agreed w/resident/PA/HEALTHCARE INTERPRETER, reviewed EMR data (avail), reviewed images, amended to note Attending Assessment/Plan: The patient was seen and discussed with house staff. Also reviewed records from recent [facility] admission ([place]). He was there 2/3 and treated for EtOH detox and chest pain. His troponins were negative there and are here again. He claims h/o CT, however there is no h/o CT that has been documented. He has had multiple workups and cardiac cath. Etiology of his chest pain has always been unclear. He does not seem to respond to reflux Rx. His troponin levels remain negative. Await cardiology input, however would favor no further cardiac evaluation. Will continue detox. Psych and social service input requested.
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
--- NOTE | 2017-06-27 05:07 | PN- Housestaff ---
Sunni BARRIGA,Hortencia 06/27/17 0506: Subjective Follow-up For: Alcohol detox Complaints: no complaints Tele-Events Since Last Visit: No new overnight event, will DC the telemetry and keep the patient as general medicine hold Subjective: Patient seen and examined at the bedside he denies current active complaints. Review of Systems Constitutional: Denies: no symptoms. Objective Last 24 Hrs of Vital Signs/I&O Vital Signs Date Time Temp Pulse Resp B/P B/P Pulse O2 O2 Flow FiO2 Mean Ox Delivery Rate 06/27 1620 82 142/82 06/27 1420 97.6 63 20 150/100 96 Room Air 06/27 1400 91 150/100 06/27 0835 63 142/88 06/27 0834 63 142/88 06/27 0834 63 142/88 06/27 0834 63 142/88 06/27 0654 98.5 63 20 142/88 94 Room Air 06/26 211 97.9 84 20 140/84 96 Room Air 06/26 2110 86 140/84 06/26 211 86 140/84 06/26 2111 86 140/84 06/26 2111 86 140/84 Intake & Output 06/27 1600 06/27 0800 06/27 0000 Intake Total 600 100 610 Output Total 200 125 Balance 600 -100 485 Intake, IV 10 Intake, Oral 600 100 600 Number 1 Bowel Movements Output, Urine 200 125 Physical Exam General Appearance: Alert, Oriented X3, Cooperative, No Acute Distress Cardiovascular: Normal S1, Normal S2 Lungs: Clear to Auscultation, Normal Air Movement Abdomen: Soft, No Tenderness Neurological: Normal Speech Extremities: No Clubbing, No Cyanosis, No Edema Current Medications: Current Medications Sig/Tiffany Start time Last Medication Dose Route Stop Time Status Admin Acetaminophen 650 MG Q6P PRN 06/25 1815 AC 06/27 PO 1227 Aripiprazole 5 MG QPM 06/25 2200 AC 06/26 PO 2110 Aspirin Buffered 81 MG DAILY 06/26 1000 AC 06/27 PO 0834 Atorvastatin Calcium 80 MG 1700 06/26 1700 AC 06/27 PO 1620 Clonidine 0.1 MG BID 06/250 AC 06/27 PO 0834 Enoxaparin Sodium 40 MG DAILY 06/26 1000 AC SC Fluoxetine HCl 60 MG DAILY 06/26 1000 AC 06/27 PO 0835 Folic Acid 1 MG 0800 06/26 0800 AC 06/27 PO 0833 Gabapentin 300 MG QAM 06/27 1000 AC 06/27 PO 0834 Gabapentin 300 MG BID 06/26 2200 CAN PO Gabapentin 300 MG QAM 06/26 1000 DC 06/26 PO 1156 Gabapentin 1,200 MG QPM 06/25 220 DC 06/25 PO 2323 Hydralazine HCl 50 MG TID 06/25 2199 AC 06/27 PO 1620 Lisinopril 40 MG DAILY 06/26 1000 AC 06/27 PO 0835 Lorazepam 1.5 MG Q6 06/27 1800 AC PO Lorazepam 2 MG Q6 06/25 191 DC 06/27 PO 1110 Lorazepam 0 Q1P PRN 06/25 191 DC 06/26 IV 1324 Metoprolol Tartrate 25 MG BID 06/25 2199 AC 06/27 PO 0834 Multivitamins 1 TAB DAILY 06/26 1000 AC 06/27 Therapeutic PO 0835 Omeprazole 40 MG DAILY AC 06/26 0700 AC 06/27 PO 0552 Ondansetron HCl 4 MG Q6P PRN 06/25 2000 AC 06/26 IV 0547 Potassium Chloride 40 MEQ ONCE ONE 06/27 0915 DC 06/27 PO 06/27 0916 1111 Prazosin HCl 5 MG QPM 06/250 AC 06/26 PO 2111 Prazosin HCl 2 MG QPM 06/25 220 AC 06/26 PO 2110 Thiamine HCl 100 MG 0800 06/26 0800 AC 06/27 PO 0834 Witch Christina 1 JAR DAILY NEEDED PRN 06/27 1545 AC TOP Witch Christina 1 JAR ONCE PRN 06/26 2014 DC TOP 06/26 2300 Last 24 Hrs of Lab/Scar Results Last 24 Hrs of Labs/Mics: Laboratory Tests 06/27/17 0610: Anion Gap 13, Estimated GFR > 60, BUN/Creatinine Ratio 17.1, Total Bilirubin 2.4 H, Direct Bilirubin 0.4, AST 166 H, ALT 96 H, Alkaline Phosphatase 52, Total Protein 6.1 L, Albumin 3.9 Assessment/Plan Assessment: Patient is a 51-year-old male presented with chief complaints of chest pain. Patient was recently hospitalized at [facility] for alcohol detox, and chest pain. His troponins were consistently negative. He had cardiac workup in the past including cardiac catheterization which were negative. It does not seems that his chest pain is secondary to cardiac etiology. We DC the telemetry and transfer the patient to general medicine floor. Vital signs-temperature 97.6, pulse 63, respiratory rate 20, blood pressure 142/ 82, SPO2 96% on room air. CIWA score is -3, 2, 2, 3, 6, 5, 6, 8. Assessment and plan - * We will treat alcohol detox by giving as needed lorazepam. * We will stop IV Lorazepam, and decrease to 1mg BID, and increase as needed. * CIWA protocol * We will follow psychiatry recommendation * We will get the help from social welfare clerk * We will continue on his home medication * Heart healthy diet * Full code * We will plan to discharge tomorrow * * Problem List: 1. Chest pain syndrome 2. Hypertensive urgency Pain Ratin Pain Location: Not applicable Pain Goal: Remain pain free Pain Plan: Avoid sedative hypnotics Tomorrow's Labs & Rationales: Not required Checo Headley MD 06/27/17 1548: Attending MD Review Statement Attending Statement Attending MD Statement: examined this patient, discuss w/resident/PA/ELECTRIC RANGE PREPARER, agreed w/resident/PA/ELECTRIC RANGE PREPARER, reviewed EMR data (avail) Attending Assessment/Plan: The patient was seen and discussed with house staff. He was there 2/3 and treated for EtOH detox and chest pain. His troponins were negative there and are here again. He claimed h/o PA, however there is no h/o PA that has been documented. He has had multiple workups and cardiac cath. Etiology of his chest pain has always been unclear. He does not seem to respond to reflux Rx. His troponin levels remain negative. Await cardiology input, however would favor no further cardiac evaluation. Will continue detox. Psych and social service input requested. This morning patient denies any specific complaints of chest pain shortness of breath lightheadedness dizziness. Feels a lot better this morning and wants to go home. Mentioned that he is still been requiring IV Ativan and his CIWA scores have been moderately high. Will consider for discharge in the morning. Patient agreeable to the plan.
[2017-06-27 06:54] VITALS: BP 142/88
[2017-06-27 14:00] VITALS: BP 150/100
[2017-06-27 14:20] VITALS: BP 150/100
[2017-06-27 22:00] VITALS: BP 152/92
[2017-06-28 06:51] VITALS: BP 164/92
--- NOTE | 2017-06-28 08:50 | PN- Housestaff ---
Liv BARRIGA,Eric 06/28/17 0849: Subjective Follow-up For: Chest pain Hypertensive urgency Alcohol withdrawal Anxiety, depression, PTSD Tele-Events Since Last Visit: gen med hold Subjective: Patient was seen and examined today. Patient continues to have chest pain which he now rates it 2 out of 10 in severity. Patient states that this is typical chronic chest pain. Patient denies any shortness breath, palpitations, nausea/ vomiting, tremors, hallucinations, headache, dysuria/hematuria, constipation/ diarrhea. Review of Systems Constitutional: Reports: see HPI. Objective Last 24 Hrs of Vital Signs/I&O Vital Signs Date Time Temp Pulse Resp B/P B/P Pulse O2 O2 Flow FiO2 Mean Ox Delivery Rate 06/28 1203 67 136/81 06/28 1025 17292 06/28 1025 17292 06/28 1025 17292 06/28 1024 17292 06/28 0651 97.8 65 18 164/92 97 Room Air 06/27 2200 97.9 62 18 152/92 97 Room Air Intake & Output 06/28 1600 06/28 0800 06/28 0000 Intake Total 440 110 880 Output Total Balance 440 110 880 Intake, IV 10 Intake, Oral 440 100 880 Output, Urine Physical Exam General Appearance: Alert, Cooperative, No Acute Distress Skin Temp/Moisture Exam: Warm/Dry HEENT: Atraumatic, Mucous Membr. moist/pink Cardiovascular: Regular Rate, Normal S1, Normal S2 Lungs: Clear to Auscultation, Normal Air Movement Abdomen: Normal Bowel Sounds, Soft, No Tenderness Neurological: Normal Gait, Normal Speech, Strength at 5/5 X4 Ext, Normal Tone, Sensation Intact, Cranial Nerves 3-12 NL, Reflexes 2+ Extremities: No Clubbing, No Cyanosis, No Edema, Normal Pulses, No Tenderness/ Swelling Current Medications: Current Medications Sig/Tiffany Start time Last Medication Dose Route Stop Time Status Admin Acetaminophen 650 MG .STK-MED ONE 06/28 0210 DC PO 06/28 0211 Acetaminophen 650 MG Q6P PRN 06/25 1815 DCD 06/28 PO 0210 Aripiprazole 5 MG QPM 06/25 2200 DCD 06/27 PO 2107 Aspirin Buffered 81 MG DAILY 06/26 1000 DCD 06/28 PO 1025 Atorvastatin Calcium 80 MG 1700 06/26 1700 DCD 06/27 PO 1620 Clonidine 0.1 MG BID 06/25 2199 DCD 06/28 PO 1025 Enoxaparin Sodium 40 MG DAILY 06/26 1000 DCD SC Fluoxetine HCl 60 MG DAILY 06/26 1000 DCD 06/28 PO 1025 Folic Acid 1 MG 0800 06/26 0800 DCD 06/28 PO 1024 Gabapentin 300 MG QAM 06/27 1000 DCD 06/28 PO 1025 Hydralazine HCl 50 MG TID 06/25 2199 DCD 06/28 PO 1024 Lisinopril 40 MG DAILY 06/26 1000 DCD 06/28 PO 1025 Lorazepam 1 MG BID 06/27 2199 DCD 06/28 PO 1028 Metoprolol Tartrate 50 MG BID 06/280 CAN PO Metoprolol Tartrate 25 MG BID 06/28 2199 DCD PO Metoprolol Tartrate 25 MG BID 06/25 220 DC 06/28 PO 1025 Multivitamins 1 TAB DAILY 06/26 1000 DCD 06/28 Therapeutic PO 1025 Omeprazole 40 MG DAILY AC 06/26 0700 DCD 06/28 PO 0614 Ondansetron HCl 4 MG Q6P PRN 06/25 2000 DCD 06/26 IV 0547 Potassium Chloride 60 MEQ ONCE ONE 06/28 1230 DC 06/28 PO 06/28 1231 1317 Potassium Chloride 60 MEQ ONCE ONE 06/28 1200 CAN PO 06/28 1201 Prazosin HCl 5 MG QPM 06/25 2199 DCD 06/27 PO 2106 Prazosin HCl 2 MG QPM 06/25 2199 DCD 06/27 PO 2106 Thiamine HCl 100 MG 06/26 0800 DCD 06/28 PO 1024 Witch Christina 1 JAR DAILY NEEDED PRN 06/27 1545 DCD TOP Zolpidem Tartrate 5 MG AT BEDTIME 06/28 2199 DC PO Zolpidem Tartrate 5 MG AT BEDTIME 06/28 0215 DCD 06/28 PO 0209 Last 24 Hrs of Lab/Scar Results Last 24 Hrs of Labs/Mics: Laboratory Tests 06/28/17 1005: Sodium Cancelled, Potassium Cancelled, Chloride Cancelled, Carbon Dioxide Cancelled, Anion Gap Cancelled, BUN Cancelled, Creatinine Cancelled, BUN/ Creatinine Ratio Cancelled 06/28/17 1005: Anion Gap 14, Estimated GFR > 60, BUN/Creatinine Ratio 18.3, Total Bilirubin 2.1 H, Direct Bilirubin 0.5 H, AST 598 H, ALT 257 H, Alkaline Phosphatase 60, Total Protein 6.8, Albumin 4.4, CBC w Diff NO MAN DIFF REQ, RBC 4.24 L, MCV 91.7, MCH 31.1 H, MCHC 33.9, RDW 14.2, MPV 9.6, Gran % 81.8 H, Lymphocytes % 11.4 L, Monocytes % 3.8, Eosinophils % 2.5, Basophils % 0.5, Absolute Granulocytes 2.7, Absolute Lymphocytes 0.4 L, Absolute Monocytes 0.1, Absolute Eosinophils 0.1, Absolute Basophils 0 Assessment/Plan Assessment: Patient is a chronic chest pain and per patient has had OK in the past requiring cardiac catheterization with no occlusions seen, history of alcohol abuse, alcohol detoxification, alcoholic pancreatitis, anxiety, depression, PTSD, history of TIAs presenting this admission with chief complaint of chest pain. Patient today continues to complain of chest pain however chest pain has improved and is now at his baseline. Patient's vital signs are stable today. Patient's EKG and trops have been negative. Patient's chest pain does not appear to be of cardiac etiology. It is likely that it may be secondary to patient's significant external stressors. Patient was seen by psychiatry. Per psychiatry patient's fluoxetine will be stopped. Patient CIWA remains under 5. Patient CIWA on assessment this morning was 0. Patient's LFTs were elevated. Patient had a right upper quadrant ultrasound which showed no interval changes from previous. Patient's repeat LFTs showed a decreasing T bili however increased AST/ALT. This is likely attributed to patients alcohol abuse and also may be attributed to zolpidem which patient received this admission which was stopped today Patient will be admitted to the telemetry floor for management of followin. Chest pain, rule out ACS Patient has an extensive history of chest pain. Patient's troponin and EKG at this time are negative. -Admitted to telemetry -Serial EKG and troponins negative x 3 -Cardiology consult. Appreciate recommendations -Avoid nitroglycerin as patient has severe migraines -Pain control -Continue aspirin, atorvastatin - Patient to follow-up with cardiology outpatient upon discharge today 2. Hypertensive urgency- resolved Patient's blood pressure on admission was 202/106. Patient's blood pressure upon discharge was in the 130s over 80s - Continue patient's home medication of clonidine 0.1 mg, metoprolol 25 mg twice a day, hydralazine 50 mg 3 times a day - Patient should continue lisinopril 40 mg daily 3. Alcohol abuse/withdrawal Patient has been drinking heavily for the last known drink the morning of admission. Patient CIWA is 0 today. - Patient to follow-up with psychiatry for intensive outpatient psychiatric therapy - Patient seen by social media marketing specialist. 4. History of anxiety, depression, PTSD Patient was tearful on exam. Currently denies any suicidal or homicidal ideations. Patient is agreeable to seeing psychiatry this admission. Patient is on psychiatric medications. -Continue, clonidine, aripiprazole, prazosin -Discontinued fluoxetine today -Decreased home dose of gabapentin to 300 mg every morning and every afternoon -Discontinued zolpidem today 5. Transaminitis Patient's AST and ALTs are elevated likely secondary to alcohol abuse. Patient denies any abdominal pain at this time. Repeat LFTs showed decreased T bili however increased AST/ALT. Patient had a right upper quadrant ultrasound this morning which was consistent with previous imaging. -Patient to follow-up with his primary care physician and have repeat LFTs on 07/02/2017 6. History of GERD Continue omeprazole 7. History of hyperlipidemia Continue atorvastatin DVT prophylaxis: Lovenox, Alps Diet: Regular diet Code: Full code Dispo: discharge home today Problem List: 1. Hypertensive urgency 2. Abnormal LFTs 3. Alcohol withdrawal 4. Chest pain 5. Anxiety 6. PTSD (post-traumatic stress disorder) Pain Ratin Pain Location: chest Pain Goal: Pain 4 or less Pain Plan: tylenol PRN Tomorrow's Labs & Rationales: none- discharge home today Checo Headley MD 06/28/17 1343: Attending MD Review Statement Attending Statement Attending MD Statement: examined this patient, discuss w/resident/PA/ELEVATED WORK PLATFORM OPERATOR, agreed w/resident/PA/ELEVATED WORK PLATFORM OPERATOR, reviewed EMR data (avail) Attending Assessment/Plan: The patient was seen and discussed with house staff. He was there 2/3 and treated for EtOH detox and chest pain. His troponins were negative there and are here again. He claimed h/o OK, however there is no h/o OK that has been documented. He has had multiple workups and cardiac cath. Etiology of his chest pain has always been unclear. He does not seem to respond to reflux Rx. His troponin levels remain negative. Await cardiology input, however would favor no further cardiac evaluation. Will continue detox. Psych and social service input requested. This morning patient denies any specific complaints of chest pain shortness of breath lightheadedness dizziness. Feels a lot better this morning and wants to go home. His see was course have been range of 0-2. We have discontinued the Ativan. Patient has been having mild worsening of his transaminitis, his hyperbilirubinemia is getting better. Most likely is related to his alcohol intake, right upper quadrant ultrasound was obtained which was not remarkable. Patient denies any symptoms of abdominal pain, negative Contreras's sign. Patient's blood pressure has been elevated and repeat blood pressures are better. Consider increasing dose of beta joycelyn however patient mentions that he gets bradycardic. Will hold off for now. Discharge the patient, patient walked around the department without any symptoms of lightheadedness dizziness chest pain. Have the patient follow with primary care physician 1 week with repeat liver function tests.
--- NOTE | 2017-06-28 10:14 | ULTRASOUND REPORT ---
EXAMINATION: US ABDOMEN LIMITED CLINICAL INFORMATION: Alcohol abuse, sudden elevation of bilirubin and transaminases. COMPARISON: Right upper quadrant ultrasound from 07/15/[address] abdomen and pelvis from 07/14/2016 TECHNIQUE: Real-time imaging of the right upper quadrant abdominal viscera. FINDINGS: PANCREAS: Unremarkable as visualized. Pancreas is partly obscured by bowel gas. LIVER: The liver again is noted to be enlarged, measuring 21.5 cm in length, with increased echogenicity compatible with steatosis. A few small round hypoechoic lesions are again seen, noted in the left hepatic lobe measuring up to 1.7 cm in diameter and in the right hepatic lobe up to 0.9 cm in diameter. These appear similar compared to the prior ultrasound from 07/15/2016. However, no definite correlate is noted on CT. Hepatic contour remains relatively smooth. No intrahepatic biliary duct dilation. GALLBLADDER: Normal. The gallbladder is physiologically distended without evidence of stones, sludge, polyps, wall thickening or pericholecystic fluid. COMMON BILE DUCT: Normal in caliber measuring 0.4 cm in diameter. RIGHT KIDNEY: Normal. No hydronephrosis. No renal calculi or focal parenchymal lesions. The kidney measures 13.3 cm in maximum dimension. FREE FLUID: None. IMPRESSION: Again seen is hepatomegaly and steatosis. 2 small hypoechoic lesions are again noted within the liver as described above, similar in size compared to prior. These could represent cysts although there is no discernible lesion on corresponding CTs. Question focal fatty sparing. Normal appearance of the gallbladder without cholelithiasis. No biliary ductal dilation.
[2017-06-28 11:02] LABS: ABSOLUTE BASOPHIL COUNT 0 /CUMM (0.0-0.2); ABSOLUTE EOSINOPHIL COUNT 0.1 /CUMM (0.0-0.7); ABSOLUTE GRANULOCYTE CT 2.7 /CUMM (1.4-6.5); ABSOLUTE LYMPH COUNT 0.4 /CUMM (1.2-3.4); ABSOLUTE MONOCYTE COUNT 0.1 /CUMM (0.10-0.60); BASOPHIL % 0.5 % (0.0-2.0); EOSINOPHIL % 2.5 % (0-5); GRANULOCYTE % 81.8 % (42.2-75.2); HEMATOCRIT 38.8 % (42-52); MEAN CORPUSCULAR HGB 31.1 PG (27.0-31.0); MEAN CORPUSCULAR HGB CONC 33.9 G/DL (33.0-37.0); MEAN CORPUSCULAR VOLUME 91.7 FL (80.0-94.0); MEAN PLATELET VOLUME 9.6 FL (7.4-10.4); RBC DISTRIBUTION WIDTH 14.2 % (11.5-14.5); RED BLOOD CELL CT 4.24 /CUMM (4.70-6.10); WHITE BLOOD CELL COUNT 3.3 /CUMM (4.8-10.8)
[2017-06-28] MEDS ORDERED: LOPRESSOR50 M1 PO (11:18)
[2017-06-28 11:24] LABS: PLATELET COUNT 96 /CUMM (130-400)
[2017-06-28] MEDS ORDERED: ZOLPIDEM TARTRAT5 M1 PO (11:24)
[2017-06-28] MEDS ORDERED: GABAPENTIN300 M2 PO ×3 (11:24→13:10)
--- NOTE | 2017-06-28 11:28 | Patient Discharge Instructions ---
Discharge Instructions General Discharge Information You were seen/treated for: Chest Pain Alcohol Detox Anxiety/Depression PTSD Special Instructions: 1. Please follow up with your primary care physician within 1 week of discharge 2. 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 3. Please follow up with outpatient psychiatry. You have been given an appointment: 07/01/17, at 3:30 PM with Parisa, at [address], [phone]. You should bring his photo ID and insurance card. 4. Please note your medications have been changed. - Please stop taking fluoxetine. - Please note the gabapentin has been decreased to 300mg at night. - Please start taking lisinopril. Please get your bloodwork done on 07/02/2017 and follow up with your pcp. Diet Continue normal diet: No Recommended Diet: Heart Healthy Activity Full Activity/No Limits: No Activity Self Limited: Yes Acute Coronary Syndrome Inclusion Criteria At DC or during hospital stay patient has or had the following: ACS DIAGNOSIS No Discharge Core Measures Meds if any: Prescribed or Continued at Discharge Meds if any: NOT Prescribed or Continued at Discharge Congestive Heart Failure Inclusion Criteria At DC or during hospital stay patient has or had the following: CHF DIAGNOSIS No Discharge Core Measures Meds if any: Prescribed or Continued at Discharge Meds if any: NOT Prescribed or Continued at Discharge Cerebrovascular accident Inclusion Criteria At DC or during hospital stay patient has or had the following: CVA/TIA Diagnosis No Discharge Core Measures Meds if any: Prescribed or Continued at Discharge Meds if any: NOT Prescribed or Continued at Discharge Venous thromboembolism Inclusion Criteria VTE Diagnosis No VTE Type NONE VTE Confirmed by (Test) NONE Discharge Core Measures - Per Current guidelines, there needs to be overlap - treatment for the first 5 days of Warfarin therapy. - If discharged on Warfarin prior to 5 days of - overlap therapy, the patient will need to be - assessed for post discharge needs including - *Post discharge parental anticoagulation - *Warfarin and/or parental anticoagulation education - *Follow up date to check INR post discharge At least 5 days overlap therapy as Inpatient No Meds if any: Prescribed or Continued at Discharge Note: Overlap Therapy is Warfarin and Anticoagulant Meds if any: NOT Prescribed or Continued at Discharge
[2017-06-28 12:03] VITALS: BP 136/81
[2017-06-28] MEDS ORDERED: METOPROLOL TART25 M1 PO ×2 (12:24→13:10)
[2017-06-28] MEDS ORDERED: PROTONIX40 M3 PO (13:10)
[2017-06-28] MEDS ORDERED: LIPITOR80 M1 PO (13:10)
[2017-06-28] MEDS ORDERED: ABILIFY5 M1 PO (13:10)
[2017-06-28] MEDS ORDERED: MINIPRESS5 MG PO ×2 (13:10→13:40)
[2017-06-28] MEDS ORDERED: HYDRALAZINE HCL50 M1 PO (13:10)
[2017-06-28] MEDS ORDERED: CLONIDINE HCL0.1 MG PO (13:10)
[2017-06-28] MEDS ORDERED: PRAZOSIN HCL2 M1 PO ×2 (13:10→13:38)
[2017-06-28] MEDS ORDERED: LISINOPRIL20 M1 PO (13:10)
--- NOTE | 2017-06-28 16:17 | Discharge Summary ---
Visit Information Visit Dates Admission Date: 06/25/17 Discharge Date: 06/28/17 Hospital Course Course Attending Physician: Royal Reyes MD Primary Care Physician: Yoselin Louie MD Allergies: Coded Allergies: Penicillins (RASH 06/25/17) blueberry (hives, rash 06/25/17) nitroglycerin (MIGRAINE 06/25/17) Discharge Instructions Medications at Discharge Discharge Medications: Stop taking the following medications: Metoprolol Tartrate (Metoprolol Tartrate) 25 MG TABLET ORAL TWICE DAILY Qty = 28 Gabapentin (Gabapentin) 400 MG CAPSULE ORAL Every night Qty = 42 Diphenhydramine HCl (Diphenhydramine HCl) 25 MG CAPSULE ORAL AT BEDTIME Qty = 14 Fluoxetine HCl (Fluoxetine HCl) 20 MG CAPSULE ORAL DAILY Continue taking these medications: Aspirin (Ecotrin*) 81 MG TABLET.DR 1 Tablet ORAL DAILY Comments: Last Taken: 06/28/17 Time: 10:25 AM Testosterone Cypionate (Testosterone Cypionate) 200 MG/ML VIAL 0.5 Milliliters INTRAMUSC EVERY THURSDAY Comments: NOT GIVEN IN HOSPITAL Multivitamin (One Daily Multivitamin) 1 EACH TABLET 1 Tablet ORAL DAILY Qty = 1 Comments: Last Taken: 06/28/17 Time: 10:25 AM Folic Acid (Folic Acid) 1 MG TABLET 1 Tablet ORAL DAILY @8 AM Qty = 14 Instructions: Take 1 tab po daily. Comments: Last Taken: 06/28/17 Time: 10:25 AM Thiamine HCl (Vitamin B-1) 100 MG TABLET 1 Tablet ORAL DAILY @8 AM Qty = 14 Instructions: Take 1 tab po daily. Comments: Last Taken: 06/28/17 Time: 10:25 AM Magnesium Oxide (Magnesium Oxide) 400 MG TABLET 1 Tablet ORAL DAILY Qty = 14 Instructions: Take 1 tab po daily. Comments: NOT GIVEN IN HOSPITAL Atorvastatin Calcium (Lipitor) 80 MG TABLET 1 Tablet ORAL DAILY Qty = 30 Comments: Last Taken: 06/27/17 Time: 4:20 PM This prescription has been renewed Clonidine HCl (Clonidine HCl) 0.1 MG TABLET 1 Tablet ORAL TWICE DAILY Qty = 30 Comments: Last Taken: 06/28/17 Time: 10:25 AM This prescription has been renewed Hydralazine HCl (Hydralazine HCl) 50 MG TABLET 1 Tablet ORAL THREE TIMES DAILY Qty = 42 Comments: Last Taken: 06/28/17 Time: 10:25 AM This prescription has been renewed Prazosin HCl (Prazosin HCl) 2 MG CAPSULE 1 Tablet ORAL Every night Qty = 14 Comments: NOT GIVEN IN HOSPITAL This prescription has been renewed Prazosin HCl (Minipress) 5 MG CAPSULE 1 Capsule ORAL Every night Qty = 14 Instructions: Take 1 cap po QPM. Comments: NOT GIVEN IN HOSPITAL This prescription has been renewed Gabapentin (Gabapentin) 300 MG CAPSULE 1 Capsule ORAL Every Morning Qty = 14 Instructions: Take 1 cap po QAM. Comments: Last Taken: 06/28/17 Time: 10:25 AM This prescription has been renewed Aripiprazole (Abilify) 5 MG TABLET 1 Tablet ORAL Every night Qty = 14 Instructions: Take 1 tab po QPM. Comments: Last Taken: 06/27/17 Time: 9:00 PM This prescription has been renewed Pantoprazole Sodium (Protonix) 40 MG TABLET.DR 1 Tablet ORAL DAILY Qty = 30 Comments: Last Taken: 06/28/17 Time: 6:00 AM This prescription has been renewed Start taking the following new medications: Lisinopril (Lisinopril) 20 MG TABLET 40 Milligram ORAL DAILY Qty = 30 No Refills Comments: Last Taken: 06/28/17 Time: 10:25 AM The following medications have been changed: Old: Gabapentin (Gabapentin) 300 MG CAPSULE 1 Capsule ORAL Every night Qty = 30 New: Gabapentin (Gabapentin) 300 MG CAPSULE 1 Capsule ORAL Every night Qty = 30 Instructions: Please take as prescribed. Comments: NOT GIVEN IN HOSPITAL Old: Metoprolol Tartrate (Metoprolol Tartrate) 25 MG TABLET 1 Tablet ORAL TWICE DAILY Qty = 60 New: Metoprolol Tartrate (Metoprolol Tartrate) 25 MG TABLET 1 Tablet ORAL TWICE DAILY Qty = 60 Instructions: Please take as prescribed. Comments: Last Taken: 06/28/17 Time: 10:25 AM
== END 2017-06-28 15:00 | DRG 199 ==
LOC: ERH 14:31 → 1NO 18:52 → ERHI 18:52 → ENRESERV 06-26 11:52 → ENTRNSPT 06-26 12:45 → EDTRNSPT 06-26 12:57 → EDTRNSPTSTS 06-26 12:57 → 1NO 06-26 13:20 → CMPTRNSPT 06-26 13:22 → 1NO 06-26 17:32 → ENPENDDIS 06-28 14:01 → 1NO 06-28 15:00
PROVIDERS: Hospitalist; Internal Medicine; Physician Assistant
DX: I16.0 Hypertensive urgency (principal); R07.9 Chest pain, unspecified; I25.2 Old myocardial infarction; F43.10 Post-traumatic stress disorder, unspecified; Z86.73 Personal history of transient ischemic attack (TIA), and cerebral infarction without residual deficits; F10.239 Alcohol dependence with withdrawal, unspecified; F41.9 Anxiety disorder, unspecified; F32.9 Major depressive disorder, single episode, unspecified; R74.0 Nonspecific elevation of levels of transaminase and lactic acid dehydrogenase [LDH]; K21.9 Gastro-esophageal reflux disease without esophagitis; E78.5 Hyperlipidemia, unspecified
CPT/HCPCS: 1NP; ERO; 36415; 71045; 80307; 81001; 82436; 93005; 93010; 99232; G0480; J1650; J2405; J3490

== ENCOUNTER 2017-08-19 14:38 | Emergency (ER) | payer OTHER ==
[~2017-08-19] VITALS: Ht 167.6 cm; Wt 106.6 kg
[~2017-08-19 14:38] MED LIST changes: +LISINOPRIL20 M1 PO; +LOPRESSOR50 M1 PO; +ZOLPIDEM TARTRAT5 M1 PO
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
--- NOTE | 2017-08-19 20:07 | RADIOLOGY REPORT ---
EXAMINATION: XR PORTABLE CHEST CLINICAL INFORMATION: Cardiomegaly. Chest pain. COMPARISON: Chest x-ray 06/25/2017. TECHNIQUE: Portable frontal view of the chest was obtained. 7:33 PM FINDINGS: Heart size is enlarged. There is no pulmonary vascular congestion. There is no pleural effusion or pneumothorax. Compared to prior chest x-ray there has been no change. IMPRESSION: Cardiomegaly. No acute abnormality of the chest.
[2017-08-19 20:27] LABS: ABSOLUTE BASOPHIL COUNT 0 /CUMM (0.0-0.2); ABSOLUTE EOSINOPHIL COUNT 0 /CUMM (0.0-0.7); ABSOLUTE GRANULOCYTE CT 4.5 /CUMM (1.4-6.5); ABSOLUTE LYMPH COUNT 1.2 /CUMM (1.2-3.4); ABSOLUTE MONOCYTE COUNT 0.3 /CUMM (0.10-0.60); BASOPHIL % 0.8 % (0.0-2.0); EOSINOPHIL % 0.2 % (0-5); GRANULOCYTE % 73.5 % (42.2-75.2); HEMATOCRIT 46.4 % (42-52); MEAN CORPUSCULAR HGB CONC 33.7 G/DL (33.0-37.0); MEAN CORPUSCULAR VOLUME 92.1 FL (80.0-94.0); MEAN PLATELET VOLUME 7.9 FL (7.4-10.4); PLATELET COUNT 234 /CUMM (130-400); RBC DISTRIBUTION WIDTH 13.6 % (11.5-14.5); RED BLOOD CELL CT 5.04 /CUMM (4.70-6.10); WHITE BLOOD CELL COUNT 6.2 /CUMM (4.8-10.8)
[2017-08-19 20:32] LABS: PT 11.4 SEC (9.4-12.5); PTT 27 SEC (25-37)
[2017-08-19] MEDS ORDERED: HYDRALAZINE HCL25 M1 PO (20:47)
[2017-08-19] MEDS ORDERED: GABAPENTIN300 M2 PO (20:47)
[2017-08-19] MEDS ORDERED: FLUTICASONE PRO16 GM NASB (20:48)
[2017-08-19] MEDS ORDERED: DOXYCYCLINE HY100 M4 PO (20:48)
--- NOTE | 2017-08-19 21:32 | CT SCAN REPORT ---
EXAMINATION: CT HEAD WITHOUT CONTRAST CLINICAL INFORMATION: Hypertensive urgency. Headaches. COMPARISON: Brain MRI from 06/08/2015. TECHNIQUE: Contiguous axial imaging was performed from the skull base to vertex without intravenous administration of contrast. DLP: 619.04 mGy-cm FINDINGS: There is no evidence of acute intracranial hemorrhage or territorial infarction. No abnormal mass effect or midline shift is seen. Perkins to white matter differentiation is well preserved. No extra-axial fluid collections are identified. There is mild generalized parenchymal volume loss. The ventricles are normal in size. There is no abnormal attenuation within the brain parenchyma. The osseous structures and soft tissues are normal. The mastoid air cells are well aerated. There is moderate mucosal thickening in the left sphenoid sinus cavity. IMPRESSION: No acute intracranial pathology. Moderate left sphenoid sinus mucosal thickening.
[2017-08-20] MEDS ORDERED: CHLORDIAZEPOXID25 M3 PO (08:55)
[2017-08-20 09:16] VITALS: BP 180/92
== END 2017-08-20 09:18 | disposition left against medical advice (07) ==
LOC: ERH 14:38
PROVIDERS: Physician Assistant Medical
DX: F10.221 Alcohol dependence with intoxication delirium (principal); I10 Essential (primary) hypertension; R07.89 Other chest pain
CPT/HCPCS: 71045; 93005; 93010; 96374; 96375; 96376; 99291; G0480; J1885; J2060; J2405; J7040

== ENCOUNTER 2017-08-31 03:18 | Emergency (ER) | payer OTHER ==
[~2017-08-31] VITALS: Ht 167.6 cm; Wt 106.6 kg
[~2017-08-31 03:18] MED LIST changes: +DOXYCYCLINE HY100 M4 PO; +FLUTICASONE PRO16 GM NASB; +HYDRALAZINE HCL25 M1 PO
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
[2017-08-31 03:43] LABS: ABSOLUTE BASOPHIL COUNT 0 /CUMM (0.0-0.2); ABSOLUTE EOSINOPHIL COUNT 0.1 /CUMM (0.0-0.7); ABSOLUTE LYMPH COUNT 1.3 /CUMM (1.2-3.4); ABSOLUTE MONOCYTE COUNT 0.3 /CUMM (0.10-0.60); GRANULOCYTE % 53.5 % (42.2-75.2); MEAN CORPUSCULAR HGB 30.5 PG (27.0-31.0); MEAN CORPUSCULAR HGB CONC 33.6 G/DL (33.0-37.0); MEAN CORPUSCULAR VOLUME 90.8 FL (80.0-94.0); MEAN PLATELET VOLUME 8.3 FL (7.4-10.4); PLATELET COUNT 197 /CUMM (130-400); RBC DISTRIBUTION WIDTH 13.4 % (11.5-14.5); RED BLOOD CELL CT 4.51 /CUMM (4.70-6.10); WHITE BLOOD CELL COUNT 3.7 /CUMM (4.8-10.8)
[2017-08-31 03:50] LABS: PT 10.9 SEC (9.4-12.5); PTT 27 SEC (25-37)
--- NOTE | 2017-08-31 04:06 | RADIOLOGY REPORT ---
EXAMINATION: XR PORTABLE CHEST CLINICAL INFORMATION: Chest pain COMPARISON: 08/19/2017 TECHNIQUE: Portable frontal view of the chest was obtained. FINDINGS: The lungs are hypoinflated which limits evaluation of the lung bases. No focal consolidation is seen bilaterally. No evidence of pneumothorax, significant pleural effusion, or overt pulmonary edema. The cardiac silhouette remains prominent and may be accentuated by low lung volumes. No acute osseous findings are seen. IMPRESSION: Low lung volumes without definite acute findings.
[2017-08-31 05:05] VITALS: BP 138/78
== END 2017-08-31 06:08 ==
LOC: ERH 03:18
PROVIDERS: Pediatrics
DX: R07.89 Other chest pain (principal); F10.129 Alcohol abuse with intoxication, unspecified
CPT/HCPCS: 71045; 93005; 93010; 96365; 96375; G0480; J0131; J1885

== ENCOUNTER 2017-09-21 18:22 | Inpatient (IN) | payer OTHER ==
[~2017-09-21] VITALS: Ht 167.6 cm; Wt 108.9 kg
[2017-09-21 18:30] VITALS: BP 205/103
[2017-09-21] MEDS ORDERED: MINIPRESS5 MG PO (18:33)
[2017-09-21] MEDS ORDERED: MINIPRESS2 M1 PO (18:33)
[2017-09-21] MEDS ORDERED: CLONIDINE HCL0.1 MG PO (18:34)
[2017-09-21] MEDS ORDERED: PROTONIX40 M3 PO (18:34)
[2017-09-21] MEDS ORDERED: ABILIFY5 M1 PO (18:34)
[2017-09-21] MEDS ORDERED: METOPROLOL TART50 M1 PO (18:34)
[2017-09-21] MEDS ORDERED: HYDRALAZINE HCL25 M1 PO (18:35)
[2017-09-21] MEDS ORDERED: ZESTRIL40 M1 PO (18:35)
[2017-09-21] MEDS ORDERED: NEURONTIN300 M1 PO (18:35)
[2017-09-21] MEDS ORDERED: LIPITOR80 M1 PO (18:35)
[2017-09-21] MEDS ORDERED: DAILY MULTIPLE1 EACH PO (18:36)
[2017-09-21] MEDS ORDERED: ATIVAN1 M1 PO (18:36)
[2017-09-21] MEDS ORDERED: ASPIRIN81 M4 PO (18:36)
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
[2017-09-21 19:35] LABS: ABSOLUTE BASOPHIL COUNT 0 /CUMM (0.0-0.2); ABSOLUTE EOSINOPHIL COUNT 0 /CUMM (0.0-0.7); ABSOLUTE GRANULOCYTE CT 3.9 /CUMM (1.4-6.5); ABSOLUTE LYMPH COUNT 1.4 /CUMM (1.2-3.4); ABSOLUTE MONOCYTE COUNT 0.4 /CUMM (0.10-0.60); BASOPHIL % 0.6 % (0.0-2.0); EOSINOPHIL % 0.3 % (0-5); GRANULOCYTE % 68.7 % (42.2-75.2); HEMATOCRIT 45.9 % (42-52); MEAN CORPUSCULAR HGB 30.2 PG (27.0-31.0); MEAN CORPUSCULAR HGB CONC 33.8 G/DL (33.0-37.0); MEAN CORPUSCULAR VOLUME 89.3 FL (80.0-94.0); PLATELET COUNT 195 /CUMM (130-400); RBC DISTRIBUTION WIDTH 13.2 % (11.5-14.5); RED BLOOD CELL CT 5.14 /CUMM (4.70-6.10); WHITE BLOOD CELL COUNT 5.7 /CUMM (4.8-10.8)
[2017-09-21 19:47] LABS: PTT 27 SEC (25-37)
[2017-09-21 20:43] VITALS: BP 184/111
[2017-09-21 22:45] VITALS: BP 200/120
[2017-09-22] VITALS (12 sets, daily range): BP systolic 119–189; BP diastolic 65–107
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
--- NOTE | 2017-09-22 15:02 | RADIOLOGY REPORT ---
EXAMINATION: XR ELBOW, RIGHT CLINICAL INFORMATION: Cyst in right elbow. COMPARISON: None TECHNIQUE: There are 4 views of the right elbow FINDINGS: There is a moderate size olecranon spur. There is overlying prominent soft tissue swelling in the region of olecranon bursa. The bones joints and soft tissues are otherwise normal. IMPRESSION: Prominent soft tissue swelling in the olecranon bursa likely reflecting a bursitis. Cannot exclude hematoma or infection. Clinical presentation will likely help narrow the differential diagnosis. There is also a moderate size olecranon spur.
--- NOTE | 2017-09-22 16:05 | RADIOLOGY REPORT ---
EXAMINATION: XR ABDOMEN MULTIPLE VIEWS CLINICAL INDICATION: Nausea, vomiting and diarrhea. COMPARISON: CT abdomen and pelvis dated 07/14/2016. TECHNIQUE: 5 supine and upright views of the abdomen and pelvis are submitted. FINDINGS: There is a nonspecific bowel gas pattern, without finding to suggest ileus or obstruction. No abnormal soft tissue calcifications seen. There is no free intraperitoneal air. There are pelvic phleboliths. No acute osseous abnormality is seen. IMPRESSION: Unremarkable examination.
--- NOTE | 2017-09-22 16:06 | Admission Certification ---
Admission Certification Certification Statement - As attending physician, I certify that at the time of - admission, based on clinical presentation, severity of - symptoms, need for further diagnostic testing and - therapeutic interventions, and risk of adverse outcomes - without in-hospital treatment, in my clinical assessment, - this patient requires an acute hospital stay for a minimum - of two nights or longer. I have also considered psychsocial - factors such as support system, advanced age, financial - issues, cognitive issues, and failed out-patient treatments, - past re-admission history, safety of patient, and lack of - compliance as applicable. Specific rationale supporting this admission is: etoh intoxication and withdrawl and chest pain
[2017-09-23] VITALS (8 sets, daily range): BP systolic 150–186; BP diastolic 86–108
[2017-09-23 08:34] LABS: ABSOLUTE BASOPHIL COUNT 0 /CUMM (0.0-0.2); ABSOLUTE EOSINOPHIL COUNT 0 /CUMM (0.0-0.7); ABSOLUTE GRANULOCYTE CT 4.7 /CUMM (1.4-6.5); ABSOLUTE LYMPH COUNT 0.6 /CUMM (1.2-3.4); ABSOLUTE MONOCYTE COUNT 0.2 /CUMM (0.10-0.60); BASOPHIL % 0.6 % (0.0-2.0); EOSINOPHIL % 0.7 % (0-5); GRANULOCYTE % 84.4 % (42.2-75.2); HEMATOCRIT 41.2 % (42-52); MEAN CORPUSCULAR HGB 30.6 PG (27.0-31.0); MEAN CORPUSCULAR HGB CONC 33.8 G/DL (33.0-37.0); MEAN CORPUSCULAR VOLUME 90.4 FL (80.0-94.0); MEAN PLATELET VOLUME 8.6 FL (7.4-10.4); PLATELET COUNT 119 /CUMM (130-400); RBC DISTRIBUTION WIDTH 13.5 % (11.5-14.5); RED BLOOD CELL CT 4.55 /CUMM (4.70-6.10); WHITE BLOOD CELL COUNT 5.5 /CUMM (4.8-10.8)
[2017-09-23 08:36] LABS: PT 11.8 SEC (9.4-12.5)
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
--- NOTE | 2017-09-23 10:03 | PN- Housestaff ---
KotaAce 09/23/17 1003: Subjective Follow-up For: Alcohol detox Hypertensive urgency Transaminitis Chronic chest pain Subjective: States that his chest pain is improved, 3/10 in intensity this morning. Complains of discomfort in his right elbow, which is swollen. Also complains of numbness of fourth and fifth finger. Reports no anxiety, no fevers or chills. No SI or HI. Review of Systems Constitutional: Reports: see HPI. Objective Last 24 Hrs of Vital Signs/I&O Vital Signs Date Time Temp Pulse Resp B/P B/P Pulse O2 O2 Flow FiO2 Mean Ox Delivery Rate 09/23 0834 90 150/98 09/23 0834 90 150/98 09/23 0548 98.7 90 22 150/98 95 Room Air 09/23 0106 87 154/86 09/23 0106 86 154/86 09/23 0030 92 186/108 09/23 0010 92 186/108 09/23 0000 92 186/108 09/22 2309 87 174/107 09/22 2307 87 174/107 09/22 2300 87 174/107 09/22 2120 99.0 79 18 154/91 98 Room Air 09/22 2000 86 18 158/98 09/22 1958 86 158/98 09/22 1600 86 140/90 09/22 1445 97.9 101 20 134/74 94 Room Air Intake & Output 09/23 1600 09/23 0800 09/23 0000 Intake Total 400 1000 Output Total Balance 400 1000 Intake, IV 1000 Intake, Oral 400 Physical Exam General Appearance: Alert, Oriented X3 Cardiovascular: Regular Rate, Normal S1, Normal S2 Lungs: Clear to Auscultation, Normal Air Movement Abdomen: Normal Bowel Sounds, Soft, No Tenderness Extremities: No Clubbing, No Cyanosis, No Edema Assessment/Plan Assessment: 51-year-old gentleman with history of alcohol abuse, dependence, chronic chest pain with multiple cardiac catheterizing the past nonrevealing for any occlusion , is here for alcohol detox as well as chronic chest pain. ACS rule out. 1. Alcohol detox. Continue taper and Ativan per CIWA. Continue CIWA. MVI, folate and thiamine. 2. Hypertensive urgency. Continue clonidine and metoprolol. Restarted hydralazine. 3. GERD. Continue pantoprazole. 4. Right cubital tunnel syndrome. Conservative approach, ice packs when necessary. 5. Electrolyte abnormalities. Replete and recheck. Full code. Lovenox for DVT prophylaxis. Heart healthy diet. Problem List: 1. Alcohol dependence Pain Ratin Pain Goal: Pain 4 or less Pain Plan: PRN Tomorrow's Labs & Rationales: Hypokalemia Hyponatremia Hypomagnesemia Aquiles Rudolph 09/23/17 1140: Assessment/Plan Pain Location: rt elbow Attending MD Review Statement Attending Statement Attending MD Statement: examined this patient, discuss w/resident/PA/HOUSING PROJECT MANAGER, agreed w/resident/PA/HOUSING PROJECT MANAGER, reviewed EMR data (avail), discussed with nursing, discussed with case mgmt Attending Assessment/Plan: alcohol intoxication and withdrawl- cont on ciwa protocol and close monitoring. d/w Mellissa and she is going to talk to pt abour rehab option. Hypokalemia/Hypomagenesemia- replace and recheck in am. RIGHT OLECRENON BURSITIS and RIGHT CUBITAL TUNNEL SYNDROME- seen by ortho, conservative management with ice . appreciated orhto input.
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
[2017-09-24] VITALS (14 sets, daily range): BP systolic 130–198; BP diastolic 11–123
[2017-09-24 08:31] LABS: ABSOLUTE BASOPHIL COUNT 0 /CUMM (0.0-0.2); ABSOLUTE EOSINOPHIL COUNT 0.1 /CUMM (0.0-0.7); ABSOLUTE GRANULOCYTE CT 3.1 /CUMM (1.4-6.5); ABSOLUTE LYMPH COUNT 0.5 /CUMM (1.2-3.4); ABSOLUTE MONOCYTE COUNT 0.1 /CUMM (0.10-0.60); BASOPHIL % 0.3 % (0.0-2.0); EOSINOPHIL % 1.7 % (0-5); HEMATOCRIT 38.2 % (42-52); MEAN CORPUSCULAR HGB 30.8 PG (27.0-31.0); MEAN CORPUSCULAR HGB CONC 34.6 G/DL (33.0-37.0); MEAN CORPUSCULAR VOLUME 88.9 FL (80.0-94.0); MEAN PLATELET VOLUME 9.4 FL (7.4-10.4); RBC DISTRIBUTION WIDTH 13.2 % (11.5-14.5); WHITE BLOOD CELL COUNT 3.7 /CUMM (4.8-10.8)
--- NOTE | 2017-09-24 09:36 | PN- Housestaff ---
KotaAce 09/24/17 0935: Subjective Follow-up For: Alcohol detox Hypertensive urgency Transaminitis Chronic chest pain Subjective: States that his chest pain is improved. Continues to complain of numbness of fourth and fifth finger. Reports no anxiety, no fevers or chills. No SI or HI. Overnights CIWA scores less than 10. Review of Systems Constitutional: Reports: see HPI. Objective Last 24 Hrs of Vital Signs/I&O Vital Signs Date Time Temp Pulse Resp B/P B/P Pulse O2 O2 Flow FiO2 Mean Ox Delivery Rate 09/25 0036 84 179/104 09/25 0000 99.1 84 20 179/104 09/24 2257 84 179/104 09/24 2200 86 198/123 09/24 2135 86 198/123 09/24 2042 99.1 71 20 192/113 97 Room Air 09/24 2040 71 192/113 09/24 2040 71 192/113 09/24 2000 97.0 71 20 192/113 09/24 1643 98.9 71 18 162/92 97 Room Air 09/24 1600 98.9 71 18 162/92 09/24 1439 98.5 90 18 168/101 95 Room Air 09/24 1319 95 157/97 09/24 1200 96 195/79 09/24 1023 99 130/92 09/24 1000 76 130/89 09/24 0815 93 184/112 09/24 0800 83 184/11 Intake & Output 09/25 0800 09/25 0000 09/24 1600 Intake Total 200 1010 1400 Output Total Balance 200 1010 1400 Intake, IV 460 800 Intake, Oral 200 550 600 Number 1 1 Bowel Movements Physical Exam General Appearance: Alert, Oriented X3 Cardiovascular: Regular Rate, Normal S1, Normal S2 Lungs: Clear to Auscultation, Normal Air Movement Abdomen: Normal Bowel Sounds, Soft, No Tenderness Extremities: No Clubbing, No Cyanosis, No Edema Current Medications: Current Medications Sig/Tiffany Start time Last Medication Dose Route Stop Time Status Admin Aripiprazole 5 MG QPM 09/22 2100 AC 09/23 PO 2036 Clonidine 0.1 MG BID 09/22 0900 AC 09/24 PO 0610 Cyanocobalamin/ 1 BAG DAILY 09/22 1203 DC 09/23 Thiamine/Pyridoxine IV 09/23 1659 0834 Dextrose/Water 1,000 ML Enoxaparin Sodium 40 MG DAILY 09/23 0900 DC SC Folic Acid 1 MG DAILY 09/23 0900 AC 09/24 PO 09/25 0901 0812 Hydralazine HCl 25 MG TID 09/23 1400 AC 09/24 PO 0610 Ibuprofen 600 MG Q6P PRN 09/22 1215 AC PO Lisinopril 20 MG DAILY 09/24 0900 AC 09/24 PO 1023 Lorazepam 1 MG Q6 09/24 0741 AC 09/24 PO 0812 Lorazepam 2 MG Q2P PRN 09/23 1200 AC PO Lorazepam 1.5 MG Q6 09/23 0600 DC 09/23 PO 09/23 1801 1832 Lorazepam 1 MG Q1P PRN 09/22 1215 AC 09/24 IV 1046 Magnesium Sulfate 1 GM Q2H 09/23 1315 DC 09/23 Dextrose/Water 100 ML IV 09/23 1714 1831 Metoprolol Succinate 50 MG DAILY 09/22 0900 AC 09/24 PO 0815 Morphine Sulfate 2 MG Q4P PRN 09/22 1215 AC IV Multivitamins 1 TAB DAILY 09/23 0900 AC 09/24 PO 0812 Omeprazole 40 MG DAILY AC 09/22 1215 AC 09/24 PO 0610 Ondansetron HCl 4 MG Q8P PRN 09/22 1215 AC 09/24 IV 0623 Patient Medication 1 ED ONE ONE 09/23 1145 DC Teaching ED 09/23 1146 Potassium Chloride 40 MEQ ONCE ONE 09/24 1400 AC PO 09/24 1401 Potassium Chloride 40 MEQ ONCE ONE 09/24 0945 DC 09/24 PO 09/24 0946 1021 Sodium Chloride 1,000 ML Q13H 09/23 0930 AC 09/24 IV 0610 Thiamine HCl 100 MG DAILY 09/23 0900 AC 09/24 PO 09/25 0901 0812 Last 24 Hrs of Lab/Scar Results Last 24 Hrs of Labs/Mics: Laboratory Tests 09/24/17 0730: Anion Gap 10, Estimated GFR > 60, BUN/Creatinine Ratio 10.0, Magnesium 1.9, Total Bilirubin 2.5 H, Direct Bilirubin 0.5 H, AST 623 H, ALT 117 H, Alkaline Phosphatase 69, Lactate Dehydrogenase 1166 H, Total Protein 6.2 L, Albumin 3.7, CBC w Diff MAN DIFF ORDERED, RBC 4.30 L, MCV 88.9, MCH 30.8, MCHC 34.6, RDW 13.2, MPV 9.4, Gran % 82.0 H, Lymphocytes % 12.6 L, Monocytes % 3.4, Eosinophils % 1.7, Basophils % 0.3, Absolute Granulocytes 3.1, Segmented Neutrophils Pending, Absolute Lymphocytes 0.5 L, Absolute Monocytes 0.1, Absolute Eosinophils 0.1, Absolute Basophils 0, Retic Count Pending 09/24/17 0600: Haptoglobin Pending Assessment/Plan Assessment: 51-year-old gentleman with history of alcohol abuse, dependence, chronic chest pain with multiple cardiac catheterizing the past nonrevealing for any occlusion , is here for alcohol detox as well as chronic chest pain. 1. Alcohol detox. Continue taper and Ativan per CIWA. Continue CIWA. MVI, folate and thiamine. 2. Thrombocytopenia. Discontinue Lovenox. PT INR checked yesterday, within normal limits. Recheck in a.m. Peripheral smear requested from lab, no schistocytes noted. High LDH noted, and could be secondary to patient's alcohol intake. Continue to monitor. Continue to monitor indirect hyperbilirubinemia, improvement noted since yesterday. It worsens, will request hematology evaluation. Reticulocyte count and haptoglobin pending. Abnormalities likely related to alcohol abuse. 2. Hypertensive urgency. Continue clonidine, hydralazine and metoprolol. Lisinopril restarted at 20 mg daily. 3. GERD. Continue pantoprazole. 4. Right cubital tunnel syndrome. Conservative approach, ice packs when necessary. 5. Electrolyte abnormalities. Aggressive potassium repletion. Will add on phosphorus 2 and replete if necessary. Full code. Lovenox for DVT prophylaxis. Heart healthy diet. Problem List: 1. Alcohol dependence Pain Ratin Pain Location: Elbow Alt Method for Pain Treatment: Ice Pack Pain Goal: Remain pain free Pain Plan: Ice packs Tomorrow's Labs & Rationales: Thrombocytopenia Aquiles Rudolph 09/24/17 1044: Attending MD Review Statement Attending Statement Attending MD Statement: examined this patient, discuss w/resident/PA/STOCK SHIPPER, agreed w/resident/PA/STOCK SHIPPER, reviewed EMR data (avail), discussed with nursing, discussed with case mgmt Attending Assessment/Plan: Alcohol withdrawl and intoxiation- pt doing ok had some nausea and vomiting this am. CIWA scores reviewed. Will taper ativan today and see how he does. Hypokalemia- Electrolytes replaced and will recheck in am. D/w assistant banquet manager the disoposition plan. SW saw the patient yesterday and think pt will benefit from inpt alcohol rehab as has failed IOP treatment multiple times. WIll see if pt willing to go to inpt rehab program. d/w pt the care plan.
[2017-09-24 09:39] LABS: PLATELET COUNT 98 /CUMM (130-400)
--- NOTE | 2017-09-24 17:10 | PN- Psychiatry ---
Assessment/Plan Impression: Spoke with pt briefly regarding his mood and treatment plan. He is considering IOP vs rehab. Mood is quite poor but no SI. He feels more clear than yesterday and more positive. No AVH. Less tremulous. He does not remember ever being manic. CIWA scores below 10. On exam pt is lying in bed in NAD. Alert, oriented. Psychomotor slowing. Speech soft and slow with latency. Mood is low. Affect congruent. Thoughts are linear. Content reveals no delusions or HI. Insight and judgment seem improved. A/51 y/o M with severe etoh d/o here for detox. MDD, vs, bipolar depression, vs substance induced. -I would not change his medications right now until he solidifies plan but Abilify is not optimal as monotherapy for bipolar depression and he would require an antidepressant for it to be an augmenting agent. -Pt will consider his treatment options tonight. I encouraged shelter therapy to IOP. He will require dual -AIMS negative RosaliouggBritni #[phone] Suggestion: see imp Subjective Subjective: see imp Objective Last 24 Hrs of Vital Signs/I&O Vital Signs Date Time Temp Pulse Resp B/P B/P Pulse O2 O2 Flow FiO2 Mean Ox Delivery Rate 09/24 1643 98.9 71 18 162/92 97 Room Air 09/24 1439 98.5 90 18 168/101 95 Room Air 09/24 1319 95 157/97 09/24 1200 96 195/79 09/24 1023 99 130/92 09/24 1000 76 130/89 09/24 0815 93 184/112 09/24 0800 83 184/11 09/24 0643 98.6 84 20 160/102 96 Room Air 09/24 0610 84 160/102 09/24 0610 84 160/102 09/24 0600 84 160/102 09/24 0000 99.0 85 20 169/98 09/23 2256 99.0 85 20 169/98 95 Room Air 09/238 80 157/98 09/23 2037 80 157/98 09/24 2019 98.5 80 20 157/98 96 Room Air 09/24 1999 98.5 80 18 157/98 Intake & Output 09/24 1600 09/24 0800 09/24 0000 Intake Total 1400 1360 1195 Output Total Balance 1400 1360 1195 Intake, IV 800 640 375 Intake, Oral 600 720 820 Number 1 1 0 Bowel Movements
[2017-09-25] VITALS (10 sets, daily range): BP systolic 160–196; BP diastolic 20–126
--- NOTE | 2017-09-25 08:46 | PN- Housestaff ---
See Addendum Subjective Follow-up For: Alcohol detox Hypertensive urgency Transaminitis Chronic chest pain Subjective: States that his chest pain is improved. Continues to complain of numbness of fourth and fifth finger. Reports no anxiety, no fevers or chills. No SI or HI. Overnights CIWA scores less than 10. Review of Systems Constitutional: Reports: see HPI. Objective Last 24 Hrs of Vital Signs/I&O Vital Signs Date Time Temp Pulse Resp B/P B/P Pulse O2 O2 Flow FiO2 Mean Ox Delivery Rate 09/25 1437 97.8 79 20 194/126 97 Room Air 09/25 1404 76 180/122 09/25 1400 76 20 180/122 09/25 1221 99.2 73 20 196/124 96 Room Air 09/25 1200 80 196/122 09/25 1050 72 20 180/120 09/25 1050 72 20 180/120 09/25 1049 72 20 180/120 09/25 1049 72 20 180/120 09/25 1000 75 180/120 09/25 1000 98.8 72 20 180/120 94 Room Air 09/25 0731 97.6 76 20 187/122 98 Room Air 09/25 0036 84 179/104 09/25 0000 99.1 84 20 179/104 09/24 2257 84 179/104 09/24 2200 86 198/123 09/24 2135 86 198/123 09/24 2042 99.1 71 20 192/113 97 Room Air 09/24 2040 71 192/113 09/24 2040 71 192/113 09/24 2000 97.0 71 20 192/113 09/24 1643 98.9 71 18 162/92 97 Room Air 09/24 1600 98.9 71 18 162/92 Intake & Output 09/25 1600 09/25 0800 09/25 0000 Intake Total 479 573 4656 Output Total Balance 939 308 6896 Intake, IV 460 Intake, Oral 700 200 550 Number 1 1 Bowel Movements Physical Exam General Appearance: Alert, Oriented X3, Cooperative HEENT: Atraumatic, PERRLA, EOMI Cardiovascular: Regular Rate, Normal S1, Normal S2 Lungs: Clear to Auscultation, Normal Air Movement Abdomen: Normal Bowel Sounds, Soft, No Tenderness Extremities: No Clubbing, No Cyanosis, No Edema Current Medications: Current Medications Sig/Tiffany Start time Last Medication Dose Route Stop Time Status Admin Amlodipine Besylate 5 MG ONCE ONE 09/25 1230 DC 09/25 PO 09/25 1231 1404 Amlodipine Besylate 5 MG DAILY 09/25 09 AC 09/25 PO 1049 Amlodipine Besylate 5 MG ONCE ONE 09/24 2315 DC 09/25 PO 09/24 2316 0036 Aripiprazole 5 MG QPM 09/22 2100 AC 09/24 PO 2039 Clonidine 0.1 MG BID 09/22 09 AC 09/25 PO 1049 Folic Acid 1 MG DAILY 09/23 09 DC 09/25 PO 09/25 0901 1049 Hydralazine HCl 25 MG TID 09/23 1400 DC 09/24 PO 2040 Ibuprofen 600 MG Q6P PRN 09/22 1215 AC PO Lisinopril 40 MG DAILY 09/25 09 AC 09/25 PO 1050 Lisinopril 20 MG DAILY 09/24 0900 DC 09/24 PO 1023 Lorazepam 1 MG Q6 09/24 0741 AC 09/25 PO 1237 Lorazepam 2 MG Q2P PRN 09/23 1200 AC PO Lorazepam 1 MG Q1P PRN 09/22 1215 AC 09/25 IV 1047 Metoprolol Succinate 50 MG DAILY 09/22 0900 AC 09/25 PO 1050 Morphine Sulfate 2 MG Q4P PRN 09/22 121 DC IV Multivitamins 1 TAB DAILY 09/23 09 AC 09/25 PO 1050 Omeprazole 40 MG DAILY AC 09/22 1215 AC 09/25 PO 0606 Ondansetron HCl 4 MG Q8P PRN 09/22 1215 AC 09/24 IV 0623 Patient Medication 1 ED ONE ONE 09/24 1545 DC Teaching ED 09/24 1546 Prazosin HCl 2 MG QPM 09/25 2100 AC PO Sodium Chloride 1,000 ML Q13H 09/23 0930 DC 09/24 IV 2319 Thiamine HCl 100 MG DAILY 09/23 09 DC 09/25 PO 09/25 0901 1050 Last 24 Hrs of Lab/Scar Results Last 24 Hrs of Labs/Mics: Laboratory Tests 09/25/17 1255: RBC 4.51 L, MCV 91.0, MCH 30.4, MCHC 33.4, RDW 13.1, MPV 8.6, Gran % 81.1 H, Lymphocytes % 10.7 L, Monocytes % 5.0, Eosinophils % 2.6, Basophils % 0.6, Absolute Granulocytes 3.8, Absolute Lymphocytes 0.5 L, Absolute Monocytes 0.2, Absolute Eosinophils 0.1, Absolute Basophils 0 09/25/17 0930: Anion Gap 14, Estimated GFR > 60, BUN/Creatinine Ratio 11.7, Total Bilirubin 1.7 H, Direct Bilirubin 0.4, AST 535 H, ALT 173 H, Alkaline Phosphatase 72, Total Protein 6.8, Albumin 4.1, PT 11.4, INR 1.05 Assessment/Plan Assessment: 51-year-old gentleman with history of alcohol abuse, dependence, chronic chest pain with multiple cardiac catheterizing the past nonrevealing for any occlusion , is here for alcohol detox as well as chronic chest pain. 1. Alcohol detox. Continue taper and Ativan per CIWA. Continue CIWA. MVI, folate and thiamine. 2. Thrombocytopenia. Improving. Continue to hold Lovenox. PT INR checked and within normal limits. Recheck in a.m. No schistocytes noted. High LDH noted, and could be secondary to patient's alcohol intake. Continue to monitor. Continue to monitor indirect hyperbilirubinemia, improvement noted since yesterday. If worsens, will request hematology evaluation. Reticulocyte count and haptoglobin pending. Abnormalities likely related to alcohol abuse. 2. Hypertensive urgency. Continue clonidine and metoprolol. DC Hydralazine and start Norvasc 10 mg daily. Lisinopril increased to 40 mg daily. 3. GERD. Continue pantoprazole. 4. Right cubital tunnel syndrome. Conservative approach, ice packs when necessary. 5. Electrolyte abnormalities. Replete PRN. Full code. Lovenox for DVT prophylaxis. Heart healthy diet. Problem List: 1. Alcohol dependence Pain Ratin Pain Location: Chest Pain Goal: Remain pain free Pain Plan: PRN Tomorrow's Labs & Rationales: CBC CMP
[2017-09-25 10:08] LABS: PT 11.4 SEC (9.4-12.5)
[2017-09-25 13:05] LABS: ABSOLUTE BASOPHIL COUNT 0 /CUMM (0.0-0.2); ABSOLUTE EOSINOPHIL COUNT 0.1 /CUMM (0.0-0.7); ABSOLUTE GRANULOCYTE CT 3.8 /CUMM (1.4-6.5); ABSOLUTE LYMPH COUNT 0.5 /CUMM (1.2-3.4); ABSOLUTE MONOCYTE COUNT 0.2 /CUMM (0.10-0.60); BASOPHIL % 0.6 % (0.0-2.0); EOSINOPHIL % 2.6 % (0-5); GRANULOCYTE % 81.1 % (42.2-75.2); MEAN CORPUSCULAR HGB 30.4 PG (27.0-31.0); MEAN CORPUSCULAR HGB CONC 33.4 G/DL (33.0-37.0); MEAN PLATELET VOLUME 8.6 FL (7.4-10.4); PLATELET COUNT 139 /CUMM (130-400); RBC DISTRIBUTION WIDTH 13.1 % (11.5-14.5); RED BLOOD CELL CT 4.51 /CUMM (4.70-6.10); WHITE BLOOD CELL COUNT 4.7 /CUMM (4.8-10.8)
[2017-09-26] VITALS (8 sets, daily range): BP systolic 146–170; BP diastolic 90–100
--- NOTE | 2017-09-26 08:19 | PN- Housestaff ---
Subjective Follow-up For: Alcohol detox Hypertensive urgency Transaminitis Chronic chest pain Subjective: Patient seen and examined at bedside. No overnight events. No complaints. Denies fever, chills, palpitations, anxiety, suicidal ideation. Overnight CIWA- 3 Review of Systems Constitutional: Reports: no symptoms, see HPI. Objective Last 24 Hrs of Vital Signs/I&O Vital Signs Date Time Temp Pulse Resp B/P B/P Pulse O2 O2 Flow FiO2 Mean Ox Delivery Rate 09/26 0907 78 160/92 09/26 0906 78 160/92 09/26 0905 78 160/92 09/26 0905 78 160/92 09/26 0800 75 160/92 09/26 0613 98.1 65 18 146/92 96 Room Air 09/26 0007 72 150/96 09/25 2110 78 160/108 09/25 2106 98.0 78 18 160/108 97 Room Air 09/25 1805 70 180/20 09/25 1800 70 180/20 09/25 1738 70 180/116 09/25 1437 97.8 79 20 194/126 97 Room Air 09/25 1404 76 180/122 09/25 1400 76 20 180/122 09/25 1221 99.2 73 20 196/124 96 Room Air 09/25 1200 80 196/122 Intake & Output 09/26 1600 09/26 0800 09/26 0000 Intake Total 480 Output Total Balance 480 Intake, Oral 480 Physical Exam General Appearance: Alert, Oriented X3, Cooperative, No Acute Distress Cardiovascular: Normal S1, Normal S2, No Murmurs Lungs: Clear to Auscultation Neurological: Normal Speech, Strength at 5/5 X4 Ext Current Medications: Current Medications Sig/Tiffany Start time Last Medication Dose Route Stop Time Status Admin Amlodipine Besylate 10 MG DAILY 09/26 899 AC 09/26 PO 0905 Amlodipine Besylate 5 MG ONCE ONE 09/25 1230 DC 09/25 PO 09/25 1231 1404 Amlodipine Besylate 5 MG DAILY 09/25 09 DC 09/25 PO 1049 Aripiprazole 5 MG QPM 09/22 2100 AC 09/25 PO 2109 Clonidine 0.1 MG BID 09/22 899 AC 09/26 PO 0905 Ibuprofen 600 MG Q6P PRN 09/22 1215 AC 09/26 PO 0429 Lisinopril 40 MG DAILY 09/25 899 AC 09/26 PO 0907 Lorazepam 1 MG Q8 09/25 2200 AC 09/26 PO 0525 Lorazepam 1 MG Q6 09/24 0741 DC 09/25 PO 1237 Lorazepam 2 MG Q2P PRN 09/23 1200 AC PO Lorazepam 1 MG Q1P PRN 09/22 1215 AC 09/25 IV 1805 Metoprolol Succinate 50 MG DAILY 09/22 09 AC 09/26 PO 09 Multivitamins 1 TAB DAILY 09/23 09 AC 09/26 PO 09 Omeprazole 40 MG DAILY AC 09/22 1215 AC 09/26 PO 0525 Ondansetron HCl 4 MG Q8P PRN 09/22 1215 AC 09/24 IV 0623 Prazosin HCl 2 MG QPM 09/25 2100 AC 09/25 PO 1805 Last 24 Hrs of Lab/Scar Results Last 24 Hrs of Labs/Mics: Laboratory Tests 09/26/17 0955: Anion Gap 11, Estimated GFR > 60, BUN/Creatinine Ratio 12.9, CBC w Diff NO MAN DIFF REQ, RBC 4.52 L, MCV 90.9, MCH 30.7, MCHC 33.8, RDW 13.9, MPV 9.1, Gran % 71.6, Lymphocytes % 16.2 L, Monocytes % 8.1, Eosinophils % 3.7, Basophils % 0.4 , Absolute Granulocytes 3.5, Absolute Lymphocytes 0.8 L, Absolute Monocytes 0.4 , Absolute Eosinophils 0.2, Absolute Basophils 0 09/25/17 1255: RBC 4.51 L, MCV 91.0, MCH 30.4, MCHC 33.4, RDW 13.1, MPV 8.6, Gran % 81.1 H, Lymphocytes % 10.7 L, Monocytes % 5.0, Eosinophils % 2.6, Basophils % 0.6, Absolute Granulocytes 3.8, Absolute Lymphocytes 0.5 L, Absolute Monocytes 0.2, Absolute Eosinophils 0.1, Absolute Basophils 0 Assessment/Plan Assessment: 51-year-old gentleman with history of alcohol abuse, dependence, chronic chest pain with multiple cardiac catheterizing the past nonrevealing for any occlusion , is here for alcohol detox as well as chronic chest pain. 1. Alcohol detox. Continue taper and Ativan per CIWA. Continue CIWA. MVI, folate and thiamine. 2. Thrombocytopenia. Improving. Today platelets 162. Continue to hold Lovenox. PT INR checked and within normal limits. Recheck in a.m. No schistocytes noted. High LDH noted, and could be secondary to patient's alcohol intake. Continue to monitor. Continue to monitor indirect hyperbilirubinemia, improvement noted since yesterday. If worsens, will request hematology evaluation. Haptoglobin 240. Reticulocyte-2.43 Abnormalities likely related to alcohol abuse. 2. Hypertensive urgency. Continue clonidine and metoprolol. DC Hydralazine and start Norvasc 10 mg daily. Lisinopril increased to 40 mg daily. 3. GERD. Continue pantoprazole. 4. Right cubital tunnel syndrome. Conservative approach, ice packs when necessary. 5. Electrolyte abnormalities. Replete PRN. Full code. Lovenox for DVT prophylaxis. Heart healthy diet. Problem List: 1. Alcohol dependence with continuous acute intoxication with delirium Pain Ratin Pain Location: none Pain Goal: Remain pain free Pain Plan: [email or web address] Tomorrow's Labs & Rationales: cbc,bep,lkft
[2017-09-26 11:03] LABS: ABSOLUTE BASOPHIL COUNT 0 /CUMM (0.0-0.2); ABSOLUTE EOSINOPHIL COUNT 0.2 /CUMM (0.0-0.7); ABSOLUTE GRANULOCYTE CT 3.5 /CUMM (1.4-6.5); ABSOLUTE LYMPH COUNT 0.8 /CUMM (1.2-3.4); ABSOLUTE MONOCYTE COUNT 0.4 /CUMM (0.10-0.60); BASOPHIL % 0.4 % (0.0-2.0); EOSINOPHIL % 3.7 % (0-5); GRANULOCYTE % 71.6 % (42.2-75.2); HEMATOCRIT 41.1 % (42-52); MEAN CORPUSCULAR HGB 30.7 PG (27.0-31.0); MEAN CORPUSCULAR HGB CONC 33.8 G/DL (33.0-37.0); MEAN CORPUSCULAR VOLUME 90.9 FL (80.0-94.0); MEAN PLATELET VOLUME 9.1 FL (7.4-10.4); PLATELET COUNT 162 /CUMM (130-400); RBC DISTRIBUTION WIDTH 13.9 % (11.5-14.5); RED BLOOD CELL CT 4.52 /CUMM (4.70-6.10); WHITE BLOOD CELL COUNT 4.9 /CUMM (4.8-10.8)
--- NOTE | 2017-09-26 12:21 | PN- Att Addend ---
Attending Addendum Attending Brief Note Patient seen and examined. Plan of care discussed with the medical team and the patient. Available lab work and radiology test reports were reviewed. Patient awake alert oriented. He denies any new complaints. Denies any recent fever chills nausea vomiting chest pain difficulty breathing or abdominal pain. He wants to go home. Exam: General: Patient awake alert oriented without any distress CVS: S1 plus S2 without any murmur or gallops Chest: Few scattered crepitation without any wheeze. There is no respiratory distress. 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 and follows commands appropriately Extremities: No edema; no clubbing or cyanosis noted no tremors are noted Assessment * Alcohol abuse and alcohol detox * From cytopenia * Hypertensive urgency * Hypokalemia improved * Major depressive disorder/ bipolar disorder Plan * Increase metoprolol to 75 mg daily to provide better control of blood pressure * Continue Ativan taper * Out of bed and ambulate with assist * Need psychiatric evaluation to determine further plan Current Medications Sig/Tiffany Start time Last Medication Dose Route Stop Time Status Admin Amlodipine Besylate 10 MG DAILY 09/26 899 AC 09/26 PO 0905 Amlodipine Besylate 5 MG ONCE ONE 09/25 1230 DC 09/25 PO 09/25 1231 1404 Amlodipine Besylate 5 MG DAILY 09/25 09 DC 09/25 PO 1049 Aripiprazole 5 MG QPM 09/22 2100 AC 09/25 PO 2109 Clonidine 0.1 MG BID 09/22 09 AC 09/26 PO 0905 Ibuprofen 600 MG Q6P PRN 09/22 1215 AC 09/26 PO 0429 Lisinopril 40 MG DAILY 09/25 09 AC 09/26 PO 0907 Lorazepam 1 MG Q8 09/25 2200 AC 09/26 PO 0525 Lorazepam 1 MG Q6 09/24 0741 DC 09/25 PO 1237 Lorazepam 2 MG Q2P PRN 09/23 1200 AC PO Lorazepam 1 MG Q1P PRN 09/22 1215 AC 09/25 IV 1805 Metoprolol Succinate 50 MG DAILY 09/22 0900 AC 09/26 PO 0906 Multivitamins 1 TAB DAILY 09/23 09 AC 09/26 PO 0906 Omeprazole 40 MG DAILY AC 09/22 1215 AC 09/26 PO 0525 Ondansetron HCl 4 MG Q8P PRN 09/22 1215 AC 09/24 IV 0623 Prazosin HCl 2 MG QPM 09/25 2100 AC 09/25 PO 1805 Laboratory Tests 09/26/17 0955: Anion Gap 11, Estimated GFR > 60, BUN/Creatinine Ratio 12.9, Total Bilirubin Pending, Direct Bilirubin Pending, AST Pending, ALT Pending, Alkaline Phosphatase Pending, Total Protein Pending, Albumin Pending, CBC w Diff NO MAN DIFF REQ, RBC 4.52 L, MCV 90.9, MCH 30.7, MCHC 33.8, RDW 13.9, MPV 9.1, Gran % 71.6, Lymphocytes % 16.2 L, Monocytes % 8.1, Eosinophils % 3.7, Basophils % 0.4 , Absolute Granulocytes 3.5, Absolute Lymphocytes 0.8 L, Absolute Monocytes 0.4 , Absolute Eosinophils 0.2, Absolute Basophils 0 09/25/17 1255: RBC 4.51 L, MCV 91.0, MCH 30.4, MCHC 33.4, RDW 13.1, MPV 8.6, Gran % 81.1 H, Lymphocytes % 10.7 L, Monocytes % 5.0, Eosinophils % 2.6, Basophils % 0.6, Absolute Granulocytes 3.8, Absolute Lymphocytes 0.5 L, Absolute Monocytes 0.2, Absolute Eosinophils 0.1, Absolute Basophils 0 09/25/17 0930: Anion Gap 14, Estimated GFR > 60, BUN/Creatinine Ratio 11.7, Total Bilirubin 1.7 H, Direct Bilirubin 0.4, AST 535 H, ALT 173 H, Alkaline Phosphatase 72, Total Protein 6.8, Albumin 4.1, PT 11.4, INR 1.05 09/24/17 0730: Anion Gap 10, Estimated GFR > 60, BUN/Creatinine Ratio 10.0, Phosphorus 3.1, Magnesium 1.9, Total Bilirubin 2.5 H, Direct Bilirubin 0.5 H, AST 623 H, ALT 117 H, Alkaline Phosphatase 69, Lactate Dehydrogenase 1166 H, Total Protein 6.2 L, Albumin 3.7, CBC w Diff MAN DIFF ORDERED, RBC 4.30 L, MCV 88.9, MCH 30.8, MCHC 34.6, RDW 13.2, MPV 9.4, Gran % 82.0 H, Lymphocytes % 12.6 L, Monocytes % 3.4, Eosinophils % 1.7, Basophils % 0.3, Absolute Granulocytes 3.1, Absolute Lymphocytes 0.5 L, Absolute Monocytes 0.1, Absolute Eosinophils 0.1, Absolute Basophils 0, Platelet Estimate DECREASED, Polychromasia 1+, Retic Count 2.43 H 09/24/17 0600: Haptoglobin 240 H Vital Signs Date Time Temp Pulse Resp B/P B/P Pulse O2 O2 Flow FiO2 Mean Ox Delivery Rate 09/26 906 78 160/92 09/26 0906 78 16009/26 0905 78 160/92 09/26 0905 78 160/92 09/26 0800 75 160/92 09/26 0613 98.1 65 18 146/92 96 Room Air 09/26 0007 72 150/96 09/25 2110 78 160/108 09/25 2106 98.0 78 18 160/108 97 Room Air 09/25 1805 70 180/20 09/25 1800 70 180/20 09/25 1738 70 180/116 09/25 1437 97.8 79 20 194/126 97 Room Air 09/25 1404 76 180/122 09/25 1400 76 20 180/122 09/25 1221 99.2 73 20 196/124 96 Room Air Intake & Output 09/26 1600 09/26 0800 09/26 0000 Intake Total 480 Output Total Balance 480 Intake, Oral 480
[2017-09-27] VITALS (7 sets, daily range): BP systolic 140–154; BP diastolic 80–90
--- NOTE | 2017-09-27 08:41 | PN- Housestaff ---
Subjective Follow-up For: Alcohol detox Hypertensive urgency Transaminitis Chronic chest pain Subjective: Patient seen and examined. He states that he feels fine, does not complain of any chest pain, shortness of breath, headaches. Patient has no tremor and notes minimal anxiety. Review of Systems Constitutional: Reports: no symptoms. EENTM: Reports: no symptoms. Cardiovascular: Reports: no symptoms. Respiratory: Reports: no symptoms. Gastrointestinal: Reports: no symptoms. Genitourinary: Reports: no symptoms. Musculoskeletal: Reports: no symptoms. Skin: Reports: no symptoms. Objective Last 24 Hrs of Vital Signs/I&O Vital Signs Date Time Temp Pulse Resp B/P B/P Pulse O2 O2 Flow FiO2 Mean Ox Delivery Rate 09/27 1550 97.9 76 20 140/80 96 Room Air 09/27 1400 98.4 80 16 150/84 09/27 1200 98.1 76 16 152/80 09/27 1000 98.1 78 16 148/82 09/27 0827 98.0 70 18 154/90 09/27 0827 98.0 70 18 154/90 09/27 0827 98.0 70 18 154/90 09/27 0826 98.0 70 18 154/90 09/27 0400 98.0 70 18 154/90 95 09/27 0007 98.1 72 18 148/82 95 09/26 2100 73 170/100 09/26 2100 73 170/100 Intake & Output 09/27 1600 09/27 0800 09/27 0000 Intake Total 960 100 100 Output Total Balance 960 100 100 Intake, Oral 960 100 100 Physical Exam General Appearance: Alert, Oriented X3, Cooperative, No Acute Distress Skin: No Rashes, No Breakdown, No Significant Lesion Skin Temp/Moisture Exam: Warm/Dry Neck: Supple, No JVD Cardiovascular: Regular Rate, Normal S1, Normal S2, No Murmurs Lungs: Clear to Auscultation, Normal Air Movement Abdomen: Normal Bowel Sounds, Soft, No Tenderness, No Hepatospenomegaly, No Masses Neurological: Normal Speech Extremities: No Clubbing, No Cyanosis, No Edema, Normal Pulses Vascular: Normal Pulses, Pulses Symmetrical Current Medications: Current Medications Sig/Tiffany Start time Last Medication Dose Route Stop Time Status Admin Amlodipine Besylate 10 MG DAILY 09/26 0900 AC 09/27 PO 08 Aripiprazole 5 MG QPM 09/22 2100 AC 09/26 PO 2100 Clonidine 0.1 MG BID 09/22 09 AC 09/27 PO 08 Ibuprofen 600 MG Q6P PRN 09/22 121 AC 09/27 PO 174 Lisinopril 40 MG DAILY 09/25 09 AC 09/27 PO 0827 Lorazepam 0.5 MG Q6 09/27 1800 AC 09/27 PO 10/02 2159 1743 Lorazepam 1 MG Q8 09/25 2200 DC 09/27 PO 1442 Lorazepam 2 MG Q2P PRN 09/23 1200 AC PO Lorazepam 1 MG Q1P PRN 09/22 1215 DC 09/25 IV 1805 Metoprolol Succinate 75 MG DAILY 09/27 09 AC 09/27 PO 08 Multivitamins 1 TAB DAILY 09/23 09 AC 09/27 PO 08 Omeprazole 40 MG DAILY AC 09/22 121 AC 09/27 PO 0552 Ondansetron HCl 4 MG Q8P PRN 09/22 121 DC 09/24 IV 0623 Prazosin HCl 2 MG QPM 09/25 2099 AC 09/26 PO 2100 Last 24 Hrs of Lab/Scar Results Last 24 Hrs of Labs/Mics: Laboratory Tests 09/27/17 0815: Anion Gap 12, Estimated GFR > 60, BUN/Creatinine Ratio 15.0, Total Bilirubin 1.5 H, Direct Bilirubin 0.3, AST 380 H, ALT 256 H, Alkaline Phosphatase 69, Total Protein 6.7, Albumin 3.9, CBC w Diff NO MAN DIFF REQ, RBC 4.46 L, MCV 90.9, MCH 30.8, MCHC 33.9, RDW 13.4, MPV 8.8, Gran % 65.1, Lymphocytes % 20.7, Monocytes % 8.7, Eosinophils % 4.7, Basophils % 0.8, Absolute Granulocytes 2.3, Absolute Lymphocytes 0.7 L, Absolute Monocytes 0.3, Absolute Eosinophils 0.2, Absolute Basophils 0 Orders CIWA Score (last 24 hrs): 2 Assessment/Plan Assessment: 51-year-old gentleman with history of alcohol abuse, dependence, chronic chest pain with multiple cardiac catheterizing the past nonrevealing for any occlusion , is here for alcohol detox as well as chronic chest pain. 1. Alcohol detox. Continue taper and Ativan per CIWA. Continue CIWA. MVI, folate and thiamine. 2. Thrombocytopenia. Improving. Today platelets 161. Continue to hold Lovenox. PT INR checked and within normal limits. Recheck in a.m. No schistocytes noted. High LDH noted, and could be secondary to patient's alcohol intake. Continue to monitor. Continue to monitor indirect hyperbilirubinemia, improvement noted since yesterday. If worsens, will request hematology evaluation. Haptoglobin 240. Reticulocyte-2.43 Abnormalities likely related to alcohol abuse. 2. Hypertensive urgency. Continue clonidine and metoprolol. DC Hydralazine and start Norvasc 10 mg daily. Lisinopril increased to 40 mg daily. Give hydralazine if patient requires further blood pressure control. blood pressure 148/82. Patient had chest pain on admission and was in telemetry. EKGs and troponins were negative for acute coronary syndrome. The patient has had 2 cardiac caths in the past that were negative for ischemia and has a normal ejection fraction. 3. GERD. Continue pantoprazole. 4. Right cubital tunnel syndrome. Conservative approach, ice packs when necessary. Patient instructed not to lean on the right elbow 5. Electrolyte abnormalities. Replete PRN. Full code. Lovenox for DVT prophylaxis. Heart healthy diet. Problem List: 1. Alcohol dependence with continuous acute intoxication with delirium 2. Hypertensive urgency Pain Ratin Pain Location: na Pain Goal: Remain pain free Pain Plan: na Tomorrow's Labs & Rationales: na
[2017-09-27 09:05] LABS: ABSOLUTE BASOPHIL COUNT 0 /CUMM (0.0-0.2); ABSOLUTE EOSINOPHIL COUNT 0.2 /CUMM (0.0-0.7); ABSOLUTE GRANULOCYTE CT 2.3 /CUMM (1.4-6.5); ABSOLUTE LYMPH COUNT 0.7 /CUMM (1.2-3.4); ABSOLUTE MONOCYTE COUNT 0.3 /CUMM (0.10-0.60); BASOPHIL % 0.8 % (0.0-2.0); EOSINOPHIL % 4.7 % (0-5); GRANULOCYTE % 65.1 % (42.2-75.2); HEMATOCRIT 40.5 % (42-52); MEAN CORPUSCULAR HGB 30.8 PG (27.0-31.0); MEAN CORPUSCULAR HGB CONC 33.9 G/DL (33.0-37.0); MEAN CORPUSCULAR VOLUME 90.9 FL (80.0-94.0); MEAN PLATELET VOLUME 8.8 FL (7.4-10.4); PLATELET COUNT 161 /CUMM (130-400); RBC DISTRIBUTION WIDTH 13.4 % (11.5-14.5); RED BLOOD CELL CT 4.46 /CUMM (4.70-6.10); WHITE BLOOD CELL COUNT 3.6 /CUMM (4.8-10.8)
--- NOTE | 2017-09-27 13:24 | PN- Att Addend ---
Attending Addendum Attending Brief Note Patient seen and examined. Plan of care discussed with the medical team and the patient. Available lab work and radiology test reports were reviewed. Patient awake alert oriented. He denies any new complaints. Denies any recent fever chills nausea vomiting chest pain difficulty breathing or abdominal pain. He wants to go home. He was noted to be walking in hallway with a sitter. No new complaints today. Exam: General: Patient awake alert oriented without any distress CVS: S1 plus S2 without any murmur or gallops Chest: Few scattered crepitation without any wheeze. There is no respiratory distress. 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 and follows commands appropriately Extremities: No edema; no clubbing or cyanosis noted no tremors are noted Assessment * Alcohol abuse and alcohol detox * From cytopenia * Hypertensive urgency * Hypokalemia improved * Major depressive disorder/ bipolar disorder Plan * Increase metoprolol to 75 mg daily to provide better control of blood pressure * Continue Ativan taper; reduce Ativan to 0.5 mg every 6 today * Need psychiatric evaluation to determine further plan * Avoid further lab work Current Medications Sig/Tiffany Start time Last Medication Dose Route Stop Time Status Admin Amlodipine Besylate 10 MG DAILY 09/26 09 AC 09/27 PO 08 Aripiprazole 5 MG QPM 09/22 2100 AC 09/26 PO 2100 Clonidine 0.1 MG BID 09/22 09 AC 09/27 PO 0827 Ibuprofen 600 MG Q6P PRN 09/22 1215 AC 09/27 PO 1139 Lisinopril 40 MG DAILY 09/25 09 AC 09/27 PO 0827 Lorazepam 1 MG Q8 09/25 2200 AC 09/27 PO 0552 Lorazepam 2 MG Q2P PRN 09/23 1200 AC PO Lorazepam 1 MG Q1P PRN 09/22 1215 DC 09/25 IV 1805 Metoprolol Succinate 75 MG DAILY 09/27 09 AC 09/27 PO 0826 Multivitamins 1 TAB DAILY 09/23 0900 AC 09/27 PO 0827 Omeprazole 40 MG DAILY AC 09/22 1215 AC 09/27 PO 0552 Ondansetron HCl 4 MG Q8P PRN 09/22 1215 DC 09/24 IV 0623 Prazosin HCl 2 MG QPM 09/25 2100 AC 09/26 PO 2100 Laboratory Tests 09/27/17 0815: Anion Gap 12, Estimated GFR > 60, BUN/Creatinine Ratio 15.0, Total Bilirubin 1.5 H, Direct Bilirubin 0.3, AST 380 H, ALT 256 H, Alkaline Phosphatase 69, Total Protein 6.7, Albumin 3.9, CBC w Diff NO MAN DIFF REQ, RBC 4.46 L, MCV 90.9, MCH 30.8, MCHC 33.9, RDW 13.4, MPV 8.8, Gran % 65.1, Lymphocytes % 20.7, Monocytes % 8.7, Eosinophils % 4.7, Basophils % 0.8, Absolute Granulocytes 2.3, Absolute Lymphocytes 0.7 L, Absolute Monocytes 0.3, Absolute Eosinophils 0.2, Absolute Basophils 0 09/26/17 0955: Anion Gap 11, Estimated GFR > 60, BUN/Creatinine Ratio 12.9, Total Bilirubin 1.5 H, Direct Bilirubin 0.4, AST 511 H, ALT 244 H, Alkaline Phosphatase 73, Total Protein 7.0, Albumin 4.1, CBC w Diff NO MAN DIFF REQ, RBC 4.52 L, MCV 90.9, MCH 30.7, MCHC 33.8, RDW 13.9, MPV 9.1, Gran % 71.6, Lymphocytes % 16.2 L, Monocytes % 8.1, Eosinophils % 3.7, Basophils % 0.4, Absolute Granulocytes 3.5, Absolute Lymphocytes 0.8 L, Absolute Monocytes 0.4, Absolute Eosinophils 0.2, Absolute Basophils 0 09/25/17 1255: RBC 4.51 L, MCV 91.0, MCH 30.4, MCHC 33.4, RDW 13.1, MPV 8.6, Gran % 81.1 H, Lymphocytes % 10.7 L, Monocytes % 5.0, Eosinophils % 2.6, Basophils % 0.6, Absolute Granulocytes 3.8, Absolute Lymphocytes 0.5 L, Absolute Monocytes 0.2, Absolute Eosinophils 0.1, Absolute Basophils 0 09/25/17 0930: Anion Gap 14, Estimated GFR > 60, BUN/Creatinine Ratio 11.7, Total Bilirubin 1.7 H, Direct Bilirubin 0.4, AST 535 H, ALT 173 H, Alkaline Phosphatase 72, Total Protein 6.8, Albumin 4.1, PT 11.4, INR 1.05 Vital Signs Date Time Temp Pulse Resp B/P B/P Pulse O2 O2 Flow FiO2 Mean Ox Delivery Rate 09/27 1200 98.1 76 16 152/80 09/27 1000 98.1 78 16 148/82 09/27 08 98.0 70 18 154/90 09/27 0827 98.0 70 18 154/90 09/27 0827 98.0 70 18 154/90 09/27 08 98.0 70 18 154/90 09/27 0400 98.0 70 18 154/90 95 09/27 0007 98.1 72 18 148/82 95 09/26 2100 73 170/100 09/26 2100 73 170/100 09/26 2000 98.2 73 20 170/100 09/26 1800 98.2 70 20 150/90 09/26 1600 98.2 76 20 150/90 09/26 1406 98.2 76 20 150/90 96 Room Air 09/26 1400 76 150/90 Intake & Output 09/27 1600 09/27 0800 09/27 0000 Intake Total 100 100 Output Total Balance 100 100 Intake, Oral 100 100
[2017-09-28 06:53] VITALS: BP 136/88
[2017-09-28 08:00] VITALS: BP 148/88
--- NOTE | 2017-09-28 08:53 | PN- Housestaff ---
Subjective Follow-up For: Alcohol detox Hypertensive urgency Transaminitis Chronic chest pain Subjective: Offers no complaints. Doing well overall. Review of Systems Constitutional: Reports: see HPI. Objective Last 24 Hrs of Vital Signs/I&O Vital Signs Date Time Temp Pulse Resp B/P B/P Pulse O2 O2 Flow FiO2 Mean Ox Delivery Rate 09/28 0653 97.6 75 18 136/88 95 09/27 2110 62 150/90 09/27 2109 62 150/90 09/27 2100 98.3 62 18 150/90 97 Room Air 09/27 1550 97.9 76 20 140/80 96 Room Air 09/27 1400 98.4 80 16 150/84 09/27 1200 98.1 76 16 152/80 09/27 1000 98.1 78 16 148/82 Intake & Output 09/28 1600 09/28 0800 09/28 0000 Intake Total 480 500 Output Total 400 Balance 480 100 Intake, IV 0 Intake, Oral 480 500 Number 0 Bowel Movements Output, Urine 400 Physical Exam General Appearance: Alert, Oriented X3, Cooperative Cardiovascular: Regular Rate, Normal S1, Normal S2 Lungs: Clear to Auscultation, Normal Air Movement Abdomen: Normal Bowel Sounds, Soft, No Tenderness Extremities: No Clubbing, No Cyanosis Current Medications: Current Medications Sig/Tiffany Start time Last Medication Dose Route Stop Time Status Admin Amlodipine Besylate 10 MG DAILY 09/26 09 AC 09/27 PO 826 Aripiprazole 5 MG QPM 09/22 2100 AC 09/27 PO 2108 Clonidine 0.1 MG BID 09/22 09 AC 09/27 PO 2110 Ibuprofen 600 MG .STK-MED ONE 09/27 1741 DC PO 09/27 1742 Ibuprofen 600 MG Q6P PRN 09/22 1215 AC 09/27 PO 1743 Lisinopril 40 MG DAILY 09/25 0900 AC 09/27 PO 0827 Lorazepam 0.5 MG Q6 09/27 1800 AC 09/28 PO 10/02 2159 0625 Lorazepam 1 MG Q8 09/25 2200 DC 09/27 PO 1442 Lorazepam 2 MG Q2P PRN 09/23 1200 AC PO Lorazepam 1 MG Q1P PRN 09/22 1215 DC 09/25 IV 1805 Metoprolol Succinate 75 MG DAILY 09/27 09 AC 09/27 PO 0826 Multivitamins 1 TAB DAILY 09/23 0900 AC 09/27 PO 0827 Omeprazole 40 MG DAILY AC 09/22 1215 AC 09/28 PO 0625 Ondansetron HCl 4 MG Q8P PRN 09/22 1215 DC 09/24 IV 0623 Prazosin HCl 2 MG QPM 09/25 2100 AC 09/27 PO 2108 Assessment/Plan Assessment: 51-year-old gentleman with history of alcohol abuse, dependence, chronic chest pain with multiple cardiac catheterizing the past nonrevealing for any occlusion , is here for alcohol detox as well as chronic chest pain. 1. Alcohol detox. Continue taper and Ativan per CIWA. CIWAs - 0, 0, 0, 0, 2. MVI, folate and thiamine. Change to Ativan 0.5 mg q12 today. Anticipate dc soon, pending further plan by Psych and social work. 2. Thrombocytopenia. Improving. Continue to hold Lovenox. PT INR checked and within normal limits. Recheck in a.m. No schistocytes noted. High LDH noted, and could be secondary to patient's alcohol intake. Continue to monitor. Continue to monitor indirect hyperbilirubinemia. Abnormalities likely related to alcohol abuse. 2. Hypertensive urgency. Continue clonidine and metoprolol increased dose. Norvasc 10 mg daily. Lisinopril increased to 40 mg daily. Continue Prazosin. 3. GERD. Continue pantoprazole. 4. Right cubital tunnel syndrome. Conservative approach, ice packs when necessary. 5. Electrolyte abnormalities. Replete PRN. Full code. Lovenox for DVT prophylaxis. Heart healthy diet. Problem List: 1. Alcohol withdrawal Pain Ratin Pain Location: Rt elbow Pain Goal: Remain pain free Pain Plan: PRN Tomorrow's Labs & Rationales: Not needed
--- NOTE | 2017-09-28 12:02 | PN- Att Addend ---
Attending Addendum Attending Brief Note Patient seen and examined. Plan of care discussed with the medical team and the patient. Available lab work and radiology test reports were reviewed. Patient awake alert oriented. He denies any new complaints. Denies any recent fever chills nausea vomiting chest pain difficulty breathing or abdominal pain. He wants to go home. No new complaints today. Exam: General: Patient awake alert oriented without any distress CVS: S1 plus S2 without any murmur or gallops Chest: Few scattered crepitation without any wheeze. There is no respiratory distress. 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: Awake alert oriented without any focal neuro deficit and follows commands appropriately Extremities: No edema; no clubbing or cyanosis noted no tremors are noted Assessment * Alcohol abuse and alcohol detox * From cytopenia * Hypertensive urgency * Hypokalemia improved * Major depressive disorder/ bipolar disorder Plan * Increase metoprolol to 75 mg daily to provide better control of blood pressure * Please adjust Ativan; DC 1 mg every 2 overdose ; continue Ativan to 0.5 mg every 6 when necessary from today for anxiety * Need psychiatric evaluation to determine further plan- please call crisis to assess the patient today * Avoid further lab work Current Medications Sig/Tiffany Start time Last Medication Dose Route Stop Time Status Admin Amlodipine Besylate 10 MG DAILY 09/26 0900 AC 09/28 PO 0926 Aripiprazole 5 MG QPM 09/22 2100 AC 09/27 PO 2108 Clonidine 0.1 MG BID 09/22 0900 AC 09/28 PO 0927 Ibuprofen 600 MG .STK-MED ONE 09/27 1741 DC PO 09/27 1742 Ibuprofen 600 MG Q6P PRN 09/22 1215 AC 09/27 PO 1743 Lisinopril 40 MG DAILY 09/25 0900 AC 09/28 PO 0927 Lorazepam 1 MG Q2P PRN 09/28 0915 AC PO Lorazepam 0.5 MG Q12 09/28 0905 AC 09/28 PO 10/05 0904 0927 Lorazepam 0.5 MG Q6 09/27 1800 DC 09/28 PO 10/02 2159 0625 Lorazepam 1 MG Q8 09/25 2200 DC 09/27 PO 1442 Lorazepam 2 MG Q2P PRN 09/23 1200 DC PO Lorazepam 1 MG Q1P PRN 09/22 1215 DC 09/25 IV 1805 Metoprolol Succinate 75 MG DAILY 09/27 0900 AC 09/28 PO 926 Multivitamins 1 TAB DAILY 09/23 09 AC 09/28 PO 926 Omeprazole 40 MG DAILY AC 09/22 121 AC 09/28 PO 06 Ondansetron HCl 4 MG Q8P PRN 09/22 121 DC 09/24 IV 0623 Prazosin HCl 2 MG QPM 09/25 2100 AC 09/27 PO 2109 Laboratory Tests 09/27/17 0815: Anion Gap 12, Estimated GFR > 60, BUN/Creatinine Ratio 15.0, Total Bilirubin 1.5 H, Direct Bilirubin 0.3, AST 380 H, ALT 256 H, Alkaline Phosphatase 69, Total Protein 6.7, Albumin 3.9, CBC w Diff NO MAN DIFF REQ, RBC 4.46 L, MCV 90.9, MCH 30.8, MCHC 33.9, RDW 13.4, MPV 8.8, Gran % 65.1, Lymphocytes % 20.7, Monocytes % 8.7, Eosinophils % 4.7, Basophils % 0.8, Absolute Granulocytes 2.3, Absolute Lymphocytes 0.7 L, Absolute Monocytes 0.3, Absolute Eosinophils 0.2, Absolute Basophils 0 09/26/17 0955: Anion Gap 11, Estimated GFR > 60, BUN/Creatinine Ratio 12.9, Total Bilirubin 1.5 H, Direct Bilirubin 0.4, AST 511 H, ALT 244 H, Alkaline Phosphatase 73, Total Protein 7.0, Albumin 4.1, CBC w Diff NO MAN DIFF REQ, RBC 4.52 L, MCV 90.9, MCH 30.7, MCHC 33.8, RDW 13.9, MPV 9.1, Gran % 71.6, Lymphocytes % 16.2 L, Monocytes % 8.1, Eosinophils % 3.7, Basophils % 0.4, Absolute Granulocytes 3.5, Absolute Lymphocytes 0.8 L, Absolute Monocytes 0.4, Absolute Eosinophils 0.2, Absolute Basophils 0 09/25/17 1255: RBC 4.51 L, MCV 91.0, MCH 30.4, MCHC 33.4, RDW 13.1, MPV 8.6, Gran % 81.1 H, Lymphocytes % 10.7 L, Monocytes % 5.0, Eosinophils % 2.6, Basophils % 0.6, Absolute Granulocytes 3.8, Absolute Lymphocytes 0.5 L, Absolute Monocytes 0.2, Absolute Eosinophils 0.1, Absolute Basophils 0 Vital Signs Date Time Temp Pulse Resp B/P B/P Pulse O2 O2 Flow FiO2 Mean Ox Delivery Rate 09/28 926 97.6 78 148/92 09/28 0927 78 148/92 09/28 09 78 148/92 09/28 0926 78 148/92 09/28 0800 76 148/88 09/28 0653 97.6 75 18 136/88 95 09/27 2110 62 150/90 09/27 2109 62 150/90 09/27 2100 98.3 62 18 150/90 97 Room Air 09/27 1550 97.9 76 20 140/80 96 Room Air 09/27 1400 98.4 80 16 150/84 Intake & Output 09/28 1600 09/28 0800 09/28 0000 Intake Total 480 500 Output Total 400 Balance 480 100 Intake, IV 0 Intake, Oral 480 500 Number 0 Bowel Movements Output, Urine 400
[2017-09-28 15:27] VITALS: BP 139/74
[2017-09-28 20:00] VITALS: BP 150/90
[2017-09-28 22:47] VITALS: BP 154/89
[2017-09-29 06:41] VITALS: BP 122/90
--- NOTE | 2017-09-29 08:29 | PN- Housestaff ---
See Addendum Subjective Follow-up For: Alcohol detox Hypertensive urgency Transaminitis Chronic chest pain Subjective: Offers no complaints, wants to go home. Overnight CIWA scores-0, 0, 0, 0, 0. Review of Systems Constitutional: Reports: see HPI. Objective Last 24 Hrs of Vital Signs/I&O Vital Signs Date Time Temp Pulse Resp B/P B/P Pulse O2 O2 Flow FiO2 Mean Ox Delivery Rate 09/29 0541 98.4 65 20 122/90 95 Room Air 09/28 2247 98.8 57 18 154/89 98 Room Air 09/29 1999 98.5 64 18 150/90 09/29 1999 98.5 64 18 150/90 97 Room Air 09/28 1958 64 150/90 09/28 1957 64 150/90 09/28 1527 98.5 67 18 139/74 94 Room Air 09/28 09 97.6 78 148/92 09/28 0927 78 148/92 09/28 0927 78 148/92 09/28 0926 78 148/92 Intake & Output 09/29 1600 09/29 0800 09/29 0000 Intake Total 675 Output Total 600 Balance 75 Intake, IV 0 Intake, Oral 675 Number 1 Bowel Movements Output, Urine 600 Physical Exam General Appearance: Alert, Oriented X3, Cooperative Cardiovascular: Regular Rate, Normal S1, Normal S2 Lungs: Clear to Auscultation, Normal Air Movement Abdomen: Normal Bowel Sounds, Soft Extremities: No Clubbing, No Cyanosis, No Edema Current Medications: Current Medications Sig/Tiffany Start time Last Medication Dose Route Stop Time Status Admin Amlodipine Besylate 10 MG DAILY 09/26 899 AC 09/28 PO 925 Aripiprazole 5 MG QPM 09/22 2100 AC 09/28 PO 1957 Clonidine 0.1 MG BID 09/22 899 AC 09/28 PO 1958 Ibuprofen 600 MG Q6P PRN 09/22 1215 AC 09/28 PO 155 Lisinopril 40 MG DAILY 09/25 899 AC 09/28 PO 926 Lorazepam 0.5 MG Q6P PRN 09/28 2021 AC PO 10/05 2020 Lorazepam 0.5 MG Q6 09/28 1800 DC 09/28 PO 10/05 1751952 Lorazepam 1 MG Q2P PRN 09/28 914 DC PO Lorazepam 0.5 MG Q12 09/28 0905 DC 09/28 PO 10/05 09926 Lorazepam 0.5 MG Q6 09/27 1800 DC 09/28 PO 10/02 Lorazepam 2 MG Q2P PRN 09/23 1200 DC PO Metoprolol Succinate 75 MG DAILY 09/27 0900 AC 09/28 PO 926 Multivitamins 1 TAB DAILY 09/23 0900 AC 09/28 PO 926 Omeprazole 40 MG DAILY AC 09/22 1215 AC 09/29 PO 05 Prazosin HCl 2 MG QPM 09/25 2100 AC 09/28 PO 1957 Assessment/Plan Assessment: 51-year-old gentleman with history of alcohol abuse, dependence, chronic chest pain with multiple cardiac catheterizing the past nonrevealing for any occlusion , is here for alcohol detox as well as chronic chest pain. 1. Alcohol detox. Continue taper and Ativan per CIWA. CIWAs - 0, 0, 0, 0, 0. MVI, folate and thiamine. Hasn't required Ativan overnight. Likely DC today, pending further plan by Psych and social work. Close follow-up with IOP and psychiatry. Well controlled. 2. Thrombocytopenia. Resolved. 2. Hypertensive urgency. Continue clonidine and metoprolol increased dose. Norvasc 10 mg daily. Lisinopril increased to 40 mg daily. Continue Prazosin. 3. GERD. Continue pantoprazole. 4. Right cubital tunnel syndrome. Conservative approach, ice packs when necessary. 5. Electrolyte abnormalities. Resolved. Full code. Lovenox for DVT prophylaxis. Heart healthy diet. Problem List: 1. Alcohol dependence Pain Ratin Pain Location: Chest/Elbow Pain Goal: Remain pain free Pain Plan: PRN Tomorrow's Labs & Rationales: Not needed
[2017-09-29] MEDS ORDERED: TOPROL XL25 M1 PO (11:06)
[2017-09-29] MEDS ORDERED: NORVASC10 M1 PO (11:06)
--- NOTE | 2017-09-29 11:07 | Patient Discharge Instructions ---
Discharge Instructions General Discharge Information You were seen/treated for: Alcohol withdrawal Special Instructions: Follow up with PCP. Follow up with IOP and Psychiatry. Follow up with Cardiology. Diet Continue normal diet: Yes Activity Full Activity/No Limits: Yes Acute Coronary Syndrome Inclusion Criteria At DC or during hospital stay patient has or had the following: ACS DIAGNOSIS No Discharge Core Measures Meds if any: Prescribed or Continued at Discharge Meds if any: NOT Prescribed or Continued at Discharge Congestive Heart Failure Inclusion Criteria At DC or during hospital stay patient has or had the following: CHF DIAGNOSIS No Discharge Core Measures Meds if any: Prescribed or Continued at Discharge Meds if any: NOT Prescribed or Continued at Discharge Cerebrovascular accident Inclusion Criteria At DC or during hospital stay patient has or had the following: CVA/TIA Diagnosis No Discharge Core Measures Meds if any: Prescribed or Continued at Discharge Meds if any: NOT Prescribed or Continued at Discharge Venous thromboembolism Inclusion Criteria VTE Diagnosis No VTE Type NONE VTE Confirmed by (Test) NONE Discharge Core Measures - Per Current guidelines, there needs to be overlap - treatment for the first 5 days of Warfarin therapy. - If discharged on Warfarin prior to 5 days of - overlap therapy, the patient will need to be - assessed for post discharge needs including - *Post discharge parental anticoagulation - *Warfarin and/or parental anticoagulation education - *Follow up date to check INR post discharge At least 5 days overlap therapy as Inpatient No Meds if any: Prescribed or Continued at Discharge Note: Overlap Therapy is Warfarin and Anticoagulant Meds if any: NOT Prescribed or Continued at Discharge
[2017-09-29 13:44] VITALS: BP 136/76
--- NOTE | 2017-09-29 14:52 | Discharge Summary ---
Visit Information Visit Dates Admission Date: 09/22/17 Discharge Date: 09/29/17 Hospital Course Course Attending Physician: Ronni BARRIGA,Aquiles Gunter Primary Care Physician: Liban BARRIGA,[facility] Course: 51-year-old gentleman with PMH significant for alcohol abuse, alcohol dependence , chronic chest pain, pancreatitis, delirium tremens, with multiple cardiac catheterizations with one in August 2016 showing no occlusion or no stent placements, anxiety, depression, insomnia, PTSD, fatty liver, hypertension, hyperlipidemia who came in for chief complaint of worsening chest pain and requesting alcohol detox. In ED he was noted to be hypertensive, vomiting and very tremulous. He was admitted to general medicine floor for etoh detox. Vitals in ED: 97.6, 98, 18, 205/103, 97% on room air. LABS: Negative troponin Urine tox positive for benzodiazepines up to 727. Serum alcohol 247 Anion gap 20 Glucose 109 T bili 1.9 AST 162, ALT 61 alkaline phosphatase 100 Problem List: Alcohol detox: CIWA protocol. Ativan ATC and PRN was adminitsered. He did well and has plans to be seen at [facility] with close follow up with Psych. During the course of his stay, he was evaluated by Psych who initially deemed him ineligible to leave [facility]. His mentation cleared eventually and is stable for discharge on 09/30/17. Hypertensive urgency: * We continued clonidine * We increaded dose to Metoprolol * Hydralazine was discontined; Amlodipine started - dose 10 mg. * Continued Lisinopril BP stable upon discharge. Transaminitis: AST and ALT in classic 2-1 alcoholic hepatitis pattern. The right upper quadrant ultrasound during previous admission showed hepatic steatosis and 2 small hypoechoic lesions. Continued to monitor, stayed stable. Obviously needs abstinence from alcohol. Mood disorder: * Continue Abilify Chest pain: Patient was ruled out for ACS. Follow up with Cards as outpatient. GERD: * Continue pantoprazole * Hyperlipidemia: * Continue Atorvastatin. R. elbow fluctuance: Ortho evaluated, no intervention recommended. Ice packs and NSAIDs PRN. Follow up with Ortho. FC Lovenox was held for thrombocytopenia, patient refused ALPs, was very ambulatory. HHD Allergies: Coded Allergies: Penicillins (RASH 06/25/17) blueberry (hives, rash 06/25/17) nitroglycerin (MIGRAINE 06/25/17) Disposition Summary Disposition Principal Diagnosis: Alcohol withdrawal Additional Diagnosis: Hypertensive urgency Discharge Disposition: home or self care Discharge Instructions General Discharge Information Code Status: Full Code Patient's Diet: Heart healthy diet Patient's Activity: As tolerated. Follow-Up Instructions/Appts: Please follow-up with primary care physician in 1-2 weeks. Please follow-up with IOP in 1 week of discharge. Please follow-up with your psychiatrist within 1-2 weeks of discharge. Please follow with head mechanic within 1-2 weeks of discharge. Medications at Discharge Discharge Medications: Stop taking the following medications: Metoprolol Tartrate (Metoprolol Tartrate) 25 MG TABLET ORAL TWICE DAILY Qty = 60 Metoprolol Tartrate (Metoprolol Tartrate) 50 MG TABLET ORAL THREE TIMES DAILY Hydralazine HCl (Hydralazine HCl) 25 MG TABLET ORAL THREE TIMES DAILY LORazepam (Ativan) 1 MG TAB ORAL EVERY SIX HOURS Continue taking these medications: Multivitamin (One Daily Multivitamin) 1 EACH TABLET 1 Tablet ORAL DAILY Qty = 1 Comments: LAST GIVEN 09/29/17 2 929 Lisinopril (Lisinopril) 20 MG TABLET 40 Milligram ORAL DAILY Qty = 30 Comments: LAST GIVEN 09/29/17 @ 0930 Aripiprazole (Abilify) 5 MG TABLET 1 Tablet ORAL Every night Qty = 14 Instructions: Take 1 tab po QPM. Comments: Last Taken: 06/27/17 Time: 9:00 PM Prazosin HCl (Minipress) 2 MG CAPSULE 1 Capsule ORAL Every night Comments: LAST GIVEN 09/28/17 @ 1999 Pantoprazole Sodium (Protonix) 40 MG TABLET.DR 1 Tablet ORAL DAILY Clonidine HCl (Clonidine HCl) 0.1 MG TABLET 1 Tablet ORAL TWICE DAILY Comments: LAST GIVEN 09/29/17 @ 0930 Gabapentin (Neurontin) 300 MG CAPSULE 1 Capsule ORAL TWICE DAILY Atorvastatin Calcium (Lipitor) 80 MG TABLET 1 Tablet ORAL DAILY Aspirin (Aspirin*) 81 MG TAB.CHEW 1 Tablet ORAL DAILY Start taking the following new medications: Metoprolol Succ XL (Toprol XL) 25 MG TAB 75 Milligram ORAL DAILY Qty = 30 No Refills Comments: LAST GIVEN 09/29/17 @ 0930 Amlodipine Besylate (Norvasc) 10 MG TABLET 10 Milligram ORAL DAILY Qty = 30 No Refills Comments: LAST GIVEN 09/28/18 @ 0900 Copies To: Liban BARRIGA,Yoselin; Nikhil BARRIGA,Any; Archana BARRIGA PHD,Brett Gunter
== END 2017-09-29 15:26 | DRG 775 ==
LOC: ERH 18:22 → ERHI 23:24 → 2NB 09-22 10:52 → CANBEDREQ 09-22 10:59 → EDBEDREQSVC 09-22 11:00 → EDBEDREQ 09-22 11:04 → ENRESERV 09-22 11:09 → ERHI 09-22 11:27 → ENTRNSPT 09-22 11:46 → EDTRNSPTSTS 09-22 12:01 → EDTRNSPT 09-22 12:01 → 2NB 09-22 12:13 → EDTRNSPT 09-22 12:22 → CMPTRNSPT 09-22 12:32 → ENPENDDIS 09-29 14:25 → 2NB 09-29 15:26
PROVIDERS: Internal Medicine Hematology & Oncology; Physician Assistant Medical; Student in an Organized Health Care Education/Training Program
DX: F10.221 Alcohol dependence with intoxication delirium (principal); D69.6 Thrombocytopenia, unspecified; F10.239 Alcohol dependence with withdrawal, unspecified; E83.42 Hypomagnesemia; F31.9 Bipolar disorder, unspecified; G89.29 Other chronic pain; M70.21 Olecranon bursitis, right elbow; Y90.8 Blood alcohol level of 240 mg/100 ml or more; R07.9 Chest pain, unspecified; F41.9 Anxiety disorder, unspecified; E78.4 Other hyperlipidemia; I16.0 Hypertensive urgency; K21.9 Gastro-esophageal reflux disease without esophagitis; G56.21 Lesion of ulnar nerve, right upper limb; E87.6 Hypokalemia; I25.2 Old myocardial infarction; I10 Essential (primary) hypertension; Z87.81 Personal history of (healed) traumatic fracture; Z91.018 Allergy to other foods; Z88.8 Allergy status to other drugs, medicaments and biological substances; Z88.0 Allergy status to penicillin
CPT/HCPCS: 2NSBP; 36415; 73080-RT; 74021; 80307; 82436; 83010; 87040; 93005; 93010; 96374; G0480; J1650; J2405; J3490; J7060

== ENCOUNTER 2017-11-06 15:26 | Inpatient (IN) | payer OTHER ==
[~2017-11-06] VITALS: Ht 180.3 cm; Wt 98.5 kg
[~2017-11-06 15:26] MED LIST changes: +ASPIRIN81 M4 PO; +DAILY MULTIPLE1 EACH PO; +MINIPRESS2 M1 PO; +NEURONTIN300 M1 PO; +NORVASC10 M1 PO; +ZESTRIL40 M1 PO
[2017-11-06 15:58] LABS: ABSOLUTE BASOPHIL COUNT 0 /CUMM (0.0-0.2); ABSOLUTE EOSINOPHIL COUNT 0.1 /CUMM (0.0-0.7); ABSOLUTE GRANULOCYTE CT 2.8 /CUMM (1.4-6.5); ABSOLUTE LYMPH COUNT 1.4 /CUMM (1.2-3.4); ABSOLUTE MONOCYTE COUNT 0.2 /CUMM (0.10-0.60); BASOPHIL % 1.1 % (0.0-2.0); EOSINOPHIL % 1.2 % (0-5); GRANULOCYTE % 61.3 % (42.2-75.2); HEMATOCRIT 45.4 % (42-52); MEAN CORPUSCULAR HGB 29.9 PG (27.0-31.0); MEAN CORPUSCULAR HGB CONC 33.8 G/DL (33.0-37.0); MEAN CORPUSCULAR VOLUME 88.5 FL (80.0-94.0); MEAN PLATELET VOLUME 7.7 FL (7.4-10.4); PLATELET COUNT 192 /CUMM (130-400); RBC DISTRIBUTION WIDTH 14.3 % (11.5-14.5); RED BLOOD CELL CT 5.13 /CUMM (4.70-6.10); WHITE BLOOD CELL COUNT 4.5 /CUMM (4.8-10.8)
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
--- NOTE | 2017-11-06 17:10 | RADIOLOGY REPORT ---
EXAMINATION: XR CHEST CLINICAL INFORMATION: Chest pain COMPARISON: 08/31/2017 TECHNIQUE: 2 views of the chest were obtained. FINDINGS: Lungs remain hypoinflated which causes crowding of bronchovascular structures in the bases. Minimal linear opacity of atelectasis in the right lateral base. No pulmonary consolidation, edema, pneumothorax or pleural effusion. Cardiac silhouette is mildly enlarged. The hilar contours are normal. The visualized bones are intact. IMPRESSION: 1. Lungs are hypoinflated. 2. Mild cardiomegaly without pulmonary edema or other significant interval change compared to 08/31/2017.
[2017-11-06 18:53] VITALS: BP 148/84
--- NOTE | 2017-11-06 21:17 | CT SCAN REPORT ---
EXAMINATION: CTA CHEST PE STUDY CLINICAL INFORMATION: CP, SOB, h/o PE, elevated d-dimer COMPARISON: 01/10/2017 PE study TECHNIQUE: Prior to contrast administration, noncontrast localization images were obtained. After the administration of 95 ml of Optiray 320 IV contrast, contiguous thin slice helical images were obtained through the thorax. Reformatted MIP images in the coronal and sagittal planes were obtained at the acquisition workstation. DLP: 568 mGy-cm. FINDINGS: The bolus timing on this study was suboptimal but acceptable for visualization of the pulmonary arterial tree. The distal branch vessels are partially obscured by artifact. There are no intraluminal pulmonary arterial filling defects present to suggest pulmonary embolism. Linear basilar markings more suggestive atelectasis. There are subtle mucous impacted bronchi seen more so in the left lower lobe. Tiny stable pulmonary nodule right lower lobe. No abnormal masses are appreciated. No significant hilar or mediastinal adenopathy. There is no evidence of pleural effusion or pneumothorax. The heart is normal in size. No evidence of ventricular septal bowing or right heart strain. The mediastinum and great vessels are normal. There is no pericardial effusion or pericardial thickening. Limited evaluation of the upper abdominal viscera demonstrates diffuse fatty infiltration the liver. IMPRESSION: No evidence for central pulmonary emboli. Mild mucous impacted bronchi seen in the left lower lobe. Stable tiny millimeter sized pulmonary nodule in the right lower lobe. No focal airspace disease otherwise. VTE: Negative
[2017-11-06 21:25] VITALS: BP 202/88
[2017-11-06 23:31] VITALS: BP 164/84
[2017-11-07] VITALS (8 sets, daily range): BP systolic 146–184; BP diastolic 82–112
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
[2017-11-07 08:39] LABS: ABSOLUTE BASOPHIL COUNT 0.1 /CUMM (0.0-0.2); ABSOLUTE EOSINOPHIL COUNT 0.1 /CUMM (0.0-0.7); ABSOLUTE GRANULOCYTE CT 3.7 /CUMM (1.4-6.5); ABSOLUTE MONOCYTE COUNT 0.2 /CUMM (0.10-0.60); BASOPHIL % 1.1 % (0.0-2.0); EOSINOPHIL % 1.1 % (0-5); GRANULOCYTE % 73.3 % (42.2-75.2); HEMATOCRIT 40.8 % (42-52); MEAN CORPUSCULAR HGB 30.2 PG (27.0-31.0); MEAN CORPUSCULAR VOLUME 88.7 FL (80.0-94.0); MEAN PLATELET VOLUME 8.7 FL (7.4-10.4); PLATELET COUNT 155 /CUMM (130-400); RBC DISTRIBUTION WIDTH 14.9 % (11.5-14.5); WHITE BLOOD CELL COUNT 5.1 /CUMM (4.8-10.8)
--- NOTE | 2017-11-07 13:02 | PN- Att Addend ---
Attending Addendum Attending Brief Note Mr. Rosa was seen and evaluated. Briefly, he is a 51-year-old man with PMHx of alcohol abuse, CAD (apparently has underwent cardiac catheterization), HTN, and HLD p/w severe crushing chest pain associated with SOB. Pt reported drinking approximately 1 L of rum daily. Currently on CIWA protocol --CE x 3 negative --SW Consult --cont CIWA protocol, MVI, Folate
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
--- NOTE | 2017-11-07 20:49 | Event Note ---
Event Note Event Note: Jeff Rosa is a 51 YO male who tonight was having chest discomfort. Patient complained of chest pain that was 9 out of 10 that felt like an "elephant on his chest." Patient noted radiation to his left arm. Patient states he has been having chest pain since admission, usually 8 out of 10, but now it is worse. Patient stated he also felt dyspnea and had few episodes of vomiting clear liquid during the encounter. Ordered Aspirin 325 mg and EKG at 2029. EKG showed no ST depression/elevation or T wave changes. Ordered Protonix 40 mg IV at 2044. Patient's recent vitals were 166/104 and heart rate of 80 bpm. 2114 - Rechecked patient and patient reported his chest pain was now an 8 out of 10 but that it was been persistent throughout the day. Patient said he will take Aspirin later. Informed Dr. Cyr about current situation.
[2017-11-08] VITALS (11 sets, daily range): BP systolic 132–150; BP diastolic 70–98
--- NOTE | 2017-11-08 08:38 | PN- Housestaff ---
David Marte 11/08/17 0838: Subjective Follow-up For: Chest pain R/O ACS Alcohol abuse and detox Hypertensive Urgency Transaminitis likely secondary to alcohol abuse and steatosis. H/O PTSD, Anxiety, Depression, Insomnia H/O GERD H/O HLD Complaints: pain scale (0-10) Tele-Events Since Last Visit: Normal sinus rhythm Subjective: Patient was seen and examined this morning. He is alert awake and oriented to time place and person. No acute events overnight. he continues to report mild chest discomfort and abdominal discomfort. He reports being anxious. He also has sweating, tremors. Ciwa scores were ranging in between 6-11. Denies any short of breath. Vitals remained stable. Blood pressure under control. Review of Systems Constitutional: Reports: see HPI. Objective Last 24 Hrs of Vital Signs/I&O Vital Signs Date Time Temp Pulse Resp B/P B/P Pulse O2 O2 Flow FiO2 Mean Ox Delivery Rate 11/08 1000 97.9 35 16 148/98 11/08 0810 88 132/90 11/08 0808 88 132/90 11/08 0806 88 132/90 / 0800 Room Air Room Air / 0800 88 20 132/90 / 0631 97.9 93 28 142/78 94 Room Air 11/08 0306 96 Room Air 11/07 2322 93 158/88 11/07 2209 98.7 93 18 158/88 99 /07 2022 80 166/104 / 2021 80 166/104 / 1550 94 146/82 11/07 1518 98.2 94 94 146/82 18 Intake & Output 11/08 1600 08 0800 11/08 0000 Intake Total 300 120 Output Total 250 Balance 50 120 Intake, Oral 300 120 Output, Urine 250 Patient 129.274 kg Weight Weight Bed scale Measurement Method Physical Exam General Appearance: Alert, Oriented X3, Cooperative, No Acute Distress Other Physical Findings: HEENT: NC/AT, PERRL, EOMI Neck: no JVD, no carotid bruit Heart: RRR w/o nurmur Lungs; clear bilaterally ABdomen: soft, NT, +ve bowel sounds Extremities: no edema Current Medications: Current Medications Sig/Tiffany Start time Last Medication Dose Route Stop Time Status Admin Amlodipine Besylate 10 MG DAILY 11/07 0900 DC 11/07 PO 1029 Aspirin 325 MG ONCE ONE 11/07 2030 DC 11/07 PO 11/07 2031 2321 Aspirin 81 MG DAILY 11/07 899 AC 11/08 PO 0807 Calcium Carbonate 500 MG ONCE ONE 11/08 0815 DC 11/08 PO 11/08 0816 0819 Clonidine 0.1 MG BID 11/07 2100 AC 11/08 PO 0806 Enoxaparin Sodium 40 MG DAILY 11/07 899 AC 11/07 SC 0937 Folic Acid 1 MG DAILY 11/07 09 AC 11/08 PO 0807 Ibuprofen 600 MG Q6P PRN 11/07 0600 DC 11/07 PO 0943 Lisinopril 40 MG DAILY 11/07 09 AC 11/08 PO 0810 Loperamide HCl 2 MG ONE ONE 11/07 1600 DC 11/07 PO 11/07 1601 1710 Lorazepam 2 MG Q6 11/07 0300 AC 11/08 PO 0537 Lorazepam 0 Q1P PRN 11/07 0300 AC 11/08 IV 0302 Metoprolol Succinate 75 MG DAILY 11/07 09 AC 11/08 PO 0808 Multivitamins 1 TAB DAILY 11/07 09 AC 11/08 PO 0809 Nifedipine 30 MG 1600 11/08 1600 UNVr PO Nifedipine 30 MG DAILY 11/07 1330 DC 11/07 PO 1550 Nitroglycerin 0.4 MG ONCE ONE 11/07 2030 DC SL 11/07 203 Omeprazole 40 MG DAILY AC 11/08 07 AC 11/08 PO 0537 Omeprazole 20 MG DAILY AC 11/07 0730 DC 11/07 PO 1218 Ondansetron HCl 4 MG Q8P PRN 11/07 0600 DC 11/07 IV 2024 Pantoprazole Sodium 40 MG ONCE ONE 11/07 204 DC 11/07 IV 11/07 2046 2035 Prazosin HCl 2 MG QPM 11/07 2100 AC 11/07 PO 202 Thiamine HCl 100 MG DAILY 11/07 09 AC 11/08 PO 0809 Trimethobenzamide HCl 200 MG TIDPRN PRN 11/07 2145 AC IM Last 24 Hrs of Lab/Scar Results Last 24 Hrs of Labs/Mics: Laboratory Tests 11/08/17 0320: Troponin I < 0.01 11/07/17 2030: Troponin I < 0.01 Assessment/Plan Assessment: Patient is a 51-year-old male with past medical history of alcohol abuse, alcohol dependence, chronic chest pain, pancreatitis, delirium tremens, and self reported MO (however no records of an MO) with multiple cardiac catheterizations with one in August 2016 showing no occlusion or no stent placements, self- reported TIA twice in the past, anxiety, depression, insomnia, PTSD, fatty liver , hepatic steatosis, hypertension, hyperlipidemia, GERD, recently discharged from [facility] in August 2017 for chest pain, alcohol detox, hypertensive urgency, transaminitis presenting this admission with chief complaint of chest pain. Patient was evaluated for the same type of pain on multiple admissions including in August of this year at which point ACS was ruled out and patient was asked to follow-up with the category analyst. Patient states that he did see Dr. Magaña once and his hydralazine was increased. In the ED patient received aspirin, banana bag, enalaprilat IV 25 mg 1, hydralazine 10 mg IV 1, Toradol 30 mg IV 1, amlodipine 10 mg 1, lisinopril 20 mg 1, metoprolol 75 mg 1, lorazepam 1 mg 1, Zofran Vitals: MAXIMUM TEMPERATURE 99.0, heart rate 77-101, respiration rate 18, blood pressure 212/96 --> 128/65 --> 202/88-->164/84 --> 184/88, saturating at 95-99% on room air Labs: WBC 4.5, H&H 15.3 and 45.4, platelets 192 Sodium 144, potassium 3.9, chloride 100, bicarbonate 25, BUN 12, creatinine 0.7, glucose 108, T bili 1.6, AST 235, ALT 115, alkaline phosphatase 77, troponin <0.01 --> repeat troponin <0.01 Imaging: Chest x-ray: 1. Lungs are hypoinflated. 2. Mild cardiomegaly without pulmonary edema or other significant interval change compared to 08/31/2017. CTA: No evidence for central pulmonary emboli. Mild mucous impacted bronchi seen in the left lower lobe. Stable tiny millimeter sized pulmonary nodule in the right lower lobe. No focal airspace disease otherwise. VTE: Negative Assessment and plan: The patient is a 51-year-old male with past medical history significant for chronic chest pain, multiple admissions for chest pain with multiple cardiac caths with no stent placement or reported history of MO, alcohol abuse, previous alcohol detox, history of DTs, history of transaminitis with previous ultrasound in June showing hepatic steatosis presenting this admission with chest pain and significant alcohol withdrawal with CIWA of 24 and hypertensive urgency. Chest pain is unlikely to be cardiac in origin. Chest pain is reproducbile on exam. May be multifactorial secondary to musculoskeletal etiology, hypertension, anxiety and GERD. Problems: Chest pain R/O ACS Alcohol abuse and detox Hypertensive Urgency Transaminitis likely secondary to alcohol abuse and steatosis. H/O PTSD, Anxiety, Depression, Insomnia H/O GERD H/O HLD Chest pain Admitted to telemetry Continue telemetry monitoring Repeat EKG and troponins- neg Vitals every shift Cardiology on board Continue aspirin 81 daily Continue Lipitor 80 daily Alcohol detox CIWA protocol Ativan IV PRN per CIWA Ativan 2mg q6h PO Social work consult placed Multivitamin, Thiamine folic acid Hypertensive urgency Amlodipine was discontinued, started on nifedipine for blood pressure control. Continue clonidine 0.1 mg twice daily Continue lisinopril 40 daily Continue metoprolol succinate 75 daily GERD Continue omeprazole 40 daily Anxiety Continue prazosin 2 mg at bedtime continue Abilify DVT PPx: Lovenox, ALPS Diet: Heart healthy Code: Full code Problem List: 1. Alcohol dependence 2. Hypertensive urgency 3. Angina at rest Pain Ratin Pain Location: abdomen Pain Goal: Remain pain free Pain Plan: tylenol Tomorrow's Labs & Rationales: cbc bep Franklyn BARRIGA,Amir 11/08/17 1128: Attending MD Review Statement Attending Statement Attending MD Statement: examined this patient, discuss w/resident/PA/BONE DRIER OPERATOR, agreed w/resident/PA/BONE DRIER OPERATOR, reviewed EMR data (avail), discussed with nursing Attending Assessment/Plan: Pt was seen and evaluated. Chart reviewed. Currently denies active CP. CIWA = 11 --cont CIWA protocol --agree with converting to full admit --cont to monitor --rest of the plan as per resident's note
--- NOTE | 2017-11-08 12:38 | PN- Cardiology ---
Subjective Subjective: * Patient continues to report chest discomfort. No shortness of breath. * sinus rhythm Objective Vital Signs and I&Os Vital Signs Date Time Temp Pulse Resp B/P B/P Pulse O2 O2 Flow FiO2 Mean Ox Delivery Rate 11/08 1200 88 20 144/98 07/08 1000 97.9 35 16 148/98 /08 0810 88 132/90 07/08 0808 88 132/90 /08 0806 88 132/90 /08 0800 Room Air Room Air 11/08 0800 88 20 132/90 /08 0631 97.9 93 28 142/78 94 Room Air 11/08 0306 96 Room Air 11/07 2322 93 158/88 11/07 2209 98.7 93 18 158/88 99 11/07 2022 80 166/104 11/07 2021 80 166/104 11/07 1550 94 146/82 11/07 1518 98.2 94 94 146/82 18 Intake & Output 11/08 1600 11/08 0800 11/08 0000 11/07 1600 11/07 0800 11/07 0000 Intake Total 300 120 600 120 Output Total 250 Balance 50 120 600 120 Intake, Oral 300 120 600 120 Number 1 Bowel Movements Output, Urine 250 Patient 285 lb 285 lb Weight Weight Bed scale Measurement Method Physical Exam: General: WD/overweight male in NAD; alert and oriented x 3 HEENT: NC/AT, PERRL, EOMI Neck: no JVD, no carotid bruit Heart: RRR w/o nurmur Lungs; clear bilaterally ABdomen: soft, NT, +ve bowel sounds Extremities: no edema Assessment/Plan Assessment/Plan * This patient has atypical symptoms of chest pain without exacerbation by exertion or relief by rest. It is a prolonged and persistent chest pain without any associated rise in cardiac enzymes or ischemic electocardiographic changes. His EF is normal and two cardiac catheterizations were negative or ischemia. I would consider a GI discomfort and begin a PPI. I would also be concerned that the dicomfort is related to severe hypertenion which can cause subendocardial ischemia. His BP appears better controlled this morning. * Continue Nifedipine ER 30mg daily. He should be on a low sodium diet. Continue clonidine since abruptly stopping this medication can cause rebound hypertension. We will also observe his heart rate and rhythm since the combination of this drug with beta blockers can cause bradycardia. Continue telemetry? Yes
[2017-11-09 05:59] VITALS: BP 100/62
--- NOTE | 2017-11-09 07:20 | PN- Housestaff ---
David Marte 11/09/17 0720: Subjective Follow-up For: Chest pain R/O ACS Alcohol abuse and detox Hypertensive Urgency Transaminitis likely secondary to alcohol abuse and steatosis. Complaints: pain scale (0-10) Tele-Events Since Last Visit: Normal sinus rhythm 70-80 Subjective: Patient was seen and examined this morning. He is alert awake and oriented to time place and person. No acute events overnight. He continues to report mild chest discomfort and abdominal discomfort. He reports being anxious. He also has sweating, tremors. Ciwa scores were ranging in between 6-14. Denies any short of breath. Vitals remained stable. Blood pressure under control. Review of Systems Constitutional: Reports: see HPI. Objective Last 24 Hrs of Vital Signs/I&O Vital Signs Date Time Temp Pulse Resp B/P B/P Pulse O2 O2 Flow FiO2 Mean Ox Delivery Rate 11/09 821 85 138/80 / 0822 85 138/80 / 0821 83 138/80 07/ 0559 98.5 85 22 100/62 92 07/08 2220 98.6 87 22 144/86 94 07/08 2209 90 156/98 07/08 2205 90 156/98 07/08 1802 92 140/86 07/08 1800 98.6 88 22 142/84 07/08 1600 97.8 95 22 138/84 07/08 1541 98.6 81 16 146/82 95 07/08 1537 73 136/80 07/08 1517 98.0 78 20 134/70 95 Room Air 07/08 1400 97.9 65 20 150/76 07/08 1200 88 20 144/98 07/08 1000 97.9 35 16 148/98 Intake & Output / 1600 /09 0800 07/ 0000 Intake Total 240 300 Output Total 250 Balance 240 50 Intake, Oral 240 300 Output, Urine 250 Patient 104.525 kg Weight Physical Exam General Appearance: Alert, Oriented X3, Cooperative, No Acute Distress Other Physical Findings: HEENT: NC/AT, PERRL, EOMI Neck: no JVD, no carotid bruit Heart: RRR w/o nurmur Lungs; clear bilaterally ABdomen: soft, NT, +ve bowel sounds Extremities: no edema Current Medications: Current Medications Sig/Tiffany Start time Last Medication Dose Route Stop Time Status Admin Aripiprazole 5 MG QPM 11/08 2100 AC 11/08 PO 2204 Aspirin 81 MG DAILY 11/07 0900 AC 11/09 PO 0822 Atorvastatin Calcium 80 MG DAILY 11/08 1300 AC 11/09 PO 0822 Clonidine 0.1 MG BID 11/07 2100 AC 11/09 PO 0822 Enoxaparin Sodium 40 MG DAILY 11/07 0900 AC 11/07 SC 0937 Folic Acid 1 MG DAILY 11/07 0900 AC 11/09 PO 0822 Gabapentin 300 MG BID 11/08 1300 AC 11/09 PO 0822 Lisinopril 40 MG DAILY 11/07 09 AC 11/09 PO 0822 Lorazepam 2 MG Q6 11/07 0300 AC 11/09 PO 0511 Lorazepam 0 Q1P PRN 11/07 0300 AC 11/09 IV 0516 Metoprolol Succinate 75 MG DAILY 11/07 09 AC 11/09 PO 0821 Multivitamins 1 TAB DAILY 11/07 09 AC 11/09 PO 0822 Nifedipine 30 MG 1600 11/08 1600 AC 11/08 PO 1802 Nifedipine 30 MG DAILY 11/07 1330 DC 11/07 PO 1550 Omeprazole 40 MG DAILY AC 11/08 0700 AC 11/09 PO 0512 Oxycodone HCl 5 MG .STK-MED ONE 11/08 0850 DC PO 11/08 0851 Prazosin HCl 2 MG QPM 11/07 2100 AC 11/08 PO 2209 Thiamine HCl 100 MG DAILY 11/07 09 AC 11/09 PO 0821 Trimethobenzamide HCl 200 MG .STK-MED ONE 11/08 1650 DC IM 11/08 1651 Trimethobenzamide HCl 200 MG TIDPRN PRN 11/07 2145 AC 11/08 IM 1656 Last 24 Hrs of Lab/Scar Results Last 24 Hrs of Labs/Mics: Laboratory Tests 11/09/17 0623: Anion Gap 13, Estimated GFR > 60, BUN/Creatinine Ratio 14.3, CBC w Diff Pending, WBC Pending, RBC Pending, Hgb Pending, Hct Pending, MCV Pending, MCH Pending, MCHC Pending, RDW Pending, Plt Count Pending, MPV Pending Assessment/Plan Assessment: Patient is a 51-year-old male with past medical history of alcohol abuse, alcohol dependence, chronic chest pain, pancreatitis, delirium tremens, and self reported NV (however no records of an NV) with multiple cardiac catheterizations with one in August 2016 showing no occlusion or no stent placements, self- reported TIA twice in the past, anxiety, depression, insomnia, PTSD, fatty liver , hepatic steatosis, hypertension, hyperlipidemia, GERD, recently discharged from [facility] in August 2017 for chest pain, alcohol detox, hypertensive urgency, transaminitis presenting this admission with chief complaint of chest pain. Patient was evaluated for the same type of pain on multiple admissions including in August of this year at which point ACS was ruled out and patient was asked to follow-up with the roll grinder. Patient states that he did see Dr. Magaña once and his hydralazine was increased. In the ED patient received aspirin, banana bag, enalaprilat IV 25 mg 1, hydralazine 10 mg IV 1, Toradol 30 mg IV 1, amlodipine 10 mg 1, lisinopril 20 mg 1, metoprolol 75 mg 1, lorazepam 1 mg 1, Zofran Vitals: MAXIMUM TEMPERATURE 99.0, heart rate 77-101, respiration rate 18, blood pressure 212/96 --> 128/65 --> 202/88-->164/84 --> 184/88, saturating at 95-99% on room air Labs: WBC 4.5, H&H 15.3 and 45.4, platelets 192 Sodium 144, potassium 3.9, chloride 100, bicarbonate 25, BUN 12, creatinine 0.7, glucose 108, T bili 1.6, AST 235, ALT 115, alkaline phosphatase 77, troponin <0.01 --> repeat troponin <0.01 Imaging: Chest x-ray: 1. Lungs are hypoinflated. 2. Mild cardiomegaly without pulmonary edema or other significant interval change compared to 08/31/2017. CTA: No evidence for central pulmonary emboli. Mild mucous impacted bronchi seen in the left lower lobe. Stable tiny millimeter sized pulmonary nodule in the right lower lobe. No focal airspace disease otherwise. VTE: Negative Assessment and plan: The patient is a 51-year-old male with past medical history significant for chronic chest pain, multiple admissions for chest pain with multiple cardiac caths with no stent placement or reported history of NV, alcohol abuse, previous alcohol detox, history of DTs, history of transaminitis with previous ultrasound in June showing hepatic steatosis presenting this admission with chest pain and significant alcohol withdrawal with CIWA of 24 and hypertensive urgency. Chest pain is unlikely to be cardiac in origin. Chest pain is reproducbile on exam. May be multifactorial secondary to musculoskeletal etiology, hypertension, anxiety and GERD. Problems: Chest pain R/O ACS Alcohol abuse and detox Hypertensive Urgency Transaminitis likely secondary to alcohol abuse and steatosis. H/O PTSD, Anxiety, Depression, Insomnia H/O GERD H/O HLD Chest pain Admitted to telemetry Continue telemetry monitoring Repeat EKG and troponins- neg Vitals every shift Cardiology on board Continue aspirin 81 daily Continue Lipitor 80 daily Alcohol detox CIWA protocol Ativan IV PRN per CIWA Ativan 1.5 mg q6h PO Social work consult placed Multivitamin, Thiamine folic acid Hypertensive urgency Amlodipine was discontinued, started on nifedipine for blood pressure control. Continue clonidine 0.1 mg twice daily Continue lisinopril 40 daily Continue metoprolol succinate 75 daily GERD Continue omeprazole 40 daily Anxiety Continue prazosin 2 mg at bedtime continue Abilify DVT PPx: Lovenox, ALPS Diet: Heart healthy Code: Full code Problem List: 1. Hypertensive urgency 2. Alcohol dependence with continuous acute intoxication with delirium 3. Angina at rest 4. Chest pain syndrome Pain Ratin Pain Location: CHEST PAIN Pain Goal: Remain pain free Pain Plan: TYLENOL Tomorrow's Labs & Rationales: N/A Aquiles Rudolph 11/09/17 1132: Attending MD Review Statement Attending Statement Attending MD Statement: examined this patient, discuss w/resident/PA/LUNCHROOM MONITOR, agreed w/resident/PA/LUNCHROOM MONITOR, reviewed EMR data (avail), discussed with nursing, discussed with case mgmt Attending Assessment/Plan: Etoh abuse and dependenc with intoxication- cont on ciwa protocol. pt has been drinking about 3 liters of rum daily prior to admission. will taper ativan to 1.5mg q6h. d/w case management and aids social worker and they are going to provide him the list of inpatiet alcohol rehab programs. Pt is willing to call them . Hypertensive urgency- bp better controlled. pt is non compliant with meds. Chest pain- pt has had cath done in past which did not show obstrcutive cad. Hypokalemia- will get mag level. replace the potassium and recheck [place]. Neutropenia/thrombocytopenia- likely sec to myelosuppression from alcohol. cont to monitor closely.
[2017-11-09 08:00] VITALS: BP 138/80
[2017-11-09 08:15] LABS: ABSOLUTE BASOPHIL COUNT 0 /CUMM (0.0-0.2); ABSOLUTE EOSINOPHIL COUNT 0.2 /CUMM (0.0-0.7); ABSOLUTE GRANULOCYTE CT 2.1 /CUMM (1.4-6.5); ABSOLUTE LYMPH COUNT 0.6 /CUMM (1.2-3.4); ABSOLUTE MONOCYTE COUNT 0.1 /CUMM (0.10-0.60)
[2017-11-09 08:57] LABS: BASOPHIL % 0.7 % (0.0-2.0); EOSINOPHIL % 6.6 % (0-5); GRANULOCYTE % 70.4 % (42.2-75.2); MEAN CORPUSCULAR HGB 30.7 PG (27.0-31.0); MEAN CORPUSCULAR HGB CONC 34.4 G/DL (33.0-37.0); MEAN CORPUSCULAR VOLUME 89.1 FL (80.0-94.0); MEAN PLATELET VOLUME 9.3 FL (7.4-10.4); RBC DISTRIBUTION WIDTH 14.1 % (11.5-14.5); RED BLOOD CELL CT 4.27 /CUMM (4.70-6.10); WHITE BLOOD CELL COUNT 2.9 /CUMM (4.8-10.8)
[2017-11-09 09:09] LABS: PLATELET COUNT 101 /CUMM (130-400)
[2017-11-09 13:54] VITALS: BP 100/70
[2017-11-09 16:00] VITALS: BP 118/80
[2017-11-09] MEDS ORDERED: NIFEDIPINE ER30 M2 PO ×2 (16:16→22:29)
--- NOTE | 2017-11-09 16:18 | Patient Discharge Instructions ---
Discharge Instructions General Discharge Information You were seen/treated for: Chest pain R/O ACS Alcohol abuse and detox Hypertensive Urgency Transaminitis likely secondary to alcohol abuse and steatosis. Special Instructions: F/U PCP IN ONE WEEK AFTER DISCHARGE F/U SNORKELLING INSTRUCTOR IN ONE WEEK AFTER DISCHARGE F/U PSYCHIATRIST IN ONE WEEK AFTER DISCHARGE Diet Continue normal diet: Yes Activity Full Activity/No Limits: Yes Acute Coronary Syndrome Inclusion Criteria At DC or during hospital stay patient has or had the following: ACS DIAGNOSIS No Discharge Core Measures Meds if any: Prescribed or Continued at Discharge Meds if any: NOT Prescribed or Continued at Discharge Congestive Heart Failure Inclusion Criteria At DC or during hospital stay patient has or had the following: CHF DIAGNOSIS No Discharge Core Measures Meds if any: Prescribed or Continued at Discharge Meds if any: NOT Prescribed or Continued at Discharge Cerebrovascular accident Inclusion Criteria At DC or during hospital stay patient has or had the following: CVA/TIA Diagnosis No Discharge Core Measures Meds if any: Prescribed or Continued at Discharge Meds if any: NOT Prescribed or Continued at Discharge Venous thromboembolism Inclusion Criteria VTE Diagnosis No VTE Type NONE VTE Confirmed by (Test) NONE Discharge Core Measures - Per Current guidelines, there needs to be overlap - treatment for the first 5 days of Warfarin therapy. - If discharged on Warfarin prior to 5 days of - overlap therapy, the patient will need to be - assessed for post discharge needs including - *Post discharge parental anticoagulation - *Warfarin and/or parental anticoagulation education - *Follow up date to check INR post discharge At least 5 days overlap therapy as Inpatient No Meds if any: Prescribed or Continued at Discharge Note: Overlap Therapy is Warfarin and Anticoagulant Meds if any: NOT Prescribed or Continued at Discharge
--- NOTE | 2017-11-09 16:44 | Discharge Summary ---
Visit Information Visit Dates Admission Date: 11/08/17 Discharge Date: 11/09/17 Hospital Course Course Attending Physician: Ronni BARRIGA,[place]qu[place] Gunter Primary Care Physician: Liban BARRIGA,[place] Hospital Course: Patient is a 51-year-old male with past medical history of alcohol abuse, alcohol dependence, chronic chest pain, pancreatitis, delirium tremens, and self reported GA (however no records of an GA) with multiple cardiac catheterizations with one in August 2016 showing no occlusion or no stent placements, self- reported TIA twice in the past, anxiety, depression, insomnia, PTSD, fatty liver , hepatic steatosis, hypertension, hyperlipidemia, GERD, recently discharged from [facility] in August 2017 for chest pain, alcohol detox, hypertensive urgency, transaminitis presented this admission with chief complaint of chest pain. Patient was evaluated for the same type of pain on multiple admissions including in August of this year at which point ACS was ruled out and patient was asked to follow-up with the foreign banknote teller. Patient states that he did see Dr. Magaña once and his hydralazine was increased. In the ED patient received aspirin, banana bag, enalaprilat IV 25 mg 1, hydralazine 10 mg IV 1, Toradol 30 mg IV 1, amlodipine 10 mg 1, lisinopril 20 mg 1, metoprolol 75 mg 1, lorazepam 1 mg 1, Zofran Vitals: MAXIMUM TEMPERATURE 99.0, heart rate 77-101, respiration rate 18, blood pressure 212/96 --> 128/65 --> 202/88-->164/84 --> 184/88, saturating at 95-99% on room air Labs: WBC 4.5, H&H 15.3 and 45.4, platelets 192 Sodium 144, potassium 3.9, chloride 100, bicarbonate 25, BUN 12, creatinine 0.7, glucose 108, T bili 1.6, AST 235, ALT 115, alkaline phosphatase 77, troponin <0.01 --> repeat troponin <0.01 Imaging: Chest x-ray: 1. Lungs are hypoinflated. 2. Mild cardiomegaly without pulmonary edema or other significant interval change compared to 08/31/2017. CTA: No evidence for central pulmonary emboli. Mild mucous impacted bronchi seen in the left lower lobe. Stable tiny millimeter sized pulmonary nodule in the right lower lobe. No focal airspace disease otherwise. VTE: Negative Assessment and plan: The patient is a 51-year-old male with past medical history significant for chronic chest pain, multiple admissions for chest pain with multiple cardiac caths with no stent placement or reported history of GA, alcohol abuse, previous alcohol detox, history of DTs, history of transaminitis with previous ultrasound in June showing hepatic steatosis presenting this admission with chest pain and significant alcohol withdrawal with CIWA of 24 and hypertensive urgency. Problems: Chest pain R/O ACS Alcohol abuse and detox Hypertensive Urgency Transaminitis likely secondary to alcohol abuse and steatosis. H/O PTSD, Anxiety, Depression, Insomnia H/O GERD H/O HLD Chest pain Patient has history of recurrent, chronic chest pain, status post cardiac cath twice, no coronary artery disease was found. Presented now again with chest pain 10 out of 10, radiating to arm and shoulder. He was admitted to telemetry floor, monitored continuously. Serial troponin and EKG were negative. Yarn Rewinder on board. No further interventions were recommended. He was continued on aspirin, statin. Alcohol detox Patient presented to the hospital with chest pain, last alcohol drink was 3 hours prior to the presentation. He has been drinking 2 L of rum every day. CIWA scores were ranging in between 20-25. He was admitted to telemetry for chest pain and alcohol detox was started. He was started on IV Ativan as required based on his scores, he was also started on oral Ativan every 6 hours. bingo worker on board, discussed about inpatient rehab programs. However he was not interested about rehab programs, left AMA overnight. Hypertensive urgency Amlodipine was discontinued, started on nifedipine for blood pressure control. Continued clonidine 0.1 mg twice daily Continued lisinopril 40 daily Continued metoprolol succinate 75 daily GERD Continued omeprazole 40 daily Anxiety Continued prazosin 2 mg at bedtime continued Abilify DVT PPx: Lovenox, ALPS Diet: Heart healthy Code: Full code Allergies: Coded Allergies: Penicillins (RASH 06/25/17) blueberry (hives, rash 06/25/17) nitroglycerin (MIGRAINE 06/25/17) Pertinent Lab Results: IMPRESSION: 1. Lungs are hypoinflated. 2. Mild cardiomegaly without pulmonary edema or other significant interval change compared to 08/31/2017. IMPRESSION: No evidence for central pulmonary emboli. Mild mucous impacted bronchi seen in the left lower lobe. Stable tiny millimeter sized pulmonary nodule in the right lower lobe. No focal airspace disease otherwise. VTE: Negative Disposition Summary Disposition Principal Diagnosis: Chest pain R/O ACS Alcohol abuse and detox Hypertensive Urgency Transaminitis likely secondary to alcohol abuse and steatosis. Additional Diagnosis: as above Discharge Disposition: left against medical adv Discharge Instructions General Discharge Information Code Status: Full Code Patient's Diet: As tolerated Patient's Activity: As tolerated Follow-Up Instructions/Appts: Follow-up PCP in 1 week after discharge Follow-up foreign banknote teller in 1 week after discharge Follow-up with psychiatrist in 1 week after discharge Medications at Discharge Discharge Medications: Stop taking the following medications: Amlodipine Besylate (Norvasc) 10 MG TABLET ORAL DAILY Qty = 30 Continue taking these medications: Multivitamin (One Daily Multivitamin) 1 EACH TABLET 1 Tablet ORAL DAILY Qty = 1 Comments: Last Taken: 11/09/17 Time: 8:30 AM Lisinopril (Lisinopril) 20 MG TABLET 40 Milligram ORAL DAILY Qty = 30 Comments: Last Taken: 11/09/17 Time: 8:30 AM Aripiprazole (Abilify) 5 MG TABLET 1 Tablet ORAL Every night Qty = 14 Instructions: Take 1 tab po QPM. Comments: Last Taken: 11/09/17 Time: 10:00 PM Prazosin HCl (Minipress) 2 MG CAPSULE 1 Capsule ORAL Every night Comments: Last Taken: 11/09/17 Time: 10:00 PM Pantoprazole Sodium (Protonix) 40 MG TABLET.DR 1 Tablet ORAL DAILY Comments: NOT GIVEN IN HOSPITAL Clonidine HCl (Clonidine HCl) 0.1 MG TABLET 1 Tablet ORAL TWICE DAILY Comments: Last Taken: 11/09/17 Time: 10:00 PM Gabapentin (Neurontin) 300 MG CAPSULE 1 Capsule ORAL TWICE DAILY Comments: Last Taken: 11/09/17 Time: 10:00 PM Atorvastatin Calcium (Lipitor) 80 MG TABLET 1 Tablet ORAL DAILY Comments: Last Taken: 11/09/17 Time: 8:30 AM Aspirin (Aspirin*) 81 MG TAB.CHEW 1 Tablet ORAL DAILY Comments: Last Taken: 11/09/17 Time: 8:00 AM Metoprolol Succ XL (Toprol XL) 25 MG TAB 75 Milligram ORAL DAILY Qty = 30 Comments: Last Taken: 11/09/17 Time: 8:30 AM Start taking the following new medications: Nifedipine (Nifedipine ER) 30 MG TAB.ER.24 1 Tablet ORAL DAILY Qty = 30 No Refills Instructions: . Comments: Last Taken: 11/09/17 Time: 4:00 PM Copies To: Yoselin Louie MD
--- NOTE | 2017-11-09 19:34 | PN- Cardiology ---
Subjective Subjective: * chest discomfort is improved * sinus rhythm * improved blood pressure Objective Vital Signs and I&Os Vital Signs Date Time Temp Pulse Resp B/P B/P Pulse O2 O2 Flow FiO2 Mean Ox Delivery Rate 11/09 1614 82 118/80 / 1600 Room Air / 1600 82 118/80 07/ 1400 91 / 1354 98.7 97 20 100/70 97 Room Air / 1200 74 /09 1000 90 / 0822 85 138/80 / 0822 85 138/80 / 0821 83 138/80 /09 0800 Room Air / 0800 85 20 138/80 07/ 0559 98.5 85 22 100/62 92 /08 2220 98.6 87 22 144/86 94 /08 2209 90 156/98 / 2205 90 156/98 Intake & Output / 1600 /09 0800 /09 0000 07/08 1600 /08 0800 /08 0000 Intake Total 500 444 279 9258 300 120 Output Total 250 250 Balance 500 138 96 2735 50 120 Intake, IV 10 Intake, Oral 500 251 945 6302 300 120 Number 4 Bowel Movements Output, Urine 250 250 Patient 230 lb 285 lb Weight Weight Bed scale Measurement Method Physical Exam: General: WD/overweight male in NAD; alert and oriented x 3 HEENT: NC/AT, PERRL, EOMI Neck: no JVD, no carotid bruit Heart: RRR w/o nurmur Lungs; clear bilaterally ABdomen: soft, NT, +ve bowel sounds Extremities: no edema Assessment/Plan Assessment/Plan * This patient has atypical symptoms of chest pain without exacerbation by exertion or relief by rest. It is a prolonged and persistent chest pain without any associated rise in cardiac enzymes or ischemic electocardiographic changes. His EF is normal and two cardiac catheterizations were negative or ischemia. I would consider a GI discomfort and begin a PPI. I would also be concerned that the dicomfort is related to severe hypertenion which can cause subendocardial ischemia. His BP appears better controlled this morning. * Continue Nifedipine ER 30mg daily. He should be on a low sodium diet. Continue clonidine since abruptly stopping this medication can cause rebound hypertension. His heart rate appears well controlled on his current drug regimen. Continue telemetry? No
--- NOTE | 2017-11-09 22:03 | Event Note ---
Event Note Event Note: S: Jeff Rosa is a 51 YO male with a history recurrent chest pain symptoms who is requesting to leave AMA. Patient had requested for an esophageal scope that was not performed and insists he will have it completed at a different hospital. Patient states his management has therefore not progressed to any benefit for him. B: Dr. Magaña, Cardiology, has followed him and has concluded he has not shown any elevations in cardiac enzymes and ECHO was shown to be normal. Patient, however, is in alcohol detoxification and is at risk of alcohol withdrawal and relapsing back into drinking alcohol if returns home sooner than expected. A: Counseled patient on staying, atleast until tomorrow, so that he can talk with the morning team about his management and possibly update his care to alleviate his worries. R: Advised patient on the risks of leaving Against Medical Advice. Patient was advised on the possiblity of alcohol withdrawal and relapsing. Patient is still insisting on being discharged. Patient signed Against Medical Advice forms and was discharged from the hospital. hospital.
[2017-11-09 22:51] VITALS: BP 144/92
== END 2017-11-09 23:00 | disposition left against medical advice (07) | DRG 199 ==
LOC: ERH 15:26 → ERHI 11-07 00:01 → 1NO 11-07 00:01 → ENRESERV 11-07 00:51 → EDBEDREQ 11-07 01:25 → 1NO 11-07 01:26
PROVIDERS: Hospitalist; Physician Assistant; Student in an Organized Health Care Education/Training Program
DX: I16.0 Hypertensive urgency (principal); R07.9 Chest pain, unspecified; F32.9 Major depressive disorder, single episode, unspecified; E78.5 Hyperlipidemia, unspecified; I25.10 Atherosclerotic heart disease of native coronary artery without angina pectoris; K64.9 Unspecified hemorrhoids; I42.6 Alcoholic cardiomyopathy; R74.0 Nonspecific elevation of levels of transaminase and lactic acid dehydrogenase [LDH]; R61 Generalized hyperhidrosis; K76.0 Fatty (change of) liver, not elsewhere classified; Y90.8 Blood alcohol level of 240 mg/100 ml or more; E87.6 Hypokalemia; F41.9 Anxiety disorder, unspecified; F43.10 Post-traumatic stress disorder, unspecified; Z88.0 Allergy status to penicillin; Z88.8 Allergy status to other drugs, medicaments and biological substances; I25.2 Old myocardial infarction; Z98.61 Coronary angioplasty status; Z86.73 Personal history of transient ischemic attack (TIA), and cerebral infarction without residual deficits; F10.221 Alcohol dependence with intoxication delirium
CPT/HCPCS: 1NSP; 36415; 36592; 71046; 80307; 82436; 93005; 93010; 96374; 96375; G0480; J0360; J1650; J2405; J3250; J3490

== ENCOUNTER 2017-11-22 20:39 | Emergency (ER) | payer OTHER ==
[~2017-11-22] VITALS: Ht 167.6 cm; Wt 108.9 kg
[~2017-11-22 20:39] MED LIST changes: +NIFEDIPINE ER30 M2 PO
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
[2017-11-22 21:10] LABS: ABSOLUTE BASOPHIL COUNT 0 /CUMM (0.0-0.2); ABSOLUTE EOSINOPHIL COUNT 0 /CUMM (0.0-0.7); ABSOLUTE GRANULOCYTE CT 2.6 /CUMM (1.4-6.5); ABSOLUTE LYMPH COUNT 1.2 /CUMM (1.2-3.4); ABSOLUTE MONOCYTE COUNT 0.2 /CUMM (0.10-0.60); BASOPHIL % 1.2 % (0.0-2.0); EOSINOPHIL % 0.5 % (0-5); GRANULOCYTE % 64.6 % (42.2-75.2); HEMATOCRIT 45.7 % (42-52); MEAN CORPUSCULAR HGB 30.4 PG (27.0-31.0); MEAN CORPUSCULAR HGB CONC 33.8 G/DL (33.0-37.0); MEAN CORPUSCULAR VOLUME 89.7 FL (80.0-94.0); MEAN PLATELET VOLUME 7.5 FL (7.4-10.4); PLATELET COUNT 223 /CUMM (130-400); RBC DISTRIBUTION WIDTH 15.3 % (11.5-14.5); WHITE BLOOD CELL COUNT 4.1 /CUMM (4.8-10.8)
[2017-11-22 21:28] LABS: PT 11.1 SEC (9.4-12.5); PTT 24 SEC (25-37)
--- NOTE | 2017-11-22 22:44 | RADIOLOGY REPORT ---
EXAMINATION: XR PORTABLE CHEST CLINICAL INFORMATION: Chest pain COMPARISON: 11/06/2017 TECHNIQUE: Portable frontal view of the chest was obtained. FINDINGS: Left hemidiaphragm is obscured probably by underlying infiltrate and/or atelectasis newly developed on today's exam. There is a discoid-like atelectasis at RIGHT lung base. Cardiac silhouette and mediastinum are widened exaggerated by the AP technique. There is no pneumothorax. IMPRESSION: Obscured LEFT hemidiaphragm probably by newly developed infiltrate and/or atelectasis. Discoid atelectasis RIGHT lung base.
[2017-11-23 13:56] VITALS: BP 179/94
[2017-11-23] MEDS ORDERED: ATIVAN1 M1 PO (16:31)
[2017-11-23] MEDS ORDERED: ZOFRAN4 M2 PO ×2 (16:33→16:34)
== END 2017-11-23 17:51 ==
LOC: ERH 20:39
PROVIDERS: Pediatrics
DX: R07.89 Other chest pain (principal); F10.239 Alcohol dependence with withdrawal, unspecified; F10.129 Alcohol abuse with intoxication, unspecified
CPT/HCPCS: 71045; 80307; 93005; 93010; 96374; 96375; 96376; G0480; J0131; J1885; J2405; J3490

== ENCOUNTER 2018-01-15 20:02 | Emergency (ER) | payer OTHER ==
[~2018-01-15] VITALS: Ht 167.6 cm; Wt 108.9 kg
[2018-01-15 20:08] VITALS: BP 160/70
[2018-01-15 20:41] LABS: ABSOLUTE BASOPHIL COUNT 0 /CUMM (0.0-0.2); ABSOLUTE EOSINOPHIL COUNT 0.1 /CUMM (0.0-0.7); ABSOLUTE GRANULOCYTE CT 1.6 /CUMM (1.4-6.5); ABSOLUTE LYMPH COUNT 1.3 /CUMM (1.2-3.4); ABSOLUTE MONOCYTE COUNT 0.3 /CUMM (0.10-0.60); BASOPHIL % 0.7 % (0.0-2.0); EOSINOPHIL % 2.7 % (0-5); GRANULOCYTE % 47.4 % (42.2-75.2); HEMATOCRIT 40.2 % (42-52); MEAN CORPUSCULAR HGB 31.3 PG (27.0-31.0); MEAN CORPUSCULAR HGB CONC 34.6 G/DL (33.0-37.0); MEAN CORPUSCULAR VOLUME 90.6 FL (80.0-94.0); MEAN PLATELET VOLUME 7.5 FL (7.4-10.4); PLATELET COUNT 199 /CUMM (130-400); RBC DISTRIBUTION WIDTH 14.8 % (11.5-14.5); RED BLOOD CELL CT 4.44 /CUMM (4.70-6.10); WHITE BLOOD CELL COUNT 3.4 /CUMM (4.8-10.8)
--- NOTE | 2018-01-15 21:39 | RADIOLOGY REPORT ---
EXAMINATION: CHEST 1 VIEW CLINICAL INFORMATION: Chest pain. COMPARISON: 01/02/2018. TECHNIQUE: An AP view of the chest is provided. FINDINGS: The cardiac silhouette is enlarged, though stable. The mediastinal and hilar contours are unremarkable. There are neither pleural effusions nor pneumothoraces. There are no consolidations. There is mild atelectasis at the right lung base. The osseous structures are unremarkable. IMPRESSION: No consolidations. Mild right lung base atelectasis. Stable cardiomegaly.
== END 2018-01-15 23:19 | disposition admitted as inpatient to this hospital (09) ==
LOC: ERH 20:02
PROVIDERS: Pediatrics
DX: R07.9 Chest pain, unspecified (principal); R06.00 Dyspnea, unspecified
CPT/HCPCS: 71045; 93005; 93010; 99281; G0480